=== PATIENT | male | born 1945 | race Caucasian/White ===

== ENCOUNTER → 2017-11-10 07:48 | Outpatient (CLI) | payer MEDICARE, MEDICAID, SELFPAY | PROVIDERS: PCP Family Medicine; Visit Provider Family Medicine | DX: E11.9 Type 2 diabetes mellitus without complications (principal); Z86.73 Personal history of transient ischemic attack (TIA), and cerebral infarction without residual deficits; R29.6 Repeated falls | CPT/HCPCS: 99304 ==

== ENCOUNTER 2017-12-27 14:23 | Outpatient (CLI) | payer MEDICARE, MEDICAID, SELFPAY ==
[2017-12-27 14:48] LABS: Abs Immature Grans 0.09 k/cumm (0.0-0.09); Absolute Basophil Count 0.05 k/cumm (0.0-0.2); Absolute Eosinophil Count 0.05 k/cumm (0.0-0.7); Absolute Lymphocyte Count 1.88 k/cumm (1.2-3.4); Absolute Monocyte Count 1.55 k/cumm (0.11-0.7); Absolute Neutrophil Count 5.48 k/cumm (1.2-6.7); Basophils % 0.5; Eosinophils % 0.5; HCT 39.2 % (40.0-50.0); HGB 12.9 g/dL (13.5-17.5); Lymphocytes % 20.7; Mean Corp. HGB Concentration 32.9 g/dL (32.0-36.0); Mean Corpuscular Hemoglobin 33.5 pg (27.0-33.0); Mean Corpuscular Volume 101.8 fL (80-95); Mean Platelet Volume 12.2 fL (8.0-11.0); Neutrophils % 60.3; Platelet Count 121 x1000/uL (130-400); RBC 3.85 m/cumm (4.50-6.00); RBC Distribution Width 13.7 % (11.8-14.1)
[2017-12-27 15:04] LABS: Polychromasia Present
[2017-12-27 15:36] LABS: ALT 36 U/L (12-78); AST 25 U/L (15-37); Albumin 3.7 g/dL (3.4-5.0); Alkaline Phosphatase 57 U/L (46-116); Anion Gap 12.7 mmol/L (3-11); BUN 35 mg/dL (7-18); Bilirubin, Total 0.2 mg/dL (0.2-1.0); CO2 24.3 mmol/L (21.0-32.0); CREATININE 2.04 mg/dL (0.70-1.30); Chloride 105 mmol/L (98-107); Estimated GFR 32.08 (mL/min/1.73m2); Glucose 93 mg/dL (70-100); Sodium 142 mmol/L (136-145); Total Protein 7.2 g/dL (6.4-8.2)
[2017-12-27 16:22] LABS: Hemoglobin A1C 7.2 % (4.5-6.2)
[2017-12-28 11:35] LABS: CEA <0.5 ng/ml
== END 2017-12-27 14:43 ==
PROVIDERS: PCP Family Medicine; Visit Provider Nurse Practitioner Adult Health
DX: E11.40 Type 2 diabetes mellitus with diabetic neuropathy, unspecified (principal); C18.2 Malignant neoplasm of ascending colon
CPT/HCPCS: 36415; 80053; 82378; 83036; 85025

== ENCOUNTER 2017-12-30 00:17 | Outpatient (CLI) | payer MEDICARE, MEDICAID, SELFPAY ==
[2017-12-30] MEDS: Breeza Beverage 473 ML BTL PO ×2 (09:14)
[2017-12-30] MEDS: Omnipaque 350 MG/ML 50 ML BTL IJ (09:15)
--- NOTE | 2017-12-30 10:52 | DI.CT_ITS ---
SYMPTOM/DIAGNOSIS: ASCENDING COLON NEOPLASM C18.2, RESTAGING CT CHEST, ABDOMEN AND PELVIS: Noncontrast examination was performed. Comparison is 11/04/16. CT ABDOMEN AND PELVIS: The lack of IV contrast does limit evaluation of the abdominal organs. There is diffuse hepatic steatosis. The gallbladder is negative. No biliary ductal dilatation is seen. The pancreas, spleen and adrenal glands are unremarkable. The kidneys show bilateral renal cysts. There is a large nonobstructing stone in the left renal pelvis now measuring 1.4 cm in length. The urinary bladder is intact. The prostate gland is enlarged and unchanged. There is atherosclerosis of the abdominal aorta but no aneurysmal dilatation is present. No significant abdominal or pelvic adenopathy, ascites or pneumoperitoneum is present. There is diverticulosis of the sigmoid colon but no evidence of acute diverticulitis. The patient is status post right colectomy. The bowel shows no evidence of obstruction, inflammation or infection. No lytic or sclerotic lesions are seen in the bones. IMPRESSION: No evidence of abdominal or pelvic metastatic disease. CT CHEST: There is atherosclerosis of the thoracic aorta but no aneurysmal dilatation. Heart size is within normal limits. No significant pericardial effusion seen. Coronary artery calcifications are present. No significant thoracic adenopathy is identified. No pleural effusion or pneumothorax is identified. Mild dependent atelectatic changes are seen in the lungs. There has been no change in size of the 0.5 cm noncalcified pulmonary nodule in the right lower lobe. No new nodules are seen. The tracheobronchial tree is unremarkable. Degenerative changes are seen in the spine. No suspicious lytic or sclerotic lesions are identified. IMPRESSION: No evidence of thoracic metastatic disease.
== END 2017-12-30 00:37 ==
PROVIDERS: PCP Family Medicine; Visit Provider Nurse Practitioner Adult Health
DX: C18.2 Malignant neoplasm of ascending colon (principal)
CPT/HCPCS: 71250; 74176; Q9967

== ENCOUNTER 2018-01-23 01:41 | Emergency (ER) | payer MEDICARE, MEDICAID, SELFPAY ==
[2018-01-23] VITALS (34 sets, daily range): BP systolic 104–158; BP diastolic 46–82; PULSE 66–82; RESP 12–22; TEMP 36.9; O2SAT 81–94
--- NOTE | 2018-01-23 01:49 | DI.CT_ITS ---
SYMPTOM/DIAGNOSIS: RT SIDED WEAKNESS NONCONTRAST HEAD CT: Comparison is made with 05/28/17. There is no change in an old large right MCA territory infarct. No acute infarct, hemorrhage or mass is seen. There is mild atrophy and white matter changes of small vessel disease. There is incidently noted to be prominent falcine calcification. The ventricles are unchanged. The sinuses and mastoid air cells appear clear. IMPRESSION: Old right MCA infarct. No acute abnormality.
--- NOTE | 2018-01-23 01:52 | DI.CT_ITS ---
SYMPTOM/DIAGNOSIS: RT SIDED WEAKNESS BRAIN AND NECK CTA: BRAIN: CT angiography was performed with multi slice acquisition and multi planar and 3D reconstruction. There is no evidence of occlusion or significant stenosis. No aneurysm is visible. No abnormal enhancing lesions are identified. IMPRESSION: No evidence of a significant stenosis or aneurysm. NECK: There is narrowing by atherosclerotic plaque of the proximal right internal carotid artery with approximately 50% stenosis bilaterally. The common and external carotid arteries as well as vertebral arteries show no significant stenosis. No lytic or blastic lesions are identified. IMPRESSION: Moderate degree of stenosis of the proximal internal carotid arteries bilaterally. No evidence of dissection.
--- NOTE | 2018-01-23 01:58 | W.ED.GENAD ---
Discharge Plan Disposition Condition: Fair Discharge Details Chief Complaint: CVA/TIA Primary Care Provider: Hever Presley ED Provider: Jamal Coello Home Meds and New Rx's Prescriptions: No Action C-Pap RF: 0 lancets [OneTouch Delica Lancets] 1 EACH misc 1 ea Miscellaneous QID Qty: 200 RF: 4 MARC GONZALEZ cream 1 gm Topical Q 6 PRN RF: 0 incontinence pad, liner, disp [Prevail Pant Liner] 1 EACH pad 1 box Miscellaneous TID Qty: 3 RF: 5 simvastatin 40 MG tablet 40 mg PO QPM Qty: 90 RF: 4 pen needle, diabetic [BD Ultra-Fine Ana Pen Needle] 1 EACH needle 1 ea Miscellaneous 8 time a day Qty: 240 RF: 11 montelukast 10 MG tablet 10 mg PO DAILY Qty: 90 RF: 4 insulin syringe-needle U-100 [Insulin Syringe MicroFine] 1 EACH syringe 1 ea Miscellaneous QID Qty: 200 RF: 4 blood sugar diagnostic [OneTouch Ultra Test] 1 EACH strip 1 ea Miscellaneous TID Qty: 200 RF: 4 ergocalciferol (vitamin D2) [Vitamin D2] 50,000 UNIT capsule 1 tab-cap PO monthly Qty: 3 RF: 4 Lactobacillus acidophilus 1 EACH capsule 1 cap PO DAILY Qty: 90 RF: 4 tamsulosin 0.4 MG capsule 2 cap PO DAILY Qty: 180 RF: 4 insulin aspart U-100 [Novolog Flexpen U-100 Insulin] 300 UNITS/3 ML insulin pen 60 units Sub-Q AC Qty: 45 RF: 4 diclofenac sodium 100 GM gel Topical BID Qty: 100 RF: 0 meprobamate 400 MG tablet 2 tab PO HS PRNQty: 180 RF: 3 diphenoxylate-atropine 1 EACH tablet 1 - 2 tab PO TID PRNQty: 90 RF: 4 olanzapine 5 MG tablet 5 mg PO DAILY Qty: 90 RF: 4 clopidogrel [Plavix] 75 MG tablet 75 mg PO HS Qty: 90 RF: 4 pantoprazole 40 MG tablet,delayed release (DR/EC) 40 mg PO HS Qty: 90 RF: 4 losartan 25 MG tablet 25 mg PO DAILY Qty: 30 RF: 0 mirabegron [Myrbetriq] 50 MG tablet extended release 24 hr 50 mg PO DAILY Qty: 90 RF: 4 acetaminophen 500 MG tablet 1,000 mg PO Q4H PRN RF: 0 guaifenesin [Tussin Expectorant] 100 MG/5 ML liquid 200 mg PO Q4H PRN RF: 0 U-500 syringe 1 ea Sub-Q TID Qty: 90 RF: 11 diltiazem HCl [Cardizem CD] 120 MG capsule,extended release 24hr 120 mg PO DAILY Qty: 90 RF: 4 duloxetine 60 MG capsule,delayed release(DR/EC) 60 mg PO HS Qty: 90 RF: 4 insulin regular hum U-500 conc [Humulin R U-500 (Conc) Insulin] 500 unit/mL solution See Label Instructions Sub-Q TID Qty: 3 RF: 5 ipratropium-albuterol 0.5 mg-3 mg(2.5 mg base)/3 mL solution for nebulization 3 ml IH QID PRN (Reason: wheezing) Qty: 90 RF: 3 nebulizers [Compact Compressor Nebulizer] misc .ROUTE .MEDSUPPLY Qty: 1 RF: 0 oxybutynin chloride 5 mg tablet extended release 24hr 5 mg PO DAILY Qty: 90 RF: 4 ascorbic acid (vitamin C) [Vitamin C] 500 MG tablet 500 mg PO DAILY RF: 0 multivitamin 1 EACH capsule 1 cap PO DAILY RF: 0 aspirin 81 MG tablet,delayed release (DR/EC) 81 mg PO DAILY Qty: 30 RF: 0 ferrous sulfate 325 MG tablet 1 tab PO BID RF: 0 gabapentin 100 MG capsule 100 mg PO TID RF: 0 Medical Decision Making 72 yo male with hx of multiple recurrent right hemispheric strokes (2000, 2001, 2002, 2005, 2013, and 2 in 2016), htn, hld, t2dm, kaycee, who comes in with right arm weakness. He has chronic left arm and leg weakness from prior strokes and decreased sensation in this limbs which is not new but does have right arm weakness on the right as well as drift in the right leg that is new and is also having difficulties with fine motor in the right hand which is new. He staes he went to bed around 530pm and woke up around 115am and felt off. He got up to get something to eat as he thought maybe his sugar was low. 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 He is likely having a cva, less likely tia given still has deficits. He is outside window for tpa at this time, will image to eval for possible interventional lesion and eval for electrolyte abnormaliteis and monitor. NIH 7 (1-left arm drift, 1-right arm drift, 1-left leg drift, 1-right leg drift, 2-ataxia in right arm and right leg, 1-sensation). He did report left shoulder pain to ems but has absolutely no pain on my exam even with rom and palpation so doubt fx at this time Differential Diagnosis cva, tia, electrolyte abnormality HPI General Mode of arrival: EMS. Date/Time Provider Initiated Documentation: 01/23/18 01:47. Limitations to Documentation: no limitations. Information obtained by: patient. History of Present Illness 72 year old M presents to the emergency department with the chief complaint of right sided weakness, described as moderate, and is localized to the right and upper extremity. Patient reports no radiation. No relieving factors improve symptom(s), No exacerbating factors reported . Patient notes no other symptoms.. Patient did receive the following treatments prior to arrival, none Related Data Home Medications Medication Instructions Recorded Confirmed ascorbic acid (vitamin C) [Vitamin 500 mg PO DAILY 04/16/13 12/27/17 C] multivitamin 1 cap PO DAILY 04/16/13 12/27/17 lancets [OneTouch Delica Lancets] #200 ea 09/26/15 12/27/17 aspirin 81 mg PO DAILY #30 tabec 01/21/16 12/27/17 ferrous sulfate 1 tab PO BID 03/18/16 12/27/17 Marc Gonzalez 1 gm TOPICAL Q 6 PRN 03/23/16 12/27/17 incontinence pad, liner, disp #3 07/29/16 12/27/17 [Prevail Pant Liner] simvastatin 40 mg PO QPM #90 tab 08/09/16 12/27/17 pen needle, diabetic [BD #240 ea 08/19/16 12/27/17 Ultra-Fine Ana Pen Needle] montelukast 10 mg PO DAILY #90 mg 11/04/16 12/27/17 insulin syringe-needle U-100 #200 ea 11/09/16 12/27/17 [Insulin Syringe MicroFine] blood sugar diagnostic [OneTouch #200 strip 01/06/17 12/27/17 Ultra Test] ergocalciferol (vitamin D2) 1 tab-cap PO monthly #3 tab-cap 01/06/17 12/27/17 [Vitamin D2] Lactobacillus acidophilus 1 cap PO DAILY #90 cap 02/01/17 12/27/17 tamsulosin 2 cap PO DAILY #180 cap 02/07/17 12/27/17 insulin aspart U-100 [Novolog 60 units SUB-Q AC #45 pen 03/17/17 12/27/17 Flexpen] diclofenac sodium 0 TOPICAL BID #100 gm 03/18/17 12/27/17 meprobamate 2 tab PO HS PRN #180 tab 07/11/17 12/27/17 gabapentin 100 mg PO TID 08/08/17 12/27/17 diphenoxylate-atropine 1 - 2 tab PO TID PRN #90 tab-cap 09/05/17 clopidogrel [Plavix] 75 mg PO HS #90 tab 10/14/17 12/27/17 losartan 25 mg PO DAILY #30 tab 10/14/17 12/27/17 mirabegron [Myrbetriq] 50 mg PO DAILY #90 tab-cap 10/14/17 12/27/17 olanzapine 5 mg PO DAILY #90 tab-cap 10/14/17 12/27/17 pantoprazole 40 mg PO HS #90 tab 10/14/17 12/27/17 acetaminophen 1,000 mg PO Q4H PRN tab-cap 11/08/17 12/27/17 guaifenesin [Tussin] 200 mg PO Q4H PRN ml 11/08/17 12/27/17 diltiazem HCl [Cardizem Cd] 120 mg PO DAILY #90 cap.er.24h 11/29/17 duloxetine 60 mg PO HS #90 cap 11/29/17 12/27/17 insulin regular human See Label Instructions SUB-Q TID 01/12/18 U-500concentrate 500 unit/mL #3 vial subcutaneous soln ipratropium-albuterol 0.5 mg-3 3 ml IH QID PRN #90 ml 01/13/18 mg(2.5 mg base)/3 mL nebulization soln nebulizers #1 each 01/13/18 oxybutynin chloride ER 5 mg 5 mg PO DAILY #90 tab-cap 01/16/18 tablet,extended release 24 hr Previous Rx's Medication Instructions Recorded aspirin 81 mg PO DAILY #30 tabec 01/21/16 blood sugar diagnostic [OneTouch #200 strip 01/06/17 Ultra Test] ergocalciferol (vitamin D2) 1 tab-cap PO monthly #3 tab-cap 01/06/17 [Vitamin D2] Lactobacillus acidophilus 1 cap PO DAILY #90 cap 02/01/17 tamsulosin 2 cap PO DAILY #180 cap 02/07/17 insulin aspart U-100 [Novolog 60 units SUB-Q AC #45 pen 03/17/17 Flexpen] clopidogrel [Plavix] 75 mg PO HS #90 tab 10/14/17 losartan 25 mg PO DAILY #30 tab 10/14/17 mirabegron [Myrbetriq] 50 mg PO DAILY #90 tab-cap 10/14/17 olanzapine 5 mg PO DAILY #90 tab-cap 10/14/17 pantoprazole 40 mg PO HS #90 tab 10/14/17 diltiazem HCl [Cardizem Cd] 120 mg PO DAILY #90 cap.er.24h 11/29/17 duloxetine 60 mg PO HS #90 cap 11/29/17 insulin regular human See Label Instructions SUB-Q TID 01/12/18 U-500concentrate 500 unit/mL #3 vial subcutaneous soln ipratropium-albuterol 0.5 mg-3 3 ml IH QID PRN #90 ml 01/13/18 mg(2.5 mg base)/3 mL nebulization soln nebulizers #1 each 01/13/18 oxybutynin chloride ER 5 mg 5 mg PO DAILY #90 tab-cap 01/16/18 tablet,extended release 24 hr Allergies Allergy/AdvReac Type Severity Reaction Status Date / Time tetracycline Allergy Unknown Unverified 12/27/17 13:15 propofol AdvReac Severe drops BP Unverified 12/27/17 13:[address] oxycodone AdvReac Intermediate Agitation Unverified 12/27/17 13:15 tetrex Allergy Unknown Uncoded 12/27/17 13:15 General Stated Complaint: CVA/TIA PETER: 2 Review of Systems Review of Systems All systems reviewed & are unremarkable except as noted in HPI and below Constitutional Denies chills and Denies fever(s) Eyes Denies loss of vision ENT Denies change in voice Cardiovascular Denies chest pain and Denies dyspnea Respiratory Denies dyspnea Gastrointestinal Denies abdominal pain, Denies nausea and Denies vomiting Genitourinary Denies dysuria Musculoskeletal Denies joint swelling Integumentary/Breasts Denies rash Neurologic Denies loss of vision Psychiatric Denies depression PFSH Family History Mother Essential hypertension Heart disease Father No problems noted. Sister Essential hypertension Brother Essential hypertension Grandfather Heart disease Grandfather Heart disease Grandmother Heart disease Grandmother No problems noted. Social History current occupational status: disabled Smoking/Tobacco Use Status: Former Tobacco Use alcohol intake: never Surgical History Appendectomy Arthroplasty of knee HERNIA REPAIR LOW BACK SURGERY PROPOFOL SEDATION Tonsillectomy UPPP (Uvulopalatopharyngoplasty) Exam Const General: no acute distress Orientation: alert [facility] Head: normal to inspection Ears: external ears normal General nose exam: external nose normal Mouth: moist mucous membranes Eyes General: appearance normal, both eyes and all related structures Neck Neck: normal visual inspection Resp Effort & Inspection: normal respiratory effort and able to speak in complete sentences Cardio Rate: regular rate Skin General skin exam: no rashes or lesions noted Neuro General: alert, oriented x3 and other Cranial Nerves: CN's II-XI intact bilaterally Cognition: normal cognition Speech: speech normal Motor: other (bulk and tone intact, decreased fine motor movements on the left with left pronator drift which is chronic for him. Strength is 4/5 on the right which is new for him. 4/ 5 in the left upper extremity, chronic. 4/5 strength proximally in the left leg, chronic ) Sensory Exam: other (decreased sensation to light touch to left lower extremity that is chronic, has decreased light touch on the right arm which he states is new) Other: hyporeflexic throughout with right toe downgoing and left toe neutral Extrem General: normal to inspection Psych Mental Status: mental status grossly normal Course Vital Signs Temperature 36.9 C 01/23/18 01:48 Pulse 69 01/23/18 01:48 Respiratory Rate 22 01/23/18 01:48 Blood Pressure 126/64 01/23/18 01:48 Pulse Oximetry 91 L 01/23/18 01:48 Temperature 36.9 C 01/23/18 01:48 Temperature Source Temporal Artery Scan 01/23/18 01:48 Pulse 69 01/23/18 01:48 Respiratory Rate 20 01/23/18 01:54 Respiratory Effort 01/23/18 01:54 Respiratory Depth Normal 01/23/18 01:54 Blood Pressure 126/64 01/23/18 01:48 Pulse Oximetry 91 L 01/23/18 01:48 Oxygen Delivery Method Room Air 01/23/18 01:48 Oxygen Flow Rate 0 01/23/18 01:48 Pain Level 0 01/23/18 01:48
[2018-01-23 02:10] LABS: Abs Immature Grans 0.13 k/cumm (0.0-0.09); HCT 41.7 % (40.0-50.0); HGB 13.5 g/dL (13.5-17.5); Mean Corp. HGB Concentration 32.4 g/dL (32.0-36.0); Mean Corpuscular Hemoglobin 33.3 pg (27.0-33.0); Mean Platelet Volume 11.9 fL (8.0-11.0); Platelet Count 137 x1000/uL (130-400); RBC 4.05 m/cumm (4.50-6.00); RBC Distribution Width 13.8 % (11.8-14.1); White Blood Cell Count 11.18 k/cumm (4.4-10.8)
[2018-01-23 02:25] LABS: ALT 37 U/L (12-78); AST 31 U/L (15-37); Albumin 3.6 g/dL (3.4-5.0); Alkaline Phosphatase 66 U/L (46-116); Anion Gap 11.8 mmol/L (3-11); BUN 28 mg/dL (7-18); Bilirubin, Total 0.3 mg/dL (0.2-1.0); CO2 27.2 mmol/L (21.0-32.0); CREATININE 2.15 mg/dL (0.70-1.30); Calcium 9.1 mg/dL (8.5-10.1); Chloride 103 mmol/L (98-107); Glucose 155 mg/dL (70-100); Magnesium 1.6 mg/dL (1.8-2.4); Potassium 3.9 mmol/L (3.5-5.1); Sodium 142 mmol/L (136-145); Total Protein 7.7 g/dL (6.4-8.2)
[2018-01-23 02:26] LABS: Troponin I < 0.02 ng/mL (0.00-0.06)
[2018-01-23 02:36] LABS: Absolute Neutrophil Count 8.72 k/cumm (1.2-6.7)
[2018-01-23 02:37] LABS: Absolute Eosinophil Count 0.11 k/cumm (0.0-0.7); Absolute Lymphocyte Count 1.23 k/cumm (1.2-3.4); Absolute Monocyte Count 1.12 k/cumm (0.11-0.7); Atypical Lymphocytes % 2; Diff Comment Manual Differential; Prothrombin Time 10.1 sec (9.3-10.8); RBC Morphology Normal
[2018-01-23 02:51] LABS: ALT 40 U/L (12-78); AST 30 U/L (15-37); Albumin 3.7 g/dL (3.4-5.0); Alkaline Phosphatase 69 U/L (46-116); Bilirubin, Direct 0.09 mg/dL (0.00-0.20); Bilirubin, Total 0.3 mg/dL (0.2-1.0); Total Protein 7.5 g/dL (6.4-8.2)
--- NOTE | 2018-01-23 03:01 | DI.VRAD_ITS ---
EXAM: CT Head Without Intravenous Contrast EXAM DATE/TIME: 01/23/2018 1:50 AM CLINICAL HISTORY: 72 years old, male; Signs and symptoms; Other: Fall, HX strokes TECHNIQUE: Axial computed tomography images of the head/brain without intravenous contrast. All CT scans at this facility use at least one of these dose optimization techniques: automated exposure control; mA and/or kV adjustment per patient size (includes targeted exams where dose is matched to clinical indication); or iterative reconstruction. Coronal and sagittal reformatted images were created and reviewed. COMPARISON: CT HEAD WITHOUT CONTRAST 05/28/2017 2:12 PM FINDINGS: Brain: Chronic right MCA territory infarct. Age-related involutional changes and chronic microvascular ischemic disease. No evidence for acute transcortical infarct. No mass effect or midline shift. No extra-axial collection. No acute intracranial hemorrhage. Basal cisterns are patent. Ventricles: Ex vacuo dilatation of the right lateral ventricle. Bones/joints: Normal. No acute fracture. Sinuses: Normal as visualized. No acute sinusitis. Mastoid air cells: Tympanomastoid cavities are clear. Orbits: Bilateral cataract surgery. Soft tissues: Normal. IMPRESSION: No evidence for acute transcortical infarct, acute intracranial hemorrhage, or mass effect. [place] Stroke Program Early CT Score (ASPECTS) = 10 Dictated and Authenticated by: Aric Dias MD. Ordering:MATT GONCALVES MD
[2018-01-23] MEDS: Omnipaque 350 MG/ML 100 ML BTL IJ (03:02)
--- NOTE | 2018-01-23 03:25 | DI.VRAD_ITS ---
EXAM: CT Angiography Head With Intravenous Contrast EXAM DATE/TIME: 01/23/2018 2:34 AM CLINICAL HISTORY: 72 years old, male; Signs and symptoms; Other: Fall, HX strokes TECHNIQUE: Axial computed tomographic angiography images of the head with intravenous contrast using CT angiography protocol. All CT scans at this facility use at least one of these dose optimization techniques: automated exposure control; mA and/or kV adjustment per patient size (includes targeted exams where dose is matched to clinical indication); or iterative reconstruction. Coronal and sagittal reformatted images were created and reviewed. MIP reconstructed images were created and reviewed. COMPARISON: CT brain neck CTA 01/23/2018 1:57 AM FINDINGS: Right internal carotid artery: Intracranial segment is patent with no significant stenosis. No aneurysm. Right anterior cerebral artery: No occlusion or significant stenosis. No aneurysm. Right middle cerebral artery: No occlusion or significant stenosis. No aneurysm. Right posterior cerebral artery: No occlusion or significant stenosis. No aneurysm. Right vertebral artery: No occlusion or significant stenosis. No aneurysm. Left internal carotid artery: Intracranial segment is patent with no significant stenosis. No aneurysm. Left anterior cerebral artery: No occlusion or significant stenosis. No aneurysm. Left middle cerebral artery: No occlusion or significant stenosis. No aneurysm. Left posterior cerebral artery: No occlusion or significant stenosis. No aneurysm. Left vertebral artery: No occlusion or significant stenosis. No aneurysm. Basilar artery: No occlusion or significant stenosis. No aneurysm. IMPRESSION: No significant stenosis or aneurysm. EXAM: CT Angiography Neck With Intravenous Contrast EXAM DATE/TIME: 01/23/2018 2:34 AM CLINICAL HISTORY: 72 years old, male; Signs and symptoms; Other: Fall, HX strokes TECHNIQUE: Axial computed tomographic angiography images of the neck with intravenous contrast using CT angiography protocol. All CT scans at this facility use at least one of these dose optimization techniques: automated exposure control; mA and/or kV adjustment per patient size (includes targeted exams where dose is matched to clinical indication); or iterative reconstruction. Coronal and sagittal reformatted images were created and reviewed. The MIP reconstructed images were created and reviewed. COMPARISON: CT brain neck CTA 01/23/2018 1:57 AM FINDINGS: VASCULATURE: Right common carotid artery: No significant stenosis. No dissection or occlusion. Right internal carotid artery: Atherosclerotic disease involving the origin of the right internal carotid artery resulting in approximately 50-60% stenosis. Right external carotid artery: No occlusion or significant stenosis. Right vertebral artery: No significant stenosis. No dissection or occlusion. Left common carotid artery: No significant stenosis. No dissection or occlusion. Left internal carotid artery: Atherosclerotic disease involving the origin of the left internal carotid artery resulting in approximately 50-60% stenosis. Left external carotid artery: No occlusion or significant stenosis. Left vertebral artery: No significant stenosis. No dissection or occlusion. NECK: Bones/joints: No acute fracture. IMPRESSION: Atherosclerotic disease involving the origins of the internal carotid arteries resulting in moderate stenosis bilaterally. COMMENT: Degree of carotid stenosis was determined using NASCET or SRU criteria. Mild: <50% stenosis. Moderate: 50-69% stenosis. Severe: 70-94% stenosis. Near occlusion: 95-99% stenosis. Occluded: 100% stenosis. Dictated and Authenticated by: Aric Dias MD. Ordering:MATT GONCALVES MD
--- NOTE | 2018-01-23 08:00 | PDOC.ERCMPRO ---
Care Management Progress Note 01/23-Dr. Coello requested assistance with a Palliative Care referral. Patient has had multiple strokes and multiple falls. Referral faxed to Palliative Care today.
== END 2018-01-23 06:36 | disposition home or self-care (01) ==
PROVIDERS: Emergency Provider Emergency Medicine; PCP Family Medicine
DX: R53.1 Weakness (principal); I69.854 Hemiplegia and hemiparesis following other cerebrovascular disease affecting left non-dominant side; I10 Essential (primary) hypertension
CPT/HCPCS: 36415; 70496; 70498; 80053; 80076; 93005; 99285; 70450; 83735; 84484; 85025; 85610; 93010; 99284; J3490

== ENCOUNTER 2018-02-03 15:31 | Inpatient (IN) | payer MEDICARE, MEDICAID, SELFPAY ==
--- NOTE | 2018-02-03 15:52 | W.ED.GENAD ---
Discharge Plan Disposition Condition: Improving Discharge Details Chief Complaint: GenMedical Reason For Visit: HYPOXIA Admit Date/Time: 02/05/18 16:30 Admit Provider: Brett Daily Attending Provider: Brett Daily Primary Care Provider: Hever Presley ED Provider: Hank Bautista Discharge Instructions Activity:: Activity as Tolerated Equipment/Supplies:: 2 liters with cpap while sleeping Diet:: As Tolerated Discharge Orders Discharge Orders: Discharge Order (Routine); Ordered 02/06/18 Ordered By: Edna Calix Discharge Data Discharge Date/Time-TO BE ENTERED AT DEPARTURE: 02/03/18 20:50 Medical Decision Making 15:50 --72-year-old male with multiple medical problems including history of CVA with residual left-sided weakness, cognitive deficit and vascular dementia, hypertension, diabetes, colon cancer status post resection, sent from primary care office for somnolence and hypoxia. Patient saturations improved on oxygen here. Unclear etiology for hypoxia. Consider pulmonary embolism. Patient appears pale consider GI bleed. Hemoccult positive. ECG reviewed and interpreted by me: Sinus rhythm 84 bpm, normal axis, no STEMI, nondiagnostic. 18:50 -- Patient reassessed and remains hypoxic low 90s upper 80s when supplemental oxygen off. CT of the chest interpreted by radiology: There are coronary artery calcifications, otherwise the heart and pericardium are within normal limits. There are arterial sclerotic changes of the aorta. No evidence of pulmonary embolism. Study is limited due to motion. Labs reviewed and nondiagnostic. Troponin and BNP normal. Mild anemia noted. Given Hemoccult positive stool, pale appearance and mild anemia, I am going to admit for observation, serial hemoglobins. -- I spoke with hospitalist who will admit. Care transferred to hospitalist. HPI General Date/Time Provider Initiated Documentation: 02/03/18 15:31. HPI Narrative: 72-year-old male with multiple medical problems including history of CVA with residual left-sided weakness, cognitive deficit and vascular dementia, hypertension, diabetes, colon cancer status post resection, sent from primary care office for somnolence and hypoxia. Patient saturating in the 70s at PCP office. Patient notes that he does have shortness of breath but this is chronic. Patient denies pain. No bleeding or black stool. Patient seems to be a poor historian limiting both history and review of systems. Related Data Home Medications Medication Instructions Recorded Confirmed ascorbic acid (vitamin C) [Vitamin 500 mg PO DAILY 04/16/13 02/13/18 C] multivitamin 1 cap PO DAILY 04/16/13 02/13/18 lancets [OneTouch Delica Lancets] #200 ea 09/26/15 02/09/18 aspirin 81 mg PO DAILY #30 tabec 01/21/16 02/09/18 ferrous sulfate 1 tab PO BID 03/18/16 02/13/18 Ron Eubanks 1 gm TOPICAL Q 6 PRN 03/23/16 02/09/18 incontinence pad, liner, disp #3 07/29/16 02/09/18 [Prevail Pant Liner] pen needle, diabetic [BD #240 ea 08/19/16 02/09/18 Ultra-Fine Ana Pen Needle] montelukast 10 mg PO DAILY #90 mg 11/04/16 02/13/18 insulin syringe-needle U-100 #200 ea 11/09/16 02/09/18 [Insulin Syringe MicroFine] blood sugar diagnostic [OneTouch #200 strip 01/06/17 02/09/18 Ultra Test] ergocalciferol (vitamin D2) 1 tab-cap PO monthly #3 tab-cap 01/06/17 02/13/18 [Vitamin D2] Lactobacillus acidophilus 1 cap PO DAILY #90 cap 02/01/17 02/13/18 tamsulosin 2 cap PO DAILY #180 cap 02/07/17 02/13/18 insulin aspart U-100 [Novolog 60 units SUB-Q AC #45 pen 03/17/17 02/13/18 Flexpen U-100 Insulin] diclofenac sodium 1 appful TOPICAL BID #100 gm 03/18/17 02/13/18 gabapentin 100 mg PO TID 08/08/17 02/13/18 diphenoxylate-atropine 1 - 2 tab PO TID PRN #90 tab-cap 09/05/17 02/13/18 clopidogrel [Plavix] 75 mg PO HS #90 tab 10/14/17 02/13/18 losartan 25 mg PO DAILY #30 tab 10/14/17 02/13/18 mirabegron [Myrbetriq] 50 mg PO DAILY #90 tab-cap 10/14/17 02/13/18 olanzapine 5 mg PO DAILY #90 tab-cap 10/14/17 02/13/18 pantoprazole 40 mg PO HS #90 tab 10/14/17 02/13/18 acetaminophen 1,000 mg PO Q4H PRN tab-cap 11/08/17 02/13/18 guaifenesin [Tussin Expectorant] 200 mg PO Q4H PRN ml 11/08/17 02/13/18 diltiazem HCl [Cardizem CD] 120 mg PO DAILY #90 cap.er.24h 11/29/17 02/13/18 duloxetine 60 mg PO HS #90 cap 11/29/17 02/13/18 insulin regular human See Label Instructions SUB-Q TID 01/12/18 02/13/18 U-500concentrate 500 unit/mL #3 vial subcutaneous soln ipratropium-albuterol 0.5 mg-3 3 ml IH QID PRN #90 ml 01/13/18 02/13/18 mg(2.5 mg base)/3 mL nebulization soln nebulizers #1 each 01/13/18 02/09/18 oxybutynin chloride ER 5 mg 5 mg PO DAILY #90 tab-cap 01/16/18 02/13/18 tablet,extended release 24 hr simvastatin 40 mg tablet 40 mg PO QPM #90 tab 01/30/18 02/13/18 magnesium 400 mg (as magnesium 400 mg PO DAILY #90 tab 02/09/18 02/13/18 oxide) tablet meprobamate 400 mg tablet 800 mg PO HS PRN #180 tab 02/09/18 02/13/18 Previous Rx's Medication Instructions Recorded aspirin 81 mg PO DAILY #30 tabec 01/21/16 blood sugar diagnostic [OneTouch #200 strip 01/06/17 Ultra Test] ergocalciferol (vitamin D2) 1 tab-cap PO monthly #3 tab-cap 01/06/17 [Vitamin D2] Lactobacillus acidophilus 1 cap PO DAILY #90 cap 02/01/17 tamsulosin 2 cap PO DAILY #180 cap 02/07/17 insulin aspart U-100 [Novolog 60 units SUB-Q AC #45 pen 03/17/17 Flexpen U-100 Insulin] clopidogrel [Plavix] 75 mg PO HS #90 tab 10/14/17 losartan 25 mg PO DAILY #30 tab 10/14/17 mirabegron [Myrbetriq] 50 mg PO DAILY #90 tab-cap 10/14/17 olanzapine 5 mg PO DAILY #90 tab-cap 10/14/17 pantoprazole 40 mg PO HS #90 tab 10/14/17 diltiazem HCl [Cardizem CD] 120 mg PO DAILY #90 cap.er.24h 11/29/17 duloxetine 60 mg PO HS #90 cap 11/29/17 insulin regular human See Label Instructions SUB-Q TID 01/12/18 U-500concentrate 500 unit/mL #3 vial subcutaneous soln ipratropium-albuterol 0.5 mg-3 3 ml IH QID PRN #90 ml 01/13/18 mg(2.5 mg base)/3 mL nebulization soln nebulizers #1 each 01/13/18 oxybutynin chloride ER 5 mg 5 mg PO DAILY #90 tab-cap 01/16/18 tablet,extended release 24 hr simvastatin 40 mg tablet 40 mg PO QPM #90 tab 01/30/18 magnesium 400 mg (as magnesium 400 mg PO DAILY #90 tab 02/09/18 oxide) tablet meprobamate 400 mg tablet 800 mg PO HS PRN #180 tab 02/09/18 Allergies Allergy/AdvReac Type Severity Reaction Status Date / Time tetracycline Allergy Unknown Unverified 02/13/18 13:17 propofol AdvReac Severe drops BP Unverified 02/13/18 13:17 way down oxycodone AdvReac Intermediate Agitation Unverified 02/13/18 13:17 tetrex Allergy Unknown Uncoded 02/13/18 13:17 General PETER: 2 Review of Systems Review of Systems All systems reviewed & are unremarkable except as noted in HPI and below Constitutional Reports fatigue and Reports weakness Gastrointestinal Denies abdominal pain and Denies melena Neurologic Reports weakness Endocrine Reports fatigue PFSH Family History Mother Essential hypertension Heart disease Father Cancer Sister Essential hypertension Brother Essential hypertension Grandfather Heart disease Grandfather Heart disease Grandmother Heart disease Medical History Vascular dementia with behavior disturbance (Chronic 03/23/16) Malignant neoplasm of sigmoid colon (Chronic 02/21/15) Late, effect, 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) Diabetes mellitus (Chronic 05/04/11) Depressive disorder (Chronic 05/04/11) 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 (Chronic 03/09/07) Cerebrovascular accident (CVA) (Chronic 05/04/11) Social History caregiver/support person: Yes household members: spouse housing: house marital status: lives independently: No number of children: 1 senior care: No current occupational status: disabled pets and animals: Yes Hx Recent Travel: No well-balanced diet: rarely or never high-fat food intake: 3 or more times/day daily servings fruits/ve-1 eating out: rarely or never reads food labels: seldom or never Smoking/Tobacco Use Status: Former Tobacco Use alcohol intake: never Surgical History Appendectomy Arthroplasty of knee HERNIA REPAIR LOW BACK SURGERY PROPOFOL SEDATION Tonsillectomy UPPP (Uvulopalatopharyngoplasty) Exam Const General: cooperative and no acute distress HENMT Head: normocephalic and atraumatic Mouth: moist mucous membranes Eyes Conjunctivae: normal conjunctivae Sclera: normal sclerae Neck Neck: trachea midline and supple Resp Auscultation: clear to auscultation bilaterally, no rales, no rhonchi and no wheezes Cardio Jugular venous pressure: no JVD Rate: regular rate and not tachycardic Rhythm: regular rhythm GI Palpation: soft, not firm, no guarding, no masses, not rigid and nontender Skin General skin exam: no rashes or lesions noted Neuro General: alert, awake, tone normal and other (right sided weakness) Extrem General: no edema Psych Appearance: grossly normal
[2018-02-03 16:03] VITALS: BP 144/67; PULSE 80; RESP 21; TEMP 26.7; O2SAT 97
--- NOTE | 2018-02-03 16:31 | DI.CT_ITS ---
SYMPTOM/DIAGNOSIS: SOB, HYPOXIA PE CHEST CT: CT angiography was performed with multi slice acquisition and multi planar and 3D reconstruction. CT scan of the chest was performed according to the pulmonary embolus protocol. The examination is limited somewhat by patient motion artifact. Findings: There is no evidence of a pulmonary embolus. The thoracic aorta is normal caliber. There is mild atherosclerosis present. No aneurysmal dilatation is seen. Heart size is within normal limits. No significant pericardial effusion is present. No findings to suggest right ventricular dysfunction are seen. Coronary artery calcifications are present. No significant mediastinal, hilar or axillary adenopathy is present. No pleural effusion or pneumothorax is identified. Dependent atelectatic changes are seen in the lungs. No focal consolidating infiltrates or pneumothoraces are identified. The tracheobronchial tree is unremarkable. Upper abdominal images show bilateral renal cysts, the largest is seen in the upper pole of the left kidney and measures 6.8 cm. Age appropriate degenerative changes are seen in the spine. IMPRESSION: No evidence of a pulmonary embolus or thoracic aortic aneurysm.
[2018-02-03 16:54] LABS: Abs Immature Grans 0.08 k/cumm (0.0-0.09); HCT 39.3 % (40.0-50.0); HGB 12.8 g/dL (13.5-17.5); Mean Corp. HGB Concentration 32.6 g/dL (32.0-36.0); Mean Corpuscular Hemoglobin 33.5 pg (27.0-33.0); Mean Corpuscular Volume 102.9 fL (80-95); Mean Platelet Volume 12.3 fL (8.0-11.0); Platelet Count 114 x1000/uL (130-400); RBC 3.82 m/cumm (4.50-6.00); RBC Distribution Width 13.8 % (11.8-14.1); White Blood Cell Count 7.97 k/cumm (4.4-10.8)
[2018-02-03 17:04] LABS: Prothrombin Time 9.9 sec (9.3-10.8)
[2018-02-03 17:12] LABS: ALT 38 U/L (12-78); AST 27 U/L (15-37); Absolute Eosinophil Count 0.16 k/cumm (0.0-0.7); Absolute Lymphocyte Count 2.07 k/cumm (1.2-3.4); Absolute Monocyte Count 1.35 k/cumm (0.11-0.7); Absolute Neutrophil Count 4.22 k/cumm (1.2-6.7); Albumin 3.3 g/dL (3.4-5.0); Alkaline Phosphatase 61 U/L (46-116); Anion Gap 10.2 mmol/L (3-11); Atypical Lymphocytes % 0; BUN 26 mg/dL (7-18); Bilirubin, Total 0.2 mg/dL (0.2-1.0); CO2 28.8 mmol/L (21.0-32.0); CREATININE 1.75 mg/dL (0.70-1.30); Calcium 8.5 mg/dL (8.5-10.1); Chloride 104 mmol/L (98-107); Diff Comment Manual Differential; Estimated GFR 38.29 (mL/min/1.73m2); Glucose 264 mg/dL (70-100); Magnesium 1.8 mg/dL (1.8-2.4); NT-proBNP 48 pg/mL; Potassium 4.3 mmol/L (3.5-5.1); Sodium 143 mmol/L (136-145); Total Protein 7.2 g/dL (6.4-8.2)
[2018-02-03 17:13] LABS: Anisocytosis 1+; Poikilocytes 1+; Troponin I < 0.02 ng/mL (0.00-0.06)
[2018-02-03] MEDS: Omnipaque 350 MG/ML 100 ML BTL IJ (18:01)
--- NOTE | 2018-02-03 18:37 | DI.VRAD_ITS ---
EXAM: CT Angiography Chest With Intravenous Contrast EXAM DATE/TIME: 02/03/2018 4:33 PM CLINICAL HISTORY: 72 years old, male; Signs and symptoms; Shortness of breath TECHNIQUE: Axial computed tomographic angiography images of the chest with intravenous contrast using CT angiography protocol. Coronal and sagittal reformatted images were created and reviewed. MIP reconstructed images were created and reviewed. COMPARISON: CT chest/abd/pel wo 12/30/2017 10:02 AM FINDINGS: Pulmonary arteries: There is no evidence of a pulmonary embolus. Aorta: There are arteriosclerotic changes of the aorta. Lungs: There are dependent atelectatic changes at the lung bases. The tracheobronchial tree is patent bilaterally. Pleural space: Normal. No pneumothorax. No pleural effusion. Heart: There are coronary artery calcifications. Otherwise the heart and pericardium are within normal limits. Thyroid: The visualized portions of the thyroid gland appear within normal limits. Bones/joints: There are slight degenerative changes of the thoracic spine. Soft tissues: Unremarkable. Lymph nodes: No enlarged lymph nodes. Gallbladder and bile ducts: The gallbladder is collapsed. Kidneys and ureters: There are bilateral renal cysts. The largest visualized left renal cyst measuring up to 6.7 cm. The largest visualized right renal cyst measured up to 3.9 cm. Other findings: The study is limited due to motion. IMPRESSION: No evidence of a pulmonary embolus. Study limited as above. Arteriosclerotic changes of the aorta. Bilateral renal cysts as above. Dictated and Authenticated by: Ganesh Franco MD. Ordering:CHRIS TINSLEY MD
--- NOTE | 2018-02-03 20:10 | HPE_ITS ---
Date of service: 02/03/18 Time of Service: 19:40 Assessment and Plan (1) Hypoxia: Current visit: Yes Status: Acute Hypoxia. I suspect whenever somnolence was observed in the office was secondary to this though he have not had any somnolence here in the emergency room at any rate the first step is to further characterize the issue with formal ABG. At this point I am thinking that either hypoventilation syndrome or COPD the most likely issues. Will update this report when ABG results are available. History of Present Illness Chief Complaint: Hypoxia and somnolence Narrative: Patient is a 72-year-old male with multiple medical problems including sleep apnea and a former smoker. He was in the office today and was noted to somnolent with O2 saturations in the 80s and was sent to the emergency room for evaluation. In the emergency room O2 saturations on supplemental oxygen were in the 90s. CT angiogram was negative for pulmonary embolism. He was admitted for further evaluation and management. Past medical history: Dementia DJD, depression, colon cancer status post partial colectomy, stroke, hyperlipidemia, BPH, GERD, hypertension,, diabetes. Allergies: Tetracycline, propofol, oxycodone. Medications: Tylenol vitamin C, aspirin, Plavix 75 at bedtime, topical diclofenac, Cardizem CD 120 daily Lomotil as needed, some duloxetine 60 at bedtime, vitamin D, iron, Neurontin 100 3 times daily, guaifenesin as needed, insulin unspecified dose as needed albuterol losartan 25 daily meprobamate 2 mg at bedtime Myrbetriq 50 daily Singulair 10 daily olanzapine 5 daily Ditropan ER 5 daily Protonix 40 at bedtime simvastatin 40 at bedtime Hytrin 2 mg daily. Physical exam: Blood pressure 144/67 pulse 80 respirations 21 O2 sat 97% on 4 L ; I remove the O2 and the sats are labile but mostly in the high 80s. HEENT is unremarkable. Neck is supple lungs are diminished but no wheezing is noted. Heart is distant but regular rate and rhythm. Abdomen is soft nontender. and rectal exams deferred extremities 1+ pedal edema. Neurological patient is oriented x3 there is a 4/5 left hemiparesis. Labs: White count 7.9 hematocrit 39 platelet 114 sodium 143 potassium 4.3 chloride 104 bicarb 20 BUN 26 creatinine 1.7 glucose 264 calcium 8.5 magnesium 1.8 total bili 0.2 AST 27 ALT 30 troponin negative BNP 48. CT angios negative for PE. ABG is pending. Review of Systems Review of Systems All systems reviewed & are unremarkable except as noted in HPI and below PFSH Family History Mother Essential hypertension Heart disease Father Cancer Sister Essential hypertension Brother Essential hypertension Grandfather Heart disease Grandfather Heart disease Grandmother Heart disease Medical History Vascular dementia with behavior disturbance (Chronic 03/23/16) Malignant neoplasm of sigmoid colon (Chronic 02/21/15) Late, effect, cerebrovascular disease (Chronic 03/09/07) Frontal lobe and executive function deficit following cerebral infarction ( Chronic 03/23/16) Diabetes mellitus (Chronic 05/04/11) Depressive disorder (Chronic 05/04/11) 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 (Chronic 03/09/07) Cerebrovascular accident (CVA) (Chronic 05/04/11) Social History caregiver/support person: Yes household members: spouse housing: house marital status: lives independently: No number of children: 1 retirement: No current occupational status: disabled pets and animals: Yes Hx Recent Travel: No well-balanced diet: rarely or never high-fat food intake: 3 or more times/day daily servings fruits/ve-1 eating out: rarely or never reads food labels: seldom or never Smoking/Tobacco Use Status: Former Tobacco Use alcohol intake: never Surgical History Appendectomy Arthroplasty of knee HERNIA REPAIR LOW BACK SURGERY PROPOFOL SEDATION Tonsillectomy UPPP (Uvulopalatopharyngoplasty) Meds Home Medications Medication Instructions Recorded Confirmed Type ascorbic acid (vitamin C) [Vitamin 500 mg PO DAILY 04/16/13 02/03/18 History C] multivitamin 1 cap PO DAILY 04/16/13 02/03/18 History C-Pap 09/25/13 02/03/18 Clinic lancets [OneTouch Delica Lancets] #200 ea 09/26/15 02/03/18 History aspirin 81 mg PO DAILY #30 tabec 01/21/16 02/03/18 Rx ferrous sulfate 1 tab PO BID 03/18/16 02/03/18 History Ron Eubanks 1 gm TOPICAL Q 6 PRN 03/23/16 02/03/18 History incontinence pad, liner, disp #3 07/29/16 02/03/18 History [Prevail Pant Liner] pen needle, diabetic [BD #240 ea 08/19/16 02/03/18 History Ultra-Fine Ana Pen Needle] montelukast 10 mg PO DAILY #90 mg 11/04/16 02/03/18 History insulin syringe-needle U-100 #200 ea 11/09/16 02/03/18 History [Insulin Syringe MicroFine] blood sugar diagnostic [OneTouch #200 strip 01/06/17 02/03/18 Rx Ultra Test] ergocalciferol (vitamin D2) 1 tab-cap PO monthly #3 tab-cap 01/06/17 02/03/18 Rx [Vitamin D2] Lactobacillus acidophilus 1 cap PO DAILY #90 cap 02/01/17 02/03/18 Rx tamsulosin 2 cap PO DAILY #180 cap 02/07/17 02/03/18 Rx insulin aspart U-100 [Novolog 60 units SUB-Q AC #45 pen 03/17/17 02/03/18 Rx Flexpen U-100 Insulin] diclofenac sodium 1 appful TOPICAL BID #100 gm 03/18/17 02/03/18 History meprobamate 2 tab PO HS PRN #180 tab 07/11/17 02/03/18 History gabapentin 100 mg PO TID 08/08/17 02/03/18 History diphenoxylate-atropine 1 - 2 tab PO TID PRN #90 tab-cap 09/05/17 02/03/18 History clopidogrel [Plavix] 75 mg PO HS #90 tab 10/14/17 02/03/18 Rx losartan 25 mg PO DAILY #30 tab 10/14/17 02/03/18 Rx mirabegron [Myrbetriq] 50 mg PO DAILY #90 tab-cap 10/14/17 02/03/18 Rx olanzapine 5 mg PO DAILY #90 tab-cap 10/14/17 02/03/18 Rx pantoprazole 40 mg PO HS #90 tab 10/14/17 02/03/18 Rx acetaminophen 1,000 mg PO Q4H PRN tab-cap 11/08/17 02/03/18 History guaifenesin [Tussin Expectorant] 200 mg PO Q4H PRN ml 11/08/17 02/03/18 History U-500 Syringe 1 ea SUB-Q TID #90 ea 11/11/17 02/03/18 Clinic diltiazem HCl [Cardizem CD] 120 mg PO DAILY #90 cap.er.24h 11/29/17 02/03/18 Rx duloxetine 60 mg PO HS #90 cap 11/29/17 02/03/18 Rx insulin regular human See Label Instructions SUB-Q TID 01/12/18 02/03/18 Rx U-500concentrate 500 unit/mL #3 vial subcutaneous soln ipratropium-albuterol 0.5 mg-3 3 ml IH QID PRN #90 ml 01/13/18 02/03/18 Rx mg(2.5 mg base)/3 mL nebulization soln nebulizers #1 each 01/13/18 02/03/18 Rx oxybutynin chloride ER 5 mg 5 mg PO DAILY #90 tab-cap 01/16/18 02/03/18 Rx tablet,extended release 24 hr simvastatin 40 mg tablet 40 mg PO QPM #90 tab 01/30/18 02/03/18 Rx Allergies Allergy/AdvReac Type Severity Reaction Status Date / Time tetracycline Allergy Unknown Unverified 02/03/18 17:00 propofol AdvReac Severe drops BP Unverified 02/03/18 17:00 way down oxycodone AdvReac Intermediate Agitation Unverified 02/03/18 17:00 tetrex Allergy Unknown Uncoded 02/03/18 17:00 Exam Narrative Exam Narrative: per HPI Results Labs : 02/03/18 16:20 02/03/18 16:20 Laboratory Results - last 24 hr 02/03/18 02/03/18 02/03/18 16:20 16:20 16:20 WBC 7.97 RBC 3.82 L Hgb 12.8 L Hct 39.3 L MCV 102.9 H MCH 33.5 H MCHC 32.6 RDW 13.8 Plt Count 114 L MPV 12.3 H Immature Gran % 0.0 Neutrophils % 51.0 Lymphocytes % 26.0 Monocytes % 17.0 Eosinophils % 2.0 Basophils % 0.0 Absolute Neutrophils 4.22 Band Neutrophils 2.0 Absolute Lymphocytes 2.07 Absolute Monocytes 1.35 H Absolute Eosinophils 0.16 Absolute Basophils 0.00 Metamyelocytes 2.0 Differential Comment Manual differential Atypical Lymphocytes 0 RBC Morphology See below Poikilocytosis 1+ Anisocytosis 1+ PT 9.9 INR 1.0 Sodium 143 Potassium 4.3 Chloride 104 Carbon Dioxide 28.8 Anion Gap 10.2 BUN 26 H Creatinine 1.75 H Estimated GFR/1.73 m2 38.29 Glucose 264 H Calcium 8.5 Magnesium 1.8 Total Bilirubin 0.2 AST 27 ALT 38 Alkaline Phosphatase 61 Troponin I < 0.02 NT-Pro-B Natriuret Pep 48 Total Protein 7.2 Albumin 3.3 L Patient ABO/Rh Antibody Screen 02/03/18 16:20 WBC RBC Hgb Hct MCV MCH MCHC RDW Plt Count MPV Immature Gran % Neutrophils % Lymphocytes % Monocytes % Eosinophils % Basophils % Absolute Neutrophils Band Neutrophils Absolute Lymphocytes Absolute Monocytes Absolute Eosinophils Absolute Basophils Metamyelocytes Differential Comment Atypical Lymphocytes RBC Morphology Poikilocytosis Anisocytosis PT INR Sodium Potassium Chloride Carbon Dioxide Anion Gap BUN Creatinine Estimated GFR/1.73 m2 Glucose Calcium Magnesium Total Bilirubin AST ALT Alkaline Phosphatase Troponin I NT-Pro-B Natriuret Pep Total Protein Albumin Patient ABO/Rh A Negative Antibody Screen Negative Last Vital Signs Temp 26.7 C L 02/03/18 16:03 Pulse 80 02/03/18 16:03 Resp 21 02/03/18 16:03 BP 144/67 H 02/03/18 16:03 Pulse Ox 97 02/03/18 16:03
[2018-02-03 20:17] LABS: BE 2.6 mmol/L (-3-3); HCO3 28 mmol/L (22-28); pCO2 45 mmHg (34-47); pO2 60 mmHg (83-108); sO2 89 % (94-98); tCO2 25 mmol/L (22-29)
[2018-02-03 20:19] VITALS: RESP 16
[2018-02-03 20:19] LABS: FIO2 Room Air %; FIO2L 0 L; Site Left Radial
--- NOTE | 2018-02-03 21:09 | SAO2N_ITS ---
SAO2 with Exercise Patient:RILEY WELCH Date/Time: 02/06/18 0706 [id number] Tech: KL
[2018-02-03] MEDS: Clopidogrel 75 MG TAB PO (21:58)
[2018-02-03] MEDS: DULoxetine 30 MG CAP 60 MG PO (21:58)
[2018-02-03] MEDS: Pantoprazole 40 MG TABCR PO (21:58)
[2018-02-03] MEDS: Normal Saline Flush 10 ML SYR (22:05)
[2018-02-03 22:44] VITALS: BP 148/77; PULSE 83; RESP 18; TEMP 36.9; O2SAT 93
[2018-02-04 03:45] VITALS: BP 174/95; PULSE 77; RESP 18; TEMP 36; O2SAT 92
--- NOTE | 2018-02-04 07:34 | PDOC.CMIN ---
- If Service Date Differs Date of service: 02/04/18 Time of Service: 07:34 Care Management Initial Assess REASON FOR HOSPITALIZATION:: Hypoxia. 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 Surgical hx: appendectomy, arthroplasty of right knee, hernia repair (x3), lower back surgery, tonsillectomy, UPPP. PREVIOUS FUNCTIONAL STATUS/SOCIAL/FAMILY SUPPORTS:: Juan resides in [place] with his , Gia. 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 Juan has one adult child who does not reside locally. He requires assistance with his ADLs and is transported via private vehicle with his , Gia, or via [facility]. CURRENT FUNCTIONAL STATUS:: Juan is lying in bed when CM visits this morning. He is engaged in conversation and talkative. Juan reports that he is feeling ok this morning and has no complaints or concerns. He is receiving supplemental O2 via [facility] and there is discussion of him returning home with an order for O2. Faizan from [facility] is working with on orders if deemed necessary. MD has ordered an ambulating pulse oximetry on Juan and his labs from this morning are pending. Per request from pharmacy and nursing, CM phoned Gia to request she bring Juan's U500 insulin in from home. Pharmacy has enough to cover him today, but should he not discharge home this afternoon he will be needing his home med. ADVANCE DIRECTIVES:: On file at [facility]. Has patient been provided with information about the portal?: Yes Did the patient sign up for the portal?: No CODE STATUS:: DNR/DNI INSURANCE COVERAGE / FINANCIAL ISSUES:: Medicaid, Medicare. CURRENT HOME/COMMUNITY SERVICES/EQUIPMENT:: Juan is a bit 'wifty' about his community/home services. He reports that he has daily caregivers through [employer] (6 hours/day) and a hospice case manager? Giulia, who comes to his home once every six months. Juan utilizes an electric w/c and walker for ambulation. PRIMARY CARE PHYSICIAN:: Hever Presley MD. POTENTIAL DISCHARGE NEEDS:: Follow up appointment with PCP. Home O2 (?). PATIENT/FAMILY EDUCATION NEEDS:: Discharge education, any limitiations, and follow up plan of care. Ask Me Three discussion. ANTICIPATED BARRIERS TO DISCHARGE:: No anticipated barriers to discharge. TRANSPORTATION:: Juan will transport via private vehicle with his , Gia. PLAN:: Juan will discharge when medically ready per MD. Anticipate patient will discharge with no services and follow up with PCP. CM will continue to offer support to patient and care team regarding discharge planning and disposition.
--- NOTE | 2018-02-04 07:38 | INITIAL_ITS ---
- If Service Date Differs Date of service: 02/04/18 Time of Service: 07:34 Care Management Initial Assess REASON FOR HOSPITALIZATION:: Hypoxia. 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 Surgical hx: appendectomy, arthroplasty of right knee, hernia repair ( x3), lower back surgery, tonsillectomy, UPPP. PREVIOUS FUNCTIONAL STATUS/SOCIAL/FAMILY SUPPORTS:: Juan resides in [place] with his , Gia. 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 Juan has one adult child who does not reside locally. He requires assistance with his ADLs and is transported via private vehicle with his , Gia, or via [facility]. CURRENT FUNCTIONAL STATUS:: Juan is lying in bed when CM visits this morning. He is engaged in conversation and talkative. Juan reports that he is feeling ok this morning and has no complaints or concerns. He is receiving supplemental O2 via [facility] and there is discussion of him returning home with an order for O2. Faizan from [facility] is working with on orders if deemed necessary. MD has ordered an ambulating pulse oximetry on Juan and his labs from this morning are pending. Per request from pharmacy and nursing, CM phoned Gia to request she bring Juan's U500 insulin in from home. Pharmacy has enough to cover him today , but should he not discharge home this afternoon he will be needing his home med. ADVANCE DIRECTIVES:: On file at [facility]. Has patient been provided with information about the portal?: Yes Did the patient sign up for the portal?: No CODE STATUS:: DNR/DNI INSURANCE COVERAGE / FINANCIAL ISSUES:: Medicaid, Medicare. CURRENT HOME/COMMUNITY SERVICES/EQUIPMENT:: Juan is a bit 'wifty' about his community/home services. He reports that he has daily caregivers through [employer] ( 6 hours/day) and a correctional case records supervisor? Giulia, who comes to his home once every six months. Juan utilizes an electric w/c and walker for ambulation. PRIMARY CARE PHYSICIAN:: Hever Presley MD. POTENTIAL DISCHARGE NEEDS:: Follow up appointment with PCP. Home O2 (?). PATIENT/FAMILY EDUCATION NEEDS:: Discharge education, any limitiations, and follow up plan of care. Ask Me Three discussion. ANTICIPATED BARRIERS TO DISCHARGE:: No anticipated barriers to discharge. TRANSPORTATION:: Juan will transport via private vehicle with his , Gia. PLAN:: Juan will discharge when medically ready per MD. Anticipate patient will discharge with no services and follow up with PCP. CM will continue to offer support to patient and care team regarding discharge planning and disposition.
[2018-02-04 07:48] VITALS: BP 111/63; PULSE 92; RESP 20; TEMP 37.6; O2SAT 95
[2018-02-04] MEDS: Insulin Aspart 300 UNITS/3 ML PEN SC ×2 (08:30→12:20)
[2018-02-04] MEDS: Losartan 25 MG TAB PO (09:37)
[2018-02-04] MEDS: Ferrous Sulfate 325 MG TAB PO ×2 (09:37→19:29)
[2018-02-04] MEDS: Tamsulosin 0.4 MG CAPCR 0.8 MG PO (09:37)
[2018-02-04] MEDS: Mirabegron 50 MG TABCR PO (09:37)
[2018-02-04] MEDS: Montelukast 10 MG TAB PO (09:37)
[2018-02-04] MEDS: OLANZapine 5 MG TAB PO (09:37)
[2018-02-04] MEDS: Aspirin E.C. 81 MG TABEC PO (09:38)
[2018-02-04] MEDS: Oxybutynin-CR 5 MG TABCR PO (09:38)
[2018-02-04] MEDS: Gabapentin 100 MG CAP PO ×3 (09:38→19:29)
[2018-02-04] MEDS: Insulin REGULAR-Human 100 UNITS/ML UNIT SC ×2 (09:40→12:17)
[2018-02-04 11:24] LABS: Abs Immature Grans 0.05 k/cumm (0.0-0.09); Absolute Basophil Count 0.04 k/cumm (0.0-0.2); Absolute Eosinophil Count 0.08 k/cumm (0.0-0.7); Absolute Lymphocyte Count 1.64 k/cumm (1.2-3.4); Absolute Monocyte Count 1.28 k/cumm (0.11-0.7); Absolute Neutrophil Count 5.43 k/cumm (1.2-6.7); Basophils % 0.5; Eosinophils % 0.9; HCT 39.2 % (40.0-50.0); HGB 12.7 g/dL (13.5-17.5); Immature Grans % 0.6; Lymphocytes % 19.2; Mean Corp. HGB Concentration 32.4 g/dL (32.0-36.0); Mean Corpuscular Hemoglobin 33.2 pg (27.0-33.0); Mean Corpuscular Volume 102.6 fL (80-95); Mean Platelet Volume 12.2 fL (8.0-11.0); Neutrophils % 63.8; Platelet Count 115 x1000/uL (130-400); RBC 3.82 m/cumm (4.50-6.00); RBC Distribution Width 13.9 % (11.8-14.1); White Blood Cell Count 8.52 k/cumm (4.4-10.8)
[2018-02-04 11:26] LABS: Anion Gap 10.6 mmol/L (3-11); BUN 24 mg/dL (7-18); CO2 26.4 mmol/L (21.0-32.0); CREATININE 1.63 mg/dL (0.70-1.30); Calcium 8.8 mg/dL (8.5-10.1); Chloride 103 mmol/L (98-107); Estimated GFR 41.56 (mL/min/1.73m2); Glucose 218 mg/dL (70-100); Magnesium 1.8 mg/dL (1.8-2.4); Potassium 4.4 mmol/L (3.5-5.1); Sodium 140 mmol/L (136-145)
[2018-02-04 11:28] VITALS: O2SAT 93
[2018-02-04 11:53] VITALS: O2SAT 93
[2018-02-04] MEDS: Normal Saline Flush 10 ML SYR IJ ×2 (12:20→17:26)
[2018-02-04 15:30] VITALS: PULSE 107; PULSE 108; PULSE 78; O2SAT 90; O2SAT 93
[2018-02-04 15:51] VITALS: BP 129/67; PULSE 87; RESP 21; TEMP 37.3; O2SAT 93
[2018-02-04] MEDS: Furosemide 40 MG/4 ML VIAL IVP (17:25)
[2018-02-04] MEDS: Insulin REGULAR-Human 100 UNITS/ML UNIT 80 UNITS SC (17:25)
--- NOTE | 2018-02-04 18:43 | PGE_ITS ---
Date of Service Date of service: 02/04/18 Time of Service: 15:30 Assessment and Plan (1) Volume overload: Current visit: Yes Status: Suspected Mild - ? R-sided CHF. Would benefit from an echocardiogram (could be as outpatient). Diuresing gently. (2) Hypoxia: Current visit: Yes Status: Acute Not observed in this patient while awake/with exercising - but I also suspect that he might have underlying HOANG - will need a formal sleep study. (3) Essential hypertension: Current visit: No Status: Chronic BP's controlled. No change in tx. (4) Frontal lobe and executive function deficit following cerebral infarction: Current visit: No Status: Chronic Monitor behaviors. (5) Diabetes mellitus: Current visit: No Status: Chronic Continue SSI - decrease Scheduled prandial insulin due to a hypoglycemic episode. (6) Discharge planning issues: Current visit: Yes Status: Acute Will discuss in am meeting - definitely needs home health services if they are not already in place (7) DVT prophylaxis: Current visit: Yes Status: Acute lovenox Subjective Interval history since last seen: The patient states he would like to go home. He does state he feels short of breath, but almost back to normal. He did no require oxygen on ambulatory pulse ox with O2 sats in the 90's, but he was visibly short of breath. He agrees to stay for diuresis. He denies any dizziness , chest pain, nausea, vomiting. Exam Narrative Exam Narrative: General: Obese elderly male, somewhat slow to respond to my questions, visibly tachypneic just after turning in bed Neurological: A&Ox3, appears distracted Psychiatric: distracted, but appropriate affect/speech content Skin: no obvious bruises/rashes HEENT: EOMI, MMM Cardiovascular: RRR, no m/r/g Lungs: Diminished breath sounds B; wheezing audibly at rest Gastrointestinal: abdomen soft, nontender, nondistended Extremities: 1+ BLE edema, no cyanosis, + mild clubbing Objective Objective Clinical Data: Abnormal lab results 02/03/18 02/04/18 02/04/18 Range/Units 20:15 11:10 11:10 RBC 3.82 L (4.50-6.00) m/cumm Hgb 12.7 L (13.5-17.5) g/dL Hct 39.2 L (40.0-50.0) % MCV 102.6 H (80-95) fL MCH 33.2 H (27.0-33.0) pg Plt Count 115 L (130-400) x1000/uL MPV 12.2 H (8.0-11.0) fL Absolute Monocytes 1.28 H (0.11-0.7) k/cumm pO2 60 L (83-108) mmHg O2 Saturation 89 L (94-98) % BUN 24 H (7-18) mg/dL Creatinine 1.63 H (0.70-1.30) mg/dL Glucose 218 H (70-100) mg/dL Vital Signs Temperature 37.3 C 02/04/18 15:51 Temperature Source Tympanic 02/04/18 15:51 Pulse 87 02/04/18 15:51 Pulse Rhythm Regular 02/04/18 15:43 Respiratory Rate 21 02/04/18 15:51 Respiratory Effort 02/04/18 15:43 Respiratory Depth Shallow 02/04/18 15:43 Respiratory Pattern Normal 02/04/18 15:43 Blood Pressure 129/67 02/04/18 15:51 Blood Pressure Position Sitting 02/03/18 16:03 Pulse Oximetry 93 L 02/04/18 15:51 Oxygen Delivery Method Room Air 02/04/18 15:51 Oxygen Flow Rate 0 02/04/18 15:51 Pain Level 0 02/03/18 22:44 Comment 02/04/18 07:48 Intake & Output 02/03/18 02/04/18 02/04/18 23:59 11:59 23:59 Intake Total 240 / 240 240 / 240 240 / 240 Output Total 1275 / 1275 Balance 240 / 240 -1035 / -1035 240 / 240 Weight 117.934 kg Intake: Oral 240 / 240 240 / 240 240 / 240 Output: Urine 1275 / 1275 Other: Urine Color Yellow Yellow Urine Appearance Clear Clear Urine Odor Normal Normal Stool Size Moderate Stool Characteristics Formed Brown Voiding Methods Urinal Bedside Commode Diaper Incontinent Laboratory Results WBC 8.52 k/cumm (4.4-10.8) 02/04/18 11:10 RBC 3.82 m/cumm (4.50-6.00) L 02/04/18 11:10 Hgb 12.7 g/dL (13.5-17.5) L 02/04/18 11:10 Hct 39.2 % (40.0-50.0) L 02/04/18 11:10 MCV 102.6 fL (80-95) H 02/04/18 11:10 MCH 33.2 pg (27.0-33.0) H 02/04/18 11:10 MCHC 32.4 g/dL (32.0-36.0) 02/04/18 11:10 RDW 13.9 % (11.8-14.1) 02/04/18 11:10 Plt Count 115 x1000/uL (130-400) L 02/04/18 11:10 MPV 12.2 fL (8.0-11.0) H 02/04/18 11:10 Immature Gran % 0.6 02/04/18 11:10 Neutrophils % 63.8 02/04/18 11:10 Lymphocytes % 19.2 02/04/18 11:10 Monocytes % 15.0 02/04/18 11:10 Eosinophils % 0.9 02/04/18 11:10 Basophils % 0.5 02/04/18 11:10 Absolute Neutrophils 5.43 k/cumm (1.2-6.7) 02/04/18 11:10 Band Neutrophils 2.0 % 02/03/18 16:20 Absolute Lymphocytes 1.64 k/cumm (1.2-3.4) 02/04/18 11:10 Absolute Monocytes 1.28 k/cumm (0.11-0.7) H 02/04/18 11:10 Absolute Eosinophils 0.08 k/cumm (0.0-0.7) 02/04/18 11:10 Absolute Basophils 0.04 k/cumm (0.0-0.2) 02/04/18 11:10 Metamyelocytes 2.0 % 02/03/18 16:20 Differential Comment Manual differential 02/03/18 16:20 Atypical Lymphocytes 0 02/03/18 16:20 RBC Morphology See below 02/03/18 16:20 Poikilocytosis 1+ 02/03/18 16:20 Anisocytosis 1+ 02/03/18 16:20 PT 9.9 sec (9.3-10.8) 02/03/18 16:20 INR 1.0 (1.0-3.5) 02/03/18 16:20 Sample Site Left radial 02/03/18 20:15 pCO2 45 mmHg (34-47) 02/03/18 20:15 pO2 60 mmHg (83-108) L 02/03/18 20:15 O2 Saturation 89 % (94-98) L 02/03/18 20:15 ABG pH 7.40 (7.35-7.45) 02/03/18 20:15 ABG HCO3 28 mmol/L (22-28) 02/03/18 20:15 ABG Total CO2 25 mmol/L (22-29) 02/03/18 20:15 ABG Base Excess 2.6 mmol/L (-3-3) 02/03/18 20:15 Oxygen Liter Flow 0 L 02/03/18 20:15 FiO2 Room air % 02/03/18 20:15 Sodium 140 mmol/L (136-145) 02/04/18 11:10 Potassium 4.4 mmol/L (3.5-5.1) 02/04/18 11:10 Chloride 103 mmol/L (98-107) 02/04/18 11:10 Carbon Dioxide 26.4 mmol/L (21.0-32.0) 02/04/18 11:10 Anion Gap 10.6 mmol/L (3-11) 02/04/18 11:10 BUN 24 mg/dL (7-18) H 02/04/18 11:10 Creatinine 1.63 mg/dL (0.70-1.30) H 02/04/18 11:10 Estimated GFR/1.73 m2 41.56 (mL/min/1.73m2) 02/04/18 11:10 Glucose 218 mg/dL (70-100) H 02/04/18 11:10 Calcium 8.8 mg/dL (8.5-10.1) 02/04/18 11:10 Magnesium 1.8 mg/dL (1.8-2.4) 02/04/18 11:10 Total Bilirubin 0.2 mg/dL (0.2-1.0) 02/03/18 16:20 AST 27 U/L (15-37) 02/03/18 16:20 ALT 38 U/L (12-78) 02/03/18 16:20 Alkaline Phosphatase 61 U/L (46-116) 02/03/18 16:20 Troponin I < 0.02 ng/mL (0.00-0.06) 02/03/18 16:20 NT-Pro-B Natriuret Pep 48 pg/mL (-299) 02/03/18 16:20 Total Protein 7.2 g/dL (6.4-8.2) 02/03/18 16:20 Albumin 3.3 g/dL (3.4-5.0) L 02/03/18 16:20 Patient ABO/Rh A Negative 02/03/18 16:20 Antibody Screen Negative 02/03/18 16:20
[2018-02-04] MEDS: Simvastatin 40 MG TAB PO (19:29)
[2018-02-04] MEDS: Clopidogrel 75 MG TAB PO (22:32)
[2018-02-04] MEDS: DULoxetine 30 MG CAP 60 MG PO (22:33)
[2018-02-04] MEDS: Pantoprazole 40 MG TABCR PO (22:33)
[2018-02-05] VITALS (12 sets, daily range): BP systolic 106–159; BP diastolic 46–80; PULSE 45–82; RESP 18–20; TEMP 36.5–37.3; O2SAT 85–94
[2018-02-05 07:48] LABS: Abs Immature Grans 0.07 k/cumm (0.0-0.09); Absolute Basophil Count 0.07 k/cumm (0.0-0.2); Absolute Eosinophil Count 0.13 k/cumm (0.0-0.7); Absolute Monocyte Count 1.39 k/cumm (0.11-0.7); Absolute Neutrophil Count 5.72 k/cumm (1.2-6.7); Basophils % 0.8; Eosinophils % 1.4; HCT 38.7 % (40.0-50.0); HGB 12.6 g/dL (13.5-17.5); Immature Grans % 0.8; Lymphocytes % 18.7; Mean Corp. HGB Concentration 32.6 g/dL (32.0-36.0); Mean Corpuscular Hemoglobin 33.3 pg (27.0-33.0); Mean Corpuscular Volume 102.4 fL (80-95); Mean Platelet Volume 12.4 fL (8.0-11.0); Monocytes % 15.3; Platelet Count 113 x1000/uL (130-400); RBC 3.78 m/cumm (4.50-6.00); RBC Distribution Width 13.7 % (11.8-14.1); White Blood Cell Count 9.08 k/cumm (4.4-10.8)
[2018-02-05 08:03] LABS: Anion Gap 11.5 mmol/L (3-11); BUN 29 mg/dL (7-18); CO2 25.5 mmol/L (21.0-32.0); CREATININE 1.74 mg/dL (0.70-1.30); Chloride 101 mmol/L (98-107); Estimated GFR 38.55 (mL/min/1.73m2); Glucose 274 mg/dL (70-100); Magnesium 1.7 mg/dL (1.8-2.4); Potassium 4.5 mmol/L (3.5-5.1); Sodium 138 mmol/L (136-145)
[2018-02-05] MEDS: Losartan 25 MG TAB PO (08:35)
[2018-02-05] MEDS: Oxybutynin-CR 5 MG TABCR PO (08:35)
[2018-02-05] MEDS: OLANZapine 5 MG TAB PO (08:35)
[2018-02-05] MEDS: Mirabegron 50 MG TABCR PO (08:35)
[2018-02-05] MEDS: Aspirin E.C. 81 MG TABEC PO (08:35)
[2018-02-05] MEDS: Tamsulosin 0.4 MG CAPCR 0.8 MG PO (08:35)
[2018-02-05] MEDS: Gabapentin 100 MG CAP PO ×3 (08:35→21:15)
[2018-02-05] MEDS: Ferrous Sulfate 325 MG TAB PO ×2 (08:35→21:15)
[2018-02-05] MEDS: Montelukast 10 MG TAB PO (08:35)
[2018-02-05] MEDS: Normal Saline Flush 10 ML SYR IJ ×2 (08:36→16:23)
[2018-02-05] MEDS: Insulin Aspart 300 UNITS/3 ML PEN SC ×2 (08:36→12:11)
[2018-02-05] MEDS: Enoxaparin 40 MG/0.4 ML SYR SC (08:36)
[2018-02-05] MEDS: Furosemide 40 MG/4 ML VIAL IVP ×2 (08:37→16:21)
[2018-02-05] MEDS: Insulin REGULAR-Human 100 UNITS/ML UNIT 80 UNITS SC ×3 (09:30→17:36)
[2018-02-05] MEDS: Magnesium Chloride 64 MG TABCR PO ×2 (09:53→21:10)
--- NOTE | 2018-02-05 14:20 | PDOC.CMPRO ---
Care Management Progress Note S/O: Juan was reviewed during interdisciplinary rounds; per MD there is some question regarding compliance with his CPAP. Per RN and [facility] staff; reports are Juan is compliant and comfortable with his CPAP machine. Primary discharge concerns central to HOANG; Faizan of [facility] reports he has not had a sleep study for more than five years. Per ; for safe discharge concerns; Juan will remain at [facility] overnight for further study of his oxygen levels when sleeping. CM will continue to follow. CM requested MD to transition Juan to inpatient level of care. A:72 year old male admitted to [facility] 02/03/18 for Hypoxia P: Juan will discharge home when ready per MD; no additional services anticipated at this time. Per MD, Juan will have a continuous nocturnal pulse ox to inform discharge planning needs and he will follow up with outpatient providers. CM will continue to offer support to patient and care team regarding discharge planning and disposition.
--- NOTE | 2018-02-05 14:26 | CMPROGNOTE_ITS ---
Care Management Progress Note S/O: Juan was reviewed during interdisciplinary rounds; per MD there is some question regarding compliance with his CPAP. Per RN and [facility] staff; reports are Juan is compliant and comfortable with his CPAP machine. Primary discharge concerns central to HOANG; Faizan of [facility] reports he has not had a sleep study for more than five years. Per ; for safe discharge concerns; Juan will remain at [facility] overnight for further study of his oxygen levels when sleeping. CM will continue to follow. CM requested MD to transition Juan to inpatient level of care. A:72 year old male admitted to [facility] 02/03/18 for Hypoxia P: Juan will discharge home when ready per MD; no additional services anticipated at this time. Per MD, Juan will have a continuous nocturnal pulse ox to inform discharge planning needs and he will follow up with outpatient providers. CM will continue to offer support to patient and care team regarding discharge planning and disposition.
[2018-02-05] MEDS: Acetaminophen 500 MG TAB 1000 MG PO (16:22)
--- NOTE | 2018-02-05 18:03 | PGE_ITS ---
Date of Service Date of service: 02/05/18 Time of Service: 11:30 Assessment and Plan (1) Volume overload: Current visit: Yes Status: Suspected Mild - improved. Continue gentle diuresis. Echo in 05/2017 shows EF of 55% , possible pulmonary hypertension. ?Is edema due to worsening pulmonary hypertension due to untreated nocturnal hypoxia. (2) Hypoxia: Current visit: Yes Status: Acute Suspected to be a nocturnal finding - will do overnight oxymetry on his home CPAP to ensure that the patient does not need O2 with the CPAP at night. (3) Essential hypertension: Current visit: No Status: Chronic BP's controlled. No change in tx. (4) Frontal lobe and executive function deficit following cerebral infarction: Current visit: No Status: Chronic Monitor behaviors. (5) Diabetes mellitus: Current visit: No Status: Chronic Continue SSI/scheduled prandial insulin. (6) Discharge planning issues: Current visit: Yes Status: Acute Home health recommended on discharge. May need new O2 rx on discharge pending results of overnight oxymetry. (7) DVT prophylaxis: Current visit: Yes Status: Acute lovenox Subjective Interval history since last seen: The patient denies feeling shortness of breath , having any dizziness, chest pain, nausea, vomiting. He did require 3 L to be placed on him overnight for hypoxia (O2 sat in the 80's ). Exam Narrative Exam Narrative: General: Obese elderly male, comfortably in bed Neurological: A&Ox3, no obvious focal deficits, more focused today Psychiatric: appropriate speech pattern/content Skin: no obvious bruises/rashes HEENT: EOMI, MMM Cardiovascular: RRR, no m/r/g Lungs: Diminished breath sounds B; no wheezing today Gastrointestinal: abdomen soft, nontender, nondistended Extremities: trace BLE edema, no cyanosis, + mild clubbing Objective Objective Clinical Data: Abnormal lab results 02/05/18 02/05/18 Range/Units 07:10 07:10 RBC 3.78 L (4.50-6.00) m/cumm Hgb 12.6 L (13.5-17.5) g/dL Hct 38.7 L (40.0-50.0) % MCV 102.4 H (80-95) fL MCH 33.3 H (27.0-33.0) pg Plt Count 113 L (130-400) x1000/uL MPV 12.4 H (8.0-11.0) fL Absolute Monocytes 1.39 H (0.11-0.7) k/cumm Anion Gap 11.5 H (3-11) mmol/L BUN 29 H (7-18) mg/dL Creatinine 1.74 H (0.70-1.30) mg/dL Glucose 274 H (70-100) mg/dL Magnesium 1.7 L (1.8-2.4) mg/dL Vital Signs Temperature 37.3 C 02/05/18 16:10 Temperature Source Tympanic 02/05/18 16:10 Pulse 82 02/05/18 16:10 Pulse Rhythm Regular 02/05/18 07:45 Respiratory Rate 20 02/05/18 16:10 Respiratory Effort Incrsd Work of Breathing 02/05/18 16:45 Respiratory Depth Shallow 02/05/18 16:45 Respiratory Pattern Normal 02/05/18 16:45 Blood Pressure 117/63 02/05/18 16:10 Blood Pressure Position Sitting 02/03/18 16:03 Pulse Oximetry 94 L 02/05/18 16:10 Oxygen Delivery Method Room Air 02/05/18 16:10 Oxygen Flow Rate 0 02/05/18 16:10 Pain Level 0 02/03/18 22:44 Comment 02/05/18 07:55 Intake & Output 02/05/18 02/05/18 02/05/18 00:59 11:59 23:59 Intake Total 590 / 590 Output Total Balance 590 / 590 Intake: Oral 590 / 590 Output: Urine Other: Urine Color Yellow Urine Appearance Clear Urine Odor Normal Comment incontinent copious amount of urine Stool Size Stool Characteristics Voiding Methods Diaper Incontinent Laboratory Results WBC 9.08 k/cumm (4.4-10.8) 02/05/18 07:10 RBC 3.78 m/cumm (4.50-6.00) L 02/05/18 07:10 Hgb 12.6 g/dL (13.5-17.5) L 02/05/18 07:10 Hct 38.7 % (40.0-50.0) L 02/05/18 07:10 MCV 102.4 fL (80-95) H 02/05/18 07:10 MCH 33.3 pg (27.0-33.0) H 02/05/18 07:10 MCHC 32.6 g/dL (32.0-36.0) 02/05/18 07:10 RDW 13.7 % (11.8-14.1) 02/05/18 07:10 Plt Count 113 x1000/uL (130-400) L 02/05/18 07:10 MPV 12.4 fL (8.0-11.0) H 02/05/18 07:10 Immature Gran % 0.8 02/05/18 07:10 Neutrophils % 63.0 02/05/18 07:10 Lymphocytes % 18.7 02/05/18 07:10 Monocytes % 15.3 02/05/18 07:10 Eosinophils % 1.4 02/05/18 07:10 Basophils % 0.8 02/05/18 07:10 Absolute Neutrophils 5.72 k/cumm (1.2-6.7) 02/05/18 07:10 Band Neutrophils 2.0 % 02/03/18 16:20 Absolute Lymphocytes 1.70 k/cumm (1.2-3.4) 02/05/18 07:10 Absolute Monocytes 1.39 k/cumm (0.11-0.7) H 02/05/18 07:10 Absolute Eosinophils 0.13 k/cumm (0.0-0.7) 02/05/18 07:10 Absolute Basophils 0.07 k/cumm (0.0-0.2) 02/05/18 07:10 Metamyelocytes 2.0 % 02/03/18 16:20 Differential Comment Manual differential 02/03/18 16:20 Atypical Lymphocytes 0 02/03/18 16:20 RBC Morphology See below 02/03/18 16:20 Poikilocytosis 1+ 02/03/18 16:20 Anisocytosis 1+ 02/03/18 16:20 PT 9.9 sec (9.3-10.8) 02/03/18 16:20 INR 1.0 (1.0-3.5) 02/03/18 16:20 Sample Site Left radial 02/03/18 20:15 pCO2 45 mmHg (34-47) 02/03/18 20:15 pO2 60 mmHg (83-108) L 02/03/18 20:15 O2 Saturation 89 % (94-98) L 02/03/18 20:15 ABG pH 7.40 (7.35-7.45) 02/03/18 20:15 ABG HCO3 28 mmol/L (22-28) 02/03/18 20:15 ABG Total CO2 25 mmol/L (22-29) 02/03/18 20:15 ABG Base Excess 2.6 mmol/L (-3-3) 02/03/18 20:15 Oxygen Liter Flow 0 L 02/03/18 20:15 FiO2 Room air % 02/03/18 20:15 Sodium 138 mmol/L (136-145) 02/05/18 07:10 Potassium 4.5 mmol/L (3.5-5.1) 02/05/18 07:10 Chloride 101 mmol/L (98-107) 02/05/18 07:10 Carbon Dioxide 25.5 mmol/L (21.0-32.0) 02/05/18 07:10 Anion Gap 11.5 mmol/L (3-11) H 02/05/18 07:10 BUN 29 mg/dL (7-18) H 02/05/18 07:10 Creatinine 1.74 mg/dL (0.70-1.30) H 02/05/18 07:10 Estimated GFR/1.73 m2 38.55 (mL/min/1.73m2) 02/05/18 07:10 Glucose 274 mg/dL (70-100) H 02/05/18 07:10 Calcium 9.0 mg/dL (8.5-10.1) 02/05/18 07:10 Magnesium 1.7 mg/dL (1.8-2.4) L 02/05/18 07:10 Total Bilirubin 0.2 mg/dL (0.2-1.0) 02/03/18 16:20 AST 27 U/L (15-37) 02/03/18 16:20 ALT 38 U/L (12-78) 02/03/18 16:20 Alkaline Phosphatase 61 U/L (46-116) 02/03/18 16:20 Troponin I < 0.02 ng/mL (0.00-0.06) 02/03/18 16:20 NT-Pro-B Natriuret Pep 48 pg/mL (-299) 02/03/18 16:20 Total Protein 7.2 g/dL (6.4-8.2) 02/03/18 16:20 Albumin 3.3 g/dL (3.4-5.0) L 02/03/18 16:20 Patient ABO/Rh A Negative 02/03/18 16:20 Antibody Screen Negative 02/03/18 16:20
[2018-02-05] MEDS: Pantoprazole 40 MG TABCR PO (21:10)
[2018-02-05] MEDS: DULoxetine 30 MG CAP 60 MG PO (21:10)
[2018-02-05] MEDS: Clopidogrel 75 MG TAB PO (21:11)
[2018-02-05] MEDS: Simvastatin 40 MG TAB PO (21:15)
[2018-02-06] VITALS (7 sets, daily range): BP systolic 93–144; BP diastolic 66–78; PULSE 73–92; RESP 19–20; TEMP 36.1–36.6; O2SAT 80–92
[2018-02-06 07:16] LABS: Anion Gap 11.7 mmol/L (3-11); BUN 37 mg/dL (7-18); CO2 26.3 mmol/L (21.0-32.0); CREATININE 1.79 mg/dL (0.70-1.30); Calcium 8.9 mg/dL (8.5-10.1); Chloride 100 mmol/L (98-107); Estimated GFR 37.31 (mL/min/1.73m2); Glucose 239 mg/dL (70-100); Magnesium 1.7 mg/dL (1.8-2.4); Potassium 4.5 mmol/L (3.5-5.1); Sodium 138 mmol/L (136-145)
[2018-02-06] MEDS: Oxybutynin-CR 5 MG TABCR PO (08:26)
[2018-02-06] MEDS: Mirabegron 50 MG TABCR PO (08:26)
[2018-02-06] MEDS: Losartan 25 MG TAB PO (08:27)
[2018-02-06] MEDS: Montelukast 10 MG TAB PO (08:27)
[2018-02-06] MEDS: Ferrous Sulfate 325 MG TAB PO (08:27)
[2018-02-06] MEDS: Tamsulosin 0.4 MG CAPCR 0.8 MG PO (08:27)
[2018-02-06] MEDS: Gabapentin 100 MG CAP PO ×2 (08:27→13:00)
[2018-02-06] MEDS: OLANZapine 5 MG TAB PO (08:27)
[2018-02-06] MEDS: Normal Saline Flush 10 ML SYR IJ (08:28)
[2018-02-06] MEDS: Aspirin E.C. 81 MG TABEC PO (08:28)
[2018-02-06] MEDS: Insulin REGULAR-Human 100 UNITS/ML UNIT 80 UNITS SC ×2 (08:30→12:40)
[2018-02-06] MEDS: Furosemide 40 MG/4 ML VIAL IVP (08:33)
[2018-02-06] MEDS: Insulin Aspart 300 UNITS/3 ML PEN SC ×2 (08:33→12:40)
[2018-02-06] MEDS: Magnesium Chloride 64 MG TABCR PO (09:05)
[2018-02-06] MEDS: Enoxaparin 40 MG/0.4 ML SYR SC (09:08)
--- NOTE | 2018-02-06 15:09 | DSE_ITS ---
Date of service: 02/06/18 Time of Service: 15:00 DS: Diagnosis Discharge Diagnosis (1) Volume overload: Status: Suspected (2) Hypoxia: Status: Acute (3) Essential hypertension: Status: Chronic (4) Frontal lobe and executive function deficit following cerebral infarction: Status: Chronic (5) Diabetes mellitus: Status: Chronic (6) Discharge planning issues: Status: Acute (7) DVT prophylaxis: Status: Acute Discharge Plan Disposition Patient Disposition: HOME Condition: Improving Discharge Details Reason For Visit: HYPOXIA Admit Date/Time: 02/05/18 16:30 Admit Provider: Brett Daily Attending Provider: Brett Daily Primary Care Provider: Hever Presley [facility] Course Hospital Course: Patient is a 72-year-old male with multiple medical problems including sleep apnea and a former smoker. He was seen in primary care provider office as outpatient and was noted to somnolent with O2 saturations in the 80s and was sent to the emergency room for evaluation. In the emergency room O2 saturations on supplemental oxygen were in the 90s. CT angiogram was negative for pulmonary embolism. He was admitted for further evaluation and management. While hospitalized he was weaned off oxygen during the day but nocturnal oximetry showed desaturation into the 80-84 % range even on cpap. hemodynamically he remained stable, with no fevers. He was eating and drinking and bowels and bladder functioning well. Respiratory therapy has been in contact with his oxygen supplier to obtain home oxygen to use with cpap while sleeping. It was communicated that the study performed inpatient would not qualify patient for oxygen and that a study performed outpatient through their service would be required. An order will be place for outpatient nocturnal oximetry accordingly. Home Meds and New Rx's Prescriptions: Continue C-Pap RF: 0 MARC GONZALEZ cream 1 gm Topical Q 6 PRN RF: 0 ergocalciferol (vitamin D2) [Vitamin D2] 50,000 UNIT capsule 1 tab-cap PO monthly Qty: 3 RF: 4 diclofenac sodium 100 GM gel 1 appful Topical BID Qty: 100 RF: 0 ascorbic acid (vitamin C) [Vitamin C] 500 MG tablet 500 mg PO DAILY RF: 0 No Action lancets [OneTouch Delica Lancets] 1 EACH misc 1 ea Miscellaneous QID Qty: 200 RF: 4 incontinence pad, liner, disp [Prevail Pant Liner] 1 EACH pad 1 box Miscellaneous TID Qty: 3 RF: 5 pen needle, diabetic [BD Ultra-Fine Ana Pen Needle] 1 EACH needle 1 ea Miscellaneous 8 time a day Qty: 240 RF: 11 montelukast 10 MG tablet 10 mg PO DAILY Qty: 90 RF: 4 insulin syringe-needle U-100 [Insulin Syringe MicroFine] 1 EACH syringe 1 ea Miscellaneous QID Qty: 200 RF: 4 blood sugar diagnostic [GID GroupTouch Ultra Test] 1 EACH strip 1 ea Miscellaneous TID Qty: 200 RF: 4 Lactobacillus acidophilus 1 EACH capsule 1 cap PO DAILY Qty: 90 RF: 4 tamsulosin 0.4 MG capsule 2 cap PO DAILY Qty: 180 RF: 4 insulin aspart U-100 [Novolog Flexpen U-100 Insulin] 300 UNITS/3 ML insulin pen 60 units Sub-Q AC Qty: 45 RF: 4 meprobamate 400 MG tablet 2 tab PO HS PRNQty: 180 RF: 3 diphenoxylate-atropine 1 EACH tablet 1 - 2 tab PO TID PRNQty: 90 RF: 4 olanzapine 5 MG tablet 5 mg PO DAILY Qty: 90 RF: 4 clopidogrel [Plavix] 75 MG tablet 75 mg PO HS Qty: 90 RF: 4 pantoprazole 40 MG tablet,delayed release (DR/EC) 40 mg PO HS Qty: 90 RF: 4 losartan 25 MG tablet 25 mg PO DAILY Qty: 30 RF: 0 mirabegron [Myrbetriq] 50 MG tablet extended release 24 hr 50 mg PO DAILY Qty: 90 RF: 4 acetaminophen 500 MG tablet 1,000 mg PO Q4H PRN RF: 0 guaifenesin [Tussin Expectorant] 100 MG/5 ML liquid 200 mg PO Q4H PRN RF: 0 U-500 syringe 1 ea Sub-Q TID Qty: 90 RF: 11 diltiazem HCl [Cardizem CD] 120 MG capsule,extended release 24hr 120 mg PO DAILY Qty: 90 RF: 4 duloxetine 60 MG capsule,delayed release(DR/EC) 60 mg PO HS Qty: 90 RF: 4 insulin regular hum U-500 conc [Humulin R U-500 (Conc) Insulin] 500 unit/mL solution See Label Instructions Sub-Q TID Qty: 3 RF: 5 ipratropium-albuterol 0.5 mg-3 mg(2.5 mg base)/3 mL solution for nebulization 3 ml IH QID PRN (Reason: wheezing) Qty: 90 RF: 3 nebulizers [Compact Compressor Nebulizer] misc .ROUTE .MEDSUPPLY Qty: 1 RF: 0 oxybutynin chloride 5 mg tablet extended release 24hr 5 mg PO DAILY Qty: 90 RF: 4 simvastatin 40 mg tablet 40 mg PO QPM Qty: 90 RF: 4 multivitamin 1 EACH capsule 1 cap PO DAILY RF: 0 aspirin 81 MG tablet,delayed release (DR/EC) 81 mg PO DAILY Qty: 30 RF: 0 ferrous sulfate 325 MG tablet 1 tab PO BID RF: 0 gabapentin 100 MG capsule 100 mg PO TID RF: 0 Discharge Instructions Instructions: Hypoxia (GEN) Stand Alone Forms: Nursing Discharge Form Referrals: Hever Presley MD [Primary Care Provider] - 02/09/18 4:20 pm Activity:: Activity as Tolerated Equipment/Supplies:: 2 liters with cpap while sleeping Diet:: As Tolerated Discharge Orders Discharge Orders: Discharge Order (Routine); Ordered 02/06/18 Ordered By: Edna Calix Other Ambulatory Orders: SaO2 Overnight Study (Outpt) (ONCE) (1) Location: Determined by Patient Ordered By: Edna Calix Exam Const General: cooperative, no acute distress and disheveled Nutritional Appearance: obese Orientation: alert and oriented x3 Resp Effort & Inspection: normal respiratory effort and able to speak in complete sentences Auscultation: diminished lung sounds bilaterally and no wheezes Cardio Rate: regular rate Rhythm: regular rhythm GI Inspection: normal to inspection and obesity Palpation: soft Auscultation: normal bowel sounds Skin General skin exam: no rashes or lesions noted Neuro General: alert and oriented x3 Extrem General: pedal edema bilaterally (trace) DS: Data Vitals/I&O Vitals and I&O: Vital Signs Temperature 36.6 C 02/06/18 07:35 Temperature Source Tympanic 02/06/18 07:35 Pulse 78 02/06/18 07:35 Pulse Rhythm Regular 02/06/18 07:50 Respiratory Rate 19 02/06/18 07:35 Respiratory Effort 02/06/18 07:50 Respiratory Depth Normal 02/06/18 07:50 Respiratory Pattern Normal 02/06/18 07:50 Blood Pressure 144/78 H 02/06/18 07:35 Blood Pressure Position Sitting 02/03/18 16:03 Pulse Oximetry 90 L 02/06/18 07:35 Oxygen Delivery Method Room Air 02/06/18 07:35 Oxygen Flow Rate 0 02/06/18 07:35 Pain Level 0 02/06/18 07:35 Comment 02/06/18 03:01 Intake & Output 02/05/18 02/06/18 02/06/18 23:59 11:59 23:59 Intake Total 590 / 590 540 / 540 240 / 240 Output Total 400 / 400 Balance 590 / 590 140 / 140 240 / 240 Intake: Oral 590 / 590 540 / 540 240 / 240 Output: Urine 400 / 400 Other: Urine Color Yellow Yellow [place] Urine Appearance Clear Clear Urine Odor Normal Normal Comment incontinent copious amount of urine Voiding Methods Bedside Commode Bedside Commode Labs on day of discharge: Labs from last 24 hours 02/06/18 06:26 Sodium 138 Potassium 4.5 Chloride 100 Carbon Dioxide 26.3 Anion Gap 11.7 H BUN 37 H Creatinine 1.79 H Estimated GFR/1.73 m2 37.31 Glucose 239 H Calcium 8.9 Magnesium 1.7 L
--- NOTE | 2018-02-06 16:57 | PDOC.CMDIS ---
- If Service Date Differs Date of service: 02/06/18 Time of Service: 16:58 LACE Index Scoring Tool - Questions: Length of Stay (in days): 3 Acuity (Admit via E.D.?): Yes Comorbidities: Diabetes w/o Complication, Dementia E.D. Visits: 4 - Answers: Total Score: 15 Risk of Readmission: High Risk Care Management Discharge Reason for Hospitalization: Hypoxia. Discharge Plan: Juan will return home today wt continued caregiver services through [facility]. [facility] called and state that they will not deliver oxygen as they have to do a home overnight oximetry study, which they will perform once Juan is home. Juan does have CPAP which he can utilize at night until his home oxygen is arranged. Juan's electric w/c is at [facility], and Giulia Dietz [facility], will assist with arranging for this to be returned to [facility]. Toni Gia to transport. Patient/Family Education Needs: Review DC instructions, any limitations, and discuss ask Me Three
--- NOTE | 2018-02-06 17:01 | CMDISCH_ITS ---
- If Service Date Differs Date of service: 02/06/18 Time of Service: 16:58 LACE Index Scoring Tool - Questions: Length of Stay (in days): 3 Acuity (Admit via E.D.?): Yes Comorbidities: Diabetes w/o Complication, Dementia E.D. Visits: 4 - Answers: Total Score: 15 Risk of Readmission: High Risk Care Management Discharge Reason for Hospitalization: Hypoxia. Discharge Plan: Juan will return home today wt continued caregiver services through [facility]. [facility] called and state that they will not deliver oxygen as they have to do a home overnight oximetry study, which they will perform once Juan is home. Juan does have CPAP which he can utilize at night until his home oxygen is arranged. Juan's electric w/c is at [facility], and Giulia Dietz [facility], will assist with arranging for this to be returned to [facility]. Toni Gia to transport. Patient/Family Education Needs: Review DC instructions, any limitations, and discuss ask Me Three
== END 2018-02-06 16:40 | disposition home or self-care (01) | DRG 206 ==
LOC: ER 20:39 → MS 21:20
PROVIDERS: Admitting Provider General Practice; Emergency Provider Student in an Organized Health Care Education/Training Program; PCP Family Medicine; Visit Provider Internal Medicine
DX: R09.02 Hypoxemia (principal); E87.70 Fluid overload, unspecified; G47.34 Idiopathic sleep related nonobstructive alveolar hypoventilation; E11.649 Type 2 diabetes mellitus with hypoglycemia without coma; I10 Essential (primary) hypertension; I69.314 Frontal lobe and executive function deficit following cerebral infarction; Z79.4 Long term (current) use of insulin; Z87.891 Personal history of nicotine dependence; K21.9 Gastro-esophageal reflux disease without esophagitis; N40.0 Benign prostatic hyperplasia without lower urinary tract symptoms; E11.42 Type 2 diabetes mellitus with diabetic polyneuropathy
CPT/HCPCS: 36415; 71275; 80048; 80053; 82805; 86850; 86900; 86901; 93005; 94618; 99222; 99232; 99239; 99285; J1650; 83735; 83880; 84484; 85025; 85610; 93010; 94660; 94762; 99218; G0378; J1940; J3490

== ENCOUNTER 2018-02-13 12:59 | Emergency (ER) | payer MEDICARE, MEDICAID, SELFPAY ==
[2018-02-13 13:14] VITALS: BP 132/70; PULSE 70; RESP 18; TEMP 36.1; O2SAT 91
--- NOTE | 2018-02-13 14:46 | DI.RAD_ITS ---
SYMPTOM/DIAGNOSIS: TRAUMA, LEFT SHOULDER PAIN LEFT SHOULDER: Four views. No acute fracture or dislocation is seen. Mild degenerative changes are seen at the acromioclavicular joint and glenohumeral joint. The soft tissues are unremarkable. IMPRESSION: No acute fracture or dislocation
--- NOTE | 2018-02-13 14:46 | DI.RAD_ITS ---
SYMPTOM/DIAGNOSIS: TRAUMA, RIGHT SHOULDER PJAIN RIGHT SHOULDER: Four views. No acute fracture or dislocation is seen. Mild degenerative changes are seen in the right shoulder. There are calcifications adjacent to the humeral head likely reflecting calcific tendinitis. The soft tissues are otherwise unremarkable. IMPRESSION: No acute fracture or dislocation.
--- NOTE | 2018-02-13 14:46 | DI.CT_ITS ---
SYMPTOM/DIAGNOSIS: TRAUMA, NECK PAIN CT CERVICAL SPINE: Multiple contiguous axial images of the cervical spine were obtained. Sagittal and coronal reformatted images were evaluated on the [employer]'s workstation. There is mild straightening of the normal cervical lordosis. This may be due to patient positioning or muscle spasm. No acute fractures or subluxations are seen. The odontoid is intact. The lateral masses are well aligned. There are moderate degenerative changes in the cervical spine, most marked at C4 -5 and C5-6. There is no prevertebral soft tissue swelling. The lung apices are clear. IMPRESSION: No acute fracture or subluxation in the cervical spine. The findings were discussed with the Emergency Department on the date of the examination.
[2018-02-13 16:24] VITALS: BP 132/70; PULSE 70; RESP 18; TEMP 36.1; O2SAT 93
--- NOTE | 2018-02-18 20:45 | ED.GENADUL_ITS ---
Discharge Plan Disposition Patient Disposition: HOME Condition: Stable Discharge Details Chief Complaint: Trauma Clinical Impression: Bilateral shoulder pain Reason For Visit: JOSE Primary Care Provider: Hever Presley ED Provider: Janeen Bautista Home Meds and New Rx's Prescriptions: Continue meprobamate 400 mg tablet 800 mg PO HS PRN (Reason: anxiety) Qty: 180 RF: 0 magnesium oxide 400 mg magnesium tablet 400 mg PO DAILY Qty: 90 RF: 4 C-Pap RF: 0 lancets [OneTouch Delica Lancets] 1 EACH misc 1 ea Miscellaneous QID Qty: 200 RF: 4 MARC GONZALEZ cream 1 gm Topical Q 6 PRN RF: 0 incontinence pad, liner, disp [Prevail Pant Liner] 1 EACH pad 1 box Miscellaneous TID Qty: 3 RF: 5 pen needle, diabetic [BD Ultra-Fine Ana Pen Needle] 1 EACH needle 1 ea Miscellaneous 8 time a day Qty: 240 RF: 11 montelukast 10 MG tablet 10 mg PO DAILY Qty: 90 RF: 4 insulin syringe-needle U-100 [Insulin Syringe MicroFine] 1 EACH syringe 1 ea Miscellaneous QID Qty: 200 RF: 4 blood sugar diagnostic [OneTouch Ultra Test] 1 EACH strip 1 ea Miscellaneous TID Qty: 200 RF: 4 ergocalciferol (vitamin D2) [Vitamin D2] 50,000 UNIT capsule 1 tab-cap PO monthly Qty: 3 RF: 4 Lactobacillus acidophilus 1 EACH capsule 1 cap PO DAILY Qty: 90 RF: 4 tamsulosin 0.4 MG capsule 2 cap PO DAILY Qty: 180 RF: 4 insulin aspart U-100 [Novolog Flexpen U-100 Insulin] 300 UNITS/3 ML insulin pen 60 units Sub-Q AC Qty: 45 RF: 4 diclofenac sodium 100 GM gel 1 appful Topical BID Qty: 100 RF: 0 diphenoxylate-atropine 1 EACH tablet 1 - 2 tab PO TID PRNQty: 90 RF: 4 olanzapine 5 MG tablet 5 mg PO DAILY Qty: 90 RF: 4 clopidogrel [Plavix] 75 MG tablet 75 mg PO HS Qty: 90 RF: 4 pantoprazole 40 MG tablet,delayed release (DR/EC) 40 mg PO HS Qty: 90 RF: 4 losartan 25 MG tablet 25 mg PO DAILY Qty: 30 RF: 0 mirabegron [Myrbetriq] 50 MG tablet extended release 24 hr 50 mg PO DAILY Qty: 90 RF: 4 acetaminophen 500 MG tablet 1,000 mg PO Q4H PRN RF: 0 guaifenesin [Tussin Expectorant] 100 MG/5 ML liquid 200 mg PO Q4H PRN RF: 0 U-500 syringe 1 ea Sub-Q TID Qty: 90 RF: 11 diltiazem HCl [Cardizem CD] 120 MG capsule,extended release 24hr 120 mg PO DAILY Qty: 90 RF: 4 duloxetine 60 MG capsule,delayed release(DR/EC) 60 mg PO HS Qty: 90 RF: 4 insulin regular hum U-500 conc [Humulin R U-500 (Conc) Insulin] 500 unit/mL solution See Label Instructions Sub-Q TID Qty: 3 RF: 5 ipratropium-albuterol 0.5 mg-3 mg(2.5 mg base)/3 mL solution for nebulization 3 ml IH QID PRN (Reason: wheezing) Qty: 90 RF: 3 nebulizers [Compact Compressor Nebulizer] misc .ROUTE .MEDSUPPLY Qty: 1 RF: 0 oxybutynin chloride 5 mg tablet extended release 24hr 5 mg PO DAILY Qty: 90 RF: 4 simvastatin 40 mg tablet 40 mg PO QPM Qty: 90 RF: 4 ascorbic acid (vitamin C) [Vitamin C] 500 MG tablet 500 mg PO DAILY RF: 0 multivitamin 1 EACH capsule 1 cap PO DAILY RF: 0 aspirin 81 MG tablet,delayed release (DR/EC) 81 mg PO DAILY Qty: 30 RF: 0 ferrous sulfate 325 MG tablet 1 tab PO BID RF: 0 gabapentin 100 MG capsule 100 mg PO TID RF: 0 Discharge Instructions Instructions: Shoulder Pain (ED) Additional Instructions: Please return immediately to the emergency department if you develop any new or worsening symptoms or if you become otherwise concerned. It is extremely important that you make an appointment to be seen by your primary care doctor within the next 1-2 weeks in follow-up for this visit Referrals: Hever Presley MD [Primary Care Provider] - Discharge Data Discharge Date/Time-TO BE ENTERED AT DEPARTURE: 02/13/18 16:20 Medical Decision Making Juan Valente is a 72 y/o man with h/o multiple medical problems presenting to the emergency department with b/l shoulder pain and neck pain after mechanical fall. On exam Pt with b/l shoulders NTTP but pain with ranging shoulders. Midline diffuse c/s TTP. No neuro deficit. Low suspicion for c/s injury, but will r/o with CT. Plan for b/l shoulder films. Exam/hx not c/w central cord syndrome, acute CVA, ACS, syncope or other non-mechanical fall, infection. Shoulder xrays, c/s CT okay. Pt ambulated in ED with walker without issue. Lengthy discussion with Pt re: RTED precautions and importance of outpt f/u with PCP. Pt is amenable to the plan. Medical Records Medical records reviewed: Yes I reviewed the patient's medical records. Imaging Data Radiologic Study: Attestation: I personally reviewed and interpreted this imaging study as follows: Radiologist's impression: CT CERVICAL SPINE: Multiple contiguous axial images of the cervical spine were obtained. Sagittal and coronal reformatted images were evaluated on the [employer]s workstation. There is mild straightening of the normal cervical lordosis. This may be due to patient positioning or muscle spasm. No acute fractures or subluxations are seen. The odontoid is intact. The lateral masses are well aligned. There are moderate degenerative changes in the cervical spine, most marked at C4 -5 and C5-6. There is no prevertebral soft tissue swelling. The lung apices are clear. IMPRESSION: No acute fracture or subluxation in the cervical spine. RIGHT SHOULDER: Four views. No acute fracture or dislocation is seen. Mild degenerative changes are seen in the right shoulder. There are calcifications adjacent to the humeral head likely reflecting calcific tendinitis. The soft tissues are otherwise unremarkable. IMPRESSION: No acute fracture or dislocation. LEFT SHOULDER: Four views. No acute fracture or dislocation is seen. Mild degenerative changes are seen at the acromioclavicular joint and glenohumeral joint. The soft tissues are unremarkable. IMPRESSION: No acute fracture or dislocation HPI General Mode of arrival: EMS . Date/Time Provider Initiated Documentation: 02/13/18 13:51 . Limitations to Documentation: no limitations . Information obtained by: patient, RN notes reviewed and old records reviewed . HPI Narrative: Juan Valente is a 72 y/o man with h/o dementia, CVAs, HLD, HTN , DM presenting to the emergency department with b/l shoulder pain. Pt reports that he was at home when he bent forward to pick something up. He reports that he fell forward with both arms outstretched, and caught himself. He did not hit his head, had no LOC, remembers event in entirety. Occurred JPTA. Pt reports that he has been having b/l shoulder pain and mild neck pain since the fall. States that it seems hard to move his shoulders 2/2 pain. No other pain or injury. Denies weakness, n/t, SOB, cough, palpitations, n/v/d. Reports that he was previously in his usual state of health. No preceding symptoms, Pt reports frequent falls from multiple strokes in the past, and that he simply lost his balance. Walks with a walker. Related Data Home Medications Medication Instructions Recorded Confirmed ascorbic acid (vitamin C) [Vitamin 500 mg PO DAILY 04/16/13 02/13/18 C] multivitamin 1 cap PO DAILY 04/16/13 02/13/18 lancets [[facility]] #200 ea 09/26/15 02/09/18 aspirin 81 mg PO DAILY #30 tabec 01/21/16 02/09/18 ferrous sulfate 1 tab PO BID 03/18/16 02/13/18 Marc Gonzalez 1 gm TOPICAL Q 6 PRN 03/23/16 02/09/18 incontinence pad, liner, disp #3 07/29/16 02/09/18 [Prevail Pant Liner] pen needle, diabetic [BD #240 ea 08/19/16 02/09/18 Ultra-Fine Ana Pen Needle] montelukast 10 mg PO DAILY #90 mg 11/04/16 02/13/18 insulin syringe-needle U-100 #200 ea 11/09/16 02/09/18 [Insulin Syringe MicroFine] blood sugar diagnostic [OneTouch #200 strip 01/06/17 02/09/18 Ultra Test] ergocalciferol (vitamin D2) 1 tab-cap PO monthly #3 tab-cap 01/06/17 02/13/18 [Vitamin D2] Lactobacillus acidophilus 1 cap PO DAILY #90 cap 02/01/17 02/13/18 tamsulosin 2 cap PO DAILY #180 cap 02/07/17 02/13/18 insulin aspart U-100 [Novolog 60 units SUB-Q AC #45 pen 03/17/17 02/13/18 Flexpen U-100 Insulin] diclofenac sodium 1 appful TOPICAL BID #100 gm 03/18/17 02/13/18 gabapentin 100 mg PO TID 08/08/17 02/13/18 diphenoxylate-atropine 1 - 2 tab PO TID PRN #90 tab-cap 09/05/17 02/13/18 clopidogrel [Plavix] 75 mg PO HS #90 tab 10/14/17 02/13/18 losartan 25 mg PO DAILY #30 tab 10/14/17 02/13/18 mirabegron [Myrbetriq] 50 mg PO DAILY #90 tab-cap 10/14/17 02/13/18 olanzapine 5 mg PO DAILY #90 tab-cap 10/14/17 02/13/18 pantoprazole 40 mg PO HS #90 tab 10/14/17 02/13/18 acetaminophen 1,000 mg PO Q4H PRN tab-cap 11/08/17 02/13/18 guaifenesin [Tussin Expectorant] 200 mg PO Q4H PRN ml 11/08/17 02/13/18 diltiazem HCl [Cardizem CD] 120 mg PO DAILY #90 cap.er.24h 11/29/17 02/13/18 duloxetine 60 mg PO HS #90 cap 11/29/17 02/13/18 insulin regular human See Label Instructions SUB-Q TID 01/12/18 02/13/18 U-500concentrate 500 unit/mL #3 vial subcutaneous soln ipratropium-albuterol 0.5 mg-3 3 ml IH QID PRN #90 ml 01/13/18 02/13/18 mg(2.5 mg base)/3 mL nebulization soln nebulizers #1 each 01/13/18 02/09/18 oxybutynin chloride ER 5 mg 5 mg PO DAILY #90 tab-cap 01/16/18 02/13/18 tablet,extended release 24 hr simvastatin 40 mg tablet 40 mg PO QPM #90 tab 01/30/18 02/13/18 magnesium 400 mg (as magnesium 400 mg PO DAILY #90 tab 02/09/18 02/13/18 oxide) tablet meprobamate 400 mg tablet 800 mg PO HS PRN #180 tab 02/09/18 02/13/18 Previous Rx's Medication Instructions Recorded aspirin 81 mg PO DAILY #30 tabec 01/21/16 blood sugar diagnostic [OneTouch #200 strip 01/06/17 Ultra Test] ergocalciferol (vitamin D2) 1 tab-cap PO monthly #3 tab-cap 01/06/17 [Vitamin D2] Lactobacillus acidophilus 1 cap PO DAILY #90 cap 02/01/17 tamsulosin 2 cap PO DAILY #180 cap 02/07/17 insulin aspart U-100 [Novolog 60 units SUB-Q AC #45 pen 03/17/17 Flexpen U-100 Insulin] clopidogrel [Plavix] 75 mg PO HS #90 tab 10/14/17 losartan 25 mg PO DAILY #30 tab 10/14/17 mirabegron [Myrbetriq] 50 mg PO DAILY #90 tab-cap 10/14/17 olanzapine 5 mg PO DAILY #90 tab-cap 10/14/17 pantoprazole 40 mg PO HS #90 tab 10/14/17 diltiazem HCl [Cardizem CD] 120 mg PO DAILY #90 cap.er.24h 11/29/17 duloxetine 60 mg PO HS #90 cap 11/29/17 insulin regular human See Label Instructions SUB-Q TID 01/12/18 U-500concentrate 500 unit/mL #3 vial subcutaneous soln ipratropium-albuterol 0.5 mg-3 3 ml IH QID PRN #90 ml 01/13/18 mg(2.5 mg base)/3 mL nebulization soln nebulizers #1 each 01/13/18 oxybutynin chloride ER 5 mg 5 mg PO DAILY #90 tab-cap 01/16/18 tablet,extended release 24 hr simvastatin 40 mg tablet 40 mg PO QPM #90 tab 01/30/18 magnesium 400 mg (as magnesium 400 mg PO DAILY #90 tab 02/09/18 oxide) tablet meprobamate 400 mg tablet 800 mg PO HS PRN #180 tab 02/09/18 Allergies Allergy/AdvReac Type Severity Reaction Status Date / Time tetracycline Allergy Unknown Unverified 02/13/18 13:17 propofol AdvReac Severe drops BP Unverified 02/13/18 13:[address] oxycodone AdvReac Intermediate Agitation Unverified 02/13/18 13:17 tetrex Allergy Unknown Uncoded 02/13/18 13:17 General Stated Complaint: Trauma PETER: 3 Review of Systems Review of Systems Constitutional: denies fevers Eyes: denies eye pain ENT: denies facial pain, dental pain, sore throat Cardiovascular: denies chest pain, edema Respiratory: denies SOB, cough GI: denies abdominal pain, vomiting, diarrhea : denies flank pain MSK: denies back pain, myalgias, reports neck pain, b/l shoulder pain Skin: denies rash Neuro: denies headaches, lightheadedness, weakness, n/t Exam Narrative Exam Narrative: Constitutional: well and [id number], pleasant, conversing normally HENT: head atraumatic, normocephalic normal inspection, mucous membranes moist Eyes: conjunctiva normal, sclera normal, pupils 3mm b/l Neck: no stridor, normal ROM, trachea midline, mild diffuse midline c/s TTP Chest: normal inspection Resp: normal work of breathing, LCTAB Cardio: normal rate, normal rhythm, no murmur appreciated, radial pulses intact b/l GI: abdomen soft, non-tender, non-distended Back: normal inspection, no rash Skin: warm, dry, normal color, no rash Neuro: alert, not altered, grossly non-focal, normal tone, motor 5/5 b/l UEs Ext: no edema, b/l shoulder NTTP, able to range fully but reports pain with ranging b/l shoulders Psych: normal mood, normal affect Course Vital Signs Temperature 36.1 C L 02/13/18 13:14 Pulse 70 02/13/18 13:14 Respiratory Rate 02/13/18 13:14 Blood Pressure 132/70 02/13/18 13:14 Pulse Oximetry 91 L 02/13/18 13:14 Temperature 36.1 C L 02/13/18 13:14 Temperature Source Temporal Artery Scan 02/13/18 13:14 Pulse 70 02/13/18 13:14 Respiratory Rate 18 02/13/18 13:14 Respiratory Effort 02/13/18 13:35 Respiratory Depth Normal 02/13/18 13:35 Blood Pressure 132/70 02/13/18 13:14 Blood Pressure Position Supine 02/13/18 13:14 Pulse Oximetry 91 L 02/13/18 13:14 Oxygen Delivery Method Room Air 02/13/18 13:14 Oxygen Flow Rate 0 02/13/18 13:14 Pain Level 10 02/13/18 13:14
== END 2018-02-13 16:20 | disposition home or self-care (01) ==
LOC: ER 16:21
PROVIDERS: Emergency Provider Student in an Organized Health Care Education/Training Program; PCP Family Medicine
DX: M25.511 Pain in right shoulder (principal); M25.512 Pain in left shoulder; M54.2 Cervicalgia; W18.30XA Fall on same level, unspecified, initial encounter; E11.9 Type 2 diabetes mellitus without complications; Z79.4 Long term (current) use of insulin; I10 Essential (primary) hypertension
CPT/HCPCS: 36415; 82962; 99284; 72125; 73030

== ENCOUNTER 2018-03-08 02:23 | Outpatient (CLI) | payer MEDICARE, MEDICAID, SELFPAY ==
[2018-03-08 13:35] LABS: Hemoglobin A1C 6.8 % (4.5-6.2)
== END 2018-03-08 02:43 ==
LOC: LOS 02:24 → LBO 07:57
PROVIDERS: PCP Family Medicine; Visit Provider Family Medicine
DX: E11.9 Type 2 diabetes mellitus without complications (principal)
CPT/HCPCS: 36415; 83036

== ENCOUNTER 2018-04-01 21:42 | Emergency (ER) | payer MEDICARE, MEDICAID, SELFPAY ==
[2018-04-01 21:47] VITALS: BP 111/52; PULSE 69; RESP 18; TEMP 36.6; O2SAT 91
--- NOTE | 2018-04-01 22:16 | DI.RAD_ITS ---
SYMPTOMS/DIAGNOSIS: PAIN S/P FALL RIGHT SHOULDER: Comparison is made with March,. No acute fracture or dislocation is seen. Degenerative changes are noted at the glenohumeral joint. IMPRESSION: Degenerative changes. No acute abnormality. PELVIS AND RIGHT HIP: No fracture or dislocation is seen. There is no widening of the SI joints or pubic symphysis. IMPRESSION: Negative pelvis and right hip.
--- NOTE | 2018-04-01 22:17 | DI.CT_ITS ---
SYMPTOMS/DIAGNOSIS: PAIN, S/P FALL NONCONTRAST HEAD CT: Comparison is made with [id number]. There is a large old right sided infarct. No acute infarct, hemorrhage or mass is seen. There is no change in ventricular size. No skull fracture is identified. IMPRESSION: Old right infarct. No acute abnormality. CT OF THE CERVICAL SPINE: The exam is somewhat limited by patient motion. No fracture or subluxation is seen. Degenerative changes are noted. IMPRESSION: No acute abnormality.
--- NOTE | 2018-04-01 22:21 | ED.GENADUL_ITS ---
Discharge Plan Disposition Patient Disposition: HOME Condition: Stable Discharge Details Chief Complaint: Orthopedic Clinical Impression: Blunt head trauma, Contusion of right shoulder, Contusion of right hip, Cervical strain Primary Care Provider: Hever Presley ED Provider: Jamal Coello Home Meds and New Rx's Prescriptions: Continued furosemide 20 mg tablet 20 mg PO DAILY Qty: 30 RF: 4 meprobamate 400 mg tablet 800 mg PO HS PRN (Reason: anxiety) Qty: 180 RF: 0 magnesium oxide 400 mg magnesium tablet 400 mg PO DAILY Qty: 90 RF: 4 lancets [OneTouch Delica Lancets] 1 EACH misc 1 ea Miscellaneous QID Qty: 200 RF: 4 MARC GONZALEZ cream 1 gm Topical Q 6 PRN RF: 0 Prevail Pant Liner 1 EACH pad 1 box Miscellaneous TID Qty: 3 RF: 5 pen needle, diabetic [BD Ultra-Fine Ana Pen Needle] 1 EACH needle 1 ea Miscellaneous 8 time a day Qty: 240 RF: 11 montelukast 10 MG tablet 10 mg PO DAILY Qty: 90 RF: 4 Insulin Syringe MicroFine 1 EACH syringe 1 ea Miscellaneous QID Qty: 200 RF: 4 OneTouch Ultra Test 1 EACH strip 1 ea Miscellaneous TID Qty: 200 RF: 4 Lactobacillus acidophilus 1 EACH capsule 1 cap PO DAILY Qty: 90 RF: 4 tamsulosin 0.4 MG capsule 2 cap PO DAILY Qty: 180 RF: 4 Novolog Flexpen U-100 Insulin 300 UNITS/3 ML insulin pen 60 units Sub-Q AC Qty: 45 RF: 4 diclofenac sodium 100 GM gel 1 appful Topical BID Qty: 100 RF: 0 diphenoxylate-atropine 1 EACH tablet 1 - 2 tab PO TID PRNQty: 90 RF: 4 olanzapine 5 MG tablet 5 mg PO DAILY Qty: 90 RF: 4 clopidogrel [Plavix] 75 MG tablet 75 mg PO HS Qty: 90 RF: 4 pantoprazole 40 MG tablet,delayed release (DR/EC) 40 mg PO HS Qty: 90 RF: 4 losartan 25 MG tablet 25 mg PO DAILY Qty: 30 RF: 0 Myrbetriq 50 MG tablet extended release 24 hr 50 mg PO DAILY Qty: 90 RF: 4 acetaminophen 500 MG tablet 1,000 mg PO Q4H PRN RF: 0 guaifenesin [Tussin Expectorant] 100 MG/5 ML liquid 200 mg PO Q4H PRN RF: 0 U-500 syringe 1 ea Sub-Q TID Qty: 90 RF: 11 diltiazem HCl [Cardizem CD] 120 MG capsule,extended release 24hr 120 mg PO DAILY Qty: 90 RF: 4 duloxetine 60 MG capsule,delayed release(DR/EC) 60 mg PO HS Qty: 90 RF: 4 Humulin R U-500 (Conc) Insulin 500 unit/mL solution See Rx Instructions Sub-Q TID Qty: 3 RF: 5 ipratropium-albuterol 0.5 mg-3 mg(2.5 mg base)/3 mL solution for nebulization 3 ml IH QID PRN (Reason: wheezing) Qty: 90 RF: 3 Compact Compressor Nebulizer misc .ROUTE .MEDSUPPLY Qty: 1 RF: 0 oxybutynin chloride 5 mg tablet extended release 24hr 5 mg PO DAILY Qty: 90 RF: 4 simvastatin 40 mg tablet 40 mg PO QPM Qty: 90 RF: 4 ergocalciferol (vitamin D2) [Vitamin D2] 50,000 unit capsule 50,000 unit PO monthly Qty: 3 RF: 4 ascorbic acid (vitamin C) [Vitamin C] 500 MG tablet 500 mg PO DAILY RF: 0 multivitamin 1 EACH capsule 1 cap PO DAILY RF: 0 ferrous sulfate 325 MG tablet 1 tab PO BID RF: 0 gabapentin 100 MG capsule 100 mg PO TID RF: 0 No Action C-Pap RF: 0 aspirin 81 MG tablet,delayed release (DR/EC) 81 mg PO DAILY Qty: 30 RF: 0 Discharge Instructions Instructions: Contusion in Adults (ED) Additional Instructions: follow up with your primary care provider within a week or two if you have new symptoms such as severe chest pain, difficulty breathing or abdominal pain Medical Decision Making 72 yo male comes in after a fall. He is supposed to use a walker and got up from bed to go to the bathroom and didn't use his walker and fell forward. Denies any symptoms prior to the fall such as chest pain, dyspnea, abd pain, headache. He d enies loc. HAs right sided neck pain, headache, right shoulder pain and right hip pain without obvious deformities but will image to eval for traumatic findings. HAs intact distal sensation and pulses so doubt neurovascular injury. He has no chest tenderness or pain and no abd pain so doubt injuries to these locations. Pt states this was purely mechanical so do not feel syncope/presyncope indicated imaging negative, he is able to stand with assistance but does require assistance getting up out of bed. And given his contusion unable to tolerate sitting position for transport so will go by ambulance. HE has no new pain now, no abdominal tenderness. He feels comfortable with d/c and is requesting to go home, advised f/u with pcp and return precautions given Differential Diagnosis contusion, sprain strain Imaging Data Radiologic Study: Attestation: I personally reviewed and interpreted this imaging study as follows: Imaging: X-Ray Radiologist's impression: EXAM: XR Right Hip with Pelvis when Performed, 2 or 3 Views EXAM DATE/TIME: 04/01/2018 10:18 PM CLINICAL HISTORY: 72 years old, male; Pain; Other: Pain S/P fall TECHNIQUE: XR Right hip with pelvis when performed, 2 or 3 views COMPARISON: CR PELVIS AP 03/20/2015 10:42 AM FINDINGS: Bones/joints: Typical for age. No evidence of acute fracture. Soft tissues: Unremarkable. IMPRESSION: No acute findings. Radiologic Study #2: Attestation: I personally reviewed and interpreted this imaging study as follows: Imaging: X-Ray Radiologist's impression: EXAM: XR Right Shoulder Complete, 2 or More Views EXAM DATE/TIME: 04/01/2018 10:18 PM CLINICAL HISTORY: 72 years old, male; Pain; Shoulder; Right; Patient HX: Pain S/P fall TECHNIQUE: XR Right shoulder complete 2 or more views. COMPARISON: CR XR shoulder RT complete 2+V 02/13/2018 3:45 PM FINDINGS: Bones/joints: Irregularity to the inferior aspect of the glenoid bone similar to the prior study. This may be an old fracture deformity. No significant degenerative change for age. No evidence of acute fracture or malalingment. Soft tissues: Unremarkable. IMPRESSION: No acute findings. Radiologic Study #3: Attestation: I personally reviewed and interpreted this imaging study as follows: Imaging: CT Scan Radiologist's impression: EXAM: CT Head Without Contrast EXAM DATE/TIME: 04/01/2018 10:18 PM CLINICAL HISTORY: 72 years old, male; Pain; Other: Pain S/P fall TECHNIQUE: Axial computed tomography images of the head/brain without contrast. Coronal and sagittal reformatted images were created and reviewed. COMPARISON: CT cervical spine wo 02/13/2018 3:22 PM FINDINGS: Brain: No evidence of intracranial hemorrhage. There is some tissue loss in the frontal parietal and occipital locations on the right side. Ventricles: No ventriculomegaly. Bones/joints: Unremarkable. Sinuses: No sinus fluid. Mastoid air cells: Unremarkable. Soft tissues: IMPRESSION: No acute findings. EXAM: CT Cervical Spine Without Contrast EXAM DATE/TIME: 04/01/2018 10:18 PM CLINICAL HISTORY: 72 years old, male; Pain; Other: Pain S/P fall TECHNIQUE: Axial computed tomography images of the cervical spine without intravenous contrast. Coronal and sagittal reformatted images were created and reviewed. COMPARISON: CT cervical spine wo 02/13/2018 3:22 PM FINDINGS: Vertebrae: No acute fracture. Normal alignment. Vertebral body heights preserved. Discs/Spinal canal/Neural foramina: Mild to moderate degenerative change. Typical for age. Soft tissues: Unremarkable. Lungs: Lung apices are unremarkable as visualized. IMPRESSION: No acute findings. HPI General Mode of arrival: EMS . Date/Time Provider Initiated Documentation: 04/01/18 22:12 . Limitations to Documentation: no limitations . Information obtained by: patient . History of Present Illness 72 year old M presents to the emergency department with the chief complaint of right shoulder pain, described as moderate, with intensity rated at 8. Quality is described as aching, Patient started experiencing this hour(s) (1) and it has been constant. Rest improves symptom(s), Movement worsens symptoms . Patient did receive the following treatments prior to arrival, none Related Data Home Medications Medication Instructions Recorded Confirmed ascorbic acid (vitamin C) [Vitamin 500 mg PO DAILY 04/16/13 03/10/18 C] multivitamin 1 cap PO DAILY 04/16/13 03/10/18 lancets [OneTouch Delica Lancets] #200 ea 09/26/15 03/10/18 aspirin 81 mg PO DAILY #30 tabec 01/21/16 03/10/18 ferrous sulfate 1 tab PO BID 03/18/16 03/10/18 Marc Gonzalez 1 gm TOPICAL Q 6 PRN 03/23/16 03/10/18 Prevail Pant Liner #3 07/29/16 03/10/18 pen needle, diabetic [BD #240 ea 08/19/16 03/10/18 Ultra-Fine Ana Pen Needle] montelukast 10 mg PO DAILY #90 mg 11/04/16 03/10/18 Insulin Syringe MicroFine #200 ea 11/09/16 03/10/18 OneTouch Ultra Test #200 strip 01/06/17 03/10/18 Lactobacillus acidophilus 1 cap PO DAILY #90 cap 02/01/17 03/10/18 tamsulosin 2 cap PO DAILY #180 cap 02/07/17 03/10/18 Novolog Flexpen U-100 Insulin 60 units SUB-Q AC #45 pen 03/17/17 03/10/18 diclofenac sodium 1 appful TOPICAL BID #100 gm 03/18/17 03/10/18 gabapentin 100 mg PO TID 08/08/17 03/10/18 diphenoxylate-atropine 1 - 2 tab PO TID PRN #90 tab-cap 09/05/17 03/10/18 Myrbetriq 50 mg PO DAILY #90 tab-cap 10/14/17 03/10/18 clopidogrel [Plavix] 75 mg PO HS #90 tab 10/14/17 03/10/18 losartan 25 mg PO DAILY #30 tab 10/14/17 03/10/18 olanzapine 5 mg PO DAILY #90 tab-cap 10/14/17 03/10/18 pantoprazole 40 mg PO HS #90 tab 10/14/17 03/10/18 acetaminophen 1,000 mg PO Q4H PRN tab-cap 11/08/17 03/10/18 guaifenesin [Tussin Expectorant] 200 mg PO Q4H PRN ml 11/08/17 03/10/18 diltiazem HCl [Cardizem CD] 120 mg PO DAILY #90 cap.er.24h 11/29/17 03/10/18 duloxetine 60 mg PO HS #90 cap 11/29/17 03/10/18 insulin regular human U- See Rx Instructions SUB-Q TID #3 01/12/18 03/10/18 500concentrate 500 unit/mL vial subcutaneous soln ipratropium-albuterol 0.5 mg-3 3 ml IH QID PRN #90 ml 01/13/18 03/10/18 mg(2.5 mg base)/3 mL nebulization soln nebulizers #1 each 01/13/18 03/10/18 oxybutynin chloride ER 5 mg 5 mg PO DAILY #90 tab-cap 01/16/18 03/10/18 tablet,extended release 24 hr simvastatin 40 mg tablet 40 mg PO QPM #90 tab 01/30/18 03/10/18 magnesium 400 mg (as magnesium 400 mg PO DAILY #90 tab 02/09/18 03/10/18 oxide) tablet meprobamate 400 mg tablet 800 mg PO HS PRN #180 tab 02/09/18 03/10/18 ergocalciferol (vitamin D2) 50,000 50,000 unit PO monthly #3 tab-cap 03/06/18 03/10/18 unit capsule furosemide 20 mg tablet 20 mg PO DAILY #30 tab 03/10/18 03/10/18 Previous Rx's Medication Instructions Recorded aspirin 81 mg PO DAILY #30 tabec 01/21/16 GoGoVan Ultra Test #200 strip 01/06/17 Lactobacillus acidophilus 1 cap PO DAILY #90 cap 02/01/17 tamsulosin 2 cap PO DAILY #180 cap 02/07/17 Novolog Flexpen U-100 Insulin 60 units SUB-Q AC #45 pen 03/17/17 Myrbetriq 50 mg PO DAILY #90 tab-cap 10/14/17 clopidogrel [Plavix] 75 mg PO HS #90 tab 10/14/17 losartan 25 mg PO DAILY #30 tab 10/14/17 olanzapine 5 mg PO DAILY #90 tab-cap 10/14/17 pantoprazole 40 mg PO HS #90 tab 10/14/17 diltiazem HCl [Cardizem CD] 120 mg PO DAILY #90 cap.er.24h 11/29/17 duloxetine 60 mg PO HS #90 cap 11/29/17 insulin regular human U- See Rx Instructions SUB-Q TID #3 01/12/18 500concentrate 500 unit/mL vial subcutaneous soln ipratropium-albuterol 0.5 mg-3 3 ml IH QID PRN #90 ml 01/13/18 mg(2.5 mg base)/3 mL nebulization soln nebulizers #1 each 01/13/18 oxybutynin chloride ER 5 mg 5 mg PO DAILY #90 tab-cap 01/16/18 tablet,extended release 24 hr simvastatin 40 mg tablet 40 mg PO QPM #90 tab 01/30/18 magnesium 400 mg (as magnesium 400 mg PO DAILY #90 tab 02/09/18 oxide) tablet meprobamate 400 mg tablet 800 mg PO HS PRN #180 tab 02/09/18 ergocalciferol (vitamin D2) 50,000 50,000 unit PO monthly #3 tab-cap 03/06/18 unit capsule furosemide 20 mg tablet 20 mg PO DAILY #30 tab 03/10/18 Allergies Allergy/AdvReac Type Severity Reaction Status Date / Time tetracycline Allergy Unknown Unverified 04/01/18 21:54 propofol AdvReac Severe drops BP Unverified 04/01/18 21:54 way down oxycodone AdvReac Intermediate Agitation Unverified 04/01/18 21:54 tetrex Allergy Unknown Uncoded 04/01/18 21:54 General Stated Complaint: Orthopedic PETER: 3 Review of Systems Review of Systems All systems reviewed & are unremarkable except as noted in HPI and below Constitutional Denies chills, Denies fever(s) and Denies weakness Eyes Denies loss of vision ENT Denies change in voice Cardiovascular Denies chest pain and Denies dyspnea Respiratory Denies dyspnea Gastrointestinal Denies abdominal pain, Denies nausea and Denies vomiting Genitourinary Denies dysuria Integumentary/Breasts Denies rash Neurologic Denies loss of vision and Denies weakness Psychiatric Denies depression Endocrine Denies cold intolerance and Denies heat intolerance [facility] Medical History Vascular dementia with behavior disturbance (Chronic 03/23/16) Malignant neoplasm of sigmoid colon (Chronic 02/21/15) Late, effect, 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) Diabetes mellitus (Chronic 05/04/11) Depressive disorder (Chronic 05/04/11) 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 (Chronic 03/09/07) Cerebrovascular accident (CVA) (Chronic 05/04/11) Surgical History Appendectomy Arthroplasty of knee HERNIA REPAIR LOW BACK SURGERY PROPOFOL SEDATION Tonsillectomy UPPP (Uvulopalatopharyngoplasty) Family History Mother Essential hypertension Heart disease Father Cancer Sister Essential hypertension Brother Essential hypertension Grandfather Heart disease Grandfather Heart disease Grandmother Heart disease Social History caregiver/support person: Yes household members: spouse housing: house lives independently: No number of children: 1 senior care: No current occupational status: disabled pets and animals: Yes Hx Recent Travel: No well-balanced diet: rarely or never high-fat food intake: 3 or more times/day daily servings fruits/ve-1 eating out: rarely or never reads food labels: seldom or never Smoking/Tobacco Use Status: Former Tobacco Use alcohol intake: never Exam Const General: no acute distress Orientation: alert HENMT Head: normal to inspection Ears: external ears normal General nose exam: external nose normal Mouth: moist mucous membranes Eyes General: appearance normal, both eyes and all related structures Neck Neck: normal visual inspection Resp Effort & Inspection: normal respiratory effort and able to speak in complete sentences Cardio Rate: regular rate Skin General skin exam: no rashes or lesions noted Neuro General: alert and oriented x3 Extrem General: normal capillary refill Psych Mental Status: mental status grossly normal Course Vital Signs Temperature 36.6 C 04/01/18 21:47 Pulse 69 04/01/18 21:47 Respiratory Rate 18 04/01/18 21:47 Blood Pressure 111/52 L 04/01/18 21:47 Pulse Oximetry 91 L 04/01/18 21:47 Temperature 36.6 C 04/01/18 21:47 Temperature Source Temporal Artery Scan 04/01/18 21:47 Pulse 69 04/01/18 21:47 Respiratory Rate 18 04/01/18 21:47 Respiratory Effort 04/01/18 21:47 Blood Pressure 111/52 L 04/01/18 21:47 Pulse Oximetry 91 L 04/01/18 21:47 Oxygen Delivery Method Room Air 04/01/18 21:47 Oxygen Flow Rate 0 04/01/18 21:47 Pain Level 10 04/01/18 21:52
--- NOTE | 2018-04-01 23:34 | DI.VRAD_ITS ---
EXAM: CT Head Without Contrast EXAM DATE/TIME: 04/01/2018 10:18 PM CLINICAL HISTORY: 72 years old, male; Pain; Other: Pain S/P fall TECHNIQUE: Axial computed tomography images of the head/brain without contrast. Coronal and sagittal reformatted images were created and reviewed. COMPARISON: CT cervical spine wo 02/13/2018 3:22 PM FINDINGS: Brain: No evidence of intracranial hemorrhage. There is some tissue loss in the frontal parietal and occipital locations on the right side. Ventricles: No ventriculomegaly. Bones/joints: Unremarkable. Sinuses: No sinus fluid. Mastoid air cells: Unremarkable. Soft tissues: IMPRESSION: No acute findings. EXAM: CT Cervical Spine Without Contrast EXAM DATE/TIME: 04/01/2018 10:18 PM CLINICAL HISTORY: 72 years old, male; Pain; Other: Pain S/P fall TECHNIQUE: Axial computed tomography images of the cervical spine without intravenous contrast. Coronal and sagittal reformatted images were created and reviewed. COMPARISON: CT cervical spine wo 02/13/2018 3:22 PM FINDINGS: Vertebrae: No acute fracture. Normal alignment. Vertebral body heights preserved. Discs/Spinal canal/Neural foramina: Mild to moderate degenerative change. Typical for age. Soft tissues: Unremarkable. Lungs: Lung apices are unremarkable as visualized. IMPRESSION: No acute findings. Dictated and Authenticated by: Harrison Apodaca MD. Ordering:MATT Berry MD
--- NOTE | 2018-04-01 23:35 | DI.VRAD_ITS ---
EXAM: XR Right Hip with Pelvis when Performed, 2 or 3 Views EXAM DATE/TIME: 04/01/2018 10:18 PM CLINICAL HISTORY: 72 years old, male; Pain; Other: Pain S/P fall TECHNIQUE: XR Right hip with pelvis when performed, 2 or 3 views COMPARISON: CR PELVIS AP 03/20/2015 10:42 AM FINDINGS: Bones/joints: Typical for age. No evidence of acute fracture. Soft tissues: Unremarkable. IMPRESSION: No acute findings. Dictated and Authenticated by: Harrison Apodaca MD. Ordering:MATT Berry MD
--- NOTE | 2018-04-01 23:37 | DI.VRAD_ITS ---
EXAM: XR Right Shoulder Complete, 2 or More Views EXAM DATE/TIME: 04/01/2018 10:18 PM CLINICAL HISTORY: 72 years old, male; Pain; Shoulder; Right; Patient HX: Pain S/P fall TECHNIQUE: XR Right shoulder complete 2 or more views. COMPARISON: CR XR shoulder RT complete 2+V 02/13/2018 3:45 PM FINDINGS: Bones/joints: Irregularity to the inferior aspect of the glenoid bone similar to the prior study. This may be an old fracture deformity. No significant degenerative change for age. No evidence of acute fracture or malalingment. Soft tissues: Unremarkable. IMPRESSION: No acute findings. Dictated and Authenticated by: Harrison Apodaca MD. Ordering:MATT Berry MD
[2018-04-01] MEDS: Acetaminophen 500 MG TAB 1000 MG PO (23:52)
== END 2018-04-02 01:04 | disposition home or self-care (01) ==
PROVIDERS: Emergency Provider Emergency Medicine; PCP Family Medicine
DX: S09.90XA Unspecified injury of head, initial encounter (principal); S40.011A Contusion of right shoulder, initial encounter; S70.01XA Contusion of right hip, initial encounter; S16.1XXA Strain of muscle, fascia and tendon at neck level, initial encounter; W01.10XA Fall on same level from slipping, tripping and stumbling with subsequent striking against unspecified object, initial encounter; F03.90 Unspecified dementia, unspecified severity, without behavioral disturbance, psychotic disturbance, mood disturbance, and anxiety; E11.9 Type 2 diabetes mellitus without complications
CPT/HCPCS: 99284; 70450; 72125; 73030; 73502

== ENCOUNTER 2018-04-06 13:50 | Emergency (ER) | payer MEDICARE, MEDICAID, SELFPAY ==
[2018-04-06] VITALS (20 sets, daily range): BP systolic 105–189; BP diastolic 56–115; PULSE 46–96; RESP 12–24; TEMP 36.6; O2SAT 88–95
--- NOTE | 2018-04-06 14:04 | ED.GENADUL_ITS ---
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, Physical deconditioning Reason For Visit: [facility] Primary Care Provider: Hever Presley ED Provider: Tian Salcido Home Meds and New Rx's Prescriptions: Continued furosemide 20 mg tablet 20 mg PO DAILY Qty: 30 RF: 4 meprobamate 400 mg tablet 800 mg PO HS PRN (Reason: anxiety) Qty: 180 RF: 0 magnesium oxide 400 mg magnesium tablet 400 mg PO DAILY Qty: 90 RF: 4 C-Pap RF: 0 lancets [OneTouch Delica Lancets] 1 EACH misc 1 ea Miscellaneous QID Qty: 200 RF: 4 MARC GONZALEZ cream 1 gm Topical Q 6 PRN RF: 0 Prevail Pant Liner 1 EACH pad 1 box Miscellaneous TID Qty: 3 RF: 5 pen needle, diabetic [BD Ultra-Fine Ana Pen Needle] 1 EACH needle 1 ea Miscellaneous 8 time a day Qty: 240 RF: 11 montelukast 10 MG tablet 10 mg PO DAILY Qty: 90 RF: 4 Insulin Syringe MicroFine 1 EACH syringe 1 ea Miscellaneous QID Qty: 200 RF: 4 OneTouch Ultra Test 1 EACH strip 1 ea Miscellaneous TID Qty: 200 RF: 4 Lactobacillus acidophilus 1 EACH capsule 1 cap PO DAILY Qty: 90 RF: 4 tamsulosin 0.4 MG capsule 2 cap PO DAILY Qty: 180 RF: 4 Novolog Flexpen U-100 Insulin 300 UNITS/3 ML insulin pen 60 units Sub-Q AC Qty: 45 RF: 4 diclofenac sodium 100 GM gel 1 appful Topical BID Qty: 100 RF: 0 diphenoxylate-atropine 1 EACH tablet 1 - 2 tab PO TID PRNQty: 90 RF: 4 olanzapine 5 MG tablet 5 mg PO DAILY Qty: 90 RF: 4 clopidogrel [Plavix] 75 MG tablet 75 mg PO HS Qty: 90 RF: 4 pantoprazole 40 MG tablet,delayed release (DR/EC) 40 mg PO HS Qty: 90 RF: 4 losartan 25 MG tablet 25 mg PO DAILY Qty: 30 RF: 0 Myrbetriq 50 MG tablet extended release 24 hr 50 mg PO DAILY Qty: 90 RF: 4 acetaminophen 500 MG tablet 1,000 mg PO Q4H PRN RF: 0 guaifenesin [Tussin Expectorant] 100 MG/5 ML liquid 200 mg PO Q4H PRN RF: 0 U-500 syringe 1 ea Sub-Q TID Qty: 90 RF: 11 diltiazem HCl [Cardizem CD] 120 MG capsule,extended release 24hr 120 mg PO DAILY Qty: 90 RF: 4 duloxetine 60 MG capsule,delayed release(DR/EC) 60 mg PO HS Qty: 90 RF: 4 Humulin R U-500 (Conc) Insulin 500 unit/mL solution See Rx Instructions Sub-Q TID Qty: 3 RF: 5 ipratropium-albuterol 0.5 mg-3 mg(2.5 mg base)/3 mL solution for nebulization 3 ml IH QID PRN (Reason: wheezing) Qty: 90 RF: 3 Compact Compressor Nebulizer misc .ROUTE .MEDSUPPLY Qty: 1 RF: 0 oxybutynin chloride 5 mg tablet extended release 24hr 5 mg PO DAILY Qty: 90 RF: 4 simvastatin 40 mg tablet 40 mg PO QPM Qty: 90 RF: 4 ergocalciferol (vitamin D2) [Vitamin D2] 50,000 unit capsule 50,000 unit PO monthly Qty: 3 RF: 4 ascorbic acid (vitamin C) [Vitamin C] 500 MG tablet 500 mg PO DAILY RF: 0 multivitamin 1 EACH capsule 1 cap PO DAILY RF: 0 aspirin 81 MG tablet,delayed release (DR/EC) 81 mg PO DAILY Qty: 30 RF: 0 ferrous sulfate 325 MG tablet 1 tab PO BID RF: 0 gabapentin 100 MG capsule 100 mg PO TID RF: 0 Medical Decision Making 72-year-old male who rolled out of bed at home and struck his head and chest with question of loss of consciousness. He presents complaining of left headache and left chest discomfort. He has noted increasing weakness over days time and he and his spoke about patient returning to local rehabilitation facility where he has spent time in the past. His vital signs are normal. His exam is reassuring. Referred for noncontrast CT scan of the head, chest x-ray given his left chest discomfort from falling, as well as screening laboratories. Diagnostic studies: CT head without acute intracranial findings, chest x-ray without evidence of pneumothorax, rib fracture, or infiltrate. Lab essentially reassuring with evidence of chronic renal insufficiency. Patient stable without evidence of significant, acute event. Our care management team discussed the case with [facility] and the patient was accepted in transfer back of there for rehab Lab Data Lab results reviewed: Yes I reviewed the patient's lab results. Laboratory Results - last 24 hr 04/06/18 04/06/18 14:39 14:39 WBC 7.41 RBC 3.86 L Hgb 12.8 L Hct 39.8 L MCV 103.1 H MCH 33.2 H MCHC 32.2 RDW 14.0 Plt Count 122 L MPV 12.2 H Immature Gran % 0.7 Neutrophils % 56.7 Lymphocytes % 22.0 Monocytes % 19.0 Eosinophils % 1.1 Basophils % 0.5 Absolute Neutrophils 4.20 Absolute Lymphocytes 1.63 Absolute Monocytes 1.41 H Absolute Eosinophils 0.08 Absolute Basophils 0.04 Sodium 143 Potassium 3.9 Chloride 105 Carbon Dioxide 30.4 Anion Gap 7.6 BUN 28 H Creatinine 2.03 H Estimated GFR/1.73 m2 32.26 Glucose 133 H Calcium 8.8 Magnesium 2.0 Total Bilirubin 0.2 AST 20 ALT 32 Alkaline Phosphatase 63 Troponin I 0.02 Total Protein 7.2 Albumin 3.3 L HPI General Mode of arrival: ambulatory . Date/Time Provider Initiated Documentation: 04/06/18 14:13 . Limitations to Documentation: no limitations . Information obtained by: patient . History of Present Illness 72 year old M presents to the emergency department with the chief complaint of Headache after fall, described as moderate, Quality is described as aching, and is localized to the head, face and left. Patient reports no radiation. Patient started experiencing this minute(s) and it has been constant. No relieving factors improve symptom(s), No exacerbating factors reported . Patient notes other (Left chest wall discomfort). Patient did receive the following treatments prior to arrival, none HPI Narrative: Patient is 72, has in-home caregivers, will try to get out of bed to have lunch she slid to the floor and struck his head and chest on the way. He states he is unsure if he had a loss of consciousness. He now has dull, aching, nonradiating left frontal headache. Minimal left-sided chest discomfort. Denies recent illness Related Data Home Medications Medication Instructions Recorded Confirmed ascorbic acid (vitamin C) [Vitamin 500 mg PO DAILY 04/16/13 04/06/18 C] multivitamin 1 cap PO DAILY 04/16/13 04/06/18 lancets [OneTouch Delica Lancets] #200 ea 09/26/15 04/06/18 aspirin 81 mg PO DAILY #30 tabec 01/21/16 04/06/18 ferrous sulfate 1 tab PO BID 03/18/16 04/06/18 Marc Gonzalez 1 gm TOPICAL Q 6 PRN 03/23/16 03/10/18 Prevail Pant Liner #3 07/29/16 04/06/18 pen needle, diabetic [BD #240 ea 08/19/16 04/06/18 Ultra-Fine Ana Pen Needle] montelukast 10 mg PO DAILY #90 mg 11/04/16 04/06/18 Insulin Syringe MicroFine #200 ea 11/09/16 04/06/18 OneTouch Ultra Test #200 strip 01/06/17 04/06/18 Lactobacillus acidophilus 1 cap PO DAILY #90 cap 02/01/17 04/06/18 tamsulosin 2 cap PO DAILY #180 cap 02/07/17 04/06/18 Novolog Flexpen U-100 Insulin 60 units SUB-Q AC #45 pen 03/17/17 04/06/18 diclofenac sodium 1 appful TOPICAL BID #100 gm 03/18/17 04/06/18 gabapentin 100 mg PO TID 08/08/17 04/06/18 diphenoxylate-atropine 1 - 2 tab PO TID PRN #90 tab-cap 09/05/17 04/06/18 Myrbetriq 50 mg PO DAILY #90 tab-cap 10/14/17 04/06/18 clopidogrel [Plavix] 75 mg PO HS #90 tab 10/14/17 04/06/18 losartan 25 mg PO DAILY #30 tab 10/14/17 04/06/18 olanzapine 5 mg PO DAILY #90 tab-cap 10/14/17 04/06/18 pantoprazole 40 mg PO HS #90 tab 10/14/17 04/06/18 acetaminophen 1,000 mg PO Q4H PRN tab-cap 11/08/17 04/06/18 guaifenesin [Tussin Expectorant] 200 mg PO Q4H PRN ml 11/08/17 04/06/18 diltiazem HCl [Cardizem CD] 120 mg PO DAILY #90 cap.er.24h 11/29/17 04/06/18 duloxetine 60 mg PO HS #90 cap 11/29/17 04/06/18 insulin regular human U- See Rx Instructions SUB-Q TID #3 01/12/18 04/06/18 500concentrate 500 unit/mL vial subcutaneous soln ipratropium-albuterol 0.5 mg-3 3 ml IH QID PRN #90 ml 01/13/18 04/06/18 mg(2.5 mg base)/3 mL nebulization soln nebulizers #1 each 01/13/18 04/06/18 oxybutynin chloride ER 5 mg 5 mg PO DAILY #90 tab-cap 01/16/18 04/06/18 tablet,extended release 24 hr simvastatin 40 mg tablet 40 mg PO QPM #90 tab 01/30/18 04/06/18 magnesium 400 mg (as magnesium 400 mg PO DAILY #90 tab 02/09/18 04/06/18 oxide) tablet meprobamate 400 mg tablet 800 mg PO HS PRN #180 tab 02/09/18 04/06/18 ergocalciferol (vitamin D2) 50,000 50,000 unit PO monthly #3 tab-cap 03/06/18 04/06/18 unit capsule furosemide 20 mg tablet 20 mg PO DAILY #30 tab 03/10/18 04/06/18 Previous Rx's Medication Instructions Recorded aspirin 81 mg PO DAILY #30 tabec 01/21/16 OneTouch Ultra Test #200 strip 01/06/17 Lactobacillus acidophilus 1 cap PO DAILY #90 cap 02/01/17 tamsulosin 2 cap PO DAILY #180 cap 02/07/17 Novolog Flexpen U-100 Insulin 60 units SUB-Q AC #45 pen 03/17/17 Myrbetriq 50 mg PO DAILY #90 tab-cap 10/14/17 clopidogrel [Plavix] 75 mg PO HS #90 tab 10/14/17 losartan 25 mg PO DAILY #30 tab 10/14/17 olanzapine 5 mg PO DAILY #90 tab-cap 10/14/17 pantoprazole 40 mg PO HS #90 tab 10/14/17 diltiazem HCl [Cardizem CD] 120 mg PO DAILY #90 cap.er.24h 11/29/17 duloxetine 60 mg PO HS #90 cap 11/29/17 insulin regular human U- See Rx Instructions SUB-Q TID #3 01/12/18 500concentrate 500 unit/mL vial subcutaneous soln ipratropium-albuterol 0.5 mg-3 3 ml IH QID PRN #90 ml 01/13/18 mg(2.5 mg base)/3 mL nebulization soln nebulizers #1 each 01/13/18 oxybutynin chloride ER 5 mg 5 mg PO DAILY #90 tab-cap 01/16/18 tablet,extended release 24 hr simvastatin 40 mg tablet 40 mg PO QPM #90 tab 01/30/18 magnesium 400 mg (as magnesium 400 mg PO DAILY #90 tab 02/09/18 oxide) tablet meprobamate 400 mg tablet 800 mg PO HS PRN #180 tab 02/09/18 ergocalciferol (vitamin D2) 50,000 50,000 unit PO monthly #3 tab-cap 03/06/18 unit capsule furosemide 20 mg tablet 20 mg PO DAILY #30 tab 03/10/18 Allergies Allergy/AdvReac Type Severity Reaction Status Date / Time tetracycline Allergy Unknown Unverified 04/01/18 21:54 propofol AdvReac Severe drops BP Unverified 04/01/18 21:54 way down oxycodone AdvReac Intermediate Agitation Unverified 04/01/18 21:54 tetrex Allergy Unknown Uncoded 04/01/18 21:54 General PETER: 3 Review of Systems Review of Systems 6 systems reviewed and otherwise negative [facility] Medical History Vascular dementia with behavior disturbance (Chronic 03/23/16) Malignant neoplasm of sigmoid colon (Chronic 02/21/15) Late, effect, 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) Diabetes mellitus (Chronic 05/04/11) Depressive disorder (Chronic 05/04/11) 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 (Chronic 03/09/07) Cerebrovascular accident (CVA) (Chronic 05/04/11) Surgical History Appendectomy Arthroplasty of knee HERNIA REPAIR LOW BACK SURGERY PROPOFOL SEDATION Tonsillectomy UPPP (Uvulopalatopharyngoplasty) Family History Mother Essential hypertension Heart disease Father Cancer Sister Essential hypertension Brother Essential hypertension Grandfather Heart disease Grandfather Heart disease Grandmother Heart disease Social History caregiver/support person: Yes household members: spouse housing: house lives independently: No number of children: 1 long-term: No current occupational status: disabled pets and animals: Yes Hx Recent Travel: No well-balanced diet: rarely or never high-fat food intake: 3 or more times/day daily servings fruits/ve-1 eating out: rarely or never reads food labels: seldom or never Smoking/Tobacco Use Status: Former Tobacco Use alcohol intake: never Exam Narrative Exam Narrative: GEN: awake, alert, oriented 3. Pleasant, well groomed, interactive. HEAD: Normocephalic, atraumatic ENT: Mucous membranes moist, oropharynx unremarkable, External ear exam unremarkable EYES: PERRL, EOMI NECK: Full ROM, no PAMELA, no menigismus CHEST/RESP: Nontender, clear to auscultation bilateral, no wheeze/rhonchi/rales CARDIOVASCULAR: Distant, RRR, no murmur, rub tomas. 2+ Rad pulse bilateral ABDOMEN: Soft, nontender, no mass. +Bowel sounds EXT: Able to move both legs against gravity, no edema, no rash. L knee with anterior abrasion Neuro: Grossly normal neurologic exam, conversant, interactive. Psych: Speech fluent, thoughts congruent, affect normal
--- NOTE | 2018-04-06 14:04 | DI.RAD_ITS ---
SYMPTOMS/DIAGNOSIS: LEFT ANTERIOR CHEST PAIN S/P FALL, HEADACHE, ON PLAVIX CHEST X-RAY, AP AND LATERAL: Comparison is 05/28/17. The heart size is within normal limits. No focal consolidating infiltrates are present. No effusions or pneumothoraces are identified. The bones appear intact. IMPRESSION: No definite acute pulmonary process.
--- NOTE | 2018-04-06 14:05 | DI.CT_ITS ---
SYMPTOMS/DIAGNOSIS: LEFT ANTERIOR CHEST PAIN S/P FALL, HITTING FRONTAL/LATERAL ASPECT OF HEAD, ? LOSS OF CONSCIOUSNESS CT BRAIN, NONCONTRAST EXAMINATION: Comparison is 04/01/18. There is cerebral atrophy consistent with the patient's age. Areas of decreased attenuation are seen in the white matter consistent with small vessel ischemic disease. There is again seen a large old infarct involving the right cerebral hemisphere, which is unchanged. No evidence of an acute infarct, hemorrhage, midline shift or mass effect is identified. The ventricles are intact. The basilar cisterns are patent. There are small mucus retention cysts or polyps in the maxillary sinuses. No fluid levels are seen in the visualized paranasal sinuses. The mastoid air cells are well pneumatized. The calvarium is intact. IMPRESSION: No acute intracranial process. The findings were discussed with the Emergency Department on the date of the examination.
[2018-04-06 14:59] LABS: Abs Immature Grans 0.05 k/cumm (0.0-0.09); Absolute Basophil Count 0.04 k/cumm (0.0-0.2); Absolute Eosinophil Count 0.08 k/cumm (0.0-0.7); Absolute Lymphocyte Count 1.63 k/cumm (1.2-3.4); Absolute Monocyte Count 1.41 k/cumm (0.11-0.7); Basophils % 0.5; Eosinophils % 1.1; HCT 39.8 % (40.0-50.0); HGB 12.8 g/dL (13.5-17.5); Immature Grans % 0.7; Mean Corp. HGB Concentration 32.2 g/dL (32.0-36.0); Mean Corpuscular Hemoglobin 33.2 pg (27.0-33.0); Mean Corpuscular Volume 103.1 fL (80-95); Mean Platelet Volume 12.2 fL (8.0-11.0); Neutrophils % 56.7; Platelet Count 122 x1000/uL (130-400); RBC 3.86 m/cumm (4.50-6.00); White Blood Cell Count 7.41 k/cumm (4.4-10.8)
[2018-04-06 15:06] LABS: ALT 32 U/L (12-78); AST 20 U/L (15-37); Albumin 3.3 g/dL (3.4-5.0); Alkaline Phosphatase 63 U/L (46-116); Anion Gap 7.6 mmol/L (3-11); BUN 28 mg/dL (7-18); Bilirubin, Total 0.2 mg/dL (0.2-1.0); CO2 30.4 mmol/L (21.0-32.0); CREATININE 2.03 mg/dL (0.70-1.30); Calcium 8.8 mg/dL (8.5-10.1); Chloride 105 mmol/L (98-107); Estimated GFR 32.26 (mL/min/1.73m2); Glucose 133 mg/dL (70-100); Potassium 3.9 mmol/L (3.5-5.1); Sodium 143 mmol/L (136-145); Total Protein 7.2 g/dL (6.4-8.2); Troponin I 0.02 ng/mL (0.00-0.06)
--- NOTE | 2018-04-06 15:07 | PDOC.ERCMPRO ---
Care Management Progress Note /-Juan presented to the ED with frequent falls at home. Head CT negative per Dr. Salcido. Discussion with Juan if everything was negative did he want to go to [facility]? Juan lives with his Gia in [facility] and he has home caregivers. Juan stated that his Gia and him were talking last evening that it is probably time to go back to rehab and that it might be a permanent stay this time. Called Gia at work and she was in agreement with plan and stated that Juan has been steadily declining at home with multiple falls. Gia stated that this could be a permanent placement for Juan this time as she can not pick him up at home. Called [facility] at [facility] and they have a bed and will accept him today if ready. Discussed all the above with Dr. Salcido. SNF paperwork completed in chart and packet started for rehab. Maddison, Concession Supervisor will print the CT report, labs, EKG, and nursing summary and add to packet. Dr. Salcido states patient will go to [facility] via ambulance. Dr. Salcido has ambulance paperwork to complete. Madd[facility] once the patient is ready. Kaylin, inpatient School Age Program Associate, notified of the above.
--- NOTE | 2018-04-06 15:14 | CMPROGNOTE_ITS ---
Care Management Progress Note /-Juan presented to the ED with frequent falls at home. Head CT negative per Dr. Salcido. Discussion with Juan if everything was negative did he want to go to [facility]? Juan lives with his Gia in [facility] and he has home caregivers. Juan stated that his Gia and him were talking last evening that it is probably time to go back to rehab and that it might be a permanent stay this time. Called Gia at work and she was in agreement with plan and stated that Juan has been steadily declining at home with multiple falls. Gia stated that this could be a permanent placement for Juan this time as she can not pick him up at home. Called [facility] at [facility] and they have a bed and will accept him today if ready. Discussed all the above with Dr. Salcido. SNF paperwork completed in chart and packet started for rehab. Maddison, Heel Gouger will print the CT report, labs, EKG, and nursing summary and add to packet. Dr. Salcido states patient will go to [facility] via ambulance. Dr. Salcido has ambulance paperwork to complete. [facility] is [facility]. Kaylin, inpatient Process Tech, notified of the above.
--- NOTE | 2018-06-09 15:46 | PT.INIE ---
Time of Service: 10:14 PT Notes Date: 06/04/2018 Referring Doctor:Minerva Zaragoza MD PT Orders: PT CONSULT: Evaluate/treat Precautions: Falls Patient Profile/Admitting Diagnosis: 72-year-old male who currently is a resident at [facility] and rehab recently admitted to [facility] for URI. PMHX: History of multiple CVAs, DM, dementia, hypertension, hyperlipidemia, GERD's Social History/Home Situation: Was living at home up until 2 months ago and has been a resident of [facility] since. Current Functional Limitations: Requires assistance with bed mobility activities and ambulation. Equipment Owned/DME: equipment needs are met at [facility]. Subjective: Mildly lethargic, with complaints of general fatigue and weakness. Objective: [] General Observation: Lying comfortably in bed and cooperative Mental Status: Oriented x3 and answering questions appropriately Pain: No complaints of pain offered Vital Signs: His resting pulse is 84 bpm and O2 sats are 90% and following ambulation his O2 sat was 89% and pulse 112 bpm ROM: Right Upper Extremity: Full functional range of motion Left Upper Extremity: Full functional range of motion other than hypomobile mobility of the left ankle, subtalar joint Right Lower Extremity: Full functional range of motion Left Lower Extremity: Full functional range of motion Strength: Right Upper Extremity: Has full motor control and strength generally rated 5/5 Left Upper Extremity: Has full motor control and strength generally rated 4/5 with some mild rigidity Right Lower Extremity: 5/5 Left Lower Extremity: 3/5 with mild rigidity Sensation: Lacking proprioception of the left great toe, diminished sensation light touch throughout the entire left side compared to the right Bed Mobility/Transfers: Requires moderate assistance with his lower extremities when assuming the supine sitting position and vice versa and minimal assist with assuming the sitting to standing positions Gait: Ambulate approximately 15 feet with a wheeled walker requiring contact guarding. He had a shuffling gait Balance: [] Static Sitting: Good Dynamic Sitting: Requires contact guarding Static Standing: Record contact guarding and next field required contact guarding Dynamic Standing: Requires contact guarding Special Tests: Mobility Limitations Standardized Measure [facility] AM-PAC 6 clicks Basic Mobility Inpatient Short Form: Raw Score: 11 standardized Score: 33.86 CMS Score: 72.57 CMS Modifier: CL Informed Consent/Education: Patient instructed in purpose of PT consult and plan of care. Assessment: Patient is a 72 year old male referred to physical therapy services with the diagnosis of upper respiratory infection. Patient presents with clinical signs and symptoms consistent with this diagnosis, as demonstrated by the following impairment level findings: Impaired bed mobility, generalized weakness and gait instability.. Impairments are contributing to the following functional limitations: AMPAC score. 72.57% Patient is assessed as a Moderate 75836 complexity based on the following: History: See the above Examination: See the above Presentation: Moderate Decision Making: Moderate based on his impact score of 72.5% Goals: Goals X1 week 1. Supine-Sit standby assist 2. Sit-Supine standby assist 3. Sit-Stand minimal contact guarding 4. Stand-Sit minimal contact guarding 5. Bed-Chair minimal contact guarding 6. Chair-Bed minimal contact guarding 7. Gait ambulating greater than 50 feet with a wheeled walker and contact guard Plan of Care/Treatment Plan: 1-2x/day, 7 days/week x 1 week. Plan of care has been reviewed with the [employer] providing the service under Physical Therapy direction. Initiate Physical Therapy intervention for strengthening, bed mobility, transfers, gait, stairs, balance training, use of assistive device. DISCHARGE RECOMMENDATIONS: Back to [facility] and rehab TREATMENT CODE/TIME: moderate complexity, initial evaluation 9716 2 x 1, 45 minutes, 12:15 pm. Disclaimer: This note was created using [employer] voice recognition software. It was reviewed for major content. However, there may be multiple small discrepancies and errors due to the voice recognition aspects of the software. Inpatient Physical Therapy Discharge Summary Dates: 06/09/2018 Dates of Service: 06/04/2018?06/09 SUBJECTIVE: Patient significantly more awake today and was agreeable to a PT discharge assessment. 06/04/1955 OBJECTIVE: Pain: 0/10 ROM: WFL L UE: WFL R UE: WFL L LE: Patient able to bring left knee up above 90 degrees from a seated position about 20 degrees from horizontal. Patient was also able to raise her leg up straight with full terminal knee extension. Dorsiflexion about 10 degrees. R LE: WFL STRENGTH: L UE: Shoulder flexors 4-/5. Elbow flexors 4-/5. Loom Repairer weak but functional. R UE: Shoulder flexors 4/5. Elbow flexors 4+/5. Loom Repairer strong and functional. L LE: Hip flexors 4-/5. Knee extensors 4/5. Knee flexors 4+/5. Dorsiflexors/plantarflexors 4/5. R LE: Hip flexors 4+/5. Knee extensors 4+/5. Knee flexors 4+/5. Dorsiflexors/plantar flexors 4+/5. BED MOBILITY/TRANSFERS: Supine-sit Min A, minimal cueing needed for B UE placement. Sit-supine Min A, minimal cueing needed for B UE placement. Sit-stand Min A, minimal cueing needed for BUE placement, walker management, shifting of COG for facilitated ascent. Stand-sit Min A, minimal cueing needed for BUE placement, walker management, shifting of COG for facilitated descent. Bed-Chair Min A, moderate cueing needed for backing up onto transfer surface and for a more controlled descent. Chair-bed Min A, moderate cueing needed for backing up onto transfer surface and for a more controlled descent. GAIT: Patient tolerated 5 feet of level surface ambulation inside room x2 using FWW. Maureen slow. Step height and length continue to be reduced. BALANCE: Static sitting good Dynamic sitting good Static standing fair Dynamic standing fair SPECIAL TESTS: [ Mobility Limitations Standardized Measure [facility] AM-PAC 6 clicks Basic Mobility Inpatient Short Form: Raw Score: 16 CMS Score: 54.16% deficit ASSESSMENT: Goals X1 week 1. Supine-Sit standby assist. NOT MET 2. Sit-Supine standby assist. NOT MET 3. Sit-Stand minimal contact guarding. MET with patient now at minimal assist. 4. Stand-Sit minimal contact guarding. MET with patient now at minimal assist. 5. Bed-Chair minimal contact guarding. MET with patient now at minimal assist. 6. Chair-Bed minimal contact guarding, MET with patient now at minimal assist. 7. Gait ambulating greater than 50 feet with a wheeled walker and contact guard. NOT MET. DISCHARGE PLAN/RECOMMENDATIONS: Patient to transition to [facility] facility placement with recommended continuation of skilled physical therapy services to address remianing impairments and functional deficits as documented above. Thank you for this referrAL. Yazmin Gallego, PT, DPT, CLT [facility]
--- NOTE | 2018-06-09 15:50 | IN_ITS ---
Time of Service: 10:14 PT Notes Date: 06/04/2018 Referring Doctor:Minerva Zaragoza MD PT Orders: PT CONSULT: Evaluate/treat Precautions: Falls Patient Profile/Admitting Diagnosis: 72-year-old male who currently is a resident at [facility] and rehab recently admitted to [facility] for URI. PMHX: History of multiple CVAs, DM, dementia, hypertension, hyperlipidemia, GERD's Social History/Home Situation: Was living at home up until 2 months ago and has been a resident of [facility] since. Current Functional Limitations: Requires assistance with bed mobility activities and ambulation. Equipment Owned/DME: equipment needs are met at [facility]. Subjective: Mildly lethargic, with complaints of general fatigue and weakness. Objective: [] General Observation: Lying comfortably in bed and cooperative Mental Status: Oriented x3 and answering questions appropriately Pain: No complaints of pain offered Vital Signs: His resting pulse is 84 bpm and O2 sats are 90% and following ambulation his O2 sat was 89% and pulse 112 bpm ROM: Right Upper Extremity: Full functional range of motion Left Upper Extremity: Full functional range of motion other than hypomobile mobility of the left ankle, subtalar joint Right Lower Extremity: Full functional range of motion Left Lower Extremity: Full functional range of motion Strength: Right Upper Extremity: Has full motor control and strength generally rated 5/5 Left Upper Extremity: Has full motor control and strength generally rated 4/5 wi th some mild rigidity Right Lower Extremity: 5/5 Left Lower Extremity: 3/5 with mild rigidity Sensation: Lacking proprioception of the left great toe, diminished sensation light touch throughout the entire left side compared to the right Bed Mobility/Transfers: Requires moderate assistance with his lower extremities when assuming the supine sitting position and vice versa and minimal assist with assuming the sitting to standing positions Gait: Ambulate approximately 15 feet with a wheeled walker requiring contact guarding. He had a shuffling gait Balance: [] Static Sitting: Good Dynamic Sitting: Requires contact guarding Static Standing: Record contact guarding and next field required contact guarding Dynamic Standing: Requires contact guarding Special Tests: Mobility Limitations Standardized Measure [facility] AM-PAC 6 clicks Basic Mobility Inpatient Short Form: Raw Score: 11 standardized Score: 33.86 CMS Score: 72.57 CMS Modifier: CL Informed Consent/Education: Patient instructed in purpose of PT consult and plan of care. Assessment: Patient is a 72 year old male referred to physical therapy services with the diagnosis of upper respiratory infection. Patient presents with clinical signs and symptoms consistent with this diagnosis, as demonstrated by the following impairment level findings: Impaired bed mobility, generalized weakness and gait instability.. Impairments are contributing to the following functional limitations: AMPAC score. 72.57% Patient is assessed as a Moderate 55705 complexity based on the following: History: See the above Examination: See the above Presentation: Moderate Decision Making: Moderate based on his impact score of 72.5% Goals: Goals X1 week 1. Supine-Sit standby assist 2. Sit-Supine standby assist 3. Sit-Stand minimal contact guarding 4. Stand-Sit minimal contact guarding 5. Bed-Chair minimal contact guarding 6. Chair-Bed minimal contact guarding 7. Gait ambulating greater than 50 feet with a wheeled walker and contact guard Plan of Care/Treatment Plan: 1-2x/day, 7 days/week x 1 week. Plan of care has been reviewed with the PERSONAL [employer] INSURANCE AGENT providing the service under Physical Therapy direction. Initiate Physical Therapy intervention for strengthening, bed mobility, transfers, gait, stairs, balance training, use of assistive device. DISCHARGE RECOMMENDATIONS: Back to [facility] and rehab TREATMENT CODE/TIME: moderate complexity, initial evaluation 9716 2 x 1, 45 minutes, 12:15 pm. Disclaimer: This note was created using [employer] voice recognition software. It was reviewed for major content. However, there may be multiple small discrepancies and errors due to the voice recognition aspects of the software. Inpatient Physical Therapy Discharge Summary Dates: 06/09/2018 Dates of Service: 06/04/2018?06/09 SUBJECTIVE: Patient significantly more awake today and was agreeable to a PT discharge assessment. 06/04/1955 OBJECTIVE: Pain: 0/10 ROM: WFL L UE: WFL R UE: WFL L LE: Patient able to bring left knee up above 90 degrees from a seated position about 20 degrees from horizontal. Patient was also able to raise her leg up straight with full terminal knee extension. Dorsiflexion about 10 degrees. R LE: WFL STRENGTH: L UE: Shoulder flexors 4-/5. Elbow flexors 4-/5. Molded Candles Wicker weak but functional. R UE: Shoulder flexors 4/5. Elbow flexors 4+/5. Molded Candles Wicker strong and functional. L LE: Hip flexors 4-/5. Knee extensors 4/5. Knee flexors 4+/5. Dorsiflexors/plantarflexors 4/5. R LE: Hip flexors 4+/5. Knee extensors 4+/5. Knee flexors 4+/5. Do rsiflexors/plantar flexors 4+/5. BED MOBILITY/TRANSFERS: Supine-sit Min A, minimal cueing needed for B UE placement. Sit-supine Min A, minimal cueing needed for B UE placement. Sit-stand Min A, minimal cueing needed for BUE placement, walker management, shifting of COG for facilitated ascent. Stand-sit Min A, minimal cueing needed for BUE placement, walker management, shifting of COG for facilitated descent. Bed-Chair Min A, moderate cueing needed for backing up onto transfer surface and for a more controlled descent. Chair-bed Min A, moderate cueing needed for backing up onto transfer surface and for a more controlled descent. GAIT: Patient tolerated 5 feet of level surface ambulation inside room x2 using FWW. Maureen slow. Step height and length continue to be reduced. BALANCE: Static sitting good Dynamic sitting good Static standing fair Dynamic standing fair SPECIAL TESTS: [ Mobility Limitations Standardized Measure [facility] AM-PAC 6 clicks Basic Mobility Inpatient Short Form: Raw Score: 16 CMS Score: 54.16% deficit ASSESSMENT: Goals X1 week 1. Supine-Sit standby assist. NOT MET 2. Sit-Supine standby assist. NOT MET 3. Sit-Stand minimal contact guarding. MET with patient now at minimal assist. 4. Stand-Sit minimal contact guarding. MET with patient now at minimal assist. 5. Bed-Chair minimal contact guarding. MET with patient now at minimal assist. 6. Chair-Bed minimal contact guarding, MET with patient now at minimal assist. 7. Gait ambulating greater than 50 feet with a wheeled walker and contact guard. NOT MET. DISCHARGE PLAN/RECOMMENDATIONS: Patient to transition to half-way facility placement with recommended continuation of skilled physical therapy services to address remianing impairments and functional deficits as documented above. Thank you for this referrAL. Yazmin Gallego, PT, DPT, CLT [facility]
== END 2018-04-06 15:54 | disposition intermediate care facility (04) ==
PROVIDERS: Emergency Provider Emergency Medicine; PCP Family Medicine
DX: R51 Headache (principal); R07.89 Other chest pain; W06.XXXA Fall from bed, initial encounter; I69.118 Other symptoms and signs involving cognitive functions following nontraumatic intracerebral hemorrhage
CPT/HCPCS: 36415; 80053; 93005; 99285; 70450; 71046; 83735; 84484; 85025; 93010

== ENCOUNTER 2018-05-30 10:49 | Outpatient (CLI) | payer MEDICARE, MEDICAID, SELFPAY ==
--- NOTE | 2018-05-30 10:43 | DI.RAD_ITS ---
SYMPTOMS/DIAGNOSIS: COUGH, FEVER CHEST: Two views. Comparison 02/21/17. The heart size and pulmonary vasculature are stable and within normal limits. There is poor inspiration. There are increased lung markings in the left base. This may represent atelectasis or scarring. No focal consolidating infiltrates or effusions are seen. The bones appear intact. IMPRESSION: No definite acute pulmonary process.
== END 2018-05-30 11:09 ==
PROVIDERS: PCP Family Medicine; Visit Provider Family Medicine
DX: R05 Cough (principal); R50.9 Fever, unspecified
CPT/HCPCS: 71046

== ENCOUNTER 2018-05-31 20:39 | Inpatient (IN) | payer MEDICARE, MEDICAID, SELFPAY ==
[2018-05-31] VITALS (45 sets, daily range): BP systolic 122–180; BP diastolic 49–101; PULSE 70–141; RESP 10–35; TEMP 36.5–38; O2SAT 86–98
--- NOTE | 2018-05-31 20:25 | ED.GENADUL_ITS ---
Discharge Plan Disposition Patient Disposition: [facility] INPATIENT Condition: Serious Discharge Details Chief Complaint: SOB Clinical Impression: HCAP (healthcare-associated pneumonia), Sepsis, COPD (chronic obstructive pulmonary disease) Reason For Visit: shon Primary Care Provider: Hever Presley ED Provider: Juan Arana Encinal Meds and New Rx's Prescriptions: No Action furosemide 20 mg tablet 20 mg PO DAILY Qty: 30 RF: 4 meprobamate 400 mg tablet 800 mg PO HS PRN (Reason: anxiety) Qty: 180 RF: 0 magnesium oxide 400 mg magnesium tablet 400 mg PO DAILY Qty: 90 RF: 4 C-Pap RF: 0 lancets [OneTouch Delica Lancets] 1 EACH misc 1 ea Miscellaneous QID Qty: 200 RF: 4 MARC GONZALEZ cream 1 gm Topical Q 6 PRN RF: 0 Prevail Pant Liner 1 EACH pad 1 box Miscellaneous TID Qty: 3 RF: 5 pen needle, diabetic [BD Ultra-Fine Ana Pen Needle] 1 EACH needle 1 ea Miscellaneous 8 time a day Qty: 240 RF: 11 montelukast 10 MG tablet 10 mg PO DAILY Qty: 90 RF: 4 Insulin Syringe MicroFine 1 EACH syringe 1 ea Miscellaneous QID Qty: 200 RF: 4 OneTouch Ultra Test 1 EACH strip 1 ea Miscellaneous TID Qty: 200 RF: 4 Lactobacillus acidophilus 1 EACH capsule 1 cap PO DAILY Qty: 90 RF: 4 tamsulosin 0.4 MG capsule 2 cap PO DAILY Qty: 180 RF: 4 Novolog Flexpen U-100 Insulin 300 UNITS/3 ML insulin pen 60 units Sub-Q AC Qty: 45 RF: 4 diclofenac sodium 100 GM gel 1 appful Topical BID Qty: 100 RF: 0 diphenoxylate-atropine 1 EACH tablet 1 - 2 tab PO TID PRNQty: 90 RF: 4 olanzapine 5 MG tablet 5 mg PO DAILY Qty: 90 RF: 4 clopidogrel [Plavix] 75 MG tablet 75 mg PO HS Qty: 90 RF: 4 pantoprazole 40 MG tablet,delayed release (DR/EC) 40 mg PO HS Qty: 90 RF: 4 losartan 25 MG tablet 25 mg PO DAILY Qty: 30 RF: 0 Myrbetriq 50 MG tablet extended release 24 hr 50 mg PO DAILY Qty: 90 RF: 4 acetaminophen 500 MG tablet 1,000 mg PO Q4H PRN RF: 0 guaifenesin [Tussin Expectorant] 100 MG/5 ML liquid 200 mg PO Q4H PRN RF: 0 U-500 syringe 1 ea Sub-Q TID Qty: 90 RF: 11 diltiazem HCl [Cardizem CD] 120 MG capsule,extended release 24hr 120 mg PO DAILY Qty: 90 RF: 4 duloxetine 60 MG capsule,delayed release(DR/EC) 60 mg PO HS Qty: 90 RF: 4 Humulin R U-500 (Conc) Insulin 500 unit/mL solution See Rx Instructions Sub-Q TID Qty: 3 RF: 5 ipratropium-albuterol 0.5 mg-3 mg(2.5 mg base)/3 mL solution for nebulization 3 ml IH QID PRN (Reason: wheezing) Qty: 90 RF: 3 Compact Compressor Nebulizer misc .ROUTE .MEDSUPPLY Qty: 1 RF: 0 oxybutynin chloride 5 mg tablet extended release 24hr 5 mg PO DAILY Qty: 90 RF: 4 simvastatin 40 mg tablet 40 mg PO QPM Qty: 90 RF: 4 ergocalciferol (vitamin D2) [Vitamin D2] 50,000 unit capsule 50,000 unit PO monthly Qty: 3 RF: 4 ascorbic acid (vitamin C) [Vitamin C] 500 MG tablet 500 mg PO DAILY RF: 0 multivitamin 1 EACH capsule 1 cap PO DAILY RF: 0 aspirin 81 MG tablet,delayed release (DR/EC) 81 mg PO DAILY Qty: 30 RF: 0 ferrous sulfate 325 MG tablet 1 tab PO BID RF: 0 gabapentin 100 MG capsule 100 mg PO TID RF: 0 Medical Decision Making Patient arrives in mild to moderate respiratory distress, tachycardic but awake and alert. He had a negative chest x-ray today but I detect markedly diminished breath sounds in the left base with rhonchi and wheezing elsewhere. Suspect pneumonia despite negative chest x-ray. He was reportedly flu negative. He does have a history of COPD. He has DNR/DNI orders. We will place him on BiPAP, start IV fluid resuscitation, treat for COPD, HCAP, influenza. Will send PCR for flu. Will try to obtain sputum culture. Will Place Art for urine output and will repeat labs. We will plan on admitting. Patient's white count is still elevated 20.8. Chemistries unremarkable other than BUN and creatinine being elevated but on the upper end of his baseline. Troponin is negative. Lactic acid is 5.7. He is still getting his fluid bolus. Initial Art drained bloody urine which is starting to clear. Urinalysis is pending. He seems to be tolerating the BiPAP fairly well. Heart rate still remains elevated but we will see what he does with the fluid bolus before continuing more fluids. Antibiotics are all running. Will discuss with hospitalist for admission. Lab Data Lab results reviewed: Yes I reviewed the patient's lab results. ECG Data Interpretation: Sinus tachycardia with frequent PACs at a rate of about 130. Normal axis intervals. Nonspecific rate related ST changes. No acute elevation. HPI General Mode of arrival: EMS . Date/Time Provider Initiated Documentation: 05/31/18 21:48 . Information obtained by: RN/MD and EMS . HPI Narrative: Patient is transferred to us from rehab with fever, tachycardia, tachypnea. I spoke to the physician taking care of him there. He has had URI symptoms for about a week. He's had increasing cough with productive sputum over the last 2 days. Today he got acutely worse with fever, tachypnea, tachycardia. Reportedly had a chest x-ray which was read as negative. Had a white count elevated greater than 20,000. He did receive albuterol over there. He is not responding and they are sending him here for further management. He is DNR/DNI. He arrives here in mild to moderate respiratory distress. Related Data Home Medications Medication Instructions Recorded Confirmed ascorbic acid (vitamin C) [Vitamin 500 mg PO DAILY 04/16/13 04/06/18 C] multivitamin 1 cap PO DAILY 04/16/13 04/06/18 lancets [OneTouch Delica Lancets] #200 ea 09/26/15 04/06/18 aspirin 81 mg PO DAILY #30 tabec 01/21/16 04/06/18 ferrous sulfate 1 tab PO BID 03/18/16 04/06/18 Marc Gonzalez 1 gm TOPICAL Q 6 PRN 03/23/16 03/10/18 Prevail Pant Liner #3 07/29/16 04/06/18 pen needle, diabetic [BD #240 ea 08/19/16 04/06/18 Ultra-Fine Ana Pen Needle] montelukast 10 mg PO DAILY #90 mg 11/04/16 04/06/18 Insulin Syringe MicroFine #200 ea 11/09/16 04/06/18 OneTouch Ultra Test #200 strip 01/06/17 04/06/18 Lactobacillus acidophilus 1 cap PO DAILY #90 cap 02/01/17 04/06/18 tamsulosin 2 cap PO DAILY #180 cap 02/07/17 04/06/18 Novolog Flexpen U-100 Insulin 60 units SUB-Q AC #45 pen 03/17/17 04/06/18 diclofenac sodium 1 appful TOPICAL BID #100 gm 03/18/17 04/06/18 gabapentin 100 mg PO TID 08/08/17 04/06/18 diphenoxylate-atropine 1 - 2 tab PO TID PRN #90 tab-cap 09/05/17 04/06/18 Myrbetriq 50 mg PO DAILY #90 tab-cap 10/14/17 04/06/18 clopidogrel [Plavix] 75 mg PO HS #90 tab 10/14/17 04/06/18 losartan 25 mg PO DAILY #30 tab 10/14/17 04/06/18 olanzapine 5 mg PO DAILY #90 tab-cap 10/14/17 04/06/18 pantoprazole 40 mg PO HS #90 tab 10/14/17 04/06/18 acetaminophen 1,000 mg PO Q4H PRN tab-cap 11/08/17 04/06/18 guaifenesin [Tussin Expectorant] 200 mg PO Q4H PRN ml 11/08/17 04/06/18 diltiazem HCl [Cardizem CD] 120 mg PO DAILY #90 cap.er.24h 11/29/17 04/06/18 duloxetine 60 mg PO HS #90 cap 11/29/17 04/06/18 insulin regular human U- See Rx Instructions SUB-Q TID #3 01/12/18 04/06/18 500concentrate 500 unit/mL vial subcutaneous soln ipratropium-albuterol 0.5 mg-3 3 ml IH QID PRN #90 ml 01/13/18 04/06/18 mg(2.5 mg base)/3 mL nebulization soln nebulizers #1 each 01/13/18 04/06/18 oxybutynin chloride ER 5 mg 5 mg PO DAILY #90 tab-cap 01/16/18 04/06/18 tablet,extended release 24 hr simvastatin 40 mg tablet 40 mg PO QPM #90 tab 01/30/18 04/06/18 magnesium 400 mg (as magnesium 400 mg PO DAILY #90 tab 02/09/18 04/06/18 oxide) tablet meprobamate 400 mg tablet 800 mg PO HS PRN #180 tab 02/09/18 04/06/18 ergocalciferol (vitamin D2) 50,000 50,000 unit PO monthly #3 tab-cap 03/06/18 04/06/18 unit capsule furosemide 20 mg tablet 20 mg PO DAILY #30 tab 03/10/18 04/06/18 Previous Rx's Medication Instructions Recorded aspirin 81 mg PO DAILY #30 tabec 01/21/16 OneTouch Ultra Test #200 strip 01/06/17 Lactobacillus acidophilus 1 cap PO DAILY #90 cap 02/01/17 tamsulosin 2 cap PO DAILY #180 cap 02/07/17 Novolog Flexpen U-100 Insulin 60 units SUB-Q AC #45 pen 03/17/17 Myrbetriq 50 mg PO DAILY #90 tab-cap 10/14/17 clopidogrel [Plavix] 75 mg PO HS #90 tab 10/14/17 losartan 25 mg PO DAILY #30 tab 10/14/17 olanzapine 5 mg PO DAILY #90 tab-cap 10/14/17 pantoprazole 40 mg PO HS #90 tab 10/14/17 diltiazem HCl [Cardizem CD] 120 mg PO DAILY #90 cap.er.24h 11/29/17 duloxetine 60 mg PO HS #90 cap 11/29/17 insulin regular human U- See Rx Instructions SUB-Q TID #3 01/12/18 500concentrate 500 unit/mL vial subcutaneous soln ipratropium-albuterol 0.5 mg-3 3 ml IH QID PRN #90 ml 01/13/18 mg(2.5 mg base)/3 mL nebulization soln nebulizers #1 each 01/13/18 oxybutynin chloride ER 5 mg 5 mg PO DAILY #90 tab-cap 01/16/18 tablet,extended release 24 hr simvastatin 40 mg tablet 40 mg PO QPM #90 tab 10/29/18 magnesium 400 mg (as magnesium 400 mg PO DAILY #90 tab 02/09/18 oxide) tablet meprobamate 400 mg tablet 800 mg PO HS PRN #180 tab 02/09/18 ergocalciferol (vitamin D2) 50,000 50,000 unit PO monthly #3 tab-cap 03/06/18 unit capsule furosemide 20 mg tablet 20 mg PO DAILY #30 tab 03/10/18 Allergies Allergy/AdvReac Type Severity Reaction Status Date / Time tetracycline Allergy Unknown Unverified 05/31/18 21:58 propofol AdvReac Severe drops BP Unverified 05/31/18 21:[address] way [address] oxycodone AdvReac Intermediate Agitation Unverified 05/31/18 21:58 tetrex Allergy Unknown Uncoded 05/31/18 21:58 General PETER: 3 Review of Systems Review of Systems Unobtainable due to (respiratory distress) FORMERLY [facility], [facility]–1983 Medical History Frequent falls (Chronic) Vascular dementia (Chronic) alf resident (Chronic) Palliative care patient (Chronic) Vascular dementia with behavior disturbance (Chronic 03/23/16) Malignant neoplasm of sigmoid colon (Chronic 02/21/15) Late, effect, 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) Diabetes mellitus (Chronic 05/04/11) Depressive disorder (Chronic 05/04/11) 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 (Chronic 03/09/07) Cerebrovascular accident (CVA) (Chronic 05/04/11) Surgical History Appendectomy Arthroplasty of knee HERNIA REPAIR LOW BACK SURGERY PROPOFOL SEDATION Tonsillectomy UPPP (Uvulopalatopharyngoplasty) Social History caregiver/support person: Yes household members: other housing: intermediate marital status details: to 4th x > 30 years lives independently: No number of children: 1 highest education level completed: high school graduate service: No intermediate: Yes current occupational status: disabled pets and animals: Yes Hx Recent Travel: No well-balanced diet: rarely or never high-fat food intake: 3 or more times/day daily servings fruits/ve-1 daily servings of milk/calcium: 0-1 eating out: rarely or never reads food labels: seldom or never what type of physical activity do you participate in: none Smoking and Tabacco status: Former Tobacco Use alcohol intake: never What is your relationship status?: How often do you talk on the phone with friends or family?: three or more times per week How often do you get together with friends or relatives?: three or more times per week Panel score (0-1 are the most socially isolated patients): 2 Exam Const General: in distress and ill appearing Nutritional Appearance: obese [facility] Head: normocephalic and atraumatic Mouth: mucous membranes dry Neck Neck: normal visual inspection, trachea midline and no JVD Resp Effort & Inspection: tachypneic Auscultation: diminished lung sounds on the left in the lower lung toussaint, rhonchi and wheezes Cardio Rate: tachycardic Rhythm: regular rhythm Heart Sounds: S1 normal and S2 normal Pulses: radial pulses present GI Inspection: non-distended Palpation: soft and nontender Male General Exam: Yes normal external exam Skin Rashes: no rashes Neuro General: alert, awake and no focal motor deficits Extrem General: no cyanosis and edema (2+) Laterality: bilateral Critical Care Time Critical Care Time: Yes Total Critical Care Time: 60 Attestation: respiratory distress/sepsis
[2018-05-31] MEDS: Ondansetron 4 MG/2 ML VIAL IVP (20:40)
[2018-05-31 20:58] LABS: Lactate-non-spesis 5.7 mmol/l (0.6-1.4)
[2018-05-31 21:00] LABS: Abs Immature Grans 0.16 k/cumm (0.0-0.09); Absolute Basophil Count 0.02 k/cumm (0.0-0.2); Basophils % 0.1; HCT 37.5 % (40.0-50.0); HGB 12.2 g/dL (13.5-17.5); Immature Grans % 0.8; Lymphocytes % 4.3; Mean Corp. HGB Concentration 32.5 g/dL (32.0-36.0); Mean Corpuscular Hemoglobin 32.4 pg (27.0-33.0); Mean Corpuscular Volume 99.7 fL (80-95); Mean Platelet Volume 12.1 fL (8.0-11.0); Monocytes % 16.3; Neutrophils % 78.5; Platelet Count 104 x1000/uL (130-400); RBC 3.76 m/cumm (4.50-6.00); RBC Distribution Width 13.9 % (11.8-14.1)
[2018-05-31] MEDS: Lidocaine 2% Jelly 6 ML SYR (21:05)
[2018-05-31 21:13] LABS: Absolute Lymphocyte Count 0.89 k/cumm (1.2-3.4); Absolute Monocyte Count 3.39 k/cumm (0.11-0.7); Absolute Neutrophil Count 16.33 k/cumm (1.2-6.7); Diff Comment Diff Reviewed; RBC Morphology Normal
[2018-05-31] MEDS: Ibuprofen 400 MG TAB PO (21:18)
[2018-05-31] MEDS: Oseltamivir 75 MG CAP PO (21:20)
[2018-05-31] MEDS: Lactated Ringers 1,000 ML 1000 ML IV (21:24)
[2018-05-31] MEDS: methylPREDNISolone SUCC 125 MG VIAL IVP (21:25)
[2018-05-31 21:32] LABS: ALT 30 U/L (12-78); AST 38 U/L (15-37); Alkaline Phosphatase 77 U/L (46-116); Anion Gap 11.5 mmol/L (3-11); BUN 27 mg/dL (7-18); Bilirubin, Total 0.5 mg/dL (0.2-1.0); CO2 23.5 mmol/L (21.0-32.0); CREATININE 2.05 mg/dL (0.70-1.30); Calcium 8.9 mg/dL (8.5-10.1); Chloride 97 mmol/L (98-107); Glucose 204 mg/dL (70-100); Magnesium 1.7 mg/dL (1.8-2.4); Potassium 4.4 mmol/L (3.5-5.1); Sodium 132 mmol/L (136-145); Total Protein 8.3 g/dL (6.4-8.2); Troponin I 0.04 ng/mL (0.00-0.06)
[2018-05-31] MEDS: CEFEPIME 2 GM in Normal Saline 100 ML IVPB (21:32)
[2018-05-31] MEDS: LEVOFLOXACIN 750 MG/150 ML BAG 100 MG IVPB (21:36)
[2018-05-31 22:06] LABS: Bilirubin Negative (Negative); Blood Large (Negative); Clarity Cloudy; Glucose Negative (Negative); Ketones Negative (Negative); Leukocyte Esterase Negative (Negative); Nitrite Negative (Negative); Specific Gravity 1.025 (1.005-1.025); Urobilinogen 0.2 EU/dL (Up TO 0.2); pH 5.5 (5-8)
[2018-05-31 22:07] LABS: RBC >50 (0-2)
[2018-05-31 22:08] LABS: C & S Indicated? Yes
[2018-05-31 22:39] LABS: NT-proBNP 1487 pg/mL
[2018-05-31] MEDS: Metoprolol 5 MG/5 ML VIAL 2.5 MG IVP (22:52)
[2018-05-31] MEDS: VANCOMYCIN 2,000 MG in Normal Saline 500 ML 250 MG IVPB (22:53)
--- NOTE | 2018-05-31 22:53 | HPE_ITS ---
Date of service: 05/31/18 Time of Service: 22:51 Assessment and Plan (1) Sepsis: Current visit: Yes Status: Acute check blood and sputum cultures; continue broad spectrum antibiotics for HCPA (Levaquin, Cefepime and Vancomycin) w/ adjustment for JUAN ANTONIO/CKD; continue iv fluids for now however will need to watch for fluid overload given his elevated BNP (possibly d/t COPD/pulm Htn), continue stress dose corticosteroids (will give hydrocortisone 50 mg IVPB q6hr x 5 days). monitor BP and HR; at present no need for vasopressors. There was some question of whether or not he had afib in the ER. He appears to be sinus tachycardia now; will monitor renal function, CBC and serial lactate levels. Qualifiers: Sepsis type: sepsis due to unspecified organism Qualified Code(s): A41.9 - Sepsis, unspecified organism (2) HCAP (healthcare-associated pneumonia): Current visit: Yes Status: Acute broad spectrum antibiotics as outlined above until we get blood and sputum cultures back at which time we can de-escalate his regimen. continue stress dose corticosteroids and nebulizer treatments as well as NIPPV. No intubation or resuscitation in the event of CP arrest. Although his influenza screen was negative an influenza PCR was sent out and he received a dose of Tamiflu in the ER. Tamiflu will be continued at renal adjusted levels pending his confirmation test. (3) Acute respiratory failure with hypoxemia: Current visit: Yes Status: Acute NIPPV support and broad spectrum coverage for HCAP as noted above along w/ stress dose hydrocortisone (4) Gross hematuria: Current visit: Yes Status: Acute unclear as to whether or not this is de la vega trauma. Per the nurse who put his de la vega in the ER she indicated that de la vega went in easily. He has known BPH and this may have contributed to his post catheter placement hematuria. If this does not clear up overnight then we will consult urology in the a.m. (5) Diabetes mellitus: Current visit: No Status: Chronic will place on high dose novolog corrective scale as well as meal time coverage. Qualifiers: Diabetes mellitus type: type 2 Diabetes mellitus chcf insulin use: with impress associate use Diabetes mellitus complication status: with kidney complications History of Present Illness Chief Complaint: dyspnea, hypoxia Narrative: 72 yr old male resident of [facility] w/ PMH of CVA w/ vascular dementia, HTN, HLD, BPH, GERD, DM type 2 who for past week has had URI symptoms of sneezing, cough, that has developed into lower respiratory symptoms of cough w/ purulent sputum, dyspnea, and chest congestion over past couple days and today has had tachypnea, tachycardia and hypoxia. He had workup earlier today by his rehabilitation physician including CXR that reportedly was negative for acute pulmonary findings and labs that demonstrated leukocytosis of over 20,000. He was treated w/ nebulizers but when his acute respiratory distress did not improve he was sent to the ER. In the ER he was found to be tachycardic in the 120's ST w/ questionable runs of afib, tachypneic in the mid 's. Workup included repeat labs including CBC, BMP, magnesium level, lactate, troponin, BNP and UA. De [place] Vega catheter was placed and returned bright red hematuria. CBC continues to show leukocytosis of 20,000 and mild anemia of 12.2 gm, and BMP demonstrates azotemia of BUN 27 and creatinine of 2.0 which is slightly over his baseline of 1.8 to 1.9. His lactate is high at 5.7. HIs troponin is normal but his BNP is elevated at 1400. His CXR was not repeated. He was treated in the ER w/ obtaining set of blood cultures and initiation of antibiotics for HCAP including Levaquin 750 mg IVPB, cefepime 2 gm IVPB and vancomycin 2 gm IVPB as well as solumedrol 125 mg ivp. The patient was also given DuoNeb treatments and placed on BIPAP mask. He is now hemodynamically stable and oxygenating w/ O2 saturation of 98% and not in acute respiratory distress now. The patient will be admitted to ICU for a ggressive respiratory toiletry w/ frequent aerosol treatments, close monitoring, iv corticosteroids and parenteral antibiotics for HCAP. He has a DNR/DNI order. 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) Diabetes mellitus (Chronic 05/04/11) Depressive disorder (Chronic 05/04/11) 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 (Chronic 03/09/07) Cerebrovascular accident (CVA) (Chronic 05/04/11) Surgical History Appendectomy Arthroplasty of knee HERNIA REPAIR LOW BACK SURGERY PROPOFOL SEDATION Tonsillectomy UPPP (Uvulopalatopharyngoplasty) Family History Mother Essential hypertension Heart disease Father Cancer Sister Essential hypertension Brother Essential hypertension Grandfather Heart disease Grandfather Heart disease Grandmother Heart disease Social History caregiver/support person: Yes household members: other housing: intermediate marital status details: to 4th x > 30 years lives independently: No number of children: 1 highest education level completed: high school graduate service: No intermediate: Yes current occupational status: disabled pets and animals: Yes Hx Recent Travel: No well-balanced diet: rarely or never high-fat food intake: 3 or more times/day daily servings fruits/ve-1 daily servings of milk/calcium: 0-1 eating out: rarely or never reads food labels: seldom or never what type of physical activity do you participate in: none Smoking and Tabacco status: Former Tobacco Use alcohol intake: never What is your relationship status?: How often do you talk on the phone with friends or family?: three or more times per week How often do you get together with friends or relatives?: three or more times per week Panel score (0-1 are the most socially isolated patients): 2 Meds Home Medications Medication Instructions Recorded Confirmed Type ascorbic acid (vitamin C) [Vitamin 500 mg PO DAILY 04/16/13 05/31/18 History C] multivitamin 1 cap PO DAILY 04/16/13 05/31/18 History C-Pap 09/25/13 03/10/18 Clinic lancets [OneTouch Delica Lancets] #200 ea 09/26/15 04/06/18 History aspirin 81 mg PO DAILY #30 tabec 01/21/16 05/31/18 Rx ferrous sulfate 1 tab PO BID 03/18/16 05/31/18 History Ron Eubanks 1 gm TOPICAL Q 6 PRN 03/23/16 05/31/18 History Prevail Pant Liner #3 07/29/16 04/06/18 History pen needle, diabetic [BD #240 ea 08/19/16 04/06/18 History Ultra-Fine Ana Pen Needle] montelukast 10 mg PO DAILY #90 mg 11/04/16 05/31/18 History Insulin Syringe MicroFine #200 ea 11/09/16 04/06/18 History OneTouch Ultra Test #200 strip 01/06/17 04/06/18 Rx Lactobacillus acidophilus 1 cap PO DAILY #90 cap 02/01/17 05/31/18 Rx tamsulosin 2 cap PO DAILY #180 cap 02/07/17 05/31/18 Rx diclofenac sodium 1 appful TOPICAL BID #100 gm 03/18/17 05/31/18 History gabapentin 100 mg PO TID 08/08/17 05/31/18 History diphenoxylate-atropine 1 tab PO TID PRN #90 tab-cap 09/05/17 06/01/18 History Myrbetriq 50 mg PO DAILY #90 tab-cap 10/14/17 05/31/18 Rx clopidogrel [Plavix] 75 mg PO HS #90 tab 10/14/17 05/31/18 Rx losartan 25 mg PO DAILY #30 tab 10/14/17 05/31/18 Rx olanzapine 5 mg PO DAILY #90 tab-cap 10/14/17 05/31/18 Rx pantoprazole 40 mg PO HS #90 tab 10/14/17 05/31/18 Rx acetaminophen 1,000 mg PO Q4H PRN tab-cap 11/08/17 05/31/18 History guaifenesin [Tussin Expectorant] 200 mg PO Q4H PRN ml 11/08/17 05/31/18 History U-500 Syringe 1 ea SUB-Q TID #90 ea 11/11/17 04/06/18 Clinic diltiazem HCl [Cardizem CD] 120 mg PO DAILY #90 cap.er.24h 11/29/17 05/31/18 Rx duloxetine 60 mg PO HS #90 cap 11/29/17 05/31/18 Rx insulin regular human U- See Rx Instructions SUB-Q TID #3 01/12/18 05/31/18 Rx 500concentrate 500 unit/mL vial subcutaneous soln nebulizers #1 each 01/13/18 04/06/18 Rx oxybutynin chloride ER 5 mg 5 mg PO DAILY #90 tab-cap 01/16/18 05/31/18 Rx tablet,extended release 24 hr simvastatin 40 mg tablet 40 mg PO QPM #90 tab 01/30/18 05/31/18 Rx magnesium 400 mg (as magnesium 400 mg PO DAILY #90 tab 02/09/18 05/31/18 Rx oxide) tablet meprobamate 400 mg tablet 800 mg PO HS PRN #180 tab 02/09/18 05/31/18 Rx ergocalciferol (vitamin D2) 50,000 50,000 unit PO monthly #3 tab-cap 03/06/18 05/31/18 Rx unit capsule furosemide 20 mg tablet 20 mg PO DAILY #30 tab 03/10/18 05/31/18 Rx Novolog Flexpen U-100 Insulin 4 units SUB-Q AC 05/31/18 05/31/18 History ipratropium-albuterol 3 ml IH QID 05/31/18 05/31/18 History Allergies Allergy/AdvReac Type Severity Reaction Status Date / Time tetracycline Allergy Unknown Unverified 05/31/18 21:58 propofol AdvReac Severe drops BP Unverified 05/31/18 21:58 way down oxycodone AdvReac Intermediate Agitation Unverified 05/31/18 21:58 tetrex Allergy Unknown Uncoded 05/31/18 21:58 Exam Const General: ill appearing acutely Nutritional Appearance: obese morbidly obese Orientation: alert, awake, oriented to person and confused Limitations: altered mental status [facility] Head: normal to inspection, no palpable skull fracture, normocephalic, atraumatic and no acral cyanosis Ears: external ears normal, EAC abnormal excessive cerumen and unable to visualize TM bilaterally General nose exam: external nose normal, nares normal and nasal mucous membranes and turbinates normal Mouth: oral mucosae normal Teeth and gingiva: dentures (uppers only) Throat: posterior oropharynx normal Eyes General: appearance normal, both eyes and all related structures Alignment and Position: alignment normal Periorbital: periorbital findings normal Eyelids: eyelids normal Conjunctivae: conjunctivae normal Sclera: sclerae normal Cornea: corneas normal Pupils: PERRL EOM: EOM intact bilaterally Neck Neck: full ROM, no lymphadenopathy, no meningeal signs, trachea midline, supple and no JVD (difficult to ascertain d/t very large neck/obesity) Carotids: normal carotid upstroke Chest Chest: normal inspection of the chest and normal palpation of entire chest wall Resp Effort & Inspection: tachypneic and uses accessory muscles Auscultation: diminished lung sounds bilaterally in the lower lung toussaint, rhonchi upper bilaterally and wheezes scattered wheezes Cardio Jugular venous pressure: no JVD Palpation: normal PMI Rate: tachycardic Rhythm: regular rhythm Bruits: no abdominal aortic bruits and no carotid bruits Pulses: posterior tibial pulses present bilaterally 1+ and diminished GI Inspection: distended and obesity Palpation: firm, no guarding and nontender Percussion: normal to percussion Auscultation: normal bowel sounds Male General Exam: Yes other (de la vega present and draining light bloody urine) Skin General skin exam: no rashes or lesions noted Neuro General: alert, awake, oriented Patient Orientation: Person, tone normal and moves all extremities Cranial Nerves: PERRL, EOM intact bilaterally, no nystagmus, facial strength normal, able to rotate head bilaterally, able to elevate shoulders bilaterally and Symmetric palate elevation Cognition: abnormal cognition Speech: speech normal Motor: muscle tone normal throughout, no movement abnormalities noted and no fasciculations Sensory Exam: no sensory deficits noted Extrem Right lower extremity: edema Details: 1+ and foot Details: other (cool to the touch); no cyanosis Left lower extremity: edema Details: 1+ and foot Details: other (cool to the touch); no cyanosis Psych Appearance: disheveled Mental Status: other (confused) Speech and Movement: speech and movement normal Mood: other (confused) Affect: indifferent Attitude: cooperative Thought Process: impoverished Thought Content: ideas of reference Insight: poor Judgment: poor Results Labs : 06/01/18 04:17 06/01/18 04:17 Laboratory Results - last 24 hr 05/31/18 05/31/18 05/31/18 20:50 20:50 20:50 WBC 20.80 H RBC 3.76 L Hgb 12.2 L Hct 37.5 L MCV 99.7 H MCH 32.4 MCHC 32.5 RDW 13.9 Plt Count 104 L MPV 12.1 H Immature Gran % 0.8 Neutrophils % 78.5 Lymphocytes % 4.3 Monocytes % 16.3 Eosinophils % 0.0 Basophils % 0.1 Absolute Neutrophils 16.33 H Absolute Lymphocytes 0.89 L Absolute Monocytes 3.39 H Absolute Eosinophils 0.00 Absolute Basophils 0.02 Differential Comment Diff reviewed RBC Morphology Normal Sodium 132 L Potassium 4.4 Chloride 97 L Carbon Dioxide 23.5 Anion Gap 11.5 H BUN 27 H Creatinine 2.05 H Estimated GFR/1.73 m2 31.90 Glucose 204 H Lactate 5.7 H Calcium 8.9 Magnesium 1.7 L Total Bilirubin 0.5 AST 38 H ALT 30 Alkaline Phosphatase 77 Troponin I 0.04 NT-Pro-B Natriuret Pep Total Protein 8.3 H Albumin 3.0 L Urine Color Urine Clarity Urine pH Ur Specific Smithers Urine Protein Urine Ketones Urine Blood Urine Nitrite Urine Bilirubin Urine Urobilinogen Ur Leukocyte Esterase Urine RBC Urine WBC Ur Epithelial Cells Urine Crystals Urine Bacteria Urine Mucus Ur Culture Indicated? Urine Glucose 05/31/18 05/31/18 20:50 21:40 WBC RBC Hgb Hct MCV MCH MCHC RDW Plt Count MPV Immature Gran % Neutrophils % Lymphocytes % Monocytes % Eosinophils % Basophils % Absolute Neutrophils Absolute Lymphocytes Absolute Monocytes Absolute Eosinophils Absolute Basophils Differential Comment RBC Morphology Sodium Potassium Chloride Carbon Dioxide Anion Gap BUN Creatinine Estimated GFR/1.73 m2 Glucose Lactate Calcium Magnesium Total Bilirubin AST ALT Alkaline Phosphatase Troponin I NT-Pro-B Natriuret Pep 1487 H Total Protein Albumin Urine Color Red Urine Clarity Cloudy Urine pH 5.5 Ur Specific Smithers 1.025 Urine Protein >=300 H Urine Ketones Negative Urine Blood Large H Urine Nitrite Negative Urine Bilirubin Negative Urine Urobilinogen 0.2 Ur Leukocyte Esterase Negative Urine RBC >50 H Urine WBC Not Applicable Ur Epithelial Cells Not Applicable Urine Crystals Not Applicable Urine Bacteria Not Applicable Urine Mucus Not Applicable Ur Culture Indicated? Yes Urine Glucose Negative Last Vital Signs Temp 37.4 C 05/31/18 22:18 Pulse 126 H 05/31/18 22:25 Resp 24 05/31/18 22:25 BP 134/57 L 05/31/18 22:07 Pulse Ox 96 05/31/18 22:25
[2018-05-31] MEDS: MAGNESIUM SULFATE 2 GM/50 ML BAG IVPB (23:45)
[2018-05-31] MEDS: Normal Saline Flush 10 ML SYR IVP (23:45)
[2018-06-01] VITALS (59 sets, daily range): BP systolic 111–159; BP diastolic 53–119; PULSE 70–121; RESP 1–26; TEMP 35.7–36.8; O2SAT 89–99
[2018-06-01] MEDS: Albuterol/Ipratropium 3 ML UPD VIAL UPD ×5 (00:20→23:47)
[2018-06-01 01:06] LABS: Lactate 1.3 mmol/L (0.6-1.4)
[2018-06-01 01:21] LABS: Troponin I 0.06 ng/mL (0.00-0.06)
[2018-06-01] MEDS: Normal Saline Flush 10 ML SYR IVP ×2 (04:10→20:00)
[2018-06-01] MEDS: Lactated Ringers 1,000 ML 150 ML IV (04:10)
[2018-06-01 04:23] LABS: Lactate 1.5 mmol/L (0.6-1.4)
[2018-06-01 04:27] LABS: Absolute Basophil Count 0.02 k/cumm (0.0-0.2); Absolute Lymphocyte Count 0.77 k/cumm (1.2-3.4); Absolute Neutrophil Count 20.44 k/cumm (1.2-6.7); Basophils % 0.1; HCT 36.5 % (40.0-50.0); Immature Grans % 1.3; Lymphocytes % 3.3; Mean Corp. HGB Concentration 32.9 g/dL (32.0-36.0); Mean Corpuscular Hemoglobin 32.8 pg (27.0-33.0); Mean Corpuscular Volume 99.7 fL (80-95); Mean Platelet Volume 12.2 fL (8.0-11.0); Monocytes % 7.6; Neutrophils % 87.7; Platelet Count 100 x1000/uL (130-400); RBC 3.66 m/cumm (4.50-6.00); RBC Distribution Width 13.8 % (11.8-14.1); White Blood Cell Count 23.31 k/cumm (4.4-10.8)
[2018-06-01 04:28] LABS: Absolute Monocyte Count 1.77 k/cumm (0.11-0.7)
[2018-06-01 04:43] LABS: Prothrombin Time 10.2 sec (9.3-11.0)
[2018-06-01 04:48] LABS: Anisocytosis 1+; Magnesium 2.3 mg/dL (1.8-2.4); Polychromasia Present
[2018-06-01 04:54] LABS: Troponin I 0.04 ng/mL (0.00-0.06)
[2018-06-01 04:59] LABS: ALT 32 U/L (12-78); AST 45 U/L (15-37); Albumin 2.8 g/dL (3.4-5.0); Alkaline Phosphatase 76 U/L (46-116); Anion Gap 9.5 mmol/L (3-11); BUN 31 mg/dL (7-18); Bilirubin, Total 0.5 mg/dL (0.2-1.0); CO2 24.5 mmol/L (21.0-32.0); CREATININE 1.96 mg/dL (0.70-1.30); Calcium 8.7 mg/dL (8.5-10.1); Chloride 98 mmol/L (98-107); Glucose 375 mg/dL (70-100); Hemoglobin A1C 7.5 % (4.5-6.2); Potassium 5.5 mmol/L (3.5-5.1); Sodium 132 mmol/L (136-145); TSH 0.46 uIU/mL (0.358-3.74)
[2018-06-01] MEDS: Hydrocortisone SOD SUC. 100 MG VIAL 50 MG IVP ×4 (05:51→23:46)
--- NOTE | 2018-06-01 07:36 | PGE_ITS ---
Date of Service Date of service: 06/01/18 Time of Service: 14:00 Assessment and Plan (1) Sepsis: Current visit: Yes Status: Acute With likely pulmonary source clinically despite negative CXR. Blood Culture currently with growth of GNR. Continue broad spectrum coverage for now with combination Vancomycin, Cefepime, and Levaquin Day #1, and await finalization of culture results. Currently on stress dose steroids as well. Continue nebs and NIPPV with BiPAP as needed. Monitor labs, HR and Blood Pressure carefully. Influenza reportedly negative by rapid check at [facility], with PCR sent and pending - continue empiric therapy with renally dosed Oseltamivir. Qualifiers: Sepsis type: sepsis due to unspecified organism Qualified Code(s): A41.9 - Sepsis, unspecified organism (2) HCAP (healthcare-associated pneumonia): Current visit: Yes Status: Acute Treatment as above. (3) Gross hematuria: Current visit: Yes Status: Acute Potentially in setting of injury to the prostate during catheterization. Continue CBI until urine is transparent, per urology. Also with recommendations for leaving catheter in place for 1 week in case there was catheter related trauma, and recommendations for initiation of Finasteride. (4) Acute respiratory failure with hypoxemia: Current visit: Yes Status: Acute Improving. (5) Diabetes mellitus: Current visit: No Status: Chronic Continue basal insulin, ISS, and ADA diet. Qualifiers: Diabetes mellitus type: type 2 Diabetes mellitus prison insulin use: with extermination inspector use Diabetes mellitus complication status: with kidney complications Diabetes mellitus complication detail: Diabetic retinopathy severity: Proliferative retinopathy type: Diabetes mellitus macular edema: Laterality: Chronic kidney disease stage: (6) Vascular dementia: Current visit: No Status: Chronic Noted. (7) DVT prophylaxis: Current visit: No Status: Acute SCDs. No chemical prophylaxis secondary to current hematuria. Also on PPI for GI Prophylaxis. Subjective Interval history since last seen: 72 year old male resident of [facility] with a prior history of Vascular Dementia and DM, admitted from [facility] Emergency Department on 05/31 with a diagnosis of Sepsis and HCAP. Mr. Valente has a prior history of CVA, Vascular Dementia, HTN, Dyslipidemia, CKD, DM, GERD, and BPH. The patient had developed URI type symptoms while at [facility], along with a cough productive of purulent sputum. He had also developed concurrent Tachypnea, Tachycardia, and eventual Hypoxia. Initial CXR was interpreted as negative, but with blood work showing significant leukocytosis and an elevation in lactate. As he did not improve with Nebs the patient was sent to the ED for further evaluation. The patient's imaging was not repeated in the ED, but clinically diagnosed with pneumonia and referred for admission. There was also concern regarding development of Afib in the ED, confirmed by review of early telemetry strips, but he has remained in sinus rhythm with frequent PACs while on monitor in the ICU. He was noted to have Gross Hematuria following Art Placement. Mr. Valente appears improved, with downtrending lactate but continued significant Leukocytosis. Blood Cultures appear positive, not yet speciated. He is now on a CBI, with continued but improving hematuria. No other events re ported overnight. Patient's last fever was at 9 pm on 05/31. Exam Narrative Exam Narrative: General: Patient appears ill but not toxic, asleep but arousable Neck: Supple CV: Irregular, tachycardic. Pulmonary: Bibasilar crackles and rhonchi, mild diffuse wheezing on very limited anterior and lateral exam Abdomen: + Bowel Sounds, soft, nontender, nondistended Vascular: + b/l lower extremity edema Objective Objective Clinical Data: Abnormal lab results 05/31/18 05/31/18 05/31/18 Range/Units 20:50 20:50 20:50 WBC 20.80 H (4.4-10.8) k/cumm RBC 3.76 L (4.50-6.00) m/cumm Hgb 12.2 L (13.5-17.5) g/dL Hct 37.5 L (40.0-50.0) % MCV 99.7 H (80-95) fL Plt Count 104 L (130-400) x1000/uL MPV 12.1 H (8.0-11.0) fL Absolute Neutrophils 16.33 H (1.2-6.7) k/cumm Absolute Lymphocytes 0.89 L (1.2-3.4) k/cumm Absolute Monocytes 3.39 H (0.11-0.7) k/cumm Sodium 132 L (136-145) mmol/L Potassium (3.5-5.1) mmol/L Chloride 97 L (98-107) mmol/L Anion Gap 11.5 H (3-11) mmol/L BUN 27 H (7-18) mg/dL Creatinine 2.05 H (0.70-1.30) mg/dL Glucose 204 H (70-100) mg/dL Hemoglobin A1c (4.5-6.2) % Lactate 5.7 H (0.6-1.4) mmol/l Magnesium 1.7 L (1.8-2.4) mg/dL AST 38 H (15-37) U/L NT-Pro-B Natriuret Pep ( - 299) pg/mL Total Protein 8.3 H (6.4-8.2) g/dL Albumin 3.0 L (3.4-5.0) g/dL Urine Protein (Negative) mg/dL Urine Blood (Negative) Urine RBC (0-2) 05/31/18 05/31/18 06/01/18 Range/Units 20:50 21:40 04:17 WBC (4.4-10.8) k/cumm RBC (4.50-6.00) m/cumm Hgb (13.5-17.5) g/dL Hct (40.0-50.0) % MCV (80-95) fL Plt Count (130-400) x1000/uL MPV (8.0-11.0) fL Absolute Neutrophils (1.2-6.7) k/cumm Absolute Lymphocytes (1.2-3.4) k/cumm Absolute Monocytes (0.11-0.7) k/cumm Sodium (136-145) mmol/L Potassium (3.5-5.1) mmol/L Chloride (98-107) mmol/L Anion Gap (3-11) mmol/L BUN (7-18) mg/dL Creatinine (0.70-1.30) mg/dL Glucose (70-100) mg/dL Hemoglobin A1c (4.5-6.2) % Lactate 1.5 H (0.6-1.4) mmol/l Magnesium (1.8-2.4) mg/dL AST (15-37) U/L NT-Pro-B Natriuret Pep 1487 H ( - 299) pg/mL Total Protein (6.4-8.2) g/dL Albumin (3.4-5.0) g/dL Urine Protein >=300 H (Negative) mg/dL Urine Blood Large H (Negative) Urine RBC >50 H (0-2) 06/01/18 06/01/18 06/01/18 Range/Units 04:17 04:17 04:17 WBC 23.31 H (4.4-10.8) k/cumm RBC 3.66 L (4.50-6.00) m/cumm Hgb 12.0 L (13.5-17.5) g/dL Hct 36.5 L (40.0-50.0) % MCV 99.7 H (80-95) fL Plt Count 100 L (130-400) x1000/uL MPV 12.2 H (8.0-11.0) fL Absolute Neutrophils 20.44 H (1.2-6.7) k/cumm Absolute Lymphocytes 0.77 L (1.2-3.4) k/cumm Absolute Monocytes 1.77 H (0.11-0.7) k/cumm Sodium 132 L (136-145) mmol/L Potassium 5.5 H (3.5-5.1) mmol/L Chloride (98-107) mmol/L Anion Gap (3-11) mmol/L BUN 31 H (7-18) mg/dL Creatinine 1.96 H (0.70-1.30) mg/dL Glucose 375 H D (70-100) mg/dL Hemoglobin A1c 7.5 H (4.5-6.2) % Lactate (0.6-1.4) mmol/l Magnesium (1.8-2.4) mg/dL AST 45 H (15-37) U/L NT-Pro-B Natriuret Pep ( - 299) pg/mL Total Protein (6.4-8.2) g/dL Albumin 2.8 L (3.4-5.0) g/dL Urine Protein (Negative) mg/dL Urine Blood (Negative) Urine RBC (0-2) Vital Signs Temperature 36.2 C L 06/01/18 01:30 Temperature Source Tympanic 06/01/18 01:30 Pulse 81 06/01/18 06:31 Pulse 91 H 06/01/18 06:40 Respiratory Rate 19 06/01/18 06:40 Respiratory Effort Accessory Muscle Use 06/01/18 01:30 Respiratory Depth Deep 06/01/18 01:30 Respiratory Pattern Apnea 06/01/18 01:30 Blood Pressure 144/119 H 06/01/18 06:31 Blood Pressure Mean 122 06/01/18 06:31 Blood Pressure Position Sitting 05/31/18 20:33 Pulse Oximetry 93 L 06/01/18 06:40 Oxygen Delivery Method Cpap 06/01/18 01:30 Oxygen Flow Rate 6 05/31/18 20:33 Fraction of Inspired Oxygen (FIO2) 40 06/01/18 01:30 Pain Level 0 06/01/18 01:30 Comment 05/31/18 20:33 Intake & Output 05/31/18 05/31/18 06/01/18 11:59 23:59 11:59 Intake Total 1250 / 1250 550 / 550 Output Total 100 / 100 550 / 550 Balance 1150 / 1150 0 / 0 Weight 124.466 kg 124.466 kg Intake: IV 1250 / 1250 550 / 550 Output: Urine 100 / 100 550 / 550 Other: Urine Color [place] Bright Red Urine Appearance Hematuria Comment bloody urine noted on incontinent pad prior to insertion Renard blood oozing from the ureter Laboratory Results WBC 23.31 k/cumm (4.4-10.8) H 06/01/18 04:17 RBC 3.66 m/cumm (4.50-6.00) L 06/01/18 04:17 Hgb 12.0 g/dL (13.5-17.5) L 06/01/18 04:17 Hct 36.5 % (40.0-50.0) L 06/01/18 04:17 MCV 99.7 fL (80-95) H 06/01/18 04:17 MCH 32.8 pg (27.0-33.0) 06/01/18 04:17 MCHC 32.9 g/dL (32.0-36.0) 06/01/18 04:17 RDW 13.8 % (11.8-14.1) 06/01/18 04:17 Plt Count 100 x1000/uL (130-400) L 06/01/18 04:17 MPV 12.2 fL (8.0-11.0) H 06/01/18 04:17 Immature Gran % 1.3 06/01/18 04:17 Neutrophils % 87.7 06/01/18 04:17 Lymphocytes % 3.3 06/01/18 04:17 Monocytes % 7.6 06/01/18 04:17 Eosinophils % 0.0 06/01/18 04:17 Basophils % 0.1 06/01/18 04:17 Absolute Neutrophils 20.44 k/cumm (1.2-6.7) H 06/01/18 04:17 Absolute Lymphocytes 0.77 k/cumm (1.2-3.4) L 06/01/18 04:17 Absolute Monocytes 1.77 k/cumm (0.11-0.7) H 06/01/18 04:17 Absolute Eosinophils 0.00 k/cumm (0.0-0.7) 06/01/18 04:17 Absolute Basophils 0.02 k/cumm (0.0-0.2) 06/01/18 04:17 Differential Comment 06/01/18 04:17 RBC Morphology See below 06/01/18 04:17 Polychromasia Present 06/01/18 04:17 Anisocytosis 1+ 06/01/18 04:17 PT 10.2 sec (9.3-11.0) 06/01/18 04:17 INR 1.0 (0.9-1.1) 06/01/18 04:17 Sodium 132 mmol/L (136-145) L 06/01/18 04:17 Potassium 5.5 mmol/L (3.5-5.1) H 06/01/18 04:17 Chloride 98 mmol/L (98-107) 06/01/18 04:17 Carbon Dioxide 24.5 mmol/L (21.0-32.0) 06/01/18 04:17 Anion Gap 9.5 mmol/L (3-11) 06/01/18 04:17 BUN 31 mg/dL (7-18) H 06/01/18 04:17 Creatinine 1.96 mg/dL (0.70-1.30) H 06/01/18 04:17 Estimated GFR/1.73 m2 33.60 (mL/min/1.73m2) 06/01/18 04:17 Glucose 375 mg/dL (70-100) H D 06/01/18 04:17 Hemoglobin A1c 7.5 % (4.5-6.2) H 06/01/18 04:17 Lactate 1.5 mmol/L (0.6-1.4) H 06/01/18 04:17 Calcium 8.7 mg/dL (8.5-10.1) 06/01/18 04:17 Magnesium 2.3 mg/dL (1.8-2.4) 06/01/18 04:17 Total Bilirubin 0.5 mg/dL (0.2-1.0) 06/01/18 04:17 AST 45 U/L (15-37) H 06/01/18 04:17 ALT 32 U/L (12-78) 06/01/18 04:17 Alkaline Phosphatase 76 U/L (46-116) 06/01/18 04:17 Troponin I 0.04 ng/mL (0.00-0.06) 06/01/18 04:17 NT-Pro-B Natriuret Pep 1487 pg/mL (-299) H 05/31/18 20:50 Total Protein 8.0 g/dL (6.4-8.2) 06/01/18 04:17 Albumin 2.8 g/dL (3.4-5.0) L 06/01/18 04:17 TSH 0.46 uIU/mL (0.358-3.74) 06/01/18 04:17 Urine Color Red (Yellow) 05/31/18 21:40 Urine Clarity Cloudy 05/31/18 21:40 Urine pH 5.5 (5-8) 05/31/18 21:40 Ur Specific [place] 1.025 (1.005-1.025) 05/31/18 21:40 Urine Protein >=300 mg/dL (Negative) H 05/31/18 21:40 Urine Ketones Negative mg/dL (Negative) 05/31/18 21:40 Urine Blood Large (Negative) H 05/31/18 21:40 Urine Nitrite Negative (Negative) 05/31/18 21:40 Urine Bilirubin Negative (Negative) 05/31/18 21:40 Urine Urobilinogen 0.2 EU/dL (Up TO 0.2) 05/31/18 21:40 Ur Leukocyte Esterase Negative (Negative) 05/31/18 21:40 Urine RBC >50 (0-2) H 05/31/18 21:40 Urine WBC Not Applicable 05/31/18 21:40 Ur Epithelial Cells Not Applicable 05/31/18 21:40 Urine Crystals Not Applicable 05/31/18 21:40 Urine Bacteria Not Applicable 05/31/18 21:40 Urine Mucus Not Applicable 05/31/18 21:40 Ur Culture Indicated? Yes 05/31/18 21:40 Urine Glucose Negative mg/dL (Negative) 05/31/18 21:40
--- NOTE | 2018-06-01 07:45 | DI.RAD_ITS ---
SYMPTOM/DIAGNOSIS: F/U PNEUMONIA PORTABLE AP CHEST: Comparison is made with 04/06 and 05/30/18. The exam is limited by mild motion. Leads overlie the chest. The heart size is within normal limits for projection. The lungs appear clear. No infiltrate, effusion or pulmonary edema is visible. IMPRESSION: No acute abnormality.
[2018-06-01 07:57] LABS: PTT Activated 29.6 sec (21.0-31.4); Prothrombin Time 10.3 sec (9.3-11.0)
[2018-06-01 07:59] LABS: HGB 11.5 g/dL (13.5-17.5)
[2018-06-01 08:14] LABS: HCO3 22 mmol/L (22-28); pCO2 51 mmHg (34-47); pH 7.25 (7.35-7.45); pO2 72 mmHg (83-108); sO2 92 % (94-98); tCO2 21 mmol/L (22-29)
[2018-06-01 08:16] LABS: BE -4.9 mmol/L (-3-3); FIO2 50 %; FIO2L BiPAP L; Site Right Radial
[2018-06-01] MEDS: Oseltamivir 30 MG CAP PO ×2 (08:51→20:00)
[2018-06-01] MEDS: Normal Saline 1,000 ML 100 ML IV ×2 (08:52→20:17)
[2018-06-01] MEDS: Insulin Aspart 300 UNITS/3 ML PEN SC ×7 (09:44→22:02)
--- NOTE | 2018-06-01 09:50 | UCONE_ITS ---
Date of service: 06/01/18 Time of Service: 09:00 History of Present Illness Narrative: Chief complaint: Hematuria This is a 72-year-old gentleman who was previously seen in our office several years ago. At that time, his biggest issue was urgency and urgency incontinence. We treated him medically. He told me symptoms improved on their own, so his bladder relaxer medications were discontinued. He is currently hospitalized with signs and symptoms consistent with sepsis. When he presented to the emergency room, the staff noted evidence of blood on his protective pad. A Art catheter was placed in the emergency room and bloody urine was obtained. Overnight, he began having leakage of bloody urine around the urethra and around the catheter. The catheter was removed and attempts were made at passing an irrigating catheter. These attempts were not successful. I have been contacted to place an irrigating catheter in this gentleman. He has a history of colon cancer, so he has received multiple imaging studies that I can review. His most recent CT that included the abdomen and pelvis occurred from the fall 2017. On that study, his prostate appeared very large. The prostate was somewhat asymmetric with the left intravesical portion of the prostate being larger than the right. He has bilateral renal cysts. He also had a new finding of a 1.4 cm stone in the left kidney. His coagulation studies since admission are normal. 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) Diabetes mellitus (Chronic 05/04/11) Depressive disorder (Chronic 05/04/11) 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 (Chronic 03/09/07) Cerebrovascular accident (CVA) (Chronic 05/04/11) Surgical History Appendectomy Arthroplasty of knee HERNIA REPAIR LOW BACK SURGERY PROPOFOL SEDATION Tonsillectomy UPPP (Uvulopalatopharyngoplasty) Family History Mother Essential hypertension Heart disease Father Cancer Sister Essential hypertension Brother Essential hypertension Grandfather Heart disease Grandfather Heart disease Grandmother Heart disease Social History caregiver/support person: Yes household members: other housing: jail marital status details: to 4th x > 30 years lives independently: No number of children: 1 highest education level completed: high school graduate service: No jail: Yes current occupational status: disabled pets and animals: Yes Hx Recent Travel: No well-balanced diet: rarely or never high-fat food intake: 3 or more times/day daily servings fruits/ve-1 daily servings of milk/calcium: 0-1 eating out: rarely or never reads food labels: seldom or never what type of physical activity do you participate in: none Smoking and Tabacco status: Former Tobacco Use alcohol intake: never What is your relationship status?: How often do you talk on the phone with friends or family?: three or more times per week How often do you get together with friends or relatives?: three or more times per week Panel score (0-1 are the most socially isolated patients): 2 Exam Narrative Exam Narrative: He is not responsive at the time of my encounter with him. I do not see any active bleeding coming from his urethral meatus. His genitalia was prepped. 2% Xylocaine jelly was instilled into the urethra to act as a local anesthetic. I was then able to pass a 24 [place] hematuria catheter through the urethra into the bladder. Catheter balloon was inflated with 30 cc of sterile water. Initially, dark bloody urine was obtained. Approximately 5 or 600 cc was initially drained. I then hand irrigated the catheter multiple times and removed a few clots. With hand irrigation, the drainage became much more clear. Continuous bladder irrigation was then begun at a very slow rate. Results Last Vital Signs Temp 35.7 C L 06/01/18 07:45 Pulse 86 06/01/18 07:45 Resp 14 06/01/18 07:45 BP 142/66 H 06/01/18 07:45 Pulse Ox 94 L 06/01/18 07:45 Labs : 06/01/18 07:25 06/01/18 04:17 Laboratory Results - last 24 hr 05/31/18 05/31/18 05/31/18 20:50 20:50 20:50 WBC 20.80 H RBC 3.76 L Hgb 12.2 L Hct 37.5 L MCV 99.7 H MCH 32.4 MCHC 32.5 RDW 13.9 Plt Count 104 L MPV 12.1 H Immature Gran % 0.8 Neutrophils % 78.5 Lymphocytes % 4.3 Monocytes % 16.3 Eosinophils % 0.0 Basophils % 0.1 Absolute Neutrophils 16.33 H Absolute Lymphocytes 0.89 L Absolute Monocytes 3.39 H Absolute Eosinophils 0.00 Absolute Basophils 0.02 Differential Comment Diff reviewed RBC Morphology Normal Polychromasia Anisocytosis PT INR APTT Sample Site pCO2 pO2 O2 Saturation ABG pH ABG HCO3 ABG Total CO2 ABG Base Excess Oxygen Liter Flow FiO2 Sodium 132 L Potassium 4.4 Chloride 97 L Carbon Dioxide 23.5 Anion Gap 11.5 H BUN 27 H Creatinine 2.05 H Estimated GFR/1.73 m2 31.90 Glucose 204 H Hemoglobin A1c Lactate 5.7 H Calcium 8.9 Magnesium 1.7 L Total Bilirubin 0.5 AST 38 H ALT 30 Alkaline Phosphatase 77 Troponin I 0.04 NT-Pro-B Natriuret Pep Total Protein 8.3 H Albumin 3.0 L TSH Urine Color Urine Clarity Urine pH Ur Specific [place] Urine Protein Urine Ketones Urine Blood Urine Nitrite Urine Bilirubin Urine Urobilinogen Ur Leukocyte Esterase Urine RBC Urine WBC Ur Epithelial Cells Urine Crystals Urine Bacteria Urine Mucus Ur Culture Indicated? Urine Glucose Patient ABO/Rh Antibody Screen 05/31/18 05/31/18 06/01/18 20:50 21:40 01:00 WBC RBC Hgb Hct MCV MCH MCHC RDW Plt Count MPV Immature Gran % Neutrophils % Lymphocytes % Monocytes % Eosinophils % Basophils % Absolute Neutrophils Absolute Lymphocytes Absolute Monocytes Absolute Eosinophils Absolute Basophils Differential Comment RBC Morphology Polychromasia Anisocytosis PT INR APTT Sample Site pCO2 pO2 O2 Saturation ABG pH ABG HCO3 ABG Total CO2 ABG Base Excess Oxygen Liter Flow FiO2 Sodium Potassium Chloride Carbon Dioxide Anion Gap BUN Creatinine Estimated GFR/1.73 m2 Glucose Hemoglobin A1c Lactate Calcium Magnesium Total Bilirubin AST ALT Alkaline Phosphatase Troponin I 0.06 NT-Pro-B Natriuret Pep 1487 H Total Protein Albumin TSH Urine Color Red Urine Clarity Cloudy Urine pH 5.5 Ur Specific [place] 1.025 Urine Protein >=300 H Urine Ketones Negative Urine Blood Large H Urine Nitrite Negative Urine Bilirubin Negative Urine Urobilinogen 0.2 Ur Leukocyte Esterase Negative Urine RBC >50 H Urine WBC Not Applicable Ur Epithelial Cells Not Applicable Urine Crystals Not Applicable Urine Bacteria Not Applicable Urine Mucus Not Applicable Ur Culture Indicated? Yes Urine Glucose Negative Patient ABO/Rh Antibody Screen 06/01/18 06/01/18 06/01/18 01:00 04:17 04:17 WBC RBC Hgb Hct MCV MCH MCHC RDW Plt Count MPV Immature Gran % Neutrophils % Lymphocytes % Monocytes % Eosinophils % Basophils % Absolute Neutrophils Absolute Lymphocytes Absolute Monocytes Absolute Eosinophils Absolute Basophils Differential Comment RBC Morphology Polychromasia Anisocytosis PT INR APTT Sample Site pCO2 pO2 O2 Saturation ABG pH ABG HCO3 ABG Total CO2 ABG Base Excess Oxygen Liter Flow FiO2 Sodium Potassium Chloride Carbon Dioxide Anion Gap BUN Creatinine Estimated GFR/1.73 m2 Glucose Hemoglobin A1c Lactate 1.3 Calcium Magnesium 2.3 Total Bilirubin AST ALT Alkaline Phosphatase Troponin I 0.04 NT-Pro-B Natriuret Pep Total Protein Albumin TSH Urine Color Urine Clarity Urine pH Ur Specific [place] Urine Protein Urine Ketones Urine Blood Urine Nitrite Urine Bilirubin Urine Urobilinogen Ur Leukocyte Esterase Urine RBC Urine WBC Ur Epithelial Cells Urine Crystals Urine Bacteria Urine Mucus Ur Culture Indicated? Urine Glucose Patient ABO/Rh Antibody Screen 06/01/18 06/01/18 06/01/18 04:17 04:17 04:17 WBC RBC Hgb Hct MCV MCH MCHC RDW Plt Count MPV Immature Gran % Neutrophils % Lymphocytes % Monocytes % Eosinophils % Basophils % Absolute Neutrophils Absolute Lymphocytes Absolute Monocytes Absolute Eosinophils Absolute Basophils Differential Comment RBC Morphology Polychromasia Anisocytosis PT INR APTT Sample Site pCO2 pO2 O2 Saturation ABG pH ABG HCO3 ABG Total CO2 ABG Base Excess Oxygen Liter Flow FiO2 Sodium 132 L Potassium 5.5 H Chloride 98 Carbon Dioxide 24.5 Anion Gap 9.5 BUN 31 H Creatinine 1.96 H Estimated GFR/1.73 m2 33.60 Glucose 375 H D Hemoglobin A1c 7.5 H Lactate 1.5 H Calcium 8.7 Magnesium Total Bilirubin 0.5 AST 45 H ALT 32 Alkaline Phosphatase 76 Troponin I NT-Pro-B Natriuret Pep Total Protein 8.0 Albumin 2.8 L TSH 0.46 Urine Color Urine Clarity Urine pH Ur Specific [place] Urine Protein Urine Ketones Urine Blood Urine Nitrite Urine Bilirubin Urine Urobilinogen Ur Leukocyte Esterase Urine RBC Urine WBC Ur Epithelial Cells Urine Crystals Urine Bacteria Urine Mucus Ur Culture Indicated? Urine Glucose Patient ABO/Rh Antibody Screen 06/01/18 06/01/18 06/01/18 04:17 04:17 07:25 WBC 23.31 H RBC 3.66 L Hgb 12.0 L Hct 36.5 L MCV 99.7 H MCH 32.8 MCHC 32.9 RDW 13.8 Plt Count 100 L MPV 12.2 H Immature Gran % 1.3 Neutrophils % 87.7 Lymphocytes % 3.3 Monocytes % 7.6 Eosinophils % 0.0 Basophils % 0.1 Absolute Neutrophils 20.44 H Absolute Lymphocytes 0.77 L Absolute Monocytes 1.77 H Absolute Eosinophils 0.00 Absolute Basophils 0.02 Differential Comment RBC Morphology See below Polychromasia Present Anisocytosis 1+ PT 10.2 INR 1.0 APTT Sample Site pCO2 pO2 O2 Saturation ABG pH ABG HCO3 ABG Total CO2 ABG Base Excess Oxygen Liter Flow FiO2 Sodium Potassium Chloride Carbon Dioxide Anion Gap BUN Creatinine Estimated GFR/1.73 m2 Glucose Hemoglobin A1c Lactate Calcium Magnesium Total Bilirubin AST ALT Alkaline Phosphatase Troponin I NT-Pro-B Natriuret Pep Total Protein Albumin TSH Urine Color Urine Clarity Urine pH Ur Specific [place] Urine Protein Urine Ketones Urine Blood Urine Nitrite Urine Bilirubin Urine Urobilinogen Ur Leukocyte Esterase Urine RBC Urine WBC Ur Epithelial Cells Urine Crystals Urine Bacteria Urine Mucus Ur Culture Indicated? Urine Glucose Patient ABO/Rh A Negative Antibody Screen Negative 06/01/18 06/01/18 06/01/18 07:25 07:25 08:05 WBC RBC Hgb 11.5 L Hct 36.0 L MCV MCH MCHC RDW Plt Count MPV Immature Gran % Neutrophils % Lymphocytes % Monocytes % Eosinophils % Basophils % Absolute Neutrophils Absolute Lymphocytes Absolute Monocytes Absolute Eosinophils Absolute Basophils Differential Comment RBC Morphology Polychromasia Anisocytosis PT 10.3 INR 1.0 APTT 29.6 Sample Site Right radial pCO2 51 H pO2 72 L O2 Saturation 92 L ABG pH 7.25 L ABG HCO3 22 ABG Total CO2 21 L ABG Base Excess -4.9 L Oxygen Liter Flow Bipap FiO2 50 Sodium Potassium Chloride Carbon Dioxide Anion Gap BUN Creatinine Estimated GFR/1.73 m2 Glucose Hemoglobin A1c Lactate Calcium Magnesium Total Bilirubin AST ALT Alkaline Phosphatase Troponin I NT-Pro-B Natriuret Pep Total Protein Albumin TSH Urine Color Urine Clarity Urine pH Ur Specific [place] Urine Protein Urine Ketones Urine Blood Urine Nitrite Urine Bilirubin Urine Urobilinogen Ur Leukocyte Esterase Urine RBC Urine WBC Ur Epithelial Cells Urine Crystals Urine Bacteria Urine Mucus Ur Culture Indicated? Urine Glucose Patient ABO/Rh Antibody Screen Assessment and Plan (1) Gross hematuria: Current visit: Yes Status: Acute He has several possible etiologies for his bloody urine, but I believe the most likely is related to his very large, vascular prostate. The initial c atheter that was placed may have caused additional trauma to the prostate. He may have already had some blood clots in the bladder that could not be cleared through a smaller catheter. In any event, I would expect that we will not need to run continuous bladder irrigation for a very long time. Once the urine becomes transparent, the bladder irrigation can be discontinued. Just in case he has had catheter trauma, I would suggest leaving this catheter in place for a total of a week before it was removed. Once he is able to take oral medications, a dose of finasteride 5 mg daily may be helpful. This medicine helps decrease the size and vascularity of the prostate and can help decrease prostate bleeding.
--- NOTE | 2018-06-01 10:02 | PDOC.CMIN ---
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 Surgical hx: appendectomy, arthroplasty of right knee, hernia repair (x3), lower back surgery, tonsillectomy, UPPP. PREVIOUS FUNCTIONAL STATUS/SOCIAL/FAMILY SUPPORTS:: Juan resides at [facility] his spouse Gia works at the Rehab. 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 Juan has one adult child who does not reside locally. 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 CURRENT FUNCTIONAL STATUS:: Juan is on Bipap he is resting, family is not present at this time. ADVANCE DIRECTIVES:: On file at [facility] Has patient been provided with information about the portal?: Yes Did the patient sign up for the portal?: No CODE STATUS:: DNR/DNI INSURANCE COVERAGE / FINANCIAL ISSUES:: Medicaid and Medicare CURRENT HOME/COMMUNITY SERVICES/EQUIPMENT:: Resides at [facility] PRIMARY CARE PHYSICIAN:: POTENTIAL DISCHARGE NEEDS:: Return to [facility], follow up with Provider as directed. PATIENT/FAMILY EDUCATION NEEDS:: Discharge education, limitations and follow up plan of care. ANTICIPATED BARRIERS TO DISCHARGE:: Return to facility once medically ready. TRANSPORTATION:: [facility] PLAN:: Juan is being cared for in the ICU with cardiac monitoring. He is receivng IV antibiotics, steroids and tamiflu. Juan is on droplet and contact precautions. His BIPAP was brought over from [facility]. He now has a [address] [place] and urology consult. CM to continue to provide support to patient ongoing discharge planning and disposition.
--- NOTE | 2018-06-01 10:19 | INITIAL_ITS ---
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 Surgical hx: appendectomy, arthroplasty of right knee, hernia repair (x3), lower back surgery, tonsillectomy, UPPP. PREVIOUS FUNCTIONAL STATUS/SOCIAL/FAMILY SUPPORTS:: Juan resides at [facility] his spouse Gia works at the Rehab. 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 Juan has one adult child who does not reside locally. 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 CURRENT FUNCTIONAL STATUS:: Juan is on Bipap he is resting, family is not present at this time. ADVANCE DIRECTIVES:: On file at [facility] Has patient been provided with information about the portal?: Yes Did the patient sign up for the portal?: No CODE STATUS:: DNR/DNI INSURANCE COVERAGE / FINANCIAL ISSUES:: Medicaid and Medicare CURRENT HOME/COMMUNITY SERVICES/EQUIPMENT:: Resides at [facility] PRIMARY CARE PHYSICIAN:: POTENTIAL DISCHARGE NEEDS:: Return to [facility], follow up with Provider as directed. PATIENT/FAMILY EDUCATION NEEDS:: Discharge education, limitations and follow up plan of care. ANTICIPATED BARRIERS TO DISCHARGE:: Return to facility once medically ready. TRANSPORTATION:: [facility] PLAN:: Juan is being cared for in the ICU with cardiac monitoring. He is receivng IV antibiotics, steroids and tamiflu. Juan is on droplet and contact precautions. His BIPAP was brought over from [facility]. He now has a [address] [place] and urology consult. CM to continue to provide support to patient ongoing discharge planning and disposition.
[2018-06-01] MEDS: CEFEPIME 2 GM in Normal Saline 100 ML IVPB ×2 (10:54→21:56)
--- NOTE | 2018-06-01 11:48 | PHARADMIT ---
Addendum entered by Robert Romano III 06/07/18 17:33: Pharmacy Note Subjective Palliative consult today Objective VS-OK Lytes,-OK SCr-2.17 (up) WBC-21.1 FSBS-201 BG-96 Assessment Patient has run out of U-500 insulin, converted to Lantus 50 Units ac, & Aspart 50 units w/meals. Vancomycin re-started in conjunction with Levaquin. Lasix drip DC'd Plan To return to [facility] Original Note: Addendum entered by Robert Romano III 06/02/18 16:52: Pharmacy Note Subjective Urology consult for kidney stone & bladder clots, receives continuous irrigation. Flomax,Proscar & Oxybutinin, Mirabergron ordered. Objective VS-OK pain:01/11, Na-133 K+4.8 SCr-1.75 No BM yet Assessment on Cefepime & Levaquin, Tamiflu & stress dose steroids, Plan DrDixon looking for 24 hr clot free irrigation. Original Note: Admission Pharmacy Clinical Review HCAP, COPD EXACERBATION, R/O SEPSIS Code Status DNR/DNI Current Weight Wgt-124.5kg Renally Cleared and Narrow Therapeutic Index Meds CrCl~ 30 mL/min Meds-OK QTc Value / Action Taken QTc-4555 na BP Control, Fever BP- 142/66 Tmax- 37.4C Electrolytes reviewed Na- 132 K+55 Mag-2.3 DVT Prophylaxis TEDS, SCDs Opiate Usage / Scheduled Bowel Regimen Ordered Yes Yes Plt/SCr for Heparin / Enoxaparin Plts-100 SCr-1.96 INR for Warfarin inr-1.0 H/H stable, WBC/Bands H&H- 11.5/36.0 WBC- 23.31 Antibiotic appropriateness Cefepime, Vancomycin Levaquin, Tamiflu Cultures and Sensitivities MRSA, Urine, Blood-Pending Surgical ABX d/c within 24 hr NA DM control / Insulin Dosing BG- 375 QwP1v-6.5% Aspart Heart Failure (Check EF%) (ZAN's, B-Block, Diuretics) NONE IV to PO Switch No Home Meds Reviewed YES Home Meds Not Ordered Diltiazem, Duloxitine, Vit-C, ASA, BenGay, Plavix, Voltaren Gel, Lomotil, Vit-B12, Iron, Lasix, Gabapentin, Tussin Expect, Lactobacillus, Losartan, MagOX, Meprobamate, M-Vites, Singulair, Mirabegron, Olanzapine, Oxybutinin, Protonix, Zocor, Flomax Comments
--- NOTE | 2018-06-01 12:30 | MERGE_ITS ---
*[facility]* *[facility]* [address] [place] [address] Date of study: 06/01/2018 Transthoracic Echocardiography M-mode, complete 2D, complete spectral Doppler, and color Doppler *STUDY CONCLUSIONS* Summary: 1. Left ventricle: The cavity size was normal. Wall thickness was increased in a pattern of mild LVH. Systolic function was hyperdynamic. The estimated ejection fraction was 65-70%. Findings consistent with diastolic dysfunction. Doppler parameters are consistent with high ventricular filling pressure. 2. Ventricular septum: Thickness was severely increased. 3. Aortic valve: There was very mild stenosis. There was mild regurgitation. Peak velocity (S): 2.3m/sec. Mean gradient (S): 10.9mm Hg. VTI ratio of LVOT to aortic valve: 0.49. Valve area (VTI): 1.5cm^2. 4. Right ventricle: The cavity size was mildly dilated. Systolic function was normal. 5. Right atrium: The atrium was mildly dilated. 6. Pulmonary arteries: Pulmonary systolic pressure was >= 30mm Hg. 7. Inferior vena cava: Poorly visualized. *PATIENT PRESENTATION* Height: 170.2cm ((67in) ) S/D Pressure: 120 / 68 Weight: 124.3kg ((273.4lb) ) BSA: 2.49m^2 Test start time: 12:40 PM. Test stop time: 01:35 PM. PERFORMING Unknown CONSULTING Hever Presley [facility] ORDERING Kashmir Mcguire REFERRING Kashmir Mcguire HUMAN RELATIONS PROFESSOR RT Ady (R)(CT), [facility] *PROCEDURE DATA* Procedure information: The patient was identified by two identifiers. This study was interpreted by [facility]. Pertinent images and digital data are archived for permanent storage and are available for subsequent review. Comparison was made to the study of 05/30/2017. Study status: Routine. Transthoracic echocardiography. M-mode, complete 2D, complete spectral Doppler, and color Doppler. A Transthoracic Echocardiogram was performed. Scanning was performed from the parasternal, apical, subcostal, and suprasternal notch acoustic windows. Images were obtained using an [id number] cardiac ultrasound machine. Image quality was poor. Study completion: The patient tolerated the procedure well. History: PMH: Sepsis. Eval LV function. *CARDIAC ANATOMY* Left ventricle: The cavity size was normal. Wall thickness was increased in a pattern of mild LVH. Systolic function was hyperdynamic. The estimated ejection fraction was 65-70%. The tissue Doppler parameters were abnormal. Findings consistent with diastolic dysfunction. Doppler parameters are consistent with high ventricular filling pressure. Aortic valve: Moderately thickened, moderately calcified leaflets. Doppler: There was very mild stenosis. There was mild regurgitation. VTI ratio of LVOT to aortic valve: 0.49. Valve area (VTI): 1.5cm^2. Indexed valve area (VTI): 0.6cm^2/m^2. Peak velocity ratio of LVOT to aortic valve: 0.4. Valve area (Vmax): 1.3cm^2. Indexed valve area (Vmax): 0.5cm^2/m^2. Mean velocity ratio of LVOT to aortic valve: 0.44. Valve area (Vmean): 1.4cm^2. Indexed valve area (Vmean): 0.5cm^2/m^2. Mean gradient (S): 10.9mm Hg. Peak gradient (S): 20.4mm Hg. Aorta: Aortic root: The aortic root was normal in size. Ascending aorta: The ascending aorta was mildly dilated. Mitral valve: Doppler: There was no evidence for stenosis. There was no significant regurgitation. Valve area by pressure half-time: 4.7cm^2. Indexed valve area by pressure half-time: 1.9cm^2/m^2. Peak gradient (D): 2.8mm Hg. Left atrium: The atrium was normal in size. Atrial septum: Poorly visualized. Right ventricle: The cavity size was mildly dilated. Systolic function was normal. Ventricular septum: Thickness was severely increased. Pulmonic valve: Doppler: There was no evidence for stenosis. There was mild regurgitation. Peak gradient (S): 11.1mm Hg. Tricuspid valve: Doppler: There was mild regurgitation. Pulmonary artery: Poorly visualized. Pulmonary systolic pressure was >= 30mm Hg. Right atrium: The atrium was mildly dilated. Pericardium: There was no significant pericardial effusion. Systemic veins: Inferior vena cava: Poorly visualized. Baseline ECG: Atrial fibrillation. Measurements Left ventricle Value 05/30/2017 Reference LV ID, ED, PLAX 5.0 cm 4.7 3.5 - 6.0 LV ID, ES, PLAX 3.3 cm 3.0 2.1 - 4.0 LV PW thickness, ED, PLAX 1.2 cm 1.1 LV end-diastolic volume, 85 ml 110 1-p A2C LV ejection fraction, 1-p 61 % 48 A2C LV end-diastolic volume, 122 ml 131 1-p A4C LV ejection fraction, 1-p 57 % 60 A4C LV e', lateral 0.042 m/sec LV E/e', lateral 20 LV e', medial 0.051 m/sec LV E/e', medial 16 LV e', average 0.047 m/sec LV E/e', average 18 Ventricular septum Value 05/30/2017 Reference IVS thickness, ED, PLAX 1.5 cm 1.1 LVOT Value 05/30/2017 Reference LVOT ID, A-P 2.0 cm 1.9 LVOT area 3.1 cm^2 2.8 LVOT peak velocity, S 0.91 m/sec 1.05 LVOT mean velocity, S 0.68 m/sec LVOT VTI, S 19.7 cm 22.5 LVOT peak gradient, S 3.3 mm Hg LVOT mean gradient, S 2.1 mm Hg 2 Stroke volume (SV), LVOT 61 ml DP Stroke index (SV/bsa), 25 ml/m^2 LVOT DP Aortic valve Value 05/30/2017 Reference Aortic valve peak 2.3 m/sec 1.6 velocity, S Aortic valve mean 1.54 m/sec 0.01 velocity, S Aortic valve VTI, S 40.0 cm Aortic mean gradient, S 10.9 mm Hg 6.6 Aortic peak gradient, S 20.4 mm Hg 10.5 VTI ratio, LVOT/AV 0.49 Aortic valve area, VTI 1.5 cm^2 1.8 Velocity ratio, peak, 0.4 0.65 LVOT/AV Aortic valve area, peak 1.3 cm^2 1.8 velocity Velocity ratio, mean, 0.44 LVOT/AV Aortic valve area, mean 1.4 cm^2 velocity Aortic valve area/bsa, 0.5 cm^2/m^2 mean velocity Aorta Value 05/30/2017 Reference Aortic root ID, ED 3.8 cm 3.5 Ascending aorta ID, A-P, S 3.7 cm 3.6 Left atrium Value 05/30/2017 Reference LA ID, A-P, ES 3.7 cm LA ID/bsa, A-P 1.5 cm/m^2 <=2.2 LA area, ES, A4C (H) 25.9 cm^2 22 8.8 - 23.4 LA area, ES, A2C 19 cm^2 LA volume/bsa, ES, 1-p A4C 33 ml/m^2 LA volume, ES, 2-p 70 ml LA volume/bsa, ES, 2-p 28 ml/m^2 LA/aortic root ratio 0.97 1.21 Mitral valve Value 05/30/2017 Reference Mitral E-wave peak 0.83 m/sec 0.61 velocity Mitral A-wave peak 1.12 m/sec 0.83 velocity Mitral deceleration time 161 ms 243 150 - 230 Mitral pressure half-time 47 ms 71 Mitral peak gradient, D 2.8 mm Hg Mitral E/A ratio, peak 0.74 0.74 Mitral valve area, PHT, DP 4.7 cm^2 3.1 Tricuspid valve Value 05/30/2017 Reference Tricuspid regurg peak 2.7 m/sec 2.4 velocity Tricuspid peak RV-RA 28.1 mm Hg 22.1 gradient Right atrium Value 05/30/2017 Reference RA area, ES, A4C (H) 23 cm^2 17 8.3 - 19.5 Pulmonic valve Value 05/30/2017 Reference Pulmonic peak gradient, S 11.1 mm Hg 4 Legend: (L) and (H) danielle values outside specified reference range. I have personally reviewed the images and have reviewed and edited the reported findings. Electronically signed by Jamal Merrill MD 06/01/2018 18:23
[2018-06-01 16:14] LABS: HCO3 22 mmol/L (22-28); pCO2 40 mmHg (34-47); pH 7.35 (7.35-7.45); pO2 78 mmHg (83-108); sO2 95 % (94-98); tCO2 20 mmol/L (22-29)
[2018-06-01 16:16] LABS: FIO2L Nasal Cannula L; Site Right Radial
[2018-06-01 16:17] LABS: FIO2 44 %
[2018-06-01 16:34] LABS: HCT 32.4 % (40.0-50.0); HGB 10.8 g/dL (13.5-17.5)
[2018-06-01] MEDS: Acetaminophen 325 MG TAB PO (18:35)
[2018-06-01] MEDS: Gabapentin 100 MG CAP PO (20:00)
[2018-06-01] MEDS: Ferrous Sulfate 325 MG TAB PO (20:00)
[2018-06-01] MEDS: Simvastatin 40 MG TAB PO (20:00)
[2018-06-01] MEDS: guaiFENesin 200 MG/10 ML CUP PO (20:07)
[2018-06-01] MEDS: DULoxetine 30 MG CAP 60 MG PO (21:56)
[2018-06-01] MEDS: Pantoprazole 40 MG TABCR PO (22:03)
[2018-06-02] VITALS (29 sets, daily range): BP systolic 120–152; BP diastolic 55–74; PULSE 60–93; RESP 4–21; TEMP 36–36.8; O2SAT 87–98
[2018-06-02] MEDS: guaiFENesin 200 MG/10 ML CUP PO ×4 (00:41→15:19)
[2018-06-02] MEDS: Normal Saline 1,000 ML 100 ML IV (03:01)
[2018-06-02] MEDS: Albuterol/Ipratropium 3 ML UPD VIAL UPD ×3 (05:43→18:41)
[2018-06-02] MEDS: Hydrocortisone SOD SUC. 100 MG VIAL 50 MG IVP ×2 (05:43→18:27)
[2018-06-02 07:14] LABS: Abs Immature Grans 0.42 k/cumm (0.0-0.09); Absolute Basophil Count 0.02 k/cumm (0.0-0.2); Absolute Eosinophil Count 0.07 k/cumm (0.0-0.7); Basophils % 0.1; Eosinophils % 0.3; HGB 10.1 g/dL (13.5-17.5); Immature Grans % 1.9; Lymphocytes % 3.3; Mean Corp. HGB Concentration 32.6 g/dL (32.0-36.0); Mean Corpuscular Hemoglobin 32.6 pg (27.0-33.0); Mean Platelet Volume 12.6 fL (8.0-11.0); Neutrophils % 83.4; Platelet Count 104 x1000/uL (130-400); RBC Distribution Width 13.4 % (11.8-14.1); White Blood Cell Count 21.91 k/cumm (4.4-10.8)
[2018-06-02 07:31] LABS: Absolute Lymphocyte Count 0.72 k/cumm (1.2-3.4); Absolute Monocyte Count 2.41 k/cumm (0.11-0.7); Absolute Neutrophil Count 18.27 k/cumm (1.2-6.7)
[2018-06-02 07:35] LABS: Diff Comment Agrees w/ Instrument
[2018-06-02 07:54] LABS: Anion Gap 8.5 mmol/L (3-11); BUN 44 mg/dL (7-18); CO2 23.5 mmol/L (21.0-32.0); CREATININE 1.75 mg/dL (0.70-1.30); Calcium 8.3 mg/dL (8.5-10.1); Chloride 101 mmol/L (98-107); Estimated GFR 38.29 (mL/min/1.73m2); Glucose 376 mg/dL (70-100); Magnesium 2.1 mg/dL (1.8-2.4); Potassium 4.8 mmol/L (3.5-5.1); Sodium 133 mmol/L (136-145)
[2018-06-02] MEDS: Magnesium Oxide 400 MG TAB PO (08:48)
[2018-06-02] MEDS: Oseltamivir 30 MG CAP PO ×2 (08:48→20:43)
[2018-06-02] MEDS: Oxybutynin-CR 5 MG TABCR PO (08:48)
[2018-06-02] MEDS: Ferrous Sulfate 325 MG TAB PO ×2 (08:48→20:44)
[2018-06-02] MEDS: Finasteride 5 MG TAB PO (08:48)
[2018-06-02] MEDS: Gabapentin 100 MG CAP PO ×3 (08:48→20:42)
[2018-06-02] MEDS: Mirabegron 50 MG TABCR PO (08:48)
[2018-06-02] MEDS: OLANZapine 5 MG TAB PO (08:49)
[2018-06-02] MEDS: Tamsulosin 0.4 MG CAPCR 0.8 MG PO (08:49)
[2018-06-02] MEDS: Lactobacillus Acidophilus CAP 1 CAP PO (08:49)
[2018-06-02] MEDS: Losartan 25 MG TAB PO (08:49)
[2018-06-02] MEDS: Multivitamin TAB 1 TAB PO (08:49)
[2018-06-02] MEDS: Ascorbic Acid 500 MG TAB PO (08:49)
--- NOTE | 2018-06-02 09:17 | PGE_ITS ---
Date of Service Date of service: 06/02/18 Time of Service: 09:12 Assessment and Plan (1) Gross hematuria: Current visit: Yes Status: Acute I would suggest continuing the bladder irrigation until we go at least 24 hours without clots. The staff can certainly hand irrigate his catheter as needed With the Proteus in his blood, I wonder if the large stone in his left kidney could be a source of his infection. Typically, this type of stone would require a percutaneous nephrolithotomy. Given his code status and overall medical condition, I am not sure if this approach is even feasible ... just something to think about. Subjective Interval history since last seen: His bladder irrigation has been fairly clear, but he has had some episodes of spasms during which his irrigation stops. Exam Narrative Exam Narrative: I went ahead and hand irrigated his catheter for a number of old clots. No active bleeding was identified. His blood cultures so far have grown Proteus. Objective Objective Clinical Data: Abnormal lab results 06/01/18 06/01/18 06/02/18 Range/Units 16:05 16:15 06:28 WBC (4.4-10.8) k/cumm RBC (4.50-6.00) m/cumm Hgb 10.8 L (13.5-17.5) g/dL Hct 32.4 L (40.0-50.0) % MCV (80-95) fL Plt Count (130-400) x1000/uL MPV (8.0-11.0) fL Absolute Neutrophils (1.2-6.7) k/cumm Absolute Lymphocytes (1.2-3.4) k/cumm Absolute Monocytes (0.11-0.7) k/cumm pO2 78 L (83-108) mmHg ABG Total CO2 20 L (22-29) mmol/L ABG Base Excess -4.0 L (-3-3) mmol/L Sodium 133 L (136-145) mmol/L BUN 44 H D (7-18) mg/dL Creatinine 1.75 H (0.70-1.30) mg/dL Glucose 376 H (70-100) mg/dL Calcium 8.3 L (8.5-10.1) mg/dL 06/02/18 Range/Units 06:28 WBC 21.91 H (4.4-10.8) k/cumm RBC 3.10 L (4.50-6.00) m/cumm Hgb 10.1 L (13.5-17.5) g/dL Hct 31.0 L (40.0-50.0) % MCV 100.0 H (80-95) fL Plt Count 104 L (130-400) x1000/uL MPV 12.6 H (8.0-11.0) fL Absolute Neutrophils 18.27 H (1.2-6.7) k/cumm Absolute Lymphocytes 0.72 L (1.2-3.4) k/cumm Absolute Monocytes 2.41 H (0.11-0.7) k/cumm pO2 (83-108) mmHg ABG Total CO2 (22-29) mmol/L ABG Base Excess (-3-3) mmol/L Sodium (136-145) mmol/L BUN (7-18) mg/dL Creatinine (0.70-1.30) mg/dL Glucose (70-100) mg/dL Calcium (8.5-10.1) mg/dL Vital Signs Temperature 36.5 C 06/02/18 03:56 Temperature Source Temporal Artery Scan 06/02/18 00:50 Pulse 90 06/02/18 04:01 Pulse 92 H 06/02/18 04:01 Respiratory Rate 18 06/02/18 04:01 Respiratory Effort 06/02/18 04:00 Respiratory Depth Normal 06/02/18 04:00 Respiratory Pattern Normal 06/02/18 04:00 Blood Pressure 141/68 H 06/02/18 04:01 Blood Pressure Mean 84 06/02/18 04:01 Blood Pressure Position Supine 06/01/18 15:30 Pulse Oximetry 91 L 06/02/18 04:01 Oxygen Delivery Method Bi-pap 06/02/18 04:00 Oxygen Flow Rate 6 06/01/18 18:35 Fraction of Inspired Oxygen (FIO2) 50 06/01/18 09:30 Pain Level 0 06/02/18 04:00 Comment 05/31/18 20:33 Intake & Output 06/01/18 06/01/18 06/02/18 11:59 23:59 11:59 Intake Total 1655 / 4295 2640 / 4295 673.333 / 673.333 Output Total 4625 / 4625 2600 / 2600 Balance -2970 / -330 2640 / -330 -1926.667 / -1926.667 Weight 124.466 kg 126 kg Intake: IV 1355 / 2655 1300 / 2655 673.333 / 673.333 Oral 300 / 1640 1340 / 1640 Output: Urine 4625 / 4625 2600 / 2600 Other: Urine Color [place] Urine Appearance Hematuria Clear Comment Initial insertion yielded dark red blood; irrigated and clearing. [address] in [address] with irrigation continuous. Urine color currently clear with a pinkish tone, no clots noted at this time. Laboratory Results WBC 21.91 k/cumm (4.4-10.8) H 06/02/18 06:28 RBC 3.10 m/cumm (4.50-6.00) L 06/02/18 06:28 Hgb 10.1 g/dL (13.5-17.5) L 06/02/18 06:28 Hct 31.0 % (40.0-50.0) L 06/02/18 06:28 MCV 100.0 fL (80-95) H 06/02/18 06:28 MCH 32.6 pg (27.0-33.0) 06/02/18 06:28 MCHC 32.6 g/dL (32.0-36.0) 06/02/18 06:28 RDW 13.4 % (11.8-14.1) 06/02/18 06:28 Plt Count 104 x1000/uL (130-400) L 06/02/18 06:28 MPV 12.6 fL (8.0-11.0) H 06/02/18 06:28 Immature Gran % 1.9 06/02/18 06:28 Neutrophils % 83.4 06/02/18 06:28 Lymphocytes % 3.3 06/02/18 06:28 Monocytes % 11.0 06/02/18 06:28 Eosinophils % 0.3 06/02/18 06:28 Basophils % 0.1 06/02/18 06:28 Absolute Neutrophils 18.27 k/cumm (1.2-6.7) H 06/02/18 06:28 Absolute Lymphocytes 0.72 k/cumm (1.2-3.4) L 06/02/18 06:28 Absolute Monocytes 2.41 k/cumm (0.11-0.7) H 06/02/18 06:28 Absolute Eosinophils 0.07 k/cumm (0.0-0.7) 06/02/18 06:28 Absolute Basophils 0.02 k/cumm (0.0-0.2) 06/02/18 06:28 Differential Comment Agrees w/ instrument 06/02/18 06:28 RBC Morphology See below 06/01/18 04:17 Polychromasia Present 06/01/18 04:17 Anisocytosis 1+ 06/01/18 04:17 PT 10.3 sec (9.3-11.0) 06/01/18 07:25 INR 1.0 (0.9-1.1) 06/01/18 07:25 APTT 29.6 sec (21.0-31.4) 06/01/18 07:25 Sample Site Right radial 06/01/18 16:05 pCO2 40 mmHg (34-47) 06/01/18 16:05 pO2 78 mmHg (83-108) L 06/01/18 16:05 O2 Saturation 95 % (94-98) 06/01/18 16:05 ABG pH 7.35 (7.35-7.45) 06/01/18 16:05 ABG HCO3 22 mmol/L (22-28) 06/01/18 16:05 ABG Total CO2 20 mmol/L (22-29) L 06/01/18 16:05 ABG Base Excess -4.0 mmol/L (-3-3) L 06/01/18 16:05 Oxygen Liter Flow Nasal cannula L 06/01/18 16:05 FiO2 44 % 06/01/18 16:05 Sodium 133 mmol/L (136-145) L 06/02/18 06:28 Potassium 4.8 mmol/L (3.5-5.1) 06/02/18 06:28 Chloride 101 mmol/L (98-107) 06/02/18 06:28 Carbon Dioxide 23.5 mmol/L (21.0-32.0) 06/02/18 06:28 Anion Gap 8.5 mmol/L (3-11) 06/02/18 06:28 BUN 44 mg/dL (7-18) H D 06/02/18 06:28 Creatinine 1.75 mg/dL (0.70-1.30) H 06/02/18 06:28 Estimated GFR/1.73 m2 38.29 (mL/min/1.73m2) 06/02/18 06:28 Glucose 376 mg/dL (70-100) H 06/02/18 06:28 Hemoglobin A1c 7.5 % (4.5-6.2) H 06/01/18 04:17 Lactate 1.5 mmol/L (0.6-1.4) H 06/01/18 04:17 Calcium 8.3 mg/dL (8.5-10.1) L 06/02/18 06:28 Magnesium 2.1 mg/dL (1.8-2.4) 06/02/18 06:28 Total Bilirubin 0.5 mg/dL (0.2-1.0) 06/01/18 04:17 AST 45 U/L (15-37) H 06/01/18 04:17 ALT 32 U/L (12-78) 06/01/18 04:17 Alkaline Phosphatase 76 U/L (46-116) 06/01/18 04:17 Troponin I 0.04 ng/mL (0.00-0.06) 06/01/18 04:17 NT-Pro-B Natriuret Pep 1487 pg/mL (-299) H 05/31/18 20:50 Total Protein 8.0 g/dL (6.4-8.2) 06/01/18 04:17 Albumin 2.8 g/dL (3.4-5.0) L 06/01/18 04:17 TSH 0.46 uIU/mL (0.358-3.74) 06/01/18 04:17 Urine Color Red (Yellow) 05/31/18 21:40 Urine Clarity Cloudy 05/31/18 21:40 Urine pH 5.5 (5-8) 05/31/18 21:40 Ur Specific [place] 1.025 (1.005-1.025) 05/31/18 21:40 Urine Protein >=300 mg/dL (Negative) H 05/31/18 21:40 Urine Ketones Negative mg/dL (Negative) 05/31/18 21:40 Urine Blood Large (Negative) H 05/31/18 21:40 Urine Nitrite Negative (Negative) 05/31/18 21:40 Urine Bilirubin Negative (Negative) 05/31/18 21:40 Urine Urobilinogen 0.2 EU/dL (Up TO 0.2) 05/31/18 21:40 Ur Leukocyte Esterase Negative (Negative) 05/31/18 21:40 Urine RBC >50 (0-2) H 05/31/18 21:40 Urine WBC Not Applicable 05/31/18 21:40 Ur Epithelial Cells Not Applicable 05/31/18 21:40 Urine Crystals Not Applicable 05/31/18 21:40 Urine Bacteria Not Applicable 05/31/18 21:40 Urine Mucus Not Applicable 05/31/18 21:40 Ur Culture Indicated? Yes 05/31/18 21:40 Urine Glucose Negative mg/dL (Negative) 05/31/18 21:40 Patient ABO/Rh A Negative 06/01/18 07:25 Antibody Screen Negative 06/01/18 07:25
[2018-06-02] MEDS: Insulin Aspart 300 UNITS/3 ML PEN SC ×7 (09:30→20:53)
[2018-06-02] MEDS: CEFEPIME 2 GM in Normal Saline 100 ML IVPB ×2 (10:36→22:26)
[2018-06-02] MEDS: Acetaminophen 325 MG TAB PO (13:22)
--- NOTE | 2018-06-02 14:27 | PDOC.CMPRO ---
- If Service Date Differs Date of service: 06/02/18 Time of Service: 14:27 Care Management Progress Note S/O: Juan is lying in bed this morning. He continues to require ICU level of care. Juan continues to be on precautions for ? flu, and is receiving Tamiflu at this time. Juan also remains on IV antibiotics. No change in plan. A: 72 y/o male admitted 05/31/18 for HCAP, COPD exacerbation P: Juan will return to [facility] once medically cleared. He will transport via [facility] w/c van.
--- NOTE | 2018-06-02 16:22 | W.PM.PROGNOT ---
Date of Service Date of service: 06/02/18 Time of Service: 16:23 Assessment and Plan (1) Sepsis: Current visit: Yes Status: Acute With presumed bacteremia, currently growing Proteus Mirabilis in one set of blood cultures from 05/31. Initial presumed diagnosis was for HCAP given respiratory symptoms. Continue broad spectrum coverage for now with combination Vancomycin, Cefepime, and Levaquin Day #2, and await finalization of culture results. Currently on stress dose steroids as well, being weaned. Continue nebs and NIPPV with BiPAP as needed. Monitor labs, HR and Blood Pressure carefully. Influenza reportedly negative by rapid check at [facility], with PCR sent and pending - continue empiric therapy with renally dosed Oseltamivir. Of note, in conversation with Urology it appears that Mr. Valente has a kidney stone, confirmed by review of CT. Should also consider as potential infected source if patient does not clear bacteremia - however, current Urinalysis without evidence of infection. Will monitor. Qualifiers: Sepsis type: sepsis due to unspecified organism Qualified Code(s): A41.9 - Sepsis, unspecified organism (2) HCAP (healthcare-associated pneumonia): Current visit: Yes Status: Acute Treatment as above. (3) Gross hematuria: Current visit: Yes Status: Acute Potentially in setting of injury to the prostate during catheterization. Continue CBI until urine is transparent and 24 hours without blood clot, per urology. Also with recommendations for leaving catheter in place for 1 week in case there was catheter related trauma, and recommendations for initiation of Finasteride. (4) Acute respiratory failure with hypoxemia: Current visit: Yes Status: Acute Improving. (5) Diabetes mellitus: Current visit: No Status: Chronic Continue basal insulin, ISS, and ADA diet. Qualifiers: Diabetes mellitus type: type 2 Diabetes mellitus senior care insulin use: with buttermaker continuous churn use Diabetes mellitus complication status: with kidney complications Diabetes mellitus complication detail: Diabetic retinopathy severity: Proliferative retinopathy type: Diabetes mellitus macular edema: Laterality: Chronic kidney disease stage: (6) Vascular dementia: Current visit: No Status: Chronic Noted. (7) DVT prophylaxis: Current visit: No Status: Acute SCDs. No chemical prophylaxis secondary to current hematuria. Also on PPI for GI Prophylaxis. Subjective Interval history since last seen: 72 year old male resident of [facility] with a prior history of Vascular Dementia and DM, admitted from [facility] Emergency Department on 05/31 with a diagnosis of Sepsis and HCAP. Mr. Valente has a prior history of CVA, Vascular Dementia, HTN, Dyslipidemia, CKD, DM, GERD, prior Colon Ca, and BPH. A prior CT from 12/2017 showed evidence of a large nonobstructing stone in the left renal pelvis. The patient had developed URI type symptoms while at [facility], along with a cough productive of purulent sputum. He had also developed concurrent Tachypnea, Tachycardia, and eventual Hypoxia. Initial CXR was interpreted as negative, but with blood work showing significant leukocytosis and an elevation in lactate. As he did not improve with Nebs the patient was sent to the ED for further evaluation. The patient's imaging was not repeated in the ED, but clinically diagnosed with pneumonia and referred for admission. There was also concern regarding development of Afib in the ED, confirmed by review of early telemetry strips, but he has remained in sinus rhythm with frequent PACs while on monitor in the ICU. He was noted to have Gross Hematuria following [place] Placement. Mr. Valente appears improved, with downtrending lactate but continued significant Leukocytosis. Blood Cultures appear positive, speciated to Proteus Mirabilis with sensitivities not yet available. He is now on a CBI, with continued but improving hematuria and blood clots, also followed by urology. No other events reported overnight. Patient's last fever was at 9 pm on 05/31. Exam Narrative Exam Narrative: General: Patient appears improved and less ill appearing, not toxic, awake and alert Neck: Supple CV: Irregular, tachycardic. Pulmonary: Bibasilar crackles and rhonchi, mild diffuse wheezing that has improved on very limited anterior and lateral exam Abdomen: + Bowel Sounds, soft, nontender, nondistended Vascular: + b/l lower extremity edema Objective Objective Clinical Data: Abnormal lab results 06/01/18 06/02/18 06/02/18 Range/Units 16:15 06:28 06:28 WBC 21.91 H (4.4-10.8) k/cumm RBC 3.10 L (4.50-6.00) m/cumm Hgb 10.8 L 10.1 L (13.5-17.5) g/dL Hct 32.4 L 31.0 L (40.0-50.0) % MCV 100.0 H (80-95) fL Plt Count 104 L (130-400) x1000/uL MPV 12.6 H (8.0-11.0) fL Absolute Neutrophils 18.27 H (1.2-6.7) k/cumm Absolute Lymphocytes 0.72 L (1.2-3.4) k/cumm Absolute Monocytes 2.41 H (0.11-0.7) k/cumm Sodium 133 L (136-145) mmol/L BUN 44 H D (7-18) mg/dL Creatinine 1.75 H (0.70-1.30) mg/dL Glucose 376 H (70-100) mg/dL Calcium 8.3 L (8.5-10.1) mg/dL Vital Signs Temperature 36 C L 06/02/18 12:30 Temperature Source Temporal Artery Scan 06/02/18 12:30 Pulse 82 06/02/18 13:13 Pulse 88 06/02/18 10:01 Respiratory Rate 20 06/02/18 13:13 Respiratory Effort 06/02/18 12:30 Respiratory Depth Normal 06/02/18 12:30 Respiratory Pattern Normal 06/02/18 12:30 Blood Pressure 138/55 L 06/02/18 10:01 Blood Pressure Mean 71 06/02/18 10:01 Blood Pressure Position Supine 06/02/18 12:30 Pulse Oximetry 98 06/02/18 13:13 Oxygen Delivery Method Nasal Cannula 06/02/18 13:13 Oxygen Flow Rate 2 06/02/18 13:13 Fraction of Inspired Oxygen (FIO2) 50 06/01/18 09:30 Pain Level 10 06/02/18 15:49 Comment 05/31/18 20:33 Intake & Output 06/01/18 06/02/18 06/02/18 23:59 11:59 23:59 Intake Total 2640 / 4295 2596.666 / 2836.666 240 / 2836.666 Output Total 2600 / 5950 3350 / 5950 Balance 2640 / -330 -3.334 / -3113.334 -3110 / -3113.334 Weight 126 kg Intake: IV 1300 / 2655 1736.666 / 1736.666 Oral 1340 / 1640 860 / 1100 240 / 1100 Output: Urine 2600 / 5950 3350 / 5950 Other: Urine Color [place] Pale Urine Appearance Clear Clear Comment [address] in place with irrigation continuous. Urine color currently clear with a pinkish tone, no clots noted at this time. [address] in place with irrigation continuous; Dr Bell requested it run til tomorrow; urine clear, colorless. Laboratory Results WBC 21.91 k/cumm (4.4-10.8) H 06/02/18 06:28 RBC 3.10 m/cumm (4.50-6.00) L 06/02/18 06:28 Hgb 10.1 g/dL (13.5-17.5) L 06/02/18 06:28 Hct 31.0 % (40.0-50.0) L 06/02/18 06:28 MCV 100.0 fL (80-95) H 06/02/18 06:28 MCH 32.6 pg (27.0-33.0) 06/02/18 06:28 MCHC 32.6 g/dL (32.0-36.0) 06/02/18 06:28 RDW 13.4 % (11.8-14.1) 06/02/18 06:28 Plt Count 104 x1000/uL (130-400) L 06/02/18 06:28 MPV 12.6 fL (8.0-11.0) H 06/02/18 06:28 Immature Gran % 1.9 06/02/18 06:28 Neutrophils % 83.4 06/02/18 06:28 Lymphocytes % 3.3 06/02/18 06:28 Monocytes % 11.0 06/02/18 06:28 Eosinophils % 0.3 06/02/18 06:28 Basophils % 0.1 06/02/18 06:28 Absolute Neutrophils 18.27 k/cumm (1.2-6.7) H 06/02/18 06:28 Absolute Lymphocytes 0.72 k/cumm (1.2-3.4) L 06/02/18 06:28 Absolute Monocytes 2.41 k/cumm (0.11-0.7) H 06/02/18 06:28 Absolute Eosinophils 0.07 k/cumm (0.0-0.7) 06/02/18 06:28 Absolute Basophils 0.02 k/cumm (0.0-0.2) 06/02/18 06:28 Differential Comment Agrees w/ instrument 06/02/18 06:28 RBC Morphology See below 06/01/18 04:17 Polychromasia Present 06/01/18 04:17 Anisocytosis 1+ 06/01/18 04:17 PT 10.3 sec (9.3-11.0) 06/01/18 07:25 INR 1.0 (0.9-1.1) 06/01/18 07:25 APTT 29.6 sec (21.0-31.4) 06/01/18 07:25 Sample Site Right radial 06/01/18 16:05 pCO2 40 mmHg (34-47) 06/01/18 16:05 pO2 78 mmHg (83-108) L 06/01/18 16:05 O2 Saturation 95 % (94-98) 06/01/18 16:05 ABG pH 7.35 (7.35-7.45) 06/01/18 16:05 ABG HCO3 22 mmol/L (22-28) 06/01/18 16:05 ABG Total CO2 20 mmol/L (22-29) L 06/01/18 16:05 ABG Base Excess -4.0 mmol/L (-3-3) L 06/01/18 16:05 Oxygen Liter Flow Nasal cannula L 06/01/18 16:05 FiO2 44 % 06/01/18 16:05 Sodium 133 mmol/L (136-145) L 06/02/18 06:28 Potassium 4.8 mmol/L (3.5-5.1) 06/02/18 06:28 Chloride 101 mmol/L (98-107) 06/02/18 06:28 Carbon Dioxide 23.5 mmol/L (21.0-32.0) 06/02/18 06:28 Anion Gap 8.5 mmol/L (3-11) 06/02/18 06:28 BUN 44 mg/dL (7-18) H D 06/02/18 06:28 Creatinine 1.75 mg/dL (0.70-1.30) H 06/02/18 06:28 Estimated GFR/1.73 m2 38.29 (mL/min/1.73m2) 06/02/18 06:28 Glucose 376 mg/dL (70-100) H 06/02/18 06:28 Hemoglobin A1c 7.5 % (4.5-6.2) H 06/01/18 04:17 Lactate 1.5 mmol/L (0.6-1.4) H 06/01/18 04:17 Calcium 8.3 mg/dL (8.5-10.1) L 06/02/18 06:28 Magnesium 2.1 mg/dL (1.8-2.4) 06/02/18 06:28 Total Bilirubin 0.5 mg/dL (0.2-1.0) 06/01/18 04:17 AST 45 U/L (15-37) H 06/01/18 04:17 ALT 32 U/L (12-78) 06/01/18 04:17 Alkaline Phosphatase 76 U/L (46-116) 06/01/18 04:17 Troponin I 0.04 ng/mL (0.00-0.06) 06/01/18 04:17 NT-Pro-B Natriuret Pep 1487 pg/mL (-299) H 05/31/18 20:50 Total Protein 8.0 g/dL (6.4-8.2) 06/01/18 04:17 Albumin 2.8 g/dL (3.4-5.0) L 06/01/18 04:17 TSH 0.46 uIU/mL (0.358-3.74) 06/01/18 04:17 Urine Color Red (Yellow) 05/31/18 21:40 Urine Clarity Cloudy 05/31/18 21:40 Urine pH 5.5 (5-8) 05/31/18 21:40 Ur Specific [place] 1.025 (1.005-1.025) 05/31/18 21:40 Urine Protein >=300 mg/dL (Negative) H 05/31/18 21:40 Urine Ketones Negative mg/dL (Negative) 05/31/18 21:40 Urine Blood Large (Negative) H 05/31/18 21:40 Urine Nitrite Negative (Negative) 05/31/18 21:40 Urine Bilirubin Negative (Negative) 05/31/18 21:40 Urine Urobilinogen 0.2 EU/dL (Up TO 0.2) 05/31/18 21:40 Ur Leukocyte Esterase Negative (Negative) 05/31/18 21:40 Urine RBC >50 (0-2) H 05/31/18 21:40 Urine WBC Not Applicable 05/31/18 21:40 Ur Epithelial Cells Not Applicable 05/31/18 21:40 Urine Crystals Not Applicable 05/31/18 21:40 Urine Bacteria Not Applicable 05/31/18 21:40 Urine Mucus Not Applicable 05/31/18 21:40 Ur Culture Indicated? Yes 05/31/18 21:40 Urine Glucose Negative mg/dL (Negative) 05/31/18 21:40 Specimen Type Cancelled 05/31/18 21:44 Influenza Type A RNA Cancelled 05/31/18 21:44 Influenza Type B RNA Cancelled 05/31/18 21:44 RSV RNA Qual (PCR) Cancelled 05/31/18 21:44 Patient ABO/Rh A Negative 06/01/18 07:25 Antibody Screen Negative 06/01/18 07:25
[2018-06-02] MEDS: Normal Saline Flush 10 ML SYR IVP (20:42)
[2018-06-02] MEDS: LEVOFLOXACIN 750 MG/150 ML BAG 100 MG IVPB (20:42)
[2018-06-02] MEDS: Pantoprazole 40 MG TABCR PO (20:43)
[2018-06-02] MEDS: Simvastatin 40 MG TAB PO (20:43)
[2018-06-02] MEDS: DULoxetine 30 MG CAP 60 MG PO (20:43)
[2018-06-02] MEDS: Montelukast 10 MG TAB PO (21:02)
[2018-06-02] MEDS: Normal Saline 500 ML 30 ML IV (22:28)
[2018-06-03] VITALS (49 sets, daily range): BP systolic 101–143; BP diastolic 46–62; PULSE 61–93; RESP 1–22; TEMP 36–36.8; O2SAT 87–93
[2018-06-03] MEDS: Acetaminophen 325 MG TAB PO ×2 (05:26→13:34)
[2018-06-03] MEDS: Hydrocortisone SOD SUC. 100 MG VIAL 50 MG IVP (05:26)
[2018-06-03] MEDS: Normal Saline Flush 10 ML SYR IVP ×2 (05:26→11:37)
[2018-06-03] MEDS: Albuterol/Ipratropium 3 ML UPD VIAL UPD ×3 (05:27→18:44)
[2018-06-03 06:03] LABS: Abs Immature Grans 0.83 k/cumm (0.0-0.09); HCT 30.1 % (40.0-50.0); HGB 9.5 g/dL (13.5-17.5); Mean Corp. HGB Concentration 31.6 g/dL (32.0-36.0); Mean Corpuscular Hemoglobin 31.7 pg (27.0-33.0); Mean Corpuscular Volume 100.3 fL (80-95); Mean Platelet Volume 12.6 fL (8.0-11.0); Platelet Count 122 x1000/uL (130-400); RBC Distribution Width 13.4 % (11.8-14.1); White Blood Cell Count 16.53 k/cumm (4.4-10.8)
[2018-06-03 06:13] LABS: Anion Gap 6.3 mmol/L (3-11); BUN 44 mg/dL (7-18); CO2 27.7 mmol/L (21.0-32.0); CREATININE 1.68 mg/dL (0.70-1.30); Chloride 100 mmol/L (98-107); Estimated GFR 40.14 (mL/min/1.73m2); Glucose 373 mg/dL (70-100); Magnesium 2.1 mg/dL (1.8-2.4); Potassium 4.7 mmol/L (3.5-5.1); Sodium 134 mmol/L (136-145)
[2018-06-03 07:08] LABS: Absolute Lymphocyte Count 0.66 k/cumm (1.2-3.4); Absolute Monocyte Count 0.99 k/cumm (0.11-0.7); Absolute Neutrophil Count 13.55 k/cumm (1.2-6.7); Diff Comment Manual Differential
[2018-06-03 07:10] LABS: Hypochromasia 1+; Macrocytosis 1+
[2018-06-03] MEDS: Magnesium Oxide 400 MG TAB PO (09:14)
[2018-06-03] MEDS: Tamsulosin 0.4 MG CAPCR 0.8 MG PO (09:14)
[2018-06-03] MEDS: Oxybutynin-CR 5 MG TABCR PO (09:14)
[2018-06-03] MEDS: Lactobacillus Acidophilus CAP 1 CAP PO (09:15)
[2018-06-03] MEDS: OLANZapine 5 MG TAB PO (09:15)
[2018-06-03] MEDS: Losartan 25 MG TAB PO (09:15)
[2018-06-03] MEDS: Gabapentin 100 MG CAP PO ×3 (09:15→20:00)
[2018-06-03] MEDS: Oseltamivir 30 MG CAP PO ×2 (09:15→20:01)
[2018-06-03] MEDS: Mirabegron 50 MG TABCR PO (09:15)
[2018-06-03] MEDS: Finasteride 5 MG TAB PO (09:15)
[2018-06-03] MEDS: Ascorbic Acid 500 MG TAB PO (09:15)
[2018-06-03] MEDS: Ferrous Sulfate 325 MG TAB PO ×2 (09:15→20:01)
[2018-06-03] MEDS: Insulin Aspart 300 UNITS/3 ML PEN SC ×7 (09:19→20:02)
[2018-06-03] MEDS: CEFEPIME 2 GM in Normal Saline 100 ML IVPB ×2 (09:55→21:59)
[2018-06-03] MEDS: Insulin Glargine 300 UNITS/3 ML PEN 10 UNITS SC (11:35)
[2018-06-03] MEDS: Benzonatate 100 MG CAP PO ×2 (11:35→20:00)
[2018-06-03] MEDS: Furosemide 20 MG/2 ML VIAL IVP (11:35)
[2018-06-03] MEDS: Multivitamin TAB 1 TAB PO (12:45)
--- NOTE | 2018-06-03 13:06 | W.PM.PROGNOT ---
Date of Service Date of service: 06/03/18 Time of Service: 12:40 Assessment and Plan (1) Sepsis: Current visit: Yes Status: Acute Blood cx positive for Proteus Mirabilis in one set (05/31). Repeat blood cultures ordered today, pending. Source is likely HCAP, as UA is negative for a UTI, but does have known nephrolithiasis. Continue Vancomycin, Cefepime, and Levaquin Day #3. Continue to wean stress dose steroids. Await influenza PCR - continue empiric Oseltamivir. Ok to transfer out of ICU to [facility] with telemetry. Qualifiers: Sepsis type: sepsis due to unspecified organism Qualified Code(s): A41.9 - Sepsis, unspecified organism (2) HCAP (healthcare-associated pneumonia): Current visit: Yes Status: Acute Treatment as above. Wean O2 as tolerated (3) Gross hematuria: Current visit: Yes Status: Acute Likely due to traumatic catheterization. Improved significantly on CBI - continue until no clots x 24 hours. Continue finasteride. On discharge, would need a de [place] ve[place] catheter for at least 1 week and urology follow up. (4) Acute respiratory failure with hypoxemia: Current visit: Yes Status: Acute Improving. Continue treatment on pneumonia, diuresis, (5) Acute on chronic diastolic CHF (congestive heart failure): Current visit: Yes Status: Acute Continue diuresis, monitoring I/O's and daily weights. (6) Diabetes mellitus: Current visit: No Status: Chronic with steroid induced hyperglycemia. I added lantus this am. Continue SSI, and ADA diet. Qualifiers: Diabetes mellitus type: type 2 Diabetes mellitus terminal superintendent insulin use: with terminal superintendent use Diabetes mellitus complication status: with kidney complications Diabetes mellitus complication detail: Diabetic retinopathy severity: Proliferative retinopathy type: Diabetes mellitus macular edema: Laterality: Chronic kidney disease stage: (7) Pulmonary hypertension: Current visit: Yes Status: Acute Continue diuresis and wean O2 as tolerated. Continue CPAP at night. (8) A-fib: Current visit: Yes Status: Acute New diagnosis (unclear if this is truly new onset), paroxysmal, no recurrences in the last 24 hours. Would continue to monitor on tele. Anticoagulation is contraindicated. Continue diltiazem. (9) Vascular dementia: Current visit: No Status: Chronic Noted. Behaviors are stable. (10) DVT prophylaxis: Current visit: No Status: Acute SCDs. No chemical prophylaxis secondary to current hematuria. Also on PPI for GI Prophylaxis. (11) Discharge planning issues: Current visit: Yes Status: Acute DNR/DNI. Ok to transfer out of ICU to medical surgical floor with telemetry Subjective Interval history since last seen: Denies dizziness, chest pain, shortness of breath, nausea, vomiting. Complains of RUQ pain when he coughs. He is now on 2L of O2 by NC. He used CPAP at night. Nursing notes a frequent barking dry cough. Exam Narrative Exam Narrative: General: Middle-aged male, laying flat in bed, does not appear to be short of breath HEENT: EOMI, MMM Heart: RRR, no m/r/g Lungs: Coarse breath sounds B GI: abdomen is soft, nontender, nondistended Extremities: trace edema BLE's, no c/c; +2 pedal pulses B Objective Objective Clinical Data: Abnormal lab results 06/03/18 06/03/18 Range/Units 05:45 05:45 WBC 16.53 H (4.4-10.8) k/cumm RBC 3.00 L (4.50-6.00) m/cumm Hgb 9.5 L (13.5-17.5) g/dL Hct 30.1 L (40.0-50.0) % MCV 100.3 H (80-95) fL MCHC 31.6 L (32.0-36.0) g/dL Plt Count 122 L (130-400) x1000/uL MPV 12.6 H (8.0-11.0) fL Absolute Neutrophils 13.55 H (1.2-6.7) k/cumm Absolute Lymphocytes 0.66 L (1.2-3.4) k/cumm Absolute Monocytes 0.99 H (0.11-0.7) k/cumm Sodium 134 L (136-145) mmol/L BUN 44 H (7-18) mg/dL Creatinine 1.68 H (0.70-1.30) mg/dL Glucose 373 H (70-100) mg/dL Calcium 8.0 L (8.5-10.1) mg/dL Vital Signs Temperature 36.3 C L 06/03/18 03:00 Temperature Source Temporal Artery Scan 06/03/18 03:00 Pulse 72 06/03/18 05:27 Pulse 71 06/03/18 05:12 Respiratory Rate 16 06/03/18 05:27 Respiratory Effort Non-Labored 06/03/18 03:00 Respiratory Depth Normal 06/03/18 03:00 Respiratory Pattern Apnea 06/03/18 03:00 Blood Pressure 128/62 06/03/18 05:12 Blood Pressure Mean 74 06/03/18 05:12 Blood Pressure Position Supine 06/02/18 12:30 Pulse Oximetry 87 L 06/03/18 06:00 Oxygen Delivery Method Nasal Cannula 06/03/18 06:00 Oxygen Flow Rate 2 06/03/18 06:00 Fraction of Inspired Oxygen (FIO2) 50 06/01/18 09:30 Pain Level 10 06/03/18 05:26 Comment 05/31/18 20:33 Intake & Output 06/02/18 06/03/18 06/03/18 23:59 11:59 23:59 Intake Total 786 / 3382.666 660 / 660 Output Total 4450 / 7050 1400 / 1400 Balance -3664 / -3667.334 -740 / -740 Weight 125 kg Intake: IV 306 / 2042.666 160 / 160 Oral 480 / 1340 500 / 500 Output: Urine 4450 / 7050 1400 / 1400 Other: Urine Color Pale Pale Yellow Yellow Urine Appearance Clear Clear Comment CBI, Bag at 1700 and de [place] empty Laboratory Results WBC 16.53 k/cumm (4.4-10.8) H 06/03/18 05:45 RBC 3.00 m/cumm (4.50-6.00) L 06/03/18 05:45 Hgb 9.5 g/dL (13.5-17.5) L 06/03/18 05:45 Hct 30.1 % (40.0-50.0) L 06/03/18 05:45 MCV 100.3 fL (80-95) H 06/03/18 05:45 MCH 31.7 pg (27.0-33.0) 06/03/18 05:45 MCHC 31.6 g/dL (32.0-36.0) L 06/03/18 05:45 RDW 13.4 % (11.8-14.1) 06/03/18 05:45 Plt Count 122 x1000/uL (130-400) L 06/03/18 05:45 MPV 12.6 fL (8.0-11.0) H 06/03/18 05:45 Immature Gran % See Differential 06/03/18 05:45 Neutrophils % 82.0 06/03/18 05:45 Lymphocytes % 4.0 06/03/18 05:45 Monocytes % 6.0 06/03/18 05:45 Eosinophils % 0.0 06/03/18 05:45 Basophils % 0.0 06/03/18 05:45 Metamyelocytes % 7.0 % 06/03/18 05:45 Myelocytes % 1.0 % 06/03/18 05:45 Absolute Neutrophils 13.55 k/cumm (1.2-6.7) H 06/03/18 05:45 Absolute Lymphocytes 0.66 k/cumm (1.2-3.4) L 06/03/18 05:45 Absolute Monocytes 0.99 k/cumm (0.11-0.7) H 06/03/18 05:45 Absolute Eosinophils 0.00 k/cumm (0.0-0.7) 06/03/18 05:45 Absolute Basophils 0.00 k/cumm (0.0-0.2) 06/03/18 05:45 Differential Comment Manual differential 06/03/18 05:45 RBC Morphology See below 06/03/18 05:45 Polychromasia Present 06/01/18 04:17 Hypochromasia 1+ 06/03/18 05:45 Anisocytosis 1+ 06/01/18 04:17 Macrocytosis 1+ 06/03/18 05:45 PT 10.3 sec (9.3-11.0) 06/01/18 07:25 INR 1.0 (0.9-1.1) 06/01/18 07:25 APTT 29.6 sec (21.0-31.4) 06/01/18 07:25 Sample Site Right radial 06/01/18 16:05 pCO2 40 mmHg (34-47) 06/01/18 16:05 pO2 78 mmHg (83-108) L 06/01/18 16:05 O2 Saturation 95 % (94-98) 06/01/18 16:05 ABG pH 7.35 (7.35-7.45) 06/01/18 16:05 ABG HCO3 22 mmol/L (22-28) 06/01/18 16:05 ABG Total CO2 20 mmol/L (22-29) L 06/01/18 16:05 ABG Base Excess -4.0 mmol/L (-3-3) L 06/01/18 16:05 Oxygen Liter Flow Nasal cannula L 06/01/18 16:05 FiO2 44 % 06/01/18 16:05 Sodium 134 mmol/L (136-145) L 06/03/18 05:45 Potassium 4.7 mmol/L (3.5-5.1) 06/03/18 05:45 Chloride 100 mmol/L (98-107) 06/03/18 05:45 Carbon Dioxide 27.7 mmol/L (21.0-32.0) 06/03/18 05:45 Anion Gap 6.3 mmol/L (3-11) 06/03/18 05:45 BUN 44 mg/dL (7-18) H 06/03/18 05:45 Creatinine 1.68 mg/dL (0.70-1.30) H 06/03/18 05:45 Estimated GFR/1.73 m2 40.14 (mL/min/1.73m2) 06/03/18 05:45 Glucose 373 mg/dL (70-100) H 06/03/18 05:45 Hemoglobin A1c 7.5 % (4.5-6.2) H 06/01/18 04:17 Lactate 1.5 mmol/L (0.6-1.4) H 06/01/18 04:17 Calcium 8.0 mg/dL (8.5-10.1) L 06/03/18 05:45 Magnesium 2.1 mg/dL (1.8-2.4) 06/03/18 05:45 Total Bilirubin 0.5 mg/dL (0.2-1.0) 06/01/18 04:17 AST 45 U/L (15-37) H 06/01/18 04:17 ALT 32 U/L (12-78) 06/01/18 04:17 Alkaline Phosphatase 76 U/L (46-116) 06/01/18 04:17 Troponin I 0.04 ng/mL (0.00-0.06) 06/01/18 04:17 NT-Pro-B Natriuret Pep 1487 pg/mL (-299) H 05/31/18 20:50 Total Protein 8.0 g/dL (6.4-8.2) 06/01/18 04:17 Albumin 2.8 g/dL (3.4-5.0) L 06/01/18 04:17 TSH 0.46 uIU/mL (0.358-3.74) 06/01/18 04:17 Urine Color Red (Yellow) 05/31/18 21:40 Urine Clarity Cloudy 05/31/18 21:40 Urine pH 5.5 (5-8) 05/31/18 21:40 Ur Specific [place] 1.025 (1.005-1.025) 05/31/18 21:40 Urine Protein >=300 mg/dL (Negative) H 05/31/18 21:40 Urine Ketones Negative mg/dL (Negative) 05/31/18 21:40 Urine Blood Large (Negative) H 05/31/18 21:40 Urine Nitrite Negative (Negative) 05/31/18 21:40 Urine Bilirubin Negative (Negative) 05/31/18 21:40 Urine Urobilinogen 0.2 EU/dL (Up TO 0.2) 05/31/18 21:40 Ur Leukocyte Esterase Negative (Negative) 05/31/18 21:40 Urine RBC >50 (0-2) H 05/31/18 21:40 Urine WBC Not Applicable 05/31/18 21:40 Ur Epithelial Cells Not Applicable 05/31/18 21:40 Urine Crystals Not Applicable 05/31/18 21:40 Urine Bacteria Not Applicable 05/31/18 21:40 Urine Mucus Not Applicable 05/31/18 21:40 Ur Culture Indicated? Yes 05/31/18 21:40 Urine Glucose Negative mg/dL (Negative) 05/31/18 21:40 Specimen Type Cancelled 05/31/18 21:44 Influenza Type A RNA Cancelled 05/31/18 21:44 Influenza Type B RNA Cancelled 05/31/18 21:44 RSV RNA Qual (PCR) Cancelled 05/31/18 21:44 Patient ABO/Rh A Negative 06/01/18 07:25 Antibody Screen Negative 06/01/18 07:25
--- NOTE | 2018-06-03 13:51 | PDOC.CMPRO ---
- If Service Date Differs Date of service: 06/03/18 Time of Service: 13:51 Care Management Progress Note S/O:Juan continues to require an ICU level of care at this time. He was on CPAP overnight, and continues to receive IV antibiotics at this time. Juan will return to [facility] once medically cleared, via w/c van. A: 72 y/o male admitted 05/31/18 for HCAP, COPD exacerbation P: Juan will return to [facility] once medically cleared. He will transport via [facility] w/c van.
[2018-06-03] MEDS: Furosemide 20 MG TAB PO (16:17)
[2018-06-03] MEDS: Docusate Sodium 100 MG CAP PO (17:23)
[2018-06-03] MEDS: Hydrocortisone SOD SUC. 100 MG VIAL 25 MG IVP (18:14)
[2018-06-03] MEDS: Simvastatin 40 MG TAB PO (20:01)
[2018-06-03] MEDS: DULoxetine 30 MG CAP 60 MG PO (20:01)
[2018-06-03] MEDS: Pantoprazole 40 MG TABCR PO (20:02)
[2018-06-03] MEDS: Montelukast 10 MG TAB PO (20:02)
[2018-06-04] VITALS (27 sets, daily range): BP systolic 134–164; BP diastolic 61–79; PULSE 61–86; RESP 1–20; TEMP 35.8–37; O2SAT 2–98
[2018-06-04] MEDS: Hydrocortisone SOD SUC. 100 MG VIAL 25 MG IVP (05:44)
[2018-06-04] MEDS: Milk of Magnesia 30 ML CUP PO (05:45)
[2018-06-04] MEDS: Albuterol/Ipratropium 3 ML UPD VIAL UPD ×4 (05:45→23:17)
[2018-06-04] MEDS: Normal Saline Flush 10 ML SYR IVP ×3 (05:45→20:01)
[2018-06-04] MEDS: Docusate Sodium 100 MG CAP PO (05:48)
[2018-06-04 06:07] LABS: Abs Immature Grans 1.14 k/cumm (0.0-0.09); HGB 9.9 g/dL (13.5-17.5); Mean Corpuscular Hemoglobin 32.7 pg (27.0-33.0); Mean Platelet Volume 12.3 fL (8.0-11.0); Platelet Count 133 x1000/uL (130-400); RBC 3.03 m/cumm (4.50-6.00); RBC Distribution Width 13.3 % (11.8-14.1); White Blood Cell Count 14.15 k/cumm (4.4-10.8)
[2018-06-04 06:13] LABS: Anion Gap 7.7 mmol/L (3-11); BUN 40 mg/dL (7-18); CO2 27.3 mmol/L (21.0-32.0); CREATININE 1.63 mg/dL (0.70-1.30); Calcium 8.2 mg/dL (8.5-10.1); Chloride 100 mmol/L (98-107); Estimated GFR 41.56 (mL/min/1.73m2); Glucose 370 mg/dL (70-100); Potassium 4.4 mmol/L (3.5-5.1); Sodium 135 mmol/L (136-145)
[2018-06-04 06:15] LABS: Absolute Monocyte Count 1.42 k/cumm (0.11-0.7)
[2018-06-04 07:27] LABS: Absolute Neutrophil Count 10.75 k/cumm (1.2-6.7)
[2018-06-04 07:37] LABS: Absolute Lymphocyte Count 0.99 k/cumm (1.2-3.4); Diff Comment Manual Differential; RBC Morphology Normal
[2018-06-04] MEDS: Tamsulosin 0.4 MG CAPCR 0.8 MG PO (08:51)
[2018-06-04] MEDS: Mirabegron 50 MG TABCR PO (08:51)
[2018-06-04] MEDS: Gabapentin 100 MG CAP PO ×3 (08:52→20:04)
[2018-06-04] MEDS: Multivitamin TAB 1 TAB PO (08:52)
[2018-06-04] MEDS: Oxybutynin-CR 5 MG TABCR PO (08:52)
[2018-06-04] MEDS: Magnesium Oxide 400 MG TAB PO (08:52)
[2018-06-04] MEDS: OLANZapine 5 MG TAB PO (08:52)
[2018-06-04] MEDS: Lactobacillus Acidophilus CAP 1 CAP PO (08:52)
[2018-06-04] MEDS: Furosemide 20 MG TAB PO (08:52)
[2018-06-04] MEDS: Ascorbic Acid 500 MG TAB PO (08:52)
[2018-06-04] MEDS: Finasteride 5 MG TAB PO (08:52)
[2018-06-04] MEDS: Ferrous Sulfate 325 MG TAB PO ×2 (08:52→20:04)
[2018-06-04] MEDS: Losartan 25 MG TAB PO (08:53)
[2018-06-04] MEDS: Oseltamivir 30 MG CAP PO ×2 (08:53→20:04)
[2018-06-04] MEDS: Insulin Aspart 300 UNITS/3 ML PEN SC ×6 (08:57→21:38)
[2018-06-04] MEDS: CEFEPIME 2 GM in Normal Saline 100 ML IVPB ×2 (09:11→21:39)
[2018-06-04] MEDS: Insulin Glargine 300 UNITS/3 ML PEN 10 UNITS SC (12:26)
--- NOTE | 2018-06-04 13:49 | PGE_ITS ---
Date of Service Date of service: 06/04/18 Time of Service: 13:47 Assessment and Plan (1) Sepsis: Current visit: Yes Status: Acute Blood cx positive for Proteus Mirabilis in one set (05/31). Repeat blood cultures from 06/03/18 show no growth to date. Source is likely HCAP, as UA is negative for a UTI, but does have known nephrolithiasis. Continue Vancomycin, Cefepime, and Levaquin Day #4. No change in steroid dose today. Await influenza PCR - continue empiric Oseltamivir. Qualifiers: Sepsis type: sepsis due to unspecified organism Qualified Code(s): A41.9 - Sepsis, unspecified organism (2) HCAP (healthcare-associated pneumonia): Current visit: Yes Status: Acute Treatment as above. Wean O2 as tolerated. Repeat CXR today (3) Gross hematuria: Current visit: Yes Status: Acute Likely due to traumatic catheterization. Resolved on CBI - currently on hold. Monitor for bleeding. Continue finasteride. On discharge, would need a de la vega catheter for at least 1 week and urology follow up. (4) Acute respiratory failure with hypoxemia: Current visit: Yes Status: Acute Not requiring O2 at this time, but looks worse to me today. Continue treatment on pneumonia, increase diuresis, and repeat CXR today. (5) Acute on chronic diastolic CHF (congestive heart failure): Current visit: Yes Status: Acute Increase diuresis, monitoring I/O's and daily weights. (6) Diabetes mellitus: Current visit: No Status: Chronic with steroid induced hyperglycemia. The patient is on U500 at 110 units in am, then 95 units with lunch and dinner. We do not have U500. Nursing is double checking with the prison the doses of insulin - we would have to provide him with similar doses of regular insulin, at a minimum. Qualifiers: Diabetes mellitus type: type 2 Diabetes mellitus exterminator termite insulin use: with exterminator termite use Diabetes mellitus complication status: with kidney complications Diabetes mellitus complication detail: Diabetic retinopathy severity: Proliferative retinopathy type: Diabetes mellitus macular edema: Laterality: Chronic kidney disease stage: (7) Pulmonary hypertension: Current visit: Yes Status: Acute Continue diuresis and wean O2 as tolerated. Continue CPAP at night. (8) A-fib: Current visit: Yes Status: Acute New diagnosis (unclear if this is truly new onset), paroxysmal, no recurrences in the last 48 hours. Tele d/c'ed, but he should be discharged back to skilled nursing on a zio patch and with follow up with cardiology. Anticoagulation is contraindicated. Continue diltiazem. (9) Vascular dementia: Current visit: No Status: Chronic Noted. Behaviors are stable. (10) DVT prophylaxis: Current visit: No Status: Acute SCDs. No chemical prophylaxis secondary to current hematuria. Also on PPI for GI Prophylaxis. (11) Discharge planning issues: Current visit: Yes Status: Acute DNR/DNI. Tele d/c'ed. Subjective Interval history since last seen: Mr Valente complains of shortness of breath just on minimal exertion. He states that his cough is productive of yellow sputum. He denies dizziness, chest pain, shortness of breath at rest (he gets short of breath just with turning in the bed). Denies nausea. Complains of RUQ pain whenever he coughs. No evidence of arrhythmias on tele overnight, so it was discontinued. Exam Narrative Exam Narrative: General: Middle-aged male, laying flat in bed, short of breath after turning to the side HEENT: EOMI, MMM Heart: RRR, no m/r/g Lungs: Having more pronounced rhonchi and rales today GI: abdomen is soft, nontender, nondistended Extremities: +1 BLE's, worse today; no c/c; +2 pedal pulses B Objective Objective Clinical Data: Abnormal lab results 06/04/18 06/04/18 Range/Units 05:45 05:45 WBC 14.15 H (4.4-10.8) k/cumm RBC 3.03 L (4.50-6.00) m/cumm Hgb 9.9 L (13.5-17.5) g/dL Hct 30.0 L (40.0-50.0) % MCV 99.0 H (80-95) fL MPV 12.3 H (8.0-11.0) fL Absolute Neutrophils 10.75 H (1.2-6.7) k/cumm Absolute Lymphocytes 0.99 L (1.2-3.4) k/cumm Absolute Monocytes 1.42 H (0.11-0.7) k/cumm Sodium 135 L (136-145) mmol/L BUN 40 H (7-18) mg/dL Creatinine 1.63 H (0.70-1.30) mg/dL Glucose 370 H (70-100) mg/dL Calcium 8.2 L (8.5-10.1) mg/dL Vital Signs Temperature 36.3 C L 06/04/18 12:37 Temperature Source Tympanic 06/04/18 12:37 Pulse 78 06/04/18 12:37 Pulse Rhythm Regular 06/04/18 11:25 Pulse 86 06/04/18 11:00 Respiratory Rate 18 06/04/18 12:37 Respiratory Effort 06/04/18 11:25 Respiratory Depth Normal 06/04/18 11:25 Respiratory Pattern Apnea 06/04/18 00:01 Blood Pressure 134/79 06/04/18 12:37 Blood Pressure Mean 93 06/04/18 08:01 Blood Pressure Position Supine 06/03/18 09:20 Pulse Oximetry 93 L 06/04/18 13:24 Oxygen Delivery Method Room Air 06/04/18 13:24 Oxygen Flow Rate 0 06/04/18 13:24 Fraction of Inspired Oxygen (FIO2) 50 06/01/18 09:30 Pain Level 0 06/04/18 12:37 Comment 05/31/18 20:33 Intake & Output 06/03/18 06/04/18 06/04/18 23:59 11:59 23:59 Intake Total 1390 / 2400 1050 / 1050 Output Total 3200 / 4600 500 / 500 Balance -1810 / -2200 550 / 550 Weight 124.1 kg Intake: IV 110 / 380 110 / 110 Oral 1280 / 2020 940 / 940 Output: Urine 3200 / 4600 500 / 500 Other: Urine Color Pale Pale Yellow Yellow [address] Urine Appearance Clear Clear Comment No clots noted. Bag # 20 at 2100ml and empty catheter No clots noted. Bag # 20 at 1100 and empty catheter, very slightest tinge of faint pink with irrigation in syringe. Urine flowing in line after, pink not noted Laboratory Results WBC 14.15 k/cumm (4.4-10.8) H 06/04/18 05:45 RBC 3.03 m/cumm (4.50-6.00) L 06/04/18 05:45 Hgb 9.9 g/dL (13.5-17.5) L 06/04/18 05:45 Hct 30.0 % (40.0-50.0) L 06/04/18 05:45 MCV 99.0 fL (80-95) H 06/04/18 05:45 MCH 32.7 pg (27.0-33.0) 06/04/18 05:45 MCHC 33.0 g/dL (32.0-36.0) 06/04/18 05:45 RDW 13.3 % (11.8-14.1) 06/04/18 05:45 Plt Count 133 x1000/uL (130-400) 06/04/18 05:45 MPV 12.3 fL (8.0-11.0) H 06/04/18 05:45 Immature Gran % See Differential 06/04/18 05:45 Neutrophils % 75.0 06/04/18 05:45 Band Neutrophils % 1.0 % 06/04/18 05:45 Lymphocytes % 7.0 06/04/18 05:45 Monocytes % 10.0 06/04/18 05:45 Eosinophils % 0.0 06/04/18 05:45 Basophils % 0.0 06/04/18 05:45 Metamyelocytes % 6.0 % 06/04/18 05:45 Myelocytes % 1.0 % 06/04/18 05:45 Absolute Neutrophils 10.75 k/cumm (1.2-6.7) H 06/04/18 05:45 Absolute Lymphocytes 0.99 k/cumm (1.2-3.4) L 06/04/18 05:45 Absolute Monocytes 1.42 k/cumm (0.11-0.7) H 06/04/18 05:45 Absolute Eosinophils 0.00 k/cumm (0.0-0.7) 06/04/18 05:45 Absolute Basophils 0.00 k/cumm (0.0-0.2) 06/04/18 05:45 Differential Comment Manual differential 06/04/18 05:45 RBC Morphology Normal 06/04/18 05:45 Polychromasia Present 06/01/18 04:17 Hypochromasia 1+ 06/03/18 05:45 Anisocytosis 1+ 06/01/18 04:17 Macrocytosis 1+ 06/03/18 05:45 PT 10.3 sec (9.3-11.0) 06/01/18 07:25 INR 1.0 (0.9-1.1) 06/01/18 07:25 APTT 29.6 sec (21.0-31.4) 06/01/18 07:25 Sample Site Right radial 06/01/18 16:05 pCO2 40 mmHg (34-47) 06/01/18 16:05 pO2 78 mmHg (83-108) L 06/01/18 16:05 O2 Saturation 95 % (94-98) 06/01/18 16:05 ABG pH 7.35 (7.35-7.45) 06/01/18 16:05 ABG HCO3 22 mmol/L (22-28) 06/01/18 16:05 ABG Total CO2 20 mmol/L (22-29) L 06/01/18 16:05 ABG Base Excess -4.0 mmol/L (-3-3) L 06/01/18 16:05 Oxygen Liter Flow Nasal cannula L 06/01/18 16:05 FiO2 44 % 06/01/18 16:05 Sodium 135 mmol/L (136-145) L 06/04/18 05:45 Potassium 4.4 mmol/L (3.5-5.1) 06/04/18 05:45 Chloride 100 mmol/L (98-107) 06/04/18 05:45 Carbon Dioxide 27.3 mmol/L (21.0-32.0) 06/04/18 05:45 Anion Gap 7.7 mmol/L (3-11) 06/04/18 05:45 BUN 40 mg/dL (7-18) H 06/04/18 05:45 Creatinine 1.63 mg/dL (0.70-1.30) H 06/04/18 05:45 Estimated GFR/1.73 m2 41.56 (mL/min/1.73m2) 06/04/18 05:45 Glucose 370 mg/dL (70-100) H 06/04/18 05:45 Hemoglobin A1c 7.5 % (4.5-6.2) H 06/01/18 04:17 Lactate 1.5 mmol/L (0.6-1.4) H 06/01/18 04:17 Calcium 8.2 mg/dL (8.5-10.1) L 06/04/18 05:45 Magnesium 2.0 mg/dL (1.8-2.4) 06/04/18 05:45 Total Bilirubin 0.5 mg/dL (0.2-1.0) 06/01/18 04:17 AST 45 U/L (15-37) H 06/01/18 04:17 ALT 32 U/L (12-78) 06/01/18 04:17 Alkaline Phosphatase 76 U/L (46-116) 06/01/18 04:17 Troponin I 0.04 ng/mL (0.00-0.06) 06/01/18 04:17 NT-Pro-B Natriuret Pep 1487 pg/mL (-299) H 05/31/18 20:50 Total Protein 8.0 g/dL (6.4-8.2) 06/01/18 04:17 Albumin 2.8 g/dL (3.4-5.0) L 06/01/18 04:17 TSH 0.46 uIU/mL (0.358-3.74) 06/01/18 04:17 Urine Color Red (Yellow) 05/31/18 21:40 Urine Clarity Cloudy 05/31/18 21:40 Urine pH 5.5 (5-8) 05/31/18 21:40 Ur Specific [place] 1.025 (1.005-1.025) 05/31/18 21:40 Urine Protein >=300 mg/dL (Negative) H 05/31/18 21:40 Urine Ketones Negative mg/dL (Negative) 05/31/18 21:40 Urine Blood Large (Negative) H 05/31/18 21:40 Urine Nitrite Negative (Negative) 05/31/18 21:40 Urine Bilirubin Negative (Negative) 05/31/18 21:40 Urine Urobilinogen 0.2 EU/dL (Up TO 0.2) 05/31/18 21:40 Ur Leukocyte Esterase Negative (Negative) 05/31/18 21:40 Urine RBC >50 (0-2) H 05/31/18 21:40 Urine WBC Not Applicable 05/31/18 21:40 Ur Epithelial Cells Not Applicable 05/31/18 21:40 Urine Crystals Not Applicable 05/31/18 21:40 Urine Bacteria Not Applicable 05/31/18 21:40 Urine Mucus Not Applicable 05/31/18 21:40 Ur Culture Indicated? Yes 05/31/18 21:40 Urine Glucose Negative mg/dL (Negative) 05/31/18 21:40 Specimen Type Cancelled 05/31/18 21:44 Influenza Type A RNA Cancelled 05/31/18 21:44 Influenza Type B RNA Cancelled 05/31/18 21:44 RSV RNA Qual (PCR) Cancelled 05/31/18 21:44 Patient ABO/Rh A Negative 06/01/18 07:25 Antibody Screen Negative 06/01/18 07:25
--- NOTE | 2018-06-04 14:25 | DI.RAD_ITS ---
SYMPTOMS/DIAGNOSIS: F/U PNEUMONIA, COPD EXACERBATION PORTABLE AP CHEST: Comparison is made with May,. The exam is quite limited by respiratory motion, poor pulmonary inflation, as well as patient body habitus. The heart appears enlarged. Basilar densities are again noted, unchanged from the previous exam. No significant effusions are seen. IMPRESSION: Limited exam. Stable bibasilar densities.
--- NOTE | 2018-06-04 14:39 | CMPROGNOTE_ITS ---
- If Service Date Differs Date of service: 06/04/18 Time of Service: 14:38 Care Management Progress Note S/O: Juan transitioned to the Med/Surg floor this afternoon. He continues to have an oxygen requirement and 3-way de la vega in place, with a trial of the irrigation being off today. NO change in DC plan. A: 72 y/o male admitted 05/31/18 for HCAP, COPD exacerbation P: Juan will return to [facility] once medically cleared. He will transport via [facility] w/c van.
--- NOTE | 2018-06-04 14:39 | PT.INIE ---
Date of service: 06/04/18 Time of Service: 14:39 PT Notes Inpatient Physical Therapy Evaluation Date: 06/04/2018 Referring Doctor:Minerva Zaragoza MD PT Orders: PT CONSULT: Evaluate/treat Precautions: Falls Patient Profile/Admitting Diagnosis: 72-year-old male who currently is a resident at [facility] and rehab recently admitted to [facility] for URI. PMHX: History of multiple CVAs, DM, dementia, hypertension, hyperlipidemia, GERD's Social History/Home Situation: Was living at home up until 2 months ago and has been a resident of [facility]. Current Functional Limitations: Requires assistance with bed mobility activities and ambulation. Equipment Owned/DME: equipment needs are met at [facility]. Subjective: Mildly lethargic, with complaints of general fatigue and weakness. Objective: [] General Observation: Lying comfortably in bed and cooperative Mental Status: Oriented x3 and answering questions appropriately Pain: No complaints of pain offered Vital Signs: His resting pulse is 84 bpm and O2 sats are 90% and following ambulation his O2 sat was 89% and pulse 112 bpm ROM: Right Upper Extremity: Full functional range of motion Left Upper Extremity: Full functional range of motion other than hypomobile mobility of the left ankle, subtalar joint Right Lower Extremity: Full functional range of motion Left Lower Extremity: Full functional range of motion Strength: Right Upper Extremity: Has full motor control and strength generally rated 5/5 Left Upper Extremity: Has full motor control and strength generally rated 4/5 with some mild rigidity Right Lower Extremity: 5/5 Left Lower Extremity: 3/5 with mild rigidity Sensation: Lacking proprioception of the left great toe, diminished sensation light touch throughout the entire left side compared to the right Bed Mobility/Transfers: Requires moderate assistance with his lower extremities when assuming the supine sitting position and vice versa and minimal assist with assuming the sitting to standing positions Gait: Ambulate approximately 15 feet with a wheeled walker requiring contact guarding. He had a shuffling gait Balance: [] Static Sitting: Good Dynamic Sitting: Requires contact guarding Static Standing: Record contact guarding and next field required contact guarding Dynamic Standing: Requires contact guarding Special Tests: Mobility Limitations Standardized Measure [facility] AM-PAC 6 clicks Basic Mobility Inpatient Short Form: Raw Score: 11 standardized Score: 33.86 CMS Score: 72.57 CMS Modifier: CL Informed Consent/Education: Patient instructed in purpose of PT consult and plan of care. Assessment: Patient is a 72 year old male referred to physical therapy services with the diagnosis of upper respiratory infection. Patient presents with clinical signs and symptoms consistent with this diagnosis, as demonstrated by the following impairment level findings: Impaired bed mobility, generalized weakness and gait instability.. Impairments are contributing to the following functional limitations: AMPAC score. 72.57% Patient is assessed as a Moderate 18027 complexity based on the following: History: See the above Examination: See the above Presentation: Moderate Decision Making: Moderate based on his impact score of 72.5% Goals: Goals X1 week 1. Supine-Sit standby assist 2. Sit-Supine standby assist 3. Sit-Stand minimal contact guarding 4. Stand-Sit minimal contact guarding 5. Bed-Chair minimal contact guarding 6. Chair-Bed minimal contact guarding 7. Gait ambulating greater than 50 feet with a wheeled walker and contact guard Plan of Care/Treatment Plan: 1-2x/day, 7 days/week x 1 week. Plan of care has been reviewed with the BIOLOGICAL SCIENCE TECHNICIAN providing the service under Physical Therapy direction. Initiate Physical Therapy intervention for strengthening, bed mobility, transfers, gait, stairs, balance training, use of assistive device. DISCHARGE RECOMMENDATIONS: Back to [facility] and rehab TREATMENT CODE/TIME: moderate complexity, initial evaluation 9716 2 x 1, 45 minutes, 12:15 pm. Disclaimer: This note was created using [employer] voice recognition software. It was reviewed for major content. However, there may be multiple small discrepancies and errors due to the voice recognition aspects of the software.
--- NOTE | 2018-06-04 14:59 | IN_ITS ---
Date of service: 06/04/18 Time of Service: 14:39 PT Notes Inpatient Physical Therapy Evaluation Date: 06/04/2018 Referring Doctor:Minerva Zaragoza MD PT Orders: PT CONSULT: Evaluate/treat Precautions: Falls Patient Profile/Admitting Diagnosis: 72-year-old male who currently is a resident at [facility] and rehab recently admitted to [facility] for URI. PMHX: History of multiple CVAs, DM, dementia, hypertension, hyperlipidemia, GERD's Social History/Home Situation: Was living at home up until 2 months ago and has been a resident of [facility]. Current Functional Limitations: Requires assistance with bed mobility activities and ambulation. Equipment Owned/DME: equipment needs are met at [facility]. Subjective: Mildly lethargic, with complaints of general fatigue and weakness. Objective: [] General Observation: Lying comfortably in bed and cooperative Mental Status: Oriented x3 and answering questions appropriately Pain: No complaints of pain offered Vital Signs: His resting pulse is 84 bpm and O2 sats are 90% and following ambulation his O2 sat was 89% and pulse 112 bpm ROM: Right Upper Extremity: Full functional range of motion Left Upper Extremity: Full functional range of motion other than hypomobile mobility of the left ankle, subtalar joint Right Lower Extremity: Full functional range of motion Left Lower Extremity: Full functional range of motion Strength: Right Upper Extremity: Has full motor control and strength generally rated 5/5 Left Upper Extremity: Has full motor control and strength generally rated 4/5 with some mild rigidity Right Lower Extremity: 5/5 Left Lower Extremity: 3/5 with mild rigidity Sensation: Lacking proprioception of the left great toe, diminished sensation light touch throughout the entire left side compared to the right Bed Mobility/Transfers: Requires moderate assistance with his lower extremities when assuming the supine sitting position and vice versa and minimal assist with assuming the sitting to standing positions Gait: Ambulate approximately 15 feet with a wheeled walker requiring contact guarding. He had a shuffling gait Balance: [] Static Sitting: Good Dynamic Sitting: Requires contact guarding Static Standing: Record contact guarding and next field required contact guarding Dynamic Standing: Requires contact guarding Special Tests: Mobility Limitations Standardized Measure [facility] AM-PAC 6 clicks Basic Mobility Inpatient Short Form: Raw Score: 11 standardized Score: 33.86 CMS Score: 72.57 CMS Modifier: CL Informed Consent/Education: Patient instructed in purpose of PT consult and plan of care. Assessment: Patient is a 72 year old male referred to physical therapy services with the diagnosis of upper respiratory infection. Patient presents with clinical signs and symptoms consistent with this diagnosis, as demonstrated by the following impairment level findings: Impaired bed mobility, generalized weakness and gait instability.. Impairments are contributing to the following functional limitations: AMPAC score. 72.57% Patient is assessed as a Moderate 91262 complexity based on the following: History: See the above Examination: See the above Presentation: Moderate Decision Making: Moderate based on his impact score of 72.5% Goals: Goals X1 week 1. Supine-Sit standby assist 2. Sit-Supine standby assist 3. Sit-Stand minimal contact guarding 4. Stand-Sit minimal contact guarding 5. Bed-Chair minimal contact guarding 6. Chair-Bed minimal contact guarding 7. Gait ambulating greater than 50 feet with a wheeled walker and contact guard Plan of Care/Treatment Plan: 1-2x/day, 7 days/week x 1 week. Plan of care has been reviewed with the MACHINIST HELPER providing the service under Physical Therapy direction. Initiate Physical Therapy intervention for strengthening, bed mobility, transfers, gait, stairs, balance training, use of assistive device. DISCHARGE RECOMMENDATIONS: Back to [facility] and rehab TREATMENT CODE/TIME: moderate complexity, initial evaluation 9716 2 x 1, 45 minutes, 12:15 pm. Disclaimer: This note was created using [employer] voice recognition software. It was reviewed for major content. However, there may be multiple small discrepancies and errors due to the voice recognition aspects of the software.
--- NOTE | 2018-06-04 15:07 | DI.VRAD_ITS ---
EXAM: XR Chest, 1 View EXAM DATE/TIME: 06/04/2018 1:55 PM CLINICAL HISTORY: 72 years old, male; Condition or disease; Other: F/u pneumonia TECHNIQUE: XR of the chest, 1 view. COMPARISON: CR XR PORTABLE CHEST AP 06/01/2018 8:27 AM FINDINGS: Minimal interstitial lung scarring. No significant focal consolidation. Cardiac silhouette upper limits of normal but unchanged. No significant pleural effusion. IMPRESSION: No significant interval change from the prior examination. Dictated and Authenticated by: Christiano Nelson MD. Ordering:YAIR Palma MD
[2018-06-04] MEDS: Furosemide 20 MG/2 ML VIAL IVP (15:22)
[2018-06-04] MEDS: guaiFENesin 200 MG/10 ML CUP PO (15:34)
[2018-06-04] MEDS: Acetaminophen 325 MG TAB PO (15:35)
[2018-06-04] MEDS: Hydrocortisone SOD SUC. 100 MG VIAL 10 MG IVP (17:14)
[2018-06-04] MEDS: LEVOFLOXACIN 750 MG/150 ML BAG 100 MG IVPB (20:00)
[2018-06-04] MEDS: Simvastatin 40 MG TAB PO (20:04)
[2018-06-04] MEDS: Pantoprazole 40 MG TABCR PO (21:35)
[2018-06-04] MEDS: DULoxetine 30 MG CAP 60 MG PO (21:35)
[2018-06-04] MEDS: Montelukast 10 MG TAB PO (21:35)
[2018-06-05] VITALS (7 sets, daily range): BP systolic 104–150; BP diastolic 55–79; PULSE 70–85; RESP 1–20; TEMP 36.1–37.2; O2SAT 89–95
[2018-06-05] MEDS: Normal Saline Flush 10 ML SYR IVP ×5 (00:30→17:58)
[2018-06-05] MEDS: guaiFENesin 200 MG/10 ML CUP PO (01:30)
[2018-06-05] MEDS: Hydrocortisone SOD SUC. 100 MG VIAL 10 MG IVP ×2 (05:35→17:58)
[2018-06-05] MEDS: Albuterol/Ipratropium 3 ML UPD VIAL UPD ×2 (05:35→18:47)
[2018-06-05 08:26] LABS: Streptococcus Pneumoniae Ag, U Negative (Negative)
[2018-06-05] MEDS: Insulin Aspart 300 UNITS/3 ML PEN SC ×3 (08:29→17:04)
[2018-06-05] MEDS: Tamsulosin 0.4 MG CAPCR 0.8 MG PO (08:31)
[2018-06-05] MEDS: Furosemide 20 MG/2 ML VIAL IVP ×2 (08:31→16:03)
[2018-06-05] MEDS: Oxybutynin-CR 5 MG TABCR PO (08:31)
[2018-06-05] MEDS: Multivitamin TAB 1 TAB PO (08:31)
[2018-06-05] MEDS: OLANZapine 5 MG TAB PO (08:31)
[2018-06-05] MEDS: Gabapentin 100 MG CAP PO ×3 (08:32→20:14)
[2018-06-05] MEDS: Mirabegron 50 MG TABCR PO (08:32)
[2018-06-05] MEDS: Magnesium Oxide 400 MG TAB PO (08:32)
[2018-06-05] MEDS: Ascorbic Acid 500 MG TAB PO (08:32)
[2018-06-05] MEDS: Lactobacillus Acidophilus CAP 1 CAP PO (08:32)
[2018-06-05] MEDS: Oseltamivir 30 MG CAP PO ×2 (08:32→20:14)
[2018-06-05] MEDS: Finasteride 5 MG TAB PO (08:32)
[2018-06-05] MEDS: Losartan 25 MG TAB PO (08:32)
[2018-06-05] MEDS: Ferrous Sulfate 325 MG TAB PO ×2 (08:32→20:14)
[2018-06-05] MEDS: CEFEPIME 2 GM in Normal Saline 100 ML IVPB ×2 (09:40→22:01)
[2018-06-05 10:13] LABS: Abs Immature Grans 1.76 k/cumm (0.0-0.09); HCT 33.1 % (40.0-50.0); HGB 10.6 g/dL (13.5-17.5); Mean Platelet Volume 12.3 fL (8.0-11.0); Platelet Count 147 x1000/uL (130-400); RBC 3.31 m/cumm (4.50-6.00); RBC Distribution Width 13.4 % (11.8-14.1); White Blood Cell Count 18.77 k/cumm (4.4-10.8)
[2018-06-05 10:17] LABS: Anion Gap 8.7 mmol/L (3-11); BUN 36 mg/dL (7-18); CO2 27.3 mmol/L (21.0-32.0); CREATININE 1.66 mg/dL (0.70-1.30); Calcium 8.4 mg/dL (8.5-10.1); Chloride 98 mmol/L (98-107); Glucose 399 mg/dL (70-100); Magnesium 1.9 mg/dL (1.8-2.4); Potassium 4.6 mmol/L (3.5-5.1); Sodium 134 mmol/L (136-145)
[2018-06-05 10:58] LABS: Absolute Lymphocyte Count 1.13 k/cumm (1.2-3.4); Absolute Monocyte Count 2.44 k/cumm (0.11-0.7); Absolute Neutrophil Count 13.51 k/cumm (1.2-6.7)
[2018-06-05 11:00] LABS: Diff Comment Manual Differential; Macrocytosis 1+; Polychromasia Present
--- NOTE | 2018-06-05 12:24 | OT.INIE ---
Occupational Therapy Notes Inpatient Occupational Therapy Evaluation Date: 06/05/18 Referring Doctor:Minerva Zaragoza MD OT Orders: Eval and Treat Precautions: Standard PATIENT PROFILE/ADMITTING DIAGNOSIS: Pt is a 72 year old male who was referred from the [facility] for URI. Past Medical History: History of multiple CVAs, DM, dementia, hypertension, hyperlipidemia, GERD's Social History/Home Situation: Pt reports that he lives at the [facility] at this time. He reports that nursing help perform most of his ADLs. He states that he prefers nursing to do his ADLs for him. Equipment owned/DME: Lives at [facility] all DME needs are met. SUBJECTIVE: Pt was sitting in bed when OT arrived. He was agreeable to OT session when OT arrived. OBJECTIVE: General Observation: Lying in bed. Answers questions appropriately. Mental Status: A&Ox3 Pain: no c/o pain. ROM: RUE WNL AROM L UE WNL AROM STRENGTH: RUE 5/5 throughout LUE 4/5 throughout slight tone noted. BALANCE: Static sitting Normal Dynamic Sitting Normal SPECIAL TESTS: Daily Activity Limitations Standardized Measure [facility] AM -PAC ?6 clicks? Daily Activity Inpatient Short Form: Raw score:21 Standardized score: 44.27 CMS score: 32.79% INFORMED CONSENT/EDUCATION: Pt instructed in purpose of OT Consult and plan of care. ASSESSMENT: Patient is a 72-year-old male referred to occupational therapy services with diagnosis of upper respiratory infection from [facility]. Patient presents with clinical signs and symptoms consistent with dx, as demonstrated by the following impairment level findings: generalized weakness, decreased functional activity tolerance, inability to perform ADLs at baseline level of function. Impairments are contributing to the following functional limitations: Unable to perform ADLs at baseline, decreased functional activity tolerance. Pt denies the need for OT services reporting, They do OT at the rehab so I'm going to rest while here. Nursing can do my ADLs for me. Pt denies the need for OT so OT will discharge pt from skilled OT services at this time. AMPAC score 21, CMS score 32.79% Patient is assessed as a Moderate 94375 complexity based on the following: History: See Above Examination: See Above Presentation: Evolving Decision Making: AMPAC score 21, CMS score 32.79% GOALS N/A PLAN OF CARE/TREATMENT PLAN: Pt denied OT services, discharge pt from skilled OT services at this time. DISCHARGE RECOMMENDATIONS Return to [facility] and rehab when medically cleared per MD. TREATMENT TIME/MINUTES/CODES 22952, 20 minutes, (08:35) Xenia Gorman OTR/[facility]
--- NOTE | 2018-06-05 12:27 | OTIE_ITS ---
Occupational Therapy Notes Inpatient Occupational Therapy Evaluation Date: 06/05/18 Referring Doctor:Minerva Zaragoza MD OT Orders: Eval and Treat Precautions: Standard PATIENT PROFILE/ADMITTING DIAGNOSIS: Pt is a 72 year old male who was referred from the [facility] for URI. Past Medical History: History of multiple CVAs, DM, dementia, hypertension, hyperlipidemia, GERD's Social History/Home Situation: Pt reports that he lives at the [facility] at this time. He reports that nursing help perform most of his ADLs. He states that he prefers nursing to do his ADLs for him. Equipment owned/DME: Lives at [facility] all DME needs are met. SUBJECTIVE: Pt was sitting in bed when OT arrived. He was agreeable to OT session when OT arrived. OBJECTIVE: General Observation: Lying in bed. Answers questions appropriately. Mental Status: A&Ox3 Pain: no c/o pain. ROM: RUE WNL AROM L UE WNL AROM STRENGTH: RUE 5/5 throughout LUE 4/5 throughout slight tone noted. BALANCE: Static sitting Normal Dynamic Sitting Normal SPECIAL TESTS: Daily Activity Limitations Standardized Measure [facility] AM -PAC ?6 clicks? Daily Activity Inpatient Short Form: Raw score:21 Standardized score: 44.27 CMS score: 32.79% INFORMED CONSENT/EDUCATION: Pt instructed in purpose of OT Consult and plan of care. ASSESSMENT: Patient is a 72-year-old male referred to occupational therapy services with diagnosis of upper respiratory infection from [facility]. Patient presents with clinical signs and symptoms consistent with dx, as demonstrated by the following impairment level findings: generalized weakness, decreased functional activity tolerance, inability to perform ADLs at baseline level of function. Impairments are contributing to the following functional limitations: Unable to perform ADLs at baseline, decreased functional activity tolerance. Pt denies the need for OT services reporting, They do OT at the rehab so I'm going to rest while here. Nursing can do my ADLs for me. Pt denies the need for OT so OT will discharge pt from skilled OT services at this time. AMPAC score 21, CMS score 32.79% Patient is assessed as a Moderate 33282 complexity based on the following: History: See Above Examination: See Above Presentation: Evolving Decision Making: AMPAC score 21, CMS score 32.79% GOALS N/A PLAN OF CARE/TREATMENT PLAN: Pt denied OT services, discharge pt from skilled OT services at this time. DISCHARGE RECOMMENDATIONS Return to [facility] and rehab when medically cleared per MD. TREATMENT TIME/MINUTES/CODES 42402, 20 minutes, (08:35) Xenia Gorman OTR/[facility]
[2018-06-05] MEDS: Acetaminophen 325 MG TAB PO (13:13)
[2018-06-05 13:25] LABS: Misc Referral (MAYO) SEE COMMENTS
--- NOTE | 2018-06-05 14:50 | PDOC.CMPRO ---
- If Service Date Differs Date of service: 06/05/18 Time of Service: 14:50 Care Management Progress Note S/O: Juan is lying in bed this morning, he transitioned to the Med/Surg unit 06/04/18. Juan wore his Bipap overnight, he has a de la vega in place. Jamal, [facility], is aware of Juan not being ready for DC as of today. A: 72 y/o male admitted 05/31/18 for HCAP, COPD exacerbation P: Juan will return to [facility] once medically cleared. He will transport via [facility] w/c van.
--- NOTE | 2018-06-05 19:09 | PGE_ITS ---
Date of Service Date of service: 06/05/18 Time of Service: 16:45 Assessment and Plan (1) Sepsis: Current visit: Yes Status: Acute Blood cx positive for Proteus Mirabilis in one set (05/31). Repeat blood cultures from 06/03/18 show no growth to date. Source is likely HCAP, as UA is negative for a UTI, but does have known nephrolithiasis. Continue Vancomycin, Cefepime, and Levaquin Day #5. Decrease steroids. Flu PCR is cancelled. Continue tamiflu. Qualifiers: Sepsis type: sepsis due to unspecified organism Qualified Code(s): A41.9 - Sepsis, unspecified organism (2) HCAP (healthcare-associated pneumonia): Current visit: Yes Status: Acute Treatment as above. Wean O2 as tolerated. CXR without improvement (3) Gross hematuria: Current visit: Yes Status: Resolved Likely due to traumatic catheterization. Resolved on CBI - currently on hold. Monitor for bleeding. Continue finasteride. On discharge, would need a de la vega catheter for at least 1 week and urology follow up. (4) Acute respiratory failure with hypoxemia: Current visit: Yes Status: Acute Not requiring O2 at this time, but not improving. Change to lasix gtt. Continue treatment on pneumonia (5) Acute on chronic diastolic CHF (congestive heart failure): Current visit: Yes Status: Acute Increase diuresis (change to lasix gtt); monitoring I/O's and daily weights. (6) Diabetes mellitus: Current visit: No Status: Chronic with steroid induced hyperglycemia. The patient is on U500 at 110 units in am, then 95 units with lunch and dinner. U500 was brought from the nursing facility, and we are administering it here with a sliding scale. The patient's BG's are normally difficult to control. There is no evidence of DKA. Titrating steroids down as fast as possible. Qualifiers: Diabetes mellitus type: type 2 Diabetes mellitus cup setter lockstitch insulin use: with residential use Diabetes mellitus complication status: with kidney co mplications Diabetes mellitus complication detail: Diabetic retinopathy severity: Proliferative retinopathy type: Diabetes mellitus macular edema: Laterality: Chronic kidney disease stage: (7) Pulmonary hypertension: Current visit: Yes Status: Acute Continue diuresis and wean O2 as tolerated. Continue CPAP at night. (8) A-fib: Current visit: Yes Status: Acute New diagnosis (unclear if this is truly new onset), paroxysmal, no recurrences in the last 48 hours. Tele d/c'ed, but he should be discharged back to [facility] on a zio patch and with follow up with cardiology. Anticoagulation is contraindicated for now (hematuria on this admission). Continue diltiazem. (9) Vascular dementia: Current visit: No Status: Chronic Noted. Behaviors are stable. (10) DVT prophylaxis: Current visit: No Status: Acute SCDs. No chemical prophylaxis secondary to current hematuria. Also on PPI for GI Prophylaxis. (11) Discharge planning issues: Current visit: Yes Status: Acute DNR/DNI. Tele d/c'ed. Subjective Interval history since last seen: Mr Valente states he is not short of breath, but before he answers that he lays in bed for a while quite tachypneic. He denies dizziness, chest pain, nausea, vomiting. He continues to have a productive cough with whitish sputum Exam Narrative Exam Narrative: General: Middle-aged male, laying flat in bed, short of breath - maybe slightly better when sitting up at a 45 degree angle HEENT: EOMI, MMM Heart: RRR, no m/r/g Lungs: Having more pronounced rhonchi and rales today GI: abdomen is soft, nontender, nondistended Extremities: +1 BLE's, worse ; no c/c; +2 pedal pulses B Objective Objective Clinical Data: Abnormal lab results 06/05/18 06/05/18 Range/Units 09:20 09:20 WBC 18.77 H D (4.4-10.8) k/cumm RBC 3.31 L (4.50-6.00) m/cumm Hgb 10.6 L (13.5-17.5) g/dL Hct 33.1 L (40.0-50.0) % MCV 100.0 H (80-95) fL MPV 12.3 H (8.0-11.0) fL Absolute Neutrophils 13.51 H (1.2-6.7) k/cumm Absolute Lymphocytes 1.13 L (1.2-3.4) k/cumm Absolute Monocytes 2.44 H (0.11-0.7) k/cumm Sodium 134 L (136-145) mmol/L BUN 36 H (7-18) mg/dL Creatinine 1.66 H (0.70-1.30) mg/dL Glucose 399 H (70-100) mg/dL Calcium 8.4 L (8.5-10.1) mg/dL Vital Signs Temperature 36.8 C 06/05/18 15:55 Temperature Source Tympanic 06/05/18 15:55 Pulse 80 06/05/18 15:55 Pulse Rhythm Regular 06/05/18 08:48 Pulse 86 06/04/18 11:00 Respiratory Rate 20 06/05/18 15:55 Respiratory Effort 06/05/18 08:48 Respiratory Depth Normal 06/05/18 08:48 Respiratory Pattern Apnea 06/04/18 00:01 Blood Pressure 116/69 06/05/18 15:55 Blood Pressure Mean 93 06/04/18 08:01 Blood Pressure Position Supine 06/03/18 09:20 Pulse Oximetry 95 06/05/18 15:55 Oxygen Delivery Method Nasal Cannula 06/05/18 15:55 Oxygen Flow Rate 2 06/05/18 15:55 Fraction of Inspired Oxygen (FIO2) 50 06/01/18 09:30 Pain Level 4 06/05/18 13:13 Comment 06/05/18 03:20 Intake & Output 06/04/18 06/05/18 06/05/18 23:59 11:59 23:59 Intake Total 1554 / 2604 980 / 1590 610 / 1590 Output Total 2550 / 3050 2150 / 3550 1400 / 3550 Balance -996 / -446 -1170 / -1960 -790 / -1960 Weight 121.6 kg Intake: IV 834 / 944 120 / 120 Oral 720 / 1660 860 / 1470 610 / 1470 Output: Urine 2550 / 3050 2150 / 3550 1400 / 3550 Other: Urine Color Straw Yellow Yellow Urine Appearance Clear Clear Clear Comment catheter bag switched to drainage bag with urine meter when lasix drip started. Stool Size Large Large Stool Characteristics Brown Formed Brown Laboratory Results WBC 18.77 k/cumm (4.4-10.8) H D 06/05/18 09:20 RBC 3.31 m/cumm (4.50-6.00) L 06/05/18 09:20 Hgb 10.6 g/dL (13.5-17.5) L 06/05/18 09:20 Hct 33.1 % (40.0-50.0) L 06/05/18 09:20 MCV 100.0 fL (80-95) H 06/05/18 09:20 MCH 32.0 pg (27.0-33.0) 06/05/18 09:20 MCHC 32.0 g/dL (32.0-36.0) 06/05/18 09:20 RDW 13.4 % (11.8-14.1) 06/05/18 09:20 Plt Count 147 x1000/uL (130-400) 06/05/18 09:20 MPV 12.3 fL (8.0-11.0) H 06/05/18 09:20 Immature Gran % See Differential 06/05/18 09:20 Neutrophils % 72.0 06/05/18 09:20 Band Neutrophils % 1.0 % 06/04/18 05:45 Lymphocytes % 6.0 06/05/18 09:20 Monocytes % 13.0 06/05/18 09:20 Eosinophils % 0.0 06/05/18 09:20 Basophils % 0.0 06/05/18 09:20 Metamyelocytes % 3.0 % 06/05/18 09:20 Myelocytes % 6.0 % 06/05/18 09:20 Absolute Neutrophils 13.51 k/cumm (1.2-6.7) H 06/05/18 09:20 Absolute Lymphocytes 1.13 k/cumm (1.2-3.4) L 06/05/18 09:20 Absolute Monocytes 2.44 k/cumm (0.11-0.7) H 06/05/18 09:20 Absolute Eosinophils 0.00 k/cumm (0.0-0.7) 06/05/18 09:20 Absolute Basophils 0.00 k/cumm (0.0-0.2) 06/05/18 09:20 Differential Comment Manual differential 06/05/18 09:20 RBC Morphology See below 06/05/18 09:20 Polychromasia Present 06/05/18 09:20 Hypochromasia 1+ 06/03/18 05:45 Anisocytosis 1+ 06/01/18 04:17 Macrocytosis 1+ 06/05/18 09:20 PT 10.3 sec (9.3-11.0) 06/01/18 07:25 INR 1.0 (0.9-1.1) 06/01/18 07:25 APTT 29.6 sec (21.0-31.4) 06/01/18 07:25 Sample Site Right radial 06/01/18 16:05 pCO2 40 mmHg (34-47) 06/01/18 16:05 pO2 78 mmHg (83-108) L 06/01/18 16:05 O2 Saturation 95 % (94-98) 06/01/18 16:05 ABG pH 7.35 (7.35-7.45) 06/01/18 16:05 ABG HCO3 22 mmol/L (22-28) 06/01/18 16:05 ABG Total CO2 20 mmol/L (22-29) L 06/01/18 16:05 ABG Base Excess -4.0 mmol/L (-3-3) L 06/01/18 16:05 Oxygen Liter Flow Nasal cannula L 06/01/18 16:05 FiO2 44 % 06/01/18 16:05 Sodium 134 mmol/L (136-145) L 06/05/18 09:20 Potassium 4.6 mmol/L (3.5-5.1) 06/05/18 09:20 Chloride 98 mmol/L (98-107) 06/05/18 09:20 Carbon Dioxide 27.3 mmol/L (21.0-32.0) 06/05/18 09:20 Anion Gap 8.7 mmol/L (3-11) 06/05/18 09:20 BUN 36 mg/dL (7-18) H 06/05/18 09:20 Creatinine 1.66 mg/dL (0.70-1.30) H 06/05/18 09:20 Estimated GFR/1.73 m2 40.70 (mL/min/1.73m2) 06/05/18 09:20 Glucose 399 mg/dL (70-100) H 06/05/18 09:20 Hemoglobin A1c 7.5 % (4.5-6.2) H 06/01/18 04:17 Lactate 1.5 mmol/L (0.6-1.4) H 06/01/18 04:17 Calcium 8.4 mg/dL (8.5-10.1) L 06/05/18 09:20 Magnesium 1.9 mg/dL (1.8-2.4) 06/05/18 09:20 Total Bilirubin 0.5 mg/dL (0.2-1.0) 06/01/18 04:17 AST 45 U/L (15-37) H 06/01/18 04:17 ALT 32 U/L (12-78) 06/01/18 04:17 Alkaline Phosphatase 76 U/L (46-116) 06/01/18 04:17 Troponin I 0.04 ng/mL (0.00-0.06) 06/01/18 04:17 NT-Pro-B Natriuret Pep 1487 pg/mL (-299) H 05/31/18 20:50 Total Protein 8.0 g/dL (6.4-8.2) 06/01/18 04:17 Albumin 2.8 g/dL (3.4-5.0) L 06/01/18 04:17 TSH 0.46 uIU/mL (0.358-3.74) 06/01/18 04:17 Urine Color Red (Yellow) 05/31/18 21:40 Urine Clarity Cloudy 05/31/18 21:40 Urine pH 5.5 (5-8) 05/31/18 21:40 Ur Specific [place] 1.025 (1.005-1.025) 05/31/18 21:40 Urine Protein >=300 mg/dL (Negative) H 05/31/18 21:40 Urine Ketones Negative mg/dL (Negative) 05/31/18 21:40 Urine Blood Large (Negative) H 05/31/18 21:40 Urine Nitrite Negative (Negative) 05/31/18 21:40 Urine Bilirubin Negative (Negative) 05/31/18 21:40 Urine Urobilinogen 0.2 EU/dL (Up TO 0.2) 05/31/18 21:40 Ur Leukocyte Esterase Negative (Negative) 05/31/18 21:40 Urine RBC >50 (0-2) H 05/31/18 21:40 Urine WBC Not Applicable 05/31/18 21:40 Ur Epithelial Cells Not Applicable 05/31/18 21:40 Urine Crystals Not Applicable 05/31/18 21:40 Urine Bacteria Not Applicable 05/31/18 21:40 Urine Mucus Not Applicable 05/31/18 21:40 Ur Culture Indicated? Yes 05/31/18 21:40 Urine Glucose Negative mg/dL (Negative) 05/31/18 21:40 Specimen Type Cancelled 05/31/18 21:44 Influenza Type A RNA Cancelled 05/31/18 21:44 Influenza Type B RNA Cancelled 05/31/18 21:44 Legionella Source (see note) 06/02/18 06:24 Legionella Reprt Status (see note) 06/02/18 06:24 Legionella Final Result (see note) 06/02/18 06:24 RSV RNA Qual (PCR) Cancelled 05/31/18 21:44 Ur Strep pneumoniae Ag Negative (Negative) 06/02/18 06:24 Miscellaneous Test See comments 05/30/18 21:44 Patient ABO/Rh A Negative 06/01/18 07:25 Antibody Screen Negative 06/01/18 07:25
[2018-06-05] MEDS: Simvastatin 40 MG TAB PO (20:14)
[2018-06-05] MEDS: DULoxetine 30 MG CAP 60 MG PO (21:59)
[2018-06-05] MEDS: Normal Saline 500 ML 20 ML IV (22:00)
[2018-06-05] MEDS: Pantoprazole 40 MG TABCR PO (22:00)
[2018-06-05] MEDS: Montelukast 10 MG TAB PO (22:00)
[2018-06-06] VITALS (9 sets, daily range): BP systolic 94–161; BP diastolic 56–78; PULSE 63–82; RESP 2–22; TEMP 36.6–37.7; O2SAT 90–96
[2018-06-06] MEDS: Albuterol/Ipratropium 3 ML UPD VIAL UPD ×4 (00:07→17:58)
[2018-06-06] MEDS: Normal Saline Flush 10 ML SYR IVP ×3 (00:14→19:33)
[2018-06-06 07:23] LABS: Abs Immature Grans 2.32 k/cumm (0.0-0.09); HCT 33.9 % (40.0-50.0); Mean Corp. HGB Concentration 32.4 g/dL (32.0-36.0); Mean Corpuscular Hemoglobin 32.1 pg (27.0-33.0); Mean Corpuscular Volume 98.8 fL (80-95); Platelet Count 169 x1000/uL (130-400); RBC 3.43 m/cumm (4.50-6.00); RBC Distribution Width 13.5 % (11.8-14.1); White Blood Cell Count 24.53 k/cumm (4.4-10.8)
[2018-06-06 07:39] LABS: Anion Gap 9.4 mmol/L (3-11); BUN 42 mg/dL (7-18); CO2 29.6 mmol/L (21.0-32.0); CREATININE 1.67 mg/dL (0.70-1.30); Calcium 8.7 mg/dL (8.5-10.1); Chloride 98 mmol/L (98-107); Estimated GFR 40.42 (mL/min/1.73m2); Glucose 140 mg/dL (70-100); Magnesium 1.8 mg/dL (1.8-2.4); Potassium 3.5 mmol/L (3.5-5.1); Sodium 137 mmol/L (136-145)
[2018-06-06 08:05] LABS: Absolute Lymphocyte Count 1.96 k/cumm (1.2-3.4); Absolute Monocyte Count 2.94 k/cumm (0.11-0.7); Absolute Neutrophil Count 17.91 k/cumm (1.2-6.7); Atypical Lymphocytes % 1
[2018-06-06 08:06] LABS: Diff Comment Manual Differential
[2018-06-06 08:07] LABS: Polychromasia Present; Stomatocytes 2+
[2018-06-06] MEDS: Magnesium Oxide 400 MG TAB PO (09:05)
[2018-06-06] MEDS: Gabapentin 100 MG CAP PO ×3 (09:06→19:34)
[2018-06-06] MEDS: Hydrocortisone SOD SUC. 100 MG VIAL 10 MG IVP (09:06)
[2018-06-06] MEDS: Oseltamivir 30 MG CAP PO ×2 (09:06→19:34)
[2018-06-06] MEDS: Losartan 25 MG TAB PO (09:06)
[2018-06-06] MEDS: Tamsulosin 0.4 MG CAPCR 0.8 MG PO (09:06)
[2018-06-06] MEDS: Ascorbic Acid 500 MG TAB PO (09:06)
[2018-06-06] MEDS: Mirabegron 50 MG TABCR PO (09:06)
[2018-06-06] MEDS: Ferrous Sulfate 325 MG TAB PO ×2 (09:06→19:34)
[2018-06-06] MEDS: OLANZapine 5 MG TAB PO (09:06)
[2018-06-06] MEDS: Oxybutynin-CR 5 MG TABCR PO (09:06)
[2018-06-06] MEDS: Multivitamin TAB 1 TAB PO (09:06)
[2018-06-06] MEDS: Lactobacillus Acidophilus CAP 1 CAP PO (09:06)
[2018-06-06] MEDS: Finasteride 5 MG TAB PO (09:06)
[2018-06-06] MEDS: Insulin Aspart 300 UNITS/3 ML PEN SC ×4 (09:07→21:57)
--- NOTE | 2018-06-06 09:21 | PT.INTREAT ---
Date of service: 06/06/18 Time of Service: 10:50 PT Notes Inpatient Physical Therapy Treatment Note [facility] Date: 06/05/2018 PRECAUTIONS: Fall. Standard. SUBJECTIVE: [] OBJECTIVE: PAIN: 0/10 Patient denies pain. BED MOBILITY/TRANSFERS Rolling L/R: Moderate assist, patient requires use of upper extremities for support. Patient required moderate to due to lethargy. Supine-sit: Moderate assist, also requires use of upper extremities for support. Patient required moderate cueing to scoot forward in bed. Sit-supine: Moderate assist to both lower extremities by PT, also requires use of upper extremities for support. Patient required moderate cueing to scoot forward in bed. Sit-stand: Moderate assist with bed height approximately 22 inches from floor using front-wheeled walker. Stand-sit: Moderate assist also requires use of upper extremities for support. Patient required moderate cuing to facilitate trunk flexion prior to ascent. Bed-Chair: Moderate assist also requires use of upper extremities for support. Patient required moderate cueing to scoot forward in bed. Chair-bed: Moderate assist also requires use of upper extremities for support. Patient required moderate cueing to scoot forward in bed. GAIT: Not tested. Patient demonstrated increased lethargy this morning requiring moderate to maximal verbal cueing for bed level activity performance. THEREX: Patient was instructed and bed to level lower extremity exercises per flow sheet and was also retrained on performing chest expansion exercises coordinated with deep breathing activity. ASSESSMENT: Patient limited by noticeable lethargy this morning impacting ability to follow instructions and perform transfers safely. Oxygen saturations stayed between 90%-95% in room air throughout this session. Will follow up this afternoon to attempt more strengthening exercise. PLAN: Continue progressing gait and transfers ambulation per PT POC in order to achieve recently set goals and facilitate to SNF placement as previously. TREATMENT CODE/TIME: 21040 30 minutes patient seen at 1050.
--- NOTE | 2018-06-06 09:42 | PT.INTREAT ---
Date of service: 06/05/18 Time of Service: 14:55 PT Notes Inpatient Physical Therapy Treatment Note [facility] Date: 06/05/2018 PRECAUTIONS: Fall. Standard. SUBJECTIVE: Patient was seen for this second session lying in bed half awake but still greed to a second PT session. OBJECTIVE: PAIN: Denies pain. GAIT: Patient declined out of bed activities today due to report lethargy, I would rather rest for this afternoon THEREX: Patient completed minimally resisted hip and knee extension in supine without complaints of discomfort nor pain. Patient performed rest of exercises per flow sheet requiring intermittent rests and deep breathing exercises to minimize fatigue while maximizing exercise performance. ASSESSMENT: Patient will be closely monitored for increase in lethargy and any new complaints per protocol. Oxygen saturation stayed between 90 and 95% in room air. PLAN: Continue progressing skilled PT intervention per PT POC in anticipation of discharge to [facility] facility when able. TREATMENT CODE/TIME: 42630 HEENT minutes beginning at 1455.
--- NOTE | 2018-06-06 09:45 | PTTR_ITS ---
Date of service: 06/05/18 Time of Service: 14:55 PT Notes Inpatient Physical Therapy Treatment Note [facility] Date: 06/05/2018 PRECAUTIONS: Fall. Standard. SUBJECTIVE: Patient was seen for this second session lying in bed half awake but still greed to a second PT session. OBJECTIVE: PAIN: Denies pain. GAIT: Patient declined out of bed activities today due to report lethargy, I would rather rest for this afternoon THEREX: Patient completed minimally resisted hip and knee extension in supine without complaints of discomfort nor pain. Patient performed rest of exercises per flow sheet requiring intermittent rests and deep breathing exercises to minimize fatigue while maximizing exercise performance. ASSESSMENT: Patient will be closely monitored for increase in lethargy and any new complaints per protocol. Oxygen saturation stayed between 90 and 95% in room air. PLAN: Continue progressing skilled PT intervention per PT POC in anticipation of discharge to [facility] facility when able. TREATMENT CODE/TIME: 76632 HEENT minutes beginning at 1455.
--- NOTE | 2018-06-06 10:16 | PDOC.CMPRO ---
Care Management Progress Note S/O: Juan was sleeping in bed this morning, RN; Janeen in the room. No change to overall plan. A: 72 y/o male admitted 05/31/18 for HCAP, COPD exacerbation P: Juan will return to [facility] once medically cleared. He will transport via [facility] w/c van.
[2018-06-06] MEDS: CEFEPIME 2 GM in Normal Saline 100 ML IVPB ×2 (10:36→21:51)
--- NOTE | 2018-06-06 12:02 | PT.INTREAT ---
Date of service: 06/06/18 Time of Service: 12:03 PT Notes Inpatient Physical Therapy Treatment Note [facility] Date: 06/06/18 PRECAUTIONS: Fall SUBJECTIVE: Juan states that he is feeling OK today, and is agreeable to participate in PT. OBJECTIVE: PAIN: Patient c/o L leg pain with gait training BED MOBILITY/TRANSFERS Sit-supine: Min A with HOB flat Sit-stand: Mod A Stand-sit: Min A Bed-Chair: CGA Chair-bed: [facility] GAIT Assistive Device: FWW Weight bearing: Full Assist: CGA Distance: 5' + 5' x2 in a.m.; 5' in p.m. Deviation: Cueing FWW mechanics, SOB THEREX: Patient completed an UE and LE strengthening program in a supine position, as per flow sheet. TOILETING: Patient toileted with assist ASSESSMENT: Patient tolerated sessions with c/o increased fatigue. He was able to tolerate gait training with FWW support, requiring several rests and cueing for FWW mechanics. Patient would benefit from continued strengthening as well as transfer and gait training for improved mobility, and improved ability to perform daily functional tasks at a more independent level. PLAN: Continue with PTs POC TREATMENT CODE/TIME: Session 1: 25 minutes; 01295, 49989 Session 2: 20 minutes; 30507
--- NOTE | 2018-06-06 12:10 | DI.RAD_ITS ---
SYMPTOMS/DIAGNOSIS: LEUKOCYTOSIS, ? PNEUMONIA PORTABLE AP CHEST: Comparison is made with 01 June and June,. The exam is limited by the patient's body habitus and portable technique. The heart size is normal. The lungs are grossly clear. Previous exams questioned basilar densities. These are not apparent on the current exam. IMPRESSION: Limited exam. No infiltrates are visible.
[2018-06-06 12:51] LABS: Bilirubin Negative (Negative); Blood Large (Negative); Clarity Clear; Glucose 250 mg/dL (Negative); Ketones Negative (Negative); Leukocyte Esterase Trace (Negative); Nitrite Negative (Negative); Specific Gravity 1.015 (1.005-1.025); Urobilinogen 0.2 EU/dL (Up TO 0.2); pH 5.5 (5-8)
[2018-06-06 13:04] LABS: Bacteria Few HPF (Negative); Crystals Negative HPF (Negative); Epithelial Cells Few HPF (Negative); Mucus Moderate (Negative); RBC >50 (0-2)
[2018-06-06 13:05] LABS: C & S Indicated? Yes; Casts 5-10 Hyaline LPF (Negative)
--- NOTE | 2018-06-06 14:52 | CHAPLAIN ---
Juan was in bed when I visited. As I began an conversation, he asked me to get VINCE Denney to assist him to the bathroom. I pressed his call button and VINCE Mace, responded.
[2018-06-06] MEDS: LEVOFLOXACIN 750 MG/150 ML BAG 100 MG IVPB (19:34)
[2018-06-06] MEDS: Simvastatin 40 MG TAB PO (19:34)
--- NOTE | 2018-06-06 19:50 | PGE_ITS ---
Date of Service Date of service: 06/06/18 Time of Service: 15:45 Assessment and Plan (1) Sepsis: Current visit: Yes Status: Acute Blood cx positive for Proteus Mirabilis in one set (05/31). Repeat blood cultures from 06/03/18 show no growth to date. UA is negative for a UTI, but does have known nephrolithiasis. On Cefepime, and Levaquin Day #6. I am not sure why I can't see vancomycin in the orders, so I reordered it. Reobtaining sputum cx. Decrease steroids. Flu PCR is cancelled. Stop tamiflu Qualifiers: Sepsis type: sepsis due to unspecified organism Qualified Code(s): A41.9 - Sepsis, unspecified organism (2) HCAP (healthcare-associated pneumonia): Current visit: Yes Status: Acute Treatment as above. Wean O2 as tolerated. Reobtain sputum (3) Gross hematuria: Current visit: Yes Status: Resolved Likely due to traumatic catheterization. Resolved on CBI - currently on hold. Monitor for bleeding. Continue finasteride. On discharge, would need a de la vega catheter for at least 1 week and urology follow up. (4) Acute respiratory failure with hypoxemia: Current visit: Yes Status: Acute Slightly better Continue lasix gtt Continue treatment on pneumonia (5) Acute on chronic diastolic CHF (congestive heart failure): Current visit: Yes Status: Acute Continue lasix gtt; monitoring I/O's and daily weights. (6) Diabetes mellitus: Current visit: No Status: Chronic with steroid induced hyperglycemia. The patient is on U500 at 110 units in am, then 95 units with lunch and dinner. U500 was brought from the nursing facility, and we are administering it here with a sliding scale. The patient's BG's are normally difficult to control. There is no evidence of DKA. Titrating steroids down as fast as possible. 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 Continue CPAP at night. (8) A-fib: Current visit: Yes Status: Acute New diagnosis (unclear if this is truly new onset), paroxysmal, clinically he is back in it, but rate is controlled. Should be discharged back to long-term on a zio patch and with follow up with cardiology. Anticoagulation is contraindicated for now (hematuria on this admission). Continue diltiazem. (9) Vascular dementia: Current visit: No Status: Chronic Noted. Behaviors are stable. (10) DVT prophylaxis: Current visit: No Status: Acute SCDs. No chemical prophylaxis secondary to current hematuria. Also on PPI for GI Prophylaxis. (11) Discharge planning issues: Current visit: Yes Status: Acute DNR/DNI. Tele d/c'ed. Subjective Interval history since last seen: Complains of cough productive of yellow sputum - he has a sample for me to see. He thinks that maybe his breathing is better. He denies dizziness, chest pain, nausea, vomiting. Exam Narrative Exam Narrative: General: Middle-aged male, laying flat in bed, less visibly short of breath, but does not look well HEENT: EOMI, MMM Heart: irregularly irregular rhythm, not tachycardic, no m/r/g Lungs: +rhonchi and rales GI: abdomen is soft, nontender, nondistended Extremities: trace edema BLE's ; no c/c; +2 pedal pulses B Objective Objective Clinical Data: Abnormal lab results 06/06/18 06/06/18 06/06/18 Range/Units 06:50 06:50 12:35 WBC 24.53 H D (4.4-10.8) k/cumm RBC 3.43 L (4.50-6.00) m/cumm Hgb 11.0 L (13.5-17.5) g/dL Hct 33.9 L (40.0-50.0) % MCV 98.8 H (80-95) fL MPV 12.0 H (8.0-11.0) fL Absolute Neutrophils 17.91 H (1.2-6.7) k/cumm Absolute Monocytes 2.94 H (0.11-0.7) k/cumm BUN 42 H (7-18) mg/dL Creatinine 1.67 H (0.70-1.30) mg/dL Glucose 140 H D (70-100) mg/dL Urine Protein 100 H (Negative) mg/dL Urine Blood Large H (Negative) Ur Leukocyte Esterase Trace H (Negative) Urine RBC >50 H (0-2) Urine Glucose 250 H (Negative) mg/dL Vital Signs Temperature 36.7 C 06/06/18 16:58 Temperature Source Tympanic 06/06/18 16:58 Pulse 63 06/06/18 16:58 Pulse Rhythm Regular 06/06/18 15:30 Pulse 86 06/04/18 11:00 Respiratory Rate 20 06/06/18 16:58 Respiratory Effort Non-Labored 06/06/18 15:30 Respiratory Depth Normal 06/06/18 15:30 Respiratory Pattern Normal 06/06/18 15:30 Blood Pressure 94/60 L 06/06/18 16:58 Blood Pressure Mean 93 06/04/18 08:01 Blood Pressure Position Supine 06/03/18 09:20 Pulse Oximetry 96 06/06/18 16:58 Oxygen Delivery Method Nasal Cannula 06/06/18 16:58 Oxygen Flow Rate 2 06/06/18 16:58 Fraction of Inspired Oxygen (FIO2) 50 06/01/18 09:30 Pain Level 0 06/06/18 07:40 Comment 06/05/18 03:20 Intake & Output 06/05/18 06/06/18 06/06/18 23:59 11:59 23:59 Intake Total 710 / 1690 380 / 600 220 / 600 Output Total 2300 / 4450 2700 / 3400 700 / 3400 Balance -1590 / -2760 -2320 / -2800 -480 / -2800 Weight 121.2 kg Intake: IV 100 / 220 20 / 240 220 / 240 Oral 610 / 1470 360 / 360 Output: Urine 2300 / 4450 2700 / 3400 700 / 3400 Other: Urine Color Yellow Yellow Yellow Urine Appearance Clear Clear Clear Comment catheter bag switched to drainage bag with urine meter when lasix drip started. Stool Size Large Large Moderate Stool Characteristics Formed Formed Formed Brown Brown Hard Green Brown Green Laboratory Results WBC 24.53 k/cumm (4.4-10.8) H D 06/06/18 06:50 RBC 3.43 m/cumm (4.50-6.00) L 06/06/18 06:50 Hgb 11.0 g/dL (13.5-17.5) L 06/06/18 06:50 Hct 33.9 % (40.0-50.0) L 06/06/18 06:50 MCV 98.8 fL (80-95) H 06/06/18 06:50 MCH 32.1 pg (27.0-33.0) 06/06/18 06:50 MCHC 32.4 g/dL (32.0-36.0) 06/06/18 06:50 RDW 13.5 % (11.8-14.1) 06/06/18 06:50 Plt Count 169 x1000/uL (130-400) 06/06/18 06:50 MPV 12.0 fL (8.0-11.0) H 06/06/18 06:50 Immature Gran % See Differential 06/06/18 06:50 Neutrophils % 70.0 06/06/18 06:50 Band Neutrophils % 3.0 % 06/06/18 06:50 Lymphocytes % 7.0 06/06/18 06:50 Atypical Lymphs % 1 06/06/18 06:50 Monocytes % 12.0 06/06/18 06:50 Eosinophils % 0.0 06/06/18 06:50 Basophils % 0.0 06/06/18 06:50 Metamyelocytes % 1.0 % 06/06/18 06:50 Myelocytes % 6.0 % 06/06/18 06:50 Absolute Neutrophils 17.91 k/cumm (1.2-6.7) H 06/06/18 06:50 Absolute Lymphocytes 1.96 k/cumm (1.2-3.4) 06/06/18 06:50 Absolute Monocytes 2.94 k/cumm (0.11-0.7) H 06/06/18 06:50 Absolute Eosinophils 0.00 k/cumm (0.0-0.7) 06/06/18 06:50 Absolute Basophils 0.00 k/cumm (0.0-0.2) 06/06/18 06:50 Differential Comment Manual differential 06/06/18 06:50 RBC Morphology See below 06/06/18 06:50 Polychromasia Present 06/06/18 06:50 Hypochromasia 1+ 06/03/18 05:45 Anisocytosis 1+ 06/01/18 04:17 Macrocytosis 1+ 06/05/18 09:20 Stomatocytes 2+ 06/06/18 06:50 PT 10.3 sec (9.3-11.0) 06/01/18 07:25 INR 1.0 (0.9-1.1) 06/01/18 07:25 APTT 29.6 sec (21.0-31.4) 06/01/18 07:25 Sample Site Right radial 06/01/18 16:05 pCO2 40 mmHg (34-47) 06/01/18 16:05 pO2 78 mmHg (83-108) L 06/01/18 16:05 O2 Saturation 95 % (94-98) 06/01/18 16:05 ABG pH 7.35 (7.35-7.45) 06/01/18 16:05 ABG HCO3 22 mmol/L (22-28) 06/01/18 16:05 ABG Total CO2 20 mmol/L (22-29) L 06/01/18 16:05 ABG Base Excess -4.0 mmol/L (-3-3) L 06/01/18 16:05 Oxygen Liter Flow Nasal cannula L 06/01/18 16:05 FiO2 44 % 06/01/18 16:05 Sodium 137 mmol/L (136-145) 06/06/18 06:50 Potassium 3.5 mmol/L (3.5-5.1) D 06/06/18 06:50 Chloride 98 mmol/L (98-107) 06/06/18 06:50 Carbon Dioxide 29.6 mmol/L (21.0-32.0) 06/06/18 06:50 Anion Gap 9.4 mmol/L (3-11) 06/06/18 06:50 BUN 42 mg/dL (7-18) H 06/06/18 06:50 Creatinine 1.67 mg/dL (0.70-1.30) H 06/06/18 06:50 Estimated GFR/1.73 m2 40.42 (mL/min/1.73m2) 06/06/18 06:50 Glucose 140 mg/dL (70-100) H D 06/06/18 06:50 Hemoglobin A1c 7.5 % (4.5-6.2) H 06/01/18 04:17 Lactate 1.5 mmol/L (0.6-1.4) H 06/01/18 04:17 Calcium 8.7 mg/dL (8.5-10.1) 06/06/18 06:50 Magnesium 1.8 mg/dL (1.8-2.4) 06/06/18 06:50 Total Bilirubin 0.5 mg/dL (0.2-1.0) 06/01/18 04:17 AST 45 U/L (15-37) H 06/01/18 04:17 ALT 32 U/L (12-78) 06/01/18 04:17 Alkaline Phosphatase 76 U/L (46-116) 06/01/18 04:17 Troponin I 0.04 ng/mL (0.00-0.06) 06/01/18 04:17 NT-Pro-B Natriuret Pep 1487 pg/mL (-299) H 05/31/18 20:50 Total Protein 8.0 g/dL (6.4-8.2) 06/01/18 04:17 Albumin 2.8 g/dL (3.4-5.0) L 06/01/18 04:17 TSH 0.46 uIU/mL (0.358-3.74) 06/01/18 04:17 Urine Color Yellow (Yellow) 06/06/18 12:35 Urine Clarity Clear 06/06/18 12:35 Urine pH 5.5 (5-8) 06/06/18 12:35 Ur Specific [place] 1.015 (1.005-1.025) 06/06/18 12:35 Urine Protein 100 mg/dL (Negative) H 06/06/18 12:35 Urine Ketones Negative mg/dL (Negative) 06/06/18 12:35 Urine Blood Large (Negative) H 06/06/18 12:35 Urine Nitrite Negative (Negative) 06/06/18 12:35 Urine Bilirubin Negative (Negative) 06/06/18 12:35 Urine Urobilinogen 0.2 EU/dL (Up TO 0.2) 06/06/18 12:35 Ur Leukocyte Esterase Trace (Negative) H 06/06/18 12:35 Urine RBC >50 (0-2) H 06/06/18 12:35 Urine WBC 10-20 HPF (0-5) 06/06/18 12:35 Ur Epithelial Cells Few HPF (Negative) 06/06/18 12:35 Urine Crystals Negative HPF (Negative) 06/06/18 12:35 Urine Bacteria Few HPF (Negative) 06/06/18 12:35 Urine Casts 5-10 hyaline LPF (Negative) 06/06/18 12:35 Urine Mucus Moderate (Negative) 06/06/18 12:35 Ur Culture Indicated? Yes 06/06/18 12:35 Urine Glucose 250 mg/dL (Negative) H 06/06/18 12:35 Specimen Type Cancelled 05/31/18 21:44 Influenza Type A RNA Cancelled 05/31/18 21:44 Influenza Type B RNA Cancelled 05/31/18 21:44 Legionella Source (see note) 06/02/18 06:24 Legionella Reprt Status (see note) 06/02/18 06:24 Legionella Final Result (see note) 06/02/18 06:24 RSV RNA Qual (PCR) Cancelled 05/31/18 21:44 Ur Strep pneumoniae Ag Negative (Negative) 06/02/18 06:24 Miscellaneous Test See comments 05/30/18 21:44 Patient ABO/Rh A Negative 06/01/18 07:25 Antibody Screen Negative 06/01/18 07:25 CXR: Limited exam. No infiltrates are visible.
[2018-06-06] MEDS: DULoxetine 30 MG CAP 60 MG PO (21:57)
[2018-06-06] MEDS: Montelukast 10 MG TAB PO (21:57)
[2018-06-06] MEDS: Pantoprazole 40 MG TABCR PO (21:57)
[2018-06-07] VITALS (8 sets, daily range): BP systolic 125–168; BP diastolic 61–82; PULSE 69–82; RESP 8–20; TEMP 36.7–37.1; O2SAT 91–95
[2018-06-07] MEDS: Albuterol/Ipratropium 3 ML UPD VIAL UPD ×2 (06:23→12:59)
[2018-06-07 07:58] LABS: Abs Immature Grans 2.36 k/cumm (0.0-0.09); HCT 34.3 % (40.0-50.0); Mean Corp. HGB Concentration 32.1 g/dL (32.0-36.0); Mean Corpuscular Hemoglobin 32.1 pg (27.0-33.0); Mean Platelet Volume 11.6 fL (8.0-11.0); Platelet Count 168 x1000/uL (130-400); RBC 3.43 m/cumm (4.50-6.00); RBC Distribution Width 13.8 % (11.8-14.1); White Blood Cell Count 21.01 k/cumm (4.4-10.8)
[2018-06-07 08:20] LABS: Anion Gap 7.4 mmol/L (3-11); BUN 56 mg/dL (7-18); CO2 29.6 mmol/L (21.0-32.0); CREATININE 2.17 mg/dL (0.70-1.30); Calcium 9.1 mg/dL (8.5-10.1); Chloride 101 mmol/L (98-107); Estimated GFR 29.87 (mL/min/1.73m2); Glucose 96 mg/dL (70-100); Magnesium 1.9 mg/dL (1.8-2.4); Potassium 3.7 mmol/L (3.5-5.1); Sodium 138 mmol/L (136-145)
[2018-06-07 08:41] LABS: Absolute Eosinophil Count 0.42 k/cumm (0.0-0.7); Absolute Lymphocyte Count 1.68 k/cumm (1.2-3.4); Absolute Monocyte Count 2.31 k/cumm (0.11-0.7); Absolute Neutrophil Count 14.08 k/cumm (1.2-6.7); Diff Comment Manual Differential; Polychromasia Present
[2018-06-07] MEDS: Hydrocortisone SOD SUC. 100 MG VIAL 10 MG IVP (09:43)
[2018-06-07] MEDS: Lactobacillus Acidophilus CAP 1 CAP PO (09:44)
[2018-06-07] MEDS: Ferrous Sulfate 325 MG TAB PO ×2 (09:44→20:17)
[2018-06-07] MEDS: Mirabegron 50 MG TABCR PO (09:44)
[2018-06-07] MEDS: Losartan 25 MG TAB PO (09:44)
[2018-06-07] MEDS: Normal Saline Flush 10 ML SYR IVP ×2 (09:44→21:55)
[2018-06-07] MEDS: Ascorbic Acid 500 MG TAB PO (09:44)
[2018-06-07] MEDS: Tamsulosin 0.4 MG CAPCR 0.8 MG PO (09:44)
[2018-06-07] MEDS: Oxybutynin-CR 5 MG TABCR PO (09:44)
[2018-06-07] MEDS: Magnesium Oxide 400 MG TAB PO (09:44)
[2018-06-07] MEDS: Finasteride 5 MG TAB PO (09:44)
[2018-06-07] MEDS: Gabapentin 100 MG CAP PO ×3 (09:44→20:17)
[2018-06-07] MEDS: Multivitamin TAB 1 TAB PO (09:44)
[2018-06-07] MEDS: OLANZapine 5 MG TAB PO (09:44)
--- NOTE | 2018-06-07 10:10 | CMPROGNOTE_ITS ---
- If Service Date Differs Date of service: 06/07/18 Time of Service: 10:10 Care Management Progress Note S/O: Juan is sitting up in bed when this journalists and other writers visits this morning, he is pleasant throughout visit. Dr. Parra will meet with Juan today for Palliative, as she sees him at [facility] regularly. Juan continues to have a de la vega in place, and his Lasix drip was discontinued today. A: 72 y/o male admitted 05/31/18 for HCAP, COPD exacerbation P: Juan will return to [facility] once medically cleared. He will transport via [facility] w/c van.
[2018-06-07] MEDS: CEFEPIME 2 GM in Normal Saline 100 ML IVPB ×2 (10:58→21:52)
[2018-06-07] MEDS: Normal Saline 500 ML 30 ML IV (10:58)
[2018-06-07] MEDS: Insulin Aspart 300 UNITS/3 ML PEN SC ×3 (12:34→21:53)
--- NOTE | 2018-06-07 12:58 | W.INDIABCONS ---
Date of service: 06/07/18 Time of Service: 12:58 Diabetes Inpatient Consult DESCRIPTION/ASSESSMENT: Appreciate diabetes consult for Mr. Valente who is well know to diabetes as an outpatient. He is hospitalized with pneumonia. A1c 7.5 BMI 41 Mr. Valente resides [facility] and does little to manage his diabetes himself at this point. He takes 100u U500 at breakfast and lunch; 95u U500 for supper and he is receiving the same here in addition to resistant insulin correction. Blood sugars here improved to 125 this AM but by noon 270mg/dl with a range up to 465mg/dl. Total daily dose of insulin 295 units. RN informed me he will be out of U500 and they cannot provide it when his current pen is empty. Explained this to Mr. Valente and invited feedback regarding who he would suggest new dosing. He states he never understood insulin and has no idea what to suggest. He states he is eating well and attributes this to his improved fasting blood sugar. INTERVENTION: Discussed his insulin dosing with him and he supports any recommendation as he does not feel he can make informed decisions about this at this time. Given he takes 295units insulin in the form of Regular U500, suggest basal bolus dosing of Lantus at 1/2 his total daily dose. Suggest 75units Lantus twice daily. Mealtime insulin total of 150units per day divided by 3 doses is 50 units Novolog per meal. To be conservative, this could be reduced 10% to 45units Novolog for each meal in addition to his current insulin correction. PLAN: Suggest converting from U500 to basal/bolus insulin dosing at: 75units Lantus twice daily 45 units Novolog with each meal in addition to resistant insulin correction. Time Spent in Nutritional Counseling and Treatment: 15 minuts face to face inpatient
--- NOTE | 2018-06-07 14:09 | PT.INTREAT ---
Date of service: 06/07/18 Time of Service: 14:09 PT Notes Thank you Inpatient Physical Therapy Treatment Note [facility] Date: 06/07/18 PRECAUTIONS: Fall SUBJECTIVE: OBJECTIVE: PAIN: Complains of left leg pain with weight bearing BED MOBILITY/TRANSFERS Supine?sit: Mod A with HOB at 50 degrees Sit?supine: Min A with HOB flat Sit-stand: Min A x2 Stand-sit: Min A in a.m.; CGA in p.m. Bed?chair: [facility] Chair?bed: [facility] GAIT Assistive Device: FWW Weight bearing: Full Assist: CGA x2 Distance: 5' in a.m.; 3' + 6' in p.m. Deviation: Cueing for FWW mechanics THEREX: Patient completed and upper extremity and lower extremity strengthening program, in a seated position, as per flow sheet. TOILETING: Patient toileted with assist ASSESSMENT: Patient tolerated session with complaints of left leg pain with weight bearing and increased fatigue with activity. Patient would benefit from continued gait and transfer training as well as strengthening for improved mobility and activity tolerance, as well as improved ability to perform daily functional tasks at a more independent level. PLAN: Continue with PTs POC TREATMENT CODE/TIME: Session 1: 20 minutes; [id number] Session 2: 30 minutes; [id number], [id number]
--- NOTE | 2018-06-07 14:13 | PTTR_ITS ---
Date of service: 06/07/18 Time of Service: 14:09 PT Notes Thank you Inpatient Physical Therapy Treatment Note [facility] Date: 06/07/18 PRECAUTIONS: Fall SUBJECTIVE: OBJECTIVE: PAIN: Complains of left leg pain with weight bearing BED MOBILITY/TRANSFERS Supine?sit: Mod A with HOB at 50 degrees Sit?supine: Min A with HOB flat Sit-stand: Min A x2 Stand-sit: Min A in a.m.; CGA in p.m. Bed?chair: [facility] Chair?bed: [facility] GAIT Assistive Device: FWW Weight bearing: Full Assist: CGA x2 Distance: 5' in a.m.; 3' + 6' in p.m. Deviation: Cueing for FWW mechanics THEREX: Patient completed and upper extremity and lower extremity strengthening program, in a seated position, as per flow sheet. TOILETING: Patient toileted with assist ASSESSMENT: Patient tolerated session with complaints of left leg pain with weight bearing and increased fatigue with activity. Patient would benefit from continued gait and transfer training as well as strengthening for improved mobility and activity tolerance, as well as improved ability to perform daily functional tasks at a more independent level. PLAN: Continue with PTs POC TREATMENT CODE/TIME: Session 1: 20 minutes; [id number] Session 2: 30 minutes; [id number], [id number]
[2018-06-07] MEDS: Simvastatin 40 MG TAB PO (20:17)
--- NOTE | 2018-06-07 20:18 | W.PM.PROGNOT ---
Date of Service Date of service: 06/07/18 Time of Service: 16:50 Assessment and Plan (1) Sepsis: Current visit: Yes Status: Acute Blood cx positive for Proteus Mirabilis in one set (05/31). Repeat blood cultures from 06/03/18 show no growth to date. UA is negative for a UTI, but does have known nephrolithiasis. On Cefepime, and Levaquin Day #7. Vancomycin day 2 Decrease steroids. Flu PCR is cancelled. Tamiflu finished Qualifiers: Sepsis type: sepsis due to unspecified organism Qualified Code(s): A41.9 - Sepsis, unspecified organism (2) HCAP (healthcare-associated pneumonia): Current visit: Yes Status: Acute Treatment as above. Wean O2 as tolerated. Reobtain sputum (3) Gross hematuria: Current visit: Yes Status: Resolved Likely due to traumatic catheterization. Resolved on CBI - currently on hold. Monitor for bleeding. Continue finasteride. On discharge, would need a de la vega catheter for at least 1 week and urology follow up. (4) Acute respiratory failure with hypoxemia: Current visit: Yes Status: Acute Slightly better D/c lasix gtt - appears euvolemic. Continue treatment on pneumonia (5) Acute on chronic diastolic CHF (congestive heart failure): Current visit: Yes Status: Acute Clinically euvolemic today; lasix gtt d/c'ed. monitoring I/O's and daily weights. (6) Diabetes mellitus: Current visit: No Status: Chronic with steroid induced hyperglycemia. The patient is on U500 at 110 units in am, then 95 units with lunch and dinner. Converting insulin to lantus/aspart combo as we do not carry U500 and correction supply ran out. The patient's BG's are normally difficult to control. There is no evidence of DKA. Titrating steroids down as fast as possible. BG's are better Qualifiers: Diabetes mellitus type: type 2 Diabetes mellitus custodial insulin use: with extermination inspector use Diabetes mellitus complication status: with kidney complications Diabetes mellitus complication detail: Diabetic retinopathy severity: Proliferative retinopathy type: Diabetes mellitus macular edema: Laterality: Chronic kidney disease stage: (7) Pulmonary hypertension: Current visit: Yes Status: Acute Continue diuresis and wean O2 as tolerated. Continue CPAP at night. (8) A-fib: Current visit: Yes Status: Acute New diagnosis (unclear if this is truly new onset), paroxysmal, clinically he is back in it, but rate is controlled. Should be discharged back to long term on a zio patch and with follow up with cardiology. Anticoagulation is contraindicated for now (hematuria on this admission). Continue diltiazem. (9) Vascular dementia: Current visit: No Status: Chronic Noted. Behaviors are stable. (10) DVT prophylaxis: Current visit: No Status: Acute SCDs. No chemical prophylaxis secondary to current hematuria. Also on PPI for GI Prophylaxis. (11) Discharge planning issues: Current visit: Yes Status: Acute DNR/DNI. Tele d/c'ed. Subjective Interval history since last seen: States his breathing is surprisingly better. However, continues to cough up quite a bit of purulent yellowish thick sputum. Denies dizziness, chest pain, shortness of breath, nausea, vomiting. Met with palliative care today, where he expressed that he would like to be discharged from the hospital as soon as possible. Exam Narrative Exam Narrative: General: Middle-aged male, laying flat in bed, Looks much better, comfortably laying flat, no tachypnea observed. HEENT: EOMI, MMM Heart: irregularly irregular rhythm, not tachycardic, no m/r/g Lungs: Improved rhonchi bilaterally; rales are minimal. GI: abdomen is soft, nontender, nondistended Extremities: trace edema BLE's ; no c/c; +2 pedal pulses B Objective Objective Clinical Data: Abnormal lab results 06/07/18 06/07/18 Range/Units 07:00 07:00 WBC 21.01 H (4.4-10.8) k/cumm RBC 3.43 L (4.50-6.00) m/cumm Hgb 11.0 L (13.5-17.5) g/dL Hct 34.3 L (40.0-50.0) % MCV 100.0 H (80-95) fL MPV 11.6 H (8.0-11.0) fL Absolute Neutrophils 14.08 H (1.2-6.7) k/cumm Absolute Monocytes 2.31 H (0.11-0.7) k/cumm BUN 56 H D (7-18) mg/dL Creatinine 2.17 H (0.70-1.30) mg/dL Vital Signs Temperature 37.0 C 06/07/18 16:40 Temperature Source Tympanic 06/07/18 16:40 Pulse 82 06/07/18 16:40 Pulse Rhythm Regular 06/07/18 17:00 Pulse 86 06/04/18 11:00 Respiratory Rate 20 06/07/18 16:40 Respiratory Effort Non-Labored 06/07/18 17:00 Respiratory Depth Normal 06/07/18 17:00 Respiratory Pattern Normal 06/07/18 17:00 Blood Pressure 129/71 06/07/18 16:40 Blood Pressure Mean 93 06/04/18 08:01 Blood Pressure Position Supine 06/03/18 09:20 Pulse Oximetry 91 L 06/07/18 16:40 Oxygen Delivery Method Nasal Cannula 06/07/18 16:40 Oxygen Flow Rate 2 06/07/18 16:40 Fraction of Inspired Oxygen (FIO2) 50 06/01/18 09:30 Pain Level 0 06/07/18 16:40 Comment 06/07/18 07:30 Intake & Output 06/06/18 06/07/18 06/07/18 23:59 11:59 23:59 Intake Total 670 / 1050 1979.917 / 3127.917 1148.0 / 3127.917 Output Total 900 / 3600 2175 / 2600 425 / 2600 Balance -230 / -2550 -195.083 / 527.917 723.0 / 527.917 Weight 119.9 kg Intake: IV 470 / 490 1079.917 / 1367.917 288.0 / 1367.917 Oral 200 / 560 900 / 1760 860 / 1760 Output: Urine 900 / 3600 2175 / 2600 425 / 2600 Other: Urine Color Yellow Yellow Yellow Urine Appearance Clear Cloudy Clear Cloudy Mucous Threads Stool Size Moderate Stool Characteristics Formed Hard Brown Green Laboratory Results WBC 21.01 k/cumm (4.4-10.8) H 06/07/18 07:00 RBC 3.43 m/cumm (4.50-6.00) L 06/07/18 07:00 Hgb 11.0 g/dL (13.5-17.5) L 06/07/18 07:00 Hct 34.3 % (40.0-50.0) L 06/07/18 07:00 MCV 100.0 fL (80-95) H 06/07/18 07:00 MCH 32.1 pg (27.0-33.0) 06/07/18 07:00 MCHC 32.1 g/dL (32.0-36.0) 06/07/18 07:00 RDW 13.8 % (11.8-14.1) 06/07/18 07:00 Plt Count 168 x1000/uL (130-400) 06/07/18 07:00 MPV 11.6 fL (8.0-11.0) H 06/07/18 07:00 Immature Gran % See Differential 06/07/18 07:00 Neutrophils % 67.0 06/07/18 07:00 Band Neutrophils % 3.0 % 06/06/18 06:50 Lymphocytes % 8.0 06/07/18 07:00 Atypical Lymphs % 1 06/06/18 06:50 Monocytes % 11.0 06/07/18 07:00 Eosinophils % 2.0 06/07/18 07:00 Basophils % 0.0 06/07/18 07:00 Metamyelocytes % 5.0 % 06/07/18 07:00 Myelocytes % 6.0 % 06/07/18 07:00 Absolute Neutrophils 14.08 k/cumm (1.2-6.7) H 06/07/18 07:00 Absolute Lymphocytes 1.68 k/cumm (1.2-3.4) 06/07/18 07:00 Absolute Monocytes 2.31 k/cumm (0.11-0.7) H 06/07/18 07:00 Absolute Eosinophils 0.42 k/cumm (0.0-0.7) 06/07/18 07:00 Absolute Basophils 0.00 k/cumm (0.0-0.2) 06/07/18 07:00 Differential Comment Manual differential 06/07/18 07:00 RBC Morphology See below 06/07/18 07:00 Polychromasia Present 06/07/18 07:00 Hypochromasia 1+ 06/03/18 05:45 Anisocytosis 1+ 06/01/18 04:17 Macrocytosis 1+ 06/05/18 09:20 Stomatocytes 2+ 06/06/18 06:50 PT 10.3 sec (9.3-11.0) 06/01/18 07:25 INR 1.0 (0.9-1.1) 06/01/18 07:25 APTT 29.6 sec (21.0-31.4) 06/01/18 07:25 Sample Site Right radial 06/01/18 16:05 pCO2 40 mmHg (34-47) 06/01/18 16:05 pO2 78 mmHg (83-108) L 06/01/18 16:05 O2 Saturation 95 % (94-98) 06/01/18 16:05 ABG pH 7.35 (7.35-7.45) 06/01/18 16:05 ABG HCO3 22 mmol/L (22-28) 06/01/18 16:05 ABG Total CO2 20 mmol/L (22-29) L 06/01/18 16:05 ABG Base Excess -4.0 mmol/L (-3-3) L 06/01/18 16:05 Oxygen Liter Flow Nasal cannula L 06/01/18 16:05 FiO2 44 % 06/01/18 16:05 Sodium 138 mmol/L (136-145) 06/07/18 07:00 Potassium 3.7 mmol/L (3.5-5.1) 06/07/18 07:00 Chloride 101 mmol/L (98-107) 06/07/18 07:00 Carbon Dioxide 29.6 mmol/L (21.0-32.0) 06/07/18 07:00 Anion Gap 7.4 mmol/L (3-11) 06/07/18 07:00 BUN 56 mg/dL (7-18) H D 06/07/18 07:00 Creatinine 2.17 mg/dL (0.70-1.30) H 06/07/18 07:00 Estimated GFR/1.73 m2 29.87 (mL/min/1.73m2) 06/07/18 07:00 Glucose 96 mg/dL (70-100) 06/07/18 07:00 Hemoglobin A1c 7.5 % (4.5-6.2) H 06/01/18 04:17 Lactate 1.5 mmol/L (0.6-1.4) H 06/01/18 04:17 Calcium 9.1 mg/dL (8.5-10.1) 06/07/18 07:00 Magnesium 1.9 mg/dL (1.8-2.4) 06/07/18 07:00 Total Bilirubin 0.5 mg/dL (0.2-1.0) 06/01/18 04:17 AST 45 U/L (15-37) H 06/01/18 04:17 ALT 32 U/L (12-78) 06/01/18 04:17 Alkaline Phosphatase 76 U/L (46-116) 06/01/18 04:17 Troponin I 0.04 ng/mL (0.00-0.06) 06/01/18 04:17 NT-Pro-B Natriuret Pep 1487 pg/mL (-299) H 05/31/18 20:50 Total Protein 8.0 g/dL (6.4-8.2) 06/01/18 04:17 Albumin 2.8 g/dL (3.4-5.0) L 06/01/18 04:17 TSH 0.46 uIU/mL (0.358-3.74) 06/01/18 04:17 Urine Color Yellow (Yellow) 06/06/18 12:35 Urine Clarity Clear 06/06/18 12:35 Urine pH 5.5 (5-8) 06/06/18 12:35 Ur Specific [place] 1.015 (1.005-1.025) 06/06/18 12:35 Urine Protein 100 mg/dL (Negative) H 06/06/18 12:35 Urine Ketones Negative mg/dL (Negative) 06/06/18 12:35 Urine Blood Large (Negative) H 06/06/18 12:35 Urine Nitrite Negative (Negative) 06/06/18 12:35 Urine Bilirubin Negative (Negative) 06/06/18 12:35 Urine Urobilinogen 0.2 EU/dL (Up TO 0.2) 06/06/18 12:35 Ur Leukocyte Esterase Trace (Negative) H 06/06/18 12:35 Urine RBC >50 (0-2) H 06/06/18 12:35 Urine WBC 10-20 HPF (0-5) 06/06/18 12:35 Ur Epithelial Cells Few HPF (Negative) 06/06/18 12:35 Urine Crystals Negative HPF (Negative) 06/06/18 12:35 Urine Bacteria Few HPF (Negative) 06/06/18 12:35 Urine Casts 5-10 hyaline LPF (Negative) 06/06/18 12:35 Urine Mucus Moderate (Negative) 06/06/18 12:35 Ur Culture Indicated? Yes 06/06/18 12:35 Urine Glucose 250 mg/dL (Negative) H 06/06/18 12:35 Specimen Type Cancelled 05/31/18 21:44 Influenza Type A RNA Cancelled 05/31/18 21:44 Influenza Type B RNA Cancelled 05/31/18 21:44 Legionella Source (see note) 06/02/18 06:24 Legionella Reprt Status (see note) 06/02/18 06:24 Legionella Final Result (see note) 06/02/18 06:24 RSV RNA Qual (PCR) Cancelled 05/31/18 21:44 Ur Strep pneumoniae Ag Negative (Negative) 06/02/18 06:24 Miscellaneous Test See comments 05/30/18 21:44 Patient ABO/Rh A Negative 06/01/18 07:25 Antibody Screen Negative 06/01/18 07:25
[2018-06-07] MEDS: DULoxetine 30 MG CAP 60 MG PO (21:50)
[2018-06-07] MEDS: Pantoprazole 40 MG TABCR PO (21:51)
[2018-06-07] MEDS: Montelukast 10 MG TAB PO (21:51)
[2018-06-08] VITALS (9 sets, daily range): BP systolic 113–144; BP diastolic 52–76; PULSE 67–82; RESP 8–20; TEMP 36–36.8; O2SAT 90–96
--- NOTE | 2018-06-08 05:59 | NUR.NOTE ---
Nursing Note: Patient keeps refusing his scheduled updraft, he stated that is bothers his tummy, nauseous all the time. Lung sounds diminished throughout. Turned and repositioned. On and off from cpap as requested, Continue the O2 at 2l.NC. Latest O2 Level is 95%.
[2018-06-08 07:12] LABS: HCT 31.1 % (40.0-50.0); HGB 10.2 g/dL (13.5-17.5); Mean Corp. HGB Concentration 32.8 g/dL (32.0-36.0); Mean Corpuscular Volume 100.6 fL (80-95); Mean Platelet Volume 11.9 fL (8.0-11.0); Platelet Count 175 x1000/uL (130-400); RBC 3.09 m/cumm (4.50-6.00); RBC Distribution Width 13.7 % (11.8-14.1); White Blood Cell Count 16.97 k/cumm (4.4-10.8)
[2018-06-08 07:30] LABS: Anion Gap 9.9 mmol/L (3-11); BUN 52 mg/dL (7-18); CO2 28.1 mmol/L (21.0-32.0); CREATININE 1.97 mg/dL (0.70-1.30); Calcium 8.5 mg/dL (8.5-10.1); Chloride 101 mmol/L (98-107); Glucose 64 mg/dL (70-100); Potassium 3.5 mmol/L (3.5-5.1); Sodium 139 mmol/L (136-145)
[2018-06-08 08:21] LABS: Absolute Lymphocyte Count 1.87 k/cumm (1.2-3.4); Absolute Neutrophil Count 11.37 k/cumm (1.2-6.7)
[2018-06-08 08:22] LABS: Absolute Basophil Count 0.17 k/cumm (0.0-0.2); Absolute Eosinophil Count 0.17 k/cumm (0.0-0.7); Absolute Monocyte Count 1.36 k/cumm (0.11-0.7); Anisocytosis 1+; Diff Comment Manual Differential; Macrocytosis 1+; Polychromasia Present; Promyelocytes % 1 %
[2018-06-08] MEDS: OLANZapine 5 MG TAB PO (08:23)
[2018-06-08] MEDS: Magnesium Oxide 400 MG TAB PO (08:23)
[2018-06-08] MEDS: Oxybutynin-CR 5 MG TABCR PO (08:23)
[2018-06-08] MEDS: Finasteride 5 MG TAB PO (08:23)
[2018-06-08] MEDS: Tamsulosin 0.4 MG CAPCR 0.8 MG PO (08:23)
[2018-06-08] MEDS: Ferrous Sulfate 325 MG TAB PO ×2 (08:23→20:15)
[2018-06-08] MEDS: Multivitamin TAB 1 TAB PO (08:23)
[2018-06-08] MEDS: Lactobacillus Acidophilus CAP 1 CAP PO (08:23)
[2018-06-08] MEDS: Ascorbic Acid 500 MG TAB PO (08:23)
[2018-06-08] MEDS: Losartan 25 MG TAB PO (08:23)
[2018-06-08] MEDS: Mirabegron 50 MG TABCR PO (08:23)
[2018-06-08] MEDS: Gabapentin 100 MG CAP PO ×3 (08:24→20:15)
[2018-06-08] MEDS: Insulin Glargine 300 UNITS/3 ML PEN 50 UNITS SC (08:29)
--- NOTE | 2018-06-08 09:14 | PT.INTREAT ---
Date of service: 06/08/18 Time of Service: 09:14 PT Notes 06/08/18 SUBJECTIVE: Ken stating he feels better than yesterday and he seems to feel a little stronger with ambulation. OBJECTIVE: Seated on commode. Agreeable to PT treatment. TRANSFERS Sit to stand: Min A x 2 Stand to sit: Min A x 2 GAIT Device: FWW Assist: CGA x 2 Weight bearing: Full distance: 3'x2 Therex: Light UE/LE strengthening performed in chair with rest breaks between exercises due to SOB. ASSESSMENT: Tolerates transfer and gait well today although continues to only tolerate very short distances. He was able to stand for prolong period of time for cleaning and getting weight. PLAN: Continue current POC progressing toward's established PT goals. Direct time: 20 minutes [id number] Umm Miller, DIGITAL LEARNING PLATFORMS MANAGER
--- NOTE | 2018-06-08 09:17 | PTTR_ITS ---
Date of service: 06/08/18 Time of Service: 09:14 PT Notes 06/08/18 SUBJECTIVE: Ken stating he feels better than yesterday and he seems to feel a little stronger with ambulation. OBJECTIVE: Seated on commode. Agreeable to PT treatment. TRANSFERS Sit to stand: Min A x 2 Stand to sit: Min A x 2 GAIT Device: FWW Assist: CGA x 2 Weight bearing: Full distance: 3'x2 Therex: Light UE/LE strengthening performed in chair with rest breaks between exercises due to SOB. ASSESSMENT: Tolerates transfer and gait well today although continues to only tolerate very short distances. He was able to stand for prolong period of time for cleaning and getting weight. PLAN: Continue current POC progressing toward's established PT goals. Direct time: 20 minutes [id number] Umm Miller, ARTIFACTS CONSERVATOR
[2018-06-08] MEDS: CEFEPIME 2 GM in Normal Saline 100 ML IVPB ×2 (10:13→21:51)
[2018-06-08] MEDS: Normal Saline Flush 10 ML SYR IVP ×2 (10:13→20:15)
--- NOTE | 2018-06-08 10:41 | PDOC.CMPRO ---
- If Service Date Differs Date of service: 06/08/18 Time of Service: 10:41 Care Management Progress Note S/O: Juan is sitting up in his bed today, he easily engages in discussion. Juan met with Dr. Parra yesterday for Palliative whom he sees at [facility] regularly. SONJA spoke with Jamal, [facility], to alert that Juan may be ready for DC tomorrow 06/09/18, Jamal states that he will look into timing of w/c van availability. A: 72 y/o male admitted 05/31/18 for HCAP, COPD exacerbation P: Juan will return to [facility] once medically cleared. He will transport via [facility] w/c van.
[2018-06-08] MEDS: Insulin Glargine 300 UNITS/3 ML PEN 30 UNITS SC ×2 (12:27→17:23)
[2018-06-08] MEDS: Insulin Aspart 300 UNITS/3 ML PEN 30 UNITS SC ×2 (12:28→17:23)
[2018-06-08] MEDS: Insulin Aspart 300 UNITS/3 ML PEN SC ×3 (12:28→21:56)
--- NOTE | 2018-06-08 12:45 | PT.INTREAT ---
Date of service: 06/08/18 Time of Service: 12:45 PT Notes Inpatient Physical Therapy Treatment Note [facility] Date: 06/08/18 PRECAUTIONS: Fall SUBJECTIVE: Ken reports that he is feeling better today, although he is not motivated to participate in PT without some encouragement. OBJECTIVE: PAIN: Patient complained of left lower extremity pain, hurts, same as always. BED MOBILITY/TRANSFERS Sit?supine: Min A Sit-stand: Min A x2 Stand-sit: Min A x2 Chair-bed: CGA x2 GAIT Assistive Device: FWW Weight bearing: Full Assist: CGA x2 Distance: 3' x2 in a.m.; 5' in p.m. THEREX: Patient completed an upper extremity and lower extremity strengthening program, in a seated position, as per flow sheet. ASSESSMENT: Patient tolerated session with complaint of increased fatigue. Patient would benefit from continued gait and transfer training as well as strengthening for improved mobility and improved ability to perform daily functional tasks at a more independent level. PLAN: Continue with PTs POC TREATMENT CODE/TIME: Session 1: 20 minutes; [id number], [id number] Session 2: 20 minutes; [id number]
[2018-06-08] MEDS: Simvastatin 40 MG TAB PO (20:14)
[2018-06-08] MEDS: LEVOFLOXACIN 750 MG/150 ML BAG 100 MG IVPB (20:15)
--- NOTE | 2018-06-08 20:17 | W.PM.PROGNOT ---
Date of Service Date of service: 06/08/18 Time of Service: 15:45 Assessment and Plan (1) Sepsis: Current visit: Yes Status: Acute Blood cx positive for Proteus Mirabilis in one set (05/31). Repeat blood cultures from 06/03/18 show no growth to date. UA is negative for a UTI, but does have known nephrolithiasis. On Cefepime, and Levaquin Day #8. Vancomycin day 3 I would discharge the patient with 2 doses of vancomycin at SNF. We might have to discharge him with an IV access. He will have to complete a total of 14 days of levofloxacin (PO). Steroids d/c'ed Flu PCR is cancelled. Tamiflu finished Qualifiers: Sepsis type: sepsis due to unspecified organism Qualified Code(s): A41.9 - Sepsis, unspecified organism (2) HCAP (healthcare-associated pneumonia): Current visit: Yes Status: Acute Treatment as above. Wean O2 as tolerated. Clinically significantly improved in the last 24 hours. (3) Gross hematuria: Current visit: Yes Status: Resolved Likely due to traumatic catheterization. Resolved on CBI - currently on hold. Monitor for bleeding. Continue finasteride. On discharge, would need a de la vega catheter for at least 1 week and urology follow up. (4) Acute respiratory failure with hypoxemia: Current visit: Yes Status: Acute Doing well. Resume PO lasix tomorrow am. Continue treatment on pneumonia (5) Acute on chronic diastolic CHF (congestive heart failure): Current visit: Yes Status: Acute Clinically euvolemic today; resume PO lasix tomorrow. (6) Diabetes mellitus: Current visit: No Status: Chronic with steroid induced hyperglycemia. The patient is on U500 at 110 units in am, then 95 units with lunch and dinner. Continue basal bolus insulin. Hypoglycemia this am happened prior to lantus/novolog being initiated. Titrating insulins. Qualifiers: Diabetes mellitus type: type 2 Diabetes mellitus watcher automat long goods insulin use: with correction use Diabetes mellitus complication status: with kidney complications Diabetes mellitus complication detail: Diabetic retinopathy severity: Proliferative retinopathy type: Diabetes mellitus macular edema: Laterality: Chronic kidney disease stage: (7) Pulmonary hypertension: Current visit: Yes Status: Acute Continue diuresis and wean O2 as tolerated. Continue CPAP at night. (8) A-fib: Current visit: Yes Status: Acute New diagnosis (unclear if this is truly new onset), paroxysmal, clinically he is back in it, but rate is controlled. [facility] and with follow up with cardiology. Anticoagulation is contraindicated for now (hematuria on this admission). Continue diltiazem. (9) Vascular dementia: Current visit: No Status: Chronic Noted. Behaviors are stable. (10) DVT prophylaxis: Current visit: No Status: Acute SCDs. No chemical prophylaxis secondary to current hematuria. Also on PPI for GI Prophylaxis. (11) Discharge planning issues: Current visit: Yes Status: Acute DNR/DNI. Tele d/c'ed. will need a Zio patch on discharge. Will need vancomycin daily x 2 days on discharge - would discharge with an IV. Subjective Interval history since last seen: States he feels better. States he has barely had any cough today. Denies dizziness, chest pain, shortness of breath, nausea, vomiting. Exam Narrative Exam Narrative: General: Middle-aged male, laying flat in bed, Looks to be at his baseline, comfortably laying flat, no tachypnea observed. HEENT: EOMI, MMM Heart: irregularly irregular rhythm, not tachycardic, no m/r/g Lungs: CTAB GI: abdomen is soft, nontender, nondistended Extremities:No edema BLE's ; no c/c; +2 pedal pulses B Objective Objective Clinical Data: Abnormal lab results 06/08/18 06/08/18 Range/Units 06:23 06:23 WBC 16.97 H (4.4-10.8) k/cumm RBC 3.09 L (4.50-6.00) m/cumm Hgb 10.2 L (13.5-17.5) g/dL Hct 31.1 L (40.0-50.0) % MCV 100.6 H (80-95) fL MPV 11.9 H (8.0-11.0) fL Absolute Neutrophils 11.37 H (1.2-6.7) k/cumm Absolute Monocytes 1.36 H (0.11-0.7) k/cumm BUN 52 H (7-18) mg/dL Creatinine 1.97 H (0.70-1.30) mg/dL Glucose 64 L (70-100) mg/dL Vital Signs Temperature 36 C L 06/08/18 16:29 Temperature Source Tympanic 06/08/18 16:29 Pulse 67 06/08/18 16:29 Pulse Rhythm Regular 06/08/18 09:48 Pulse 86 06/04/18 11:00 Respiratory Rate 20 06/08/18 16:29 Respiratory Effort Non-Labored 06/08/18 09:48 Respiratory Depth Normal 06/08/18 09:48 Respiratory Pattern Normal 06/08/18 09:48 Blood Pressure 121/52 L 06/08/18 16:29 Blood Pressure Mean 93 06/04/18 08:01 Blood Pressure Position Supine 06/03/18 09:20 Pulse Oximetry 93 L 06/08/18 16:29 Oxygen Delivery Method Nasal Cannula 06/08/18 16:29 Oxygen Flow Rate 2 06/08/18 18:36 Fraction of Inspired Oxygen (FIO2) 50 06/01/18 09:30 Pain Level 0 06/08/18 16:29 Comment 06/08/18 03:20 Intake & Output 06/07/18 06/08/18 06/08/18 23:59 11:59 23:59 Intake Total 1498.0 / 3477.917 850 / 1460 610 / 1460 Output Total 875 / 3050 1300 / 2150 850 / 2150 Balance 623.0 / 427.917 -450 / -690 -240 / -690 Intake: IV 638.0 / 1717.917 100 / 100 Oral 860 / 1760 750 / 1360 610 / 1360 Output: Urine 875 / 3050 1300 / 2150 850 / 2150 Other: Urine Color Yellow Yellow Yellow Straw Urine Appearance Clear Clear Cloudy Stool Size Large Large Stool Characteristics Soft Soft Brown Brown Green Laboratory Results WBC 16.97 k/cumm (4.4-10.8) H 06/08/18 06:23 RBC 3.09 m/cumm (4.50-6.00) L 06/08/18 06:23 Hgb 10.2 g/dL (13.5-17.5) L 06/08/18 06:23 Hct 31.1 % (40.0-50.0) L 06/08/18 06:23 MCV 100.6 fL (80-95) H 06/08/18 06:23 MCH 33.0 pg (27.0-33.0) 06/08/18 06:23 MCHC 32.8 g/dL (32.0-36.0) 06/08/18 06:23 RDW 13.7 % (11.8-14.1) 06/08/18 06:23 Plt Count 175 x1000/uL (130-400) 06/08/18 06:23 MPV 11.9 fL (8.0-11.0) H 06/08/18 06:23 Immature Gran % See Differential 06/08/18 06:23 Neutrophils % 64.0 06/08/18 06:23 Band Neutrophils % 3.0 % 06/08/18 06:23 Lymphocytes % 11.0 06/08/18 06:23 Atypical Lymphs % 1 06/06/18 06:50 Monocytes % 8.0 06/08/18 06:23 Eosinophils % 1.0 06/08/18 06:23 Basophils % 1.0 06/08/18 06:23 Metamyelocytes % 2.0 % 06/08/18 06:23 Myelocytes % 9.0 % 06/08/18 06:23 Promyelocytes % 1 % 06/08/18 06:23 Absolute Neutrophils 11.37 k/cumm (1.2-6.7) H 06/08/18 06:23 Absolute Lymphocytes 1.87 k/cumm (1.2-3.4) 06/08/18 06:23 Absolute Monocytes 1.36 k/cumm (0.11-0.7) H 06/08/18 06:23 Absolute Eosinophils 0.17 k/cumm (0.0-0.7) 06/08/18 06:23 Absolute Basophils 0.17 k/cumm (0.0-0.2) 06/08/18 06:23 Differential Comment Manual differential 06/08/18 06:23 RBC Morphology See below 06/08/18 06:23 Polychromasia Present 06/08/18 06:23 Hypochromasia 1+ 06/03/18 05:45 Anisocytosis 1+ 06/08/18 06:23 Macrocytosis 1+ 06/08/18 06:23 Stomatocytes 2+ 06/06/18 06:50 PT 10.3 sec (9.3-11.0) 06/01/18 07:25 INR 1.0 (0.9-1.1) 06/01/18 07:25 APTT 29.6 sec (21.0-31.4) 06/01/18 07:25 Sample Site Right radial 06/01/18 16:05 pCO2 40 mmHg (34-47) 06/01/18 16:05 pO2 78 mmHg (83-108) L 06/01/18 16:05 O2 Saturation 95 % (94-98) 06/01/18 16:05 ABG pH 7.35 (7.35-7.45) 06/01/18 16:05 ABG HCO3 22 mmol/L (22-28) 06/01/18 16:05 ABG Total CO2 20 mmol/L (22-29) L 06/01/18 16:05 ABG Base Excess -4.0 mmol/L (-3-3) L 06/01/18 16:05 Oxygen Liter Flow Nasal cannula L 06/01/18 16:05 FiO2 44 % 06/01/18 16:05 Sodium 139 mmol/L (136-145) 06/08/18 06:23 Potassium 3.5 mmol/L (3.5-5.1) 06/08/18 06:23 Chloride 101 mmol/L (98-107) 06/08/18 06:23 Carbon Dioxide 28.1 mmol/L (21.0-32.0) 06/08/18 06:23 Anion Gap 9.9 mmol/L (3-11) 06/08/18 06:23 BUN 52 mg/dL (7-18) H 06/08/18 06:23 Creatinine 1.97 mg/dL (0.70-1.30) H 06/08/18 06:23 Estimated GFR/1.73 m2 33.40 (mL/min/1.73m2) 06/08/18 06:23 Glucose 64 mg/dL (70-100) L 06/08/18 06:23 Hemoglobin A1c 7.5 % (4.5-6.2) H 06/01/18 04:17 Lactate 1.5 mmol/L (0.6-1.4) H 06/01/18 04:17 Calcium 8.5 mg/dL (8.5-10.1) 06/08/18 06:23 Magnesium 2.0 mg/dL (1.8-2.4) 06/08/18 06:23 Total Bilirubin 0.5 mg/dL (0.2-1.0) 06/01/18 04:17 AST 45 U/L (15-37) H 06/01/18 04:17 ALT 32 U/L (12-78) 06/01/18 04:17 Alkaline Phosphatase 76 U/L (46-116) 06/01/18 04:17 Troponin I 0.04 ng/mL (0.00-0.06) 06/01/18 04:17 NT-Pro-B Natriuret Pep 1487 pg/mL (-299) H 05/31/18 20:50 Total Protein 8.0 g/dL (6.4-8.2) 06/01/18 04:17 Albumin 2.8 g/dL (3.4-5.0) L 06/01/18 04:17 TSH 0.46 uIU/mL (0.358-3.74) 06/01/18 04:17 Urine Color Yellow (Yellow) 06/06/18 12:35 Urine Clarity Clear 06/06/18 12:35 Urine pH 5.5 (5-8) 06/06/18 12:35 Ur Specific [place] 1.015 (1.005-1.025) 06/06/18 12:35 Urine Protein 100 mg/dL (Negative) H 06/06/18 12:35 Urine Ketones Negative mg/dL (Negative) 06/06/18 12:35 Urine Blood Large (Negative) H 06/06/18 12:35 Urine Nitrite Negative (Negative) 06/06/18 12:35 Urine Bilirubin Negative (Negative) 06/06/18 12:35 Urine Urobilinogen 0.2 EU/dL (Up TO 0.2) 06/06/18 12:35 Ur Leukocyte Esterase Trace (Negative) H 06/06/18 12:35 Urine RBC >50 (0-2) H 06/06/18 12:35 Urine WBC 10-20 HPF (0-5) 06/06/18 12:35 Ur Epithelial Cells Few HPF (Negative) 06/06/18 12:35 Urine Crystals Negative HPF (Negative) 06/06/18 12:35 Urine Bacteria Few HPF (Negative) 06/06/18 12:35 Urine Casts 5-10 hyaline LPF (Negative) 06/06/18 12:35 Urine Mucus Moderate (Negative) 06/06/18 12:35 Ur Culture Indicated? Yes 06/06/18 12:35 Urine Glucose 250 mg/dL (Negative) H 06/06/18 12:35 Specimen Type Cancelled 05/31/18 21:44 Influenza Type A RNA Cancelled 05/31/18 21:44 Influenza Type B RNA Cancelled 05/31/18 21:44 Legionella Source (see note) 06/02/18 06:24 Legionella Reprt Status (see note) 06/02/18 06:24 Legionella Final Result (see note) 06/02/18 06:24 M. pneumoniae Source Cancelled 06/05/18 10:05 M. pneumoniae (PCR) Cancelled 06/05/18 10:05 RSV RNA Qual (PCR) Cancelled 05/31/18 21:44 Ur Strep pneumoniae Ag Negative (Negative) 06/02/18 06:24 Miscellaneous Test See comments 05/30/18 21:44 Patient ABO/Rh A Negative 06/01/18 07:25 Antibody Screen Negative 06/01/18 07:25
[2018-06-08] MEDS: Pantoprazole 40 MG TABCR PO (21:57)
[2018-06-08] MEDS: DULoxetine 30 MG CAP 60 MG PO (21:57)
[2018-06-08] MEDS: Montelukast 10 MG TAB PO (21:57)
[2018-06-09 00:33] VITALS: BP 157/68; PULSE 71; RESP 20; TEMP 36.3; O2SAT 94
[2018-06-09 04:42] VITALS: BP 151/73; PULSE 78; RESP 20; TEMP 37; O2SAT 94
[2018-06-09 07:32] LABS: Abs Immature Grans 1.16 k/cumm (0.0-0.09); HGB 9.8 g/dL (13.5-17.5); Mean Corp. HGB Concentration 31.6 g/dL (32.0-36.0); Mean Corpuscular Volume 101.3 fL (80-95); Mean Platelet Volume 11.7 fL (8.0-11.0); RBC 3.06 m/cumm (4.50-6.00); RBC Distribution Width 13.6 % (11.8-14.1); White Blood Cell Count 15.46 k/cumm (4.4-10.8)
[2018-06-09 07:35] VITALS: BP 138/64; PULSE 80; RESP 18; TEMP 36.6; O2SAT 92
[2018-06-09 07:49] LABS: Anion Gap 5.7 mmol/L (3-11); BUN 44 mg/dL (7-18); CO2 28.3 mmol/L (21.0-32.0); CREATININE 1.66 mg/dL (0.70-1.30); Calcium 8.4 mg/dL (8.5-10.1); Chloride 100 mmol/L (98-107); Estimated GFR 40.59 (mL/min/1.73m2); Glucose 208 mg/dL (70-100); Magnesium 1.9 mg/dL (1.8-2.4); Potassium 4.5 mmol/L (3.5-5.1); Sodium 134 mmol/L (136-145)
[2018-06-09] MEDS: Mirabegron 50 MG TABCR PO (07:52)
[2018-06-09] MEDS: Tamsulosin 0.4 MG CAPCR 0.8 MG PO (07:52)
[2018-06-09] MEDS: Ascorbic Acid 500 MG TAB PO (07:53)
[2018-06-09] MEDS: Oxybutynin-CR 5 MG TABCR PO (07:53)
[2018-06-09] MEDS: Gabapentin 100 MG CAP PO (07:53)
[2018-06-09] MEDS: Ferrous Sulfate 325 MG TAB PO (07:53)
[2018-06-09] MEDS: Losartan 25 MG TAB PO (07:53)
[2018-06-09] MEDS: Magnesium Oxide 400 MG TAB PO (07:53)
[2018-06-09] MEDS: Multivitamin TAB 1 TAB PO (07:53)
[2018-06-09] MEDS: Furosemide 20 MG TAB PO (07:53)
[2018-06-09] MEDS: Lactobacillus Acidophilus CAP 1 CAP PO (07:53)
[2018-06-09] MEDS: Finasteride 5 MG TAB PO (07:53)
[2018-06-09] MEDS: OLANZapine 5 MG TAB PO (07:54)
[2018-06-09] MEDS: Insulin Aspart 300 UNITS/3 ML PEN SC (07:54)
[2018-06-09] MEDS: Insulin Glargine 300 UNITS/3 ML PEN 40 UNITS SC (07:56)
[2018-06-09] MEDS: Insulin Aspart 300 UNITS/3 ML PEN 30 UNITS SC (07:56)
[2018-06-09 08:04] LABS: Absolute Neutrophil Count 11.13 k/cumm (1.2-6.7); Platelet Count 160 x1000/uL (130-400)
[2018-06-09 08:05] LABS: Absolute Eosinophil Count 0.46 k/cumm (0.0-0.7); Absolute Lymphocyte Count 1.08 k/cumm (1.2-3.4); Absolute Monocyte Count 1.55 k/cumm (0.11-0.7); Diff Comment Manual Differential
[2018-06-09 08:06] LABS: Basophilic Stippling Present; Polychromasia Present
[2018-06-09 08:07] LABS: Stomatocytes 2+
[2018-06-09] MEDS: CEFEPIME 2 GM in Normal Saline 100 ML IVPB (09:47)
--- NOTE | 2018-06-09 10:36 | DSE_ITS ---
Date of service: 06/09/18 Time of Service: 10:33 DS: Diagnosis Discharge Diagnosis (1) Sepsis: Status: Acute (2) HCAP (healthcare-associated pneumonia): Status: Acute (3) Gross hematuria: Status: Resolved (4) Acute respiratory failure with hypoxemia: Status: Acute (5) Acute on chronic diastolic CHF (congestive heart failure): Status: Acute (6) Diabetes mellitus: Status: Chronic (7) Pulmonary hypertension: Status: Acute (8) A-fib: Status: Acute (9) Vascular dementia: Status: Chronic Discharge Plan Disposition Patient Disposition: SNF (LEVEL 1) TH & REHAB Condition: Stable Discharge Details Reason For Visit: HCAP, COPD EXACERBATION, R/O SEPSIS Admit Date/Time: 05/31/18 22:17 Admit Provider: Heath Mcguire Attending Provider: Heath Mcguire Primary Care Provider: Hever Presley [facility] Course Hospital Course: Mr Valente is a 73 year old male with PMHx of poorly controlled IDDM2, H/o CVA with residual cognitive deficit/vascular dementia, depression, hypertension, who was admitted to [facility] ICU from [facility] and rehab on 05/21/18 with sepsis due to HCAP (present on admission; not reported as such on CXR, but presented that way clinically) with acute on chronic hypoxic respiratory failure and gross hematuria, thought to be 2ndary to traumatic de la vega insertion and a hypervascular prostate. The patient was treated with IV broadspectrum antibiotics (vancomycin, levofloxacin, cefepime) as well as IV steroids, diuretics, and nebulizer treatments. He did require de la vega catheterization, CBI and urology consultation for his hematuria, which has now resolved, with de la vega catheter being taken out prior to discharge and plavix being resumed on return to the SNF. Even though he didn't have a UTI, his blood culture did grow proteus, so he will have to complete a total of 14 days of levofloxacin from 06/03 (end date 06/16). He would also benefit from 2 more days of IV vancomycin (1.25 grams today at 1600, and 1.25 grams tomorrow at 10 am). Otherwise, he is back to his 2L of O2, finished his steroid taper, is euvolemic and ready for discharge. He met with palliative care, with whom he will have to follow up as outpatient. He incidentally was also found to have Atrial fibrillation on this admission, which is paroxysmal and was always rate controlled. He will need to follow up with cardiology for further workup thereof. He is being discharged to SNF with a Zio Patch. He is not on anticoagulation due to hematuria on this admission, but this could be considered on outpatient basis. He will need Urology follow up as well. Home Meds and New Rx's Prescriptions: New albuterol sulfate 2.5 mg /3 mL (0.083 %) Solution For Nebulization 2.5 mg UPD Q2H PRN PRNQty: 0 RF: 0 finasteride 5 mg Tablet 5 mg PO DAILY Qty: 30 RF: 0 Novolog Flexpen U-100 Insulin 100 unit/mL Insulin Pen subcut AC & HS Qty: 0 RF: 0 levofloxacin 750 mg tablet 750 mg PO DAILY Qty: 7 RF: 0 vancomycin in 0.9 % sodium chl 1.25 gram/250 mL solution 1.25 gm IV Q18H Qty: 500 RF: 0 Continued furosemide 20 mg tablet 20 mg PO DAILY Qty: 30 RF: 4 meprobamate 400 mg tablet 800 mg PO HS PRN (Reason: anxiety) Qty: 180 RF: 0 magnesium oxide 400 mg magnesium tablet 400 mg PO DAILY Qty: 90 RF: 4 C-Pap RF: 0 lancets [OneTouch Delica Lancets] 1 EACH misc 1 ea Miscellaneous QID Qty: 200 RF: 4 MARC GONZALEZ cream 1 gm Topical Q 6 PRN RF: 0 Prevail Pant Liner 1 EACH pad 1 box Miscellaneous TID Qty: 3 RF: 5 pen needle, diabetic [BD Ultra-Fine Ana Pen Needle] 1 EACH needle 1 ea Miscellaneous 8 time a day Qty: 240 RF: 11 montelukast 10 MG tablet 10 mg PO DAILY Qty: 90 RF: 4 Insulin Syringe MicroFine 1 EACH syringe 1 ea Miscellaneous QID Qty: 200 RF: 4 OneTouch Ultra Test 1 EACH strip 1 ea Miscellaneous TID Qty: 200 RF: 4 Lactobacillus acidophilus 1 EACH capsule 1 cap PO DAILY Qty: 90 RF: 4 tamsulosin 0.4 MG capsule 2 cap PO DAILY Qty: 180 RF: 4 diphenoxylate-atropine 1 EACH tablet 1 tab PO TID PRNQty: 90 RF: 4 olanzapine 5 MG tablet 5 mg PO DAILY Qty: 90 RF: 4 clopidogrel [Plavix] 75 MG tablet 75 mg PO HS Qty: 90 RF: 4 pantoprazole 40 MG tablet,delayed release (DR/EC) 40 mg PO HS Qty: 90 RF: 4 losartan 25 MG tablet 25 mg PO DAILY Qty: 30 RF: 0 Myrbetriq 50 MG tablet extended release 24 hr 50 mg PO DAILY Qty: 90 RF: 4 acetaminophen 500 MG tablet 1,000 mg PO Q4H PRN RF: 0 guaifenesin [Tussin Expectorant] 100 MG/5 ML liquid 200 mg PO Q4H PRN RF: 0 U-500 syringe 1 ea Sub-Q TID Qty: 90 RF: 11 diltiazem HCl [Cardizem CD] 120 MG capsule,extended release 24hr 120 mg PO DAILY Qty: 90 RF: 4 duloxetine 60 MG capsule,delayed release(DR/EC) 60 mg PO HS Qty: 90 RF: 4 Humulin R U-500 (Conc) Insulin 500 unit/mL solution See Rx Instructions Sub-Q TID Qty: 3 RF: 5 Compact Compressor Nebulizer misc .ROUTE .MEDSUPPLY Qty: 1 RF: 0 oxybutynin chloride 5 mg tablet extended release 24hr 5 mg PO DAILY Qty: 90 RF: 4 simvastatin 40 mg tablet 40 mg PO QPM Qty: 90 RF: 4 ergocalciferol (vitamin D2) [Vitamin D2] 50,000 unit capsule 50,000 unit PO monthly Qty: 3 RF: 4 ascorbic acid (vitamin C) [Vitamin C] 500 MG tablet 500 mg PO DAILY RF: 0 multivitamin 1 EACH capsule 1 cap PO DAILY RF: 0 aspirin 81 MG tablet,delayed release (DR/EC) 81 mg PO DAILY Qty: 30 RF: 0 ipratropium-albuterol 0.5 mg-3 mg(2.5 mg base)/3 mL solution for nebulization 3 ml IH QID RF: 0 ferrous sulfate 325 MG tablet 1 tab PO BID RF: 0 gabapentin 100 MG capsule 100 mg PO TID RF: 0 Discontinued diclofenac sodium 100 GM gel 1 appful Topical BID Qty: 100 RF: 0 Novolog Flexpen U-100 Insulin 300 UNITS/3 ML insulin pen 4 units Sub-Q AC RF: 0 Discharge Instructions Instructions: Sepsis (GEN), Hematuria (GEN), Bacterial Pneumonia (DC) Additional Instructions: Return to the hospital with any fever, bleeding, chest pain, or shortness of breath. Follow up with urology as well as with Cardiology. Stand Alone Forms: Nursing Discharge Form Referrals: Calvin Bell MD [ [facility] STAFF PHYSICIAN] - 06/27/18 8:30 am () Gatito Ochoa MD [ CONSULTING PHYSICIAN] - (Afib) Activity:: Activity as Tolerated Equipment/Supplies:: No Equipment Needed Diet:: Carb counting low sodium Discharge Orders Discharge Orders: Discharge Order (Routine); Ordered 06/09/18 Ordered By: Minerva Zaragoza Exam Narrative Exam Narrative: General: Middle-aged male, laying flat in bed, Looks to be at his baseline, comfortably laying flat, no tachypnea observed. HEENT: EOMI, MMM Heart: irregularly irregular rhythm, not tachycardic, no m/r/g Lungs: CTAB GI: abdomen is soft, nontender, nondistended Extremities:No edema BLE's ; no c/c; +2 pedal pulses B DS: Data Vitals/I&O Vitals and I&O: Vital Signs Temperature 36.6 C 06/09/18 07:35 Temperature Source Tympanic 06/09/18 07:35 Pulse 80 06/09/18 07:35 Pulse Rhythm Regular 06/09/18 09:05 Pulse 86 06/04/18 11:00 Respiratory Rate 18 06/09/18 07:35 Respiratory Effort Non-Labored 06/09/18 09:05 Respiratory Depth Normal 06/09/18 09:05 Respiratory Pattern Normal 06/09/18 09:05 Blood Pressure 138/64 06/09/18 07:35 Blood Pressure Mean 93 06/04/18 08:01 Blood Pressure Position Supine 06/03/18 09:20 Pulse Oximetry 92 L 06/09/18 07:35 Oxygen Delivery Method Nasal Cannula 06/09/18 07:35 Oxygen Flow Rate 1 06/09/18 07:35 Fraction of Inspired Oxygen (FIO2) 50 06/01/18 09:30 Pain Level 0 06/08/18 16:29 Comment 06/08/18 03:20 Intake & Output 06/08/18 06/08/18 06/09/18 11:59 23:59 11:59 Intake Total 850 / 1710 860 / 1710 350 / 350 Output Total 1300 / 2500 1200 / 2500 1350 / 1350 Balance -450 / -790 -340 / -790 -1000 / -1000 Weight 120.5 kg 120.3 kg Intake: IV 100 / 350 250 / 350 350 / 350 Oral 750 / 1360 610 / 1360 Output: Urine 1300 / 2500 1200 / 2500 1350 / 1350 Other: Urine Color Yellow Yellow Yellow Urine Appearance Clear Clear Cloudy Stool Size Large Moderate Stool Characteristics Soft Soft Brown Formed Voiding Methods Indwelling Catheter Completed studies during hospitalization [Text1]: CXR 05/30/18: : No definite acute pulmonary process. CXR 06/01/18: No acute abnormality. Echo 06/01/18: 1. Left ventricle: The cavity size was normal. Wall thickness was increased in a pattern of mild LVH. Systolic function was hyperdynamic. The estimated ejection fraction was 65-70%. Findings consistent with diastolic dysfunction. Doppler parameters are consistent with high ventricular filling pressure. 2. Ventricular septum: Thickness was severely increased. 3. Aortic valve: There was very mild stenosis. There was mild regurgitation. Peak velocity (S): 2.3m/sec. Mean gradient (S): 10.9mm Hg. VTI ratio of LVOT to aortic valve: 0.49. Valve area (VTI): 1.5cm^2. 4. Right ventricle: The cavity size was mildly dilated. Systolic function was normal. 5. Right atrium: The atrium was mildly dilated. 6. Pulmonary arteries: Pulmonary systolic pressure was >= 30mm Hg. 7. Inferior vena cava: Poorly visualized. 06/04/18: Limited exam. Stable bibasilar densities. 06/06/18: Limited exam. No infiltrates are visible. Labs on day of discharge: Labs from last 24 hours 06/09/18 06/09/18 06/05/18 07:20 07:20 10:05 WBC 15.46 H RBC 3.06 L Hgb 9.8 L Hct 31.0 L MCV 101.3 H MCH 32.0 MCHC 31.6 L RDW 13.6 Plt Count 160 MPV 11.7 H Immature Gran % See Differential Neutrophils % 70.0 Band Neutrophils % 2.0 Lymphocytes % 7.0 Monocytes % 10.0 Eosinophils % 3.0 Basophils % 0.0 Metamyelocytes % 4.0 Myelocytes % 4.0 Absolute Neutrophils 11.13 H Absolute Lymphocytes 1.08 L Absolute Monocytes 1.55 H Absolute Eosinophils 0.46 Absolute Basophils 0.00 Differential Comment Manual differential RBC Morphology See below Polychromasia Present Basophilic Stippling Present Stomatocytes 2+ Sodium 134 L Potassium 4.5 D Chloride 100 Carbon Dioxide 28.3 Anion Gap 5.7 BUN 44 H Creatinine 1.66 H Estimated GFR/1.73 m2 40.59 Glucose 208 H D Calcium 8.4 L Magnesium 1.9 M. pneumoniae Source Cancelled M. 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) Diabetes mellitus (Chronic 05/04/11) Depressive disorder (Chronic 05/04/11) 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 (Chronic 03/09/07) Cerebrovascular accident (CVA) (Chronic 05/04/11) Surgical History Appendectomy Arthroplasty of knee HERNIA REPAIR LOW BACK SURGERY PROPOFOL SEDATION Tonsillectomy UPPP (Uvulopalatopharyngoplasty) Family History Mother Essential hypertension Heart disease Father Cancer Sister Essential hypertension Brother Essential hypertension Grandfather Heart disease Grandfather Heart disease Grandmother Heart disease Social History caregiver/support person: Yes household members: other housing: [facility] marital status details: to 4th x > 30 years lives independently: No number of children: 1 highest education level completed: high school graduate service: No [facility]: Yes current occupational status: disabled pets and animals: Yes Hx Recent Travel: No well-balanced diet: rarely or never high-fat food intake: 3 or more times/day daily servings fruits/ve-1 daily servings of milk/calcium: 0-1 eating out: rarely or never reads food labels: seldom or never what type of physical activity do you participate in: none Smoking and Tabacco status: Former Tobacco Use alcohol intake: never What is your relationship status?: How often do you talk on the phone with friends or family?: three or more times per week How often do you get together with friends or relatives?: three or more times per week Panel score (0-1 are the most socially isolated patients): 2
--- NOTE | 2018-06-09 10:40 | PDOC.CMDIS ---
- If Service Date Differs Date of service: 06/09/18 Time of Service: 10:40 LACE Index Scoring Tool - Questions: Length of Stay (in days): 7 - 13 Acuity (Admit via E.D.?): Yes Comorbidities: Cerebrovascular Disease, Diabetes w/o Complication, Dementia E.D. Visits: 7 - Answers: Total Score: 17 Risk of Readmission: High Risk Care Management Discharge Reason for Hospitalization: HCAP, COPD Discharge Plan: Juan will return to [facility] today via w/c van. He will have two more doses of IV Vancomycin, SONJA spoke with Jamal [facility], whom states that [facility] will be able to accomodate this. W/C van to transport at 1100, SONJA has notified Kaylin RN, NACHO [facility], and Dr. Zaragoza of time and mode of transport. Patient/Family Education Needs: Review DC instructions, any limitations, and discuss 'Ask Me Three' Services Needed at Discharge: [facility] Facility ([facility]), Transportation ([facility] w/c van)
--- NOTE | 2018-06-09 10:53 | CMDISCH_ITS ---
- If Service Date Differs Date of service: 06/09/18 Time of Service: 10:40 LACE Index Scoring Tool - Questions: Length of Stay (in days): 7 - 13 Acuity (Admit via E.D.?): Yes Comorbidities: Cerebrovascular Disease, Diabetes w/o Complication, Dementia E.D. Visits: 7 - Answers: Total Score: 17 Risk of Readmission: High Risk Care Management Discharge Reason for Hospitalization: HCAP, COPD Discharge Plan: Juan will return to [facility] today via w/c van. He will have two more doses of IV Vancomycin, SONJA spoke with Jamal [facility], whom states that [facility] will be able to accomodate this. W/C van to transport at 1100, SONJA has notified Kaylin RN, NACHO [facility], and Dr. Zaragoza of time and mode of transport. Patient/Family Education Needs: Review DC instructions, any limitations, and discuss 'Ask Me Three' Services Needed at Discharge: [facility] Facility ([facility]), Transportation ([facility] w/c van)
--- NOTE | 2018-06-11 21:13 | W.PALLCONSUL ---
Date of service: 06/07/18 History of Present Illness Chief Complaint: recurrent hospitalizations, goals of care Narrative: I've seen Ken several times, at the senior care and his home. His quality of life is poor most of the time. He told me at my last visit that he recognizes that he will never be living at home again. He is now a permanent resident of [facility]. His works there so he enjoys seeing her daily. She was unavailable to join us today. Ken has had several bouts of sepsis. He has uncontrolled diabetes and is obese. We talked about both of them being risk factors for sepsis, as well as for his CHF and episodes of respiratory failure. He usually eats two portions of all meals at the Rehab. He says they don't give him enough food otherwise. He is morbidly obese. He is very sedentary. He likes staying in his room. He can't tell me why. He says he feels calmer there. He gets nervous when he goes out to the dining room to eat. The staff brings him his food. He says he doesn't follow a diabetic there, even though he knows he should. He has had a significant right-sided stroke in the past, and we talked about the difficulty in having insight caused by brain damage in this area. He says he is motivated to eat better, control his sugars, and be more phsyically active, but he is unlikely to change. Ken is very fixed in his ways. Consults Consult date: 06/07/18 Requesting physician: Minerva Zaragoza Assessment and Plan (1) Vascular dementia: Current visit: No Status: Chronic Has had multiple strokes. Hard for him to follow through on any plans. Forgets he made them. Non-compliant with diabetic diet. Demands from Rehab staff that they give him double portions. Says that he wanted me to tell the Rehab kitchen not to give him so much food, but he'll forget he asked for this. Very poor short-term memory. Very little insight into his poor health, what he can do to improve it. Really needs to keep his sugars under better control and work with PT/OT at the Rehab. Unlikely that he will be able to return home in the future. Fell too much. Not safe at home. (2) jail resident: Current visit: No Status: Chronic Unlikely to return home given the severity and chronicity of his health problems. Not yet a hospice candidate, however. I think he has more than 6 months to live. He is DNR/DNI. Reviewed [facility]. (3) Palliative care patient: Current visit: No Status: Chronic Will try to keep him out of the hospital, if possible. Not good for him to come in. At risk for acquiring a resistant bacterial infection. (4) Acute on chronic diastolic CHF (congestive heart failure): Current visit: No Status: Acute He knows that activity will help with his heart. Prefers to be sedentary. Had mobile WC at home. Unsafe at the rehab, so stays in his room most of the time. . He says he follows a low salt diet. (5) Diabetes mellitus: Current visit: No Status: Chronic Will check in with Dr Rizo at the Rehab about whether kitchen can help Ken reduce his intake. Unlikely. 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 Diabetes mellitus complication status: with kidney complications Diabetes mellitus complication detail: Diabetic retinopathy severity: Proliferative retinopathy type: Diabetes mellitus macular edema: Laterality: Chronic kidney disease stage: Review of Systems Constitutional Reports body ache(s), Reports daytime sleepiness, Reports difficulty sleeping, Reports fatigue, Reports frequent falls, Reports headache(s), Reports weakness and Reports weight gain Eyes Reports blurry vision, Reports dry eyes and Reports requires corrective lenses ENT Reports dizziness, Reports headache(s) and Reports nasal discharge Cardiovascular Reports lightheadedness, Reports dyspnea on exertion and Reports paroxysmal nocturnal dyspnea Respiratory Reports dyspnea on exertion Gastrointestinal Reports constipation Genitourinary Reports hematuria, Reports difficulty urinating and Reports urinary incontinence Musculoskeletal Reports abnormal gait, Reports myalgias, Reports muscle weakness and Reports stiffness Integumentary/Breasts Reports dry skin Neurologic Reports abnormal gait, Reports dizziness, Reports frequent falls, Reports headache(s), Reports paresthesias and Reports weakness Psychiatric Reports abnormal sleep pattern, Reports change in appetite, Reports depression, Reports hopelessness and Reports irritability Endocrine Reports fatigue Hematologic/Lymphatic Reports easy bruising [facility] Medical History Frequent falls (Chronic) Vascular dementia (Chronic) jail resident (Chronic) Palliative care patient (Chronic) Vascular dementia with behavior disturbance (Chronic 03/23/16) Malignant neoplasm of sigmoid colon (Chronic 02/21/15) Late, effect, 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) Diabetes mellitus (Chronic 05/04/11) Depressive disorder (Chronic 05/04/11) 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 (Chronic 03/09/07) Cerebrovascular accident (CVA) (Chronic 05/04/11) Surgical History Appendectomy Arthroplasty of knee HERNIA REPAIR LOW BACK SURGERY PROPOFOL SEDATION Tonsillectomy UPPP (Uvulopalatopharyngoplasty) Family History Mother Essential hypertension Heart disease Father Cancer Sister Essential hypertension Brother Essential hypertension Grandfather Heart disease Grandfather Heart disease Grandmother Heart disease Social History caregiver/support person: Yes household members: other housing: senior care marital status details: to 4th x > 30 years lives independently: No number of children: 1 highest education level completed: high school graduate service: No senior care: Yes current occupational status: disabled pets and animals: Yes Hx Recent Travel: No well-balanced diet: rarely or never high-fat food intake: 3 or more times/day daily servings fruits/ve-1 daily servings of milk/calcium: 0-1 eating out: rarely or never reads food labels: seldom or never what type of physical activity do you participate in: none Smoking and Tabacco status: Former Tobacco Use alcohol intake: never What is your relationship status?: How often do you talk on the phone with friends or family?: three or more times per week How often do you get together with friends or relatives?: three or more times per week Panel score (0-1 are the most socially isolated patients): 2 Exam Const General: cooperative, no acute distress, disheveled and ill appearing Nutritional Appearance: obese Orientation: alert, awake, oriented to person and oriented to place [facility] Head: normal to inspection, normocephalic and atraumatic Ears: hearing grossly impaired General nose exam: external nose normal Face and sinus: normal facial exam and dry mucous membranes Eyes Conjunctivae: conjunctivae normal Sclera: sclerae normal Neck Neck: no lymphadenopathy and no JVD Resp Effort & Inspection: normal respiratory effort and able to speak in complete sentences Auscultation: clear to auscultation bilaterally and diminished lung sounds Cardio Jugular venous pressure: no JVD Rate: regular rate Rhythm: abnormal rhythm irregularly irregular Heart Sounds: S1 normal and S2 normal GI Inspection: normal to inspection and obesity Palpation: soft Auscultation: hypoactive bowel sounds Skin General skin exam: dry skin and pallor Trauma: no lacerations or abrasions Hair: male pattern alopecia Nails: clubbing and dystrophic Neuro General: alert and awake Cognition: abnormal cognition (poor insight into his health status) Speech: abnormal speech and expressive aphasia (uses simple language) Extrem General: normal to inspection, clubbing and muscle atrophy Psych Appearance: disheveled Mental Status: mental status grossly normal Speech and Movement: delayed speech and slowed movement Mood: congruent mood and euthymic mood Affect: normal affect Attitude: cooperative Thought Process: illogical and impoverished Insight: limited Judgment: limited Results Last Vital Signs Temp 97.9 F 06/09/18 07:35 Pulse 80 06/09/18 07:35 Resp 18 06/09/18 07:35 BP 138/64 06/09/18 07:35 Pulse Ox 92 L 06/09/18 07:35 Labs : 06/09/18 07:20 06/09/18 07:20
--- NOTE | 2018-06-11 21:34 | PCNE_ITS ---
Date of service: 06/07/18 History of Present Illness Chief Complaint: recurrent hospitalizations, goals of care Narrative: I've seen Ken [facility], at the [facility] and his home. His quality of life is poor most of the time. He told me at my last visit that he recognizes that he will never be living at home again. He is now a permanent resident of [facility]. His works there so he enjoys seeing her daily. She was unavailable to join us today. Ken has had several bouts of sepsis. He has uncontrolled diabetes and is obese. We talked about both of them being risk factors for sepsis, as well as for his CHF and episodes of respiratory failure. He usually eats two portions of all meals at the Rehab. He says they don't give him enough food otherwise. He is morbidly obese. He is very sedentary. He likes staying in his room. He can't tell me why. He says he feels calmer there. He gets nervous when he goes out to the dining room to eat. The staff brings him his food. He says he doesn't follow a diabetic there, even though he knows he should. He has had a significant right-sided stroke in the past, and we talked about the difficulty in having insight caused by brain damage in this area. He says he is motivated to eat better, control his sugars, and be more phs yically active, but he is unlikely to change. Ken is very fixed in his ways. Consults Consult date: 06/07/18 Requesting physician: Minerva Zaragoza Assessment and Plan (1) Vascular dementia: Current visit: No Status: Chronic Has had multiple strokes. Hard for him to follow through on any plans. Forgets he made them. Non-compliant with diabetic diet. Demands from Rehab staff that they give him double portions. Says that he wanted me to tell the Rehab kitchen not to give him so much food, but he'll forget he asked for this. Very poor short-term memory. Very little insight into his poor health, what he can do to improve it. Really needs to keep his sugars under better control and work with PT/OT at the Rehab. Unlikely that he will be able to return home in the future. Fell too much. Not safe at home. (2) custodial resident: Current visit: No Status: Chronic Unlikely to return home given the severity and chronicity of his health benjie cochran. Not yet a hospice candidate, however. I think he has more than 6 months to live. He is DNR/DNI. Reviewed [facility]. (3) Palliative care patient: Current visit: No Status: Chronic Will try to keep him out of the hospital, if possible. Not good for him to come in. At risk for acquiring a resistant bacterial infection. (4) Acute on chronic diastolic CHF (congestive heart failure): Current visit: No Status: Acute He knows that activity will help with his heart. Prefers to be sedentary. Had mobile WC at home. Unsafe at the rehab, so stays in his room most of the time. . He says he follows a low salt diet. (5) Diabetes mellitus: Current visit: No Status: Chronic Will check in with Dr Rizo at the Rehab about whether kitchen can help Ken reduce his intake. Unlikely. 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 Diabetes mellitus complication status: with kidney complications Diabetes mellitus complication detail: Diabetic retinopathy severity: Proliferative retinopathy type: Diabetes mellitus macular edema: Laterality: Chronic kidney disease stage: Review of Systems Constitutional Reports body ache(s), Reports daytime sleepiness, Reports difficulty sleeping, Reports fatigue, Reports frequent falls, Reports headache(s), Reports weakness and Reports weight gain Eyes Reports blurry vision, Reports dry eyes and Reports requires corrective lenses ENT Reports dizziness, Reports headache(s) and Reports nasal discharge Cardiovascular Reports lightheadedness, Reports dyspnea on exertion and Reports paroxysmal nocturnal dyspnea Respiratory Reports dyspnea on exertion Gastrointestinal Reports constipation Genitourinary Reports hematuria, Reports difficulty urinating and Reports urinary incontinence Musculoskeletal Reports abnormal gait, Reports myalgias, Reports muscle weakness and Reports stiffness Integumentary/Breasts Reports dry skin Neurologic Reports abnormal gait, Reports dizziness, Reports frequent falls, Reports headache(s), Reports paresthesias and Reports weakness Psychiatric Reports abnormal sleep pattern, Reports change in appetite, Reports depression, Reports hopelessness and Reports irritability Endocrine Reports fatigue Hematologic/Lymphatic Reports easy bruising [facility] Medical History Frequent falls (Chronic) Vascular dementia (Chronic) custodial resident (Chronic) Palliative care patient (Chronic) Vascular dementia with behavior disturbance (Chronic 03/23/16) Malignant neoplasm of sigmoid colon (Chronic 02/21/15) Late, effect, 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) Diabetes mellitus (Chronic 05/04/11) Depressive disorder (Chronic 05/04/11) 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 (Chronic 03/09/07) Cerebrovascular accident (CVA) (Chronic 05/04/11) Surgical History Appendectomy Arthroplasty of knee HERNIA REPAIR LOW BACK SURGERY PROPOFOL SEDATION Tonsillectomy UPPP (Uvulopalatopharyngoplasty) Family History Mother Essential hypertension Heart disease Father Cancer Sister Essential hypertension Brother Essential hypertension Grandfather Heart disease Grandfather Heart disease Grandmother Heart disease Social History caregiver/support person: Yes household members: other housing: penitentiary marital status details: to 4th x > 30 years lives independently: No number of children: 1 highest education level completed: high school graduate service: No penitentiary: Yes current occupational status: disabled pets and animals: Yes Hx Recent Travel: No well-balanced diet: rarely or never high-fat food intake: 3 or more times/day daily servings fruits/ve-1 daily servings of milk/calcium: 0-1 eating out: rarely or never reads food labels: seldom or never what type of physical activity do you participate in: none Smoking and Tabacco status: Former Tobacco Use alcohol intake: never What is your relationship status?: How often do you talk on the phone with friends or family?: three or more times per week How often do you get together with friends or relatives?: three or more times per week Panel score (0-1 are the most socially isolated patients): 2 Exam Const General: cooperative, no acute distress, disheveled and ill appearing Nutritional Appearance: obese Orientation: alert, awake, oriented to person and oriented to place [facility] Head: normal to inspection, normocephalic and atraumatic Ears: hearing grossly impaired General nose exam: external nose normal Face and sinus: normal facial exam and dry mucous membranes Eyes Conjunctivae: conjunctivae normal Sclera: sclerae normal Neck Neck: no lymphadenopathy and no JVD Resp Effort & Inspection: normal respiratory effort and able to speak in complete sentences Auscultation: clear to auscultation bilaterally and diminished lung sounds Cardio Jugular venous pressure: no JVD Rate: regular rate Rhythm: abnormal rhythm irregularly irregular Heart Sounds: S1 normal and S2 normal GI Inspection: normal to inspection and obesity Palpation: soft Auscultation: hypoactive bowel sounds Skin General skin exam: dry skin and pallor Trauma: no lacerations or abrasions Hair: male pattern alopecia Nails: clubbing and dystrophic Neuro General: alert and awake Cognition: abnormal cognition (poor insight into his health status) Speech: abnormal speech and expressive aphasia (uses simple language) Extrem General: normal to inspection, clubbing and muscle atrophy Psych Appearance: disheveled Mental Status: mental status grossly normal Speech and Movement: delayed speech and slowed movement Mood: congruent mood and euthymic mood Affect: normal affect Attitude: cooperative Thought Process: illogical and impoverished Insight: limited Judgment: limited Results Last Vital Signs Temp 97.9 F 06/09/18 07:35 Pulse 80 06/09/18 07:35 Resp 18 06/09/18 07:35 BP 138/64 06/09/18 07:35 Pulse Ox 92 L 06/09/18 07:35 Labs : 06/09/18 07:20 06/09/18 07:20
== END 2018-06-09 11:28 | disposition skilled nursing facility (03) | DRG 871 ==
LOC: ER 21:52 → ICU 06-01 12:43 → MS 06-05 13:34 → ICU 06-19 09:51
PROVIDERS: Internal Medicine; Admitting Provider Internal Medicine; Emergency Provider Emergency Medicine; PCP Family Medicine; Visit Provider Internal Medicine
DX: A41.89 Other specified sepsis (principal); J18.9 Pneumonia, unspecified organism; J96.21 Acute and chronic respiratory failure with hypoxia; J44.0 Chronic obstructive pulmonary disease with (acute) lower respiratory infection; N17.9 Acute kidney failure, unspecified; T83.83XA Hemorrhage due to genitourinary prosthetic devices, implants and grafts, initial encounter; R31.0 Gross hematuria; E11.65 Type 2 diabetes mellitus with hyperglycemia; T38.0X5A Adverse effect of glucocorticoids and synthetic analogues, initial encounter; N42.89 Other specified disorders of prostate; Z51.5 Encounter for palliative care; I48.0 Paroxysmal atrial fibrillation; F01.50 Vascular dementia, unspecified severity, without behavioral disturbance, psychotic disturbance, mood disturbance, and anxiety; Y95 Nosocomial condition; N18.9 Chronic kidney disease, unspecified; E11.22 Type 2 diabetes mellitus with diabetic chronic kidney disease; N40.0 Benign prostatic hyperplasia without lower urinary tract symptoms; I35.0 Nonrheumatic aortic (valve) stenosis; N20.0 Calculus of kidney; Z79.4 Long term (current) use of insulin; I12.9 Hypertensive chronic kidney disease with stage 1 through stage 4 chronic kidney disease, or unspecified chronic kidney disease; I49.1 Atrial premature depolarization; Y73.8 Miscellaneous gastroenterology and urology devices associated with adverse incidents, not elsewhere classified
CPT/HCPCS: 36410; 36415; 36416; 51702; 80048; 80053; 82805; 82962; 86850; 86900; 86901; 87040; 87077; 87081; 87449; 87631; 93005; 93225; 93306; 94640; 96361; 96365; 96366; 96367; 96368; 96375; 97110; 97162; 97166; 97530; 99221; 99223; 99231; 99232; 99233; 99239; 99252; 99254; 99291; 36600; 71045; 81003; 81015; 83036; 83605; 83735; 83880; 84443; 84484; 85014; 85018; 85025; 85610; 85730; 87070; 87086; 87186; 87205; 87450; 87581; 93010; 94660; J1720; J1940; J1941; J1956; J2930; J3370; J3490; J7620

== ENCOUNTER 2018-06-10 18:00 | Outpatient (REF) | payer MEDICARE, MEDICAID, SELFPAY | END 2018-06-10 18:20 | LOC: NCHCN 18:00 | PROVIDERS: PCP Family Medicine; Visit Provider Family Medicine | DX: A41.9 Sepsis, unspecified organism (principal); Z79.2 Long term (current) use of antibiotics | CPT/HCPCS: 87324 ==

== ENCOUNTER 2018-06-21 10:46 | Outpatient (REF) | payer MEDICARE, MEDICAID, SELFPAY ==
--- NOTE | 2018-06-27 17:32 | ZIOP_ITS ---
ZIO PATCH REPORT DATE OF READING: June 27, 2018 STUDY INDICATION: Paroxysmal atrial fibrillation. REQUESTING PROVIDER: Hever Presley M.D. FINDINGS: The patient was monitored for 12 days. The patient was in atrial fibrillation 2% of the time, longest episode 22 minutes and 29 seconds. Average heart rate in atrial fibrillation 93 beats per minute, range 61-167 beats per minute. Frequent supraventricular ectopy 15.3%. 3892 episodes of atrial tachycardia, average heart rate 111 bpm, range 53-200 bpm. Longest episode 26.1 seconds, with an average heart rate of 115 bpm. There was rare ventricular ectopy, less than 1% PVCs. There was one ventricular run lasting 5 beats, with an average heart rate of 146 bpm. There were no pauses greater than 3 seconds. There was no higher degree heart block. There were 9 patient events. Four events correlated with atrial tachycardia One event correlated with atrial fibrillation. All other events correlated with either PVCs or PACs. FINAL INTERPRETATION: Paroxysmal atrial fibrillation with overall controlled ventricular response, at times symptomatic.
== END 2018-06-21 11:06 ==
LOC: LBN 10:46
PROVIDERS: PCP Family Medicine; Visit Provider Family Medicine
DX: R09.3 Abnormal sputum (principal); Z16.21 Resistance to vancomycin
CPT/HCPCS: 87070; 87205

== ENCOUNTER 2018-06-27 12:37 | Outpatient (CLI) | payer MEDICARE, MEDICAID, SELFPAY | END 2018-06-27 12:57 | PROVIDERS: PCP Family Medicine; Referring Provider Internal Medicine; Visit Provider Student in an Organized Health Care Education/Training Program | DX: I48.0 Paroxysmal atrial fibrillation (principal) | CPT/HCPCS: 0298T ==

== ENCOUNTER → 2018-07-11 15:17 | Outpatient (BNVA) | payer MEDICARE, MEDICAID, SELFPAY | PROVIDERS: PCP Family Medicine; Visit Provider Urology | DX: R31.0 Gross hematuria (principal); N20.0 Calculus of kidney; E11.9 Type 2 diabetes mellitus without complications | CPT/HCPCS: 99213 ==

== ENCOUNTER 2018-08-01 00:35 | Outpatient (CLI) | payer MEDICARE, MEDICAID, SELFPAY ==
--- NOTE | 2018-08-01 07:56 | DI.US_ITS ---
SYMPTOM/DIAGNOSIS: F/U KIDNEY STONES, N20.0, SEPSIS RENAL ULTRASOUND: Comparison CT scan is 12/30/17. The right kidney measures 12.8 cm. long. No echogenic foci or solid renal mass is seen. Note is made of a 3.9 cm. simple cyst on the right kidney. This was present on the CT scan from 12/30/17. The left kidney measures 11.3 cm. long. There are several renal cysts present, the largest is seen superiorly and measures 6 by 7.5 by 5.2 cm. There does appear to be an internal septation. No abnormal blood flow is seen to the cyst. There is a non obstructing echogenic shadowing focus in the renal pelvis measuring 1.9 cm. consistent with stones seen on the CT scan from 12/30/17. There is normal blood flow to both kidneys. There does appear to be diffuse increased echogenicity of the visualized portions of the liver suggestive hepatic steatosis. The prevoid urinary bladder volume is 55 cc's. The patient was unable to void. No bladder wall thickening is seen. Both ureteral jets were visualized. No intraluminal mass is present. The prostate gland is enlarged measuring 46 cc's. IMPRESSION: 1. Stable left renal calculus. 2. Bilateral renal cysts. 3. Enlarged prostate. 4. Findings suggestive of hepatic steatosis.
== END 2018-08-01 00:55 ==
PROVIDERS: PCP Family Medicine; Visit Provider Urology
DX: N20.0 Calculus of kidney (principal); N28.1 Cyst of kidney, acquired; N40.0 Benign prostatic hyperplasia without lower urinary tract symptoms; K76.0 Fatty (change of) liver, not elsewhere classified
CPT/HCPCS: 76770

== ENCOUNTER 2018-08-08 12:35 | Outpatient (CLI) | payer MEDICARE, MEDICAID, SELFPAY ==
[2018-08-08 13:28] LABS: Absolute Basophil Count 0.05 k/cumm (0.0-0.2); Absolute Eosinophil Count 0.08 k/cumm (0.0-0.7); Absolute Lymphocyte Count 1.45 k/cumm (1.2-3.4); Absolute Monocyte Count 1.52 k/cumm (0.11-0.7); Absolute Neutrophil Count 5.09 k/cumm (1.2-6.7); Basophils % 0.6; HGB 11.3 g/dL (13.5-17.5); Lymphocytes % 17.4; Mean Corp. HGB Concentration 30.5 g/dL (32.0-36.0); Mean Corpuscular Hemoglobin 31.3 pg (27.0-33.0); Mean Corpuscular Volume 102.5 fL (80-95); Mean Platelet Volume 12.6 fL (8.0-11.0); Monocytes % 18.2; Neutrophils % 60.9; Platelet Count 154 x1000/uL (130-400); RBC 3.61 m/cumm (4.50-6.00); RBC Distribution Width 14.5 % (11.8-14.1); White Blood Cell Count 8.35 k/cumm (4.4-10.8)
[2018-08-08 13:41] LABS: Anion Gap 12.6 mmol/L (3-11); BUN 27 mg/dL (7-18); CO2 27.4 mmol/L (21.0-32.0); CREATININE 1.48 mg/dL (0.70-1.30); Calcium 8.7 mg/dL (8.5-10.1); Chloride 104 mmol/L (98-107); Estimated GFR 46.34 (mL/min/1.73m2); Glucose 201 mg/dL (70-100); Potassium 4.5 mmol/L (3.5-5.1); Sodium 144 mmol/L (136-145)
[2018-08-08 13:54] LABS: Diff Comment Diff Reviewed; RBC Morphology Normal
== END 2018-08-08 12:55 ==
PROVIDERS: PCP Family Medicine; Visit Provider Nurse Practitioner Adult Health
DX: D50.0 Iron deficiency anemia secondary to blood loss (chronic) (principal); N20.0 Calculus of kidney
CPT/HCPCS: 80048; 99213; 99304; 85025

== ENCOUNTER 2018-08-15 14:41 | Outpatient (REF) | payer MEDICARE, MEDICAID, SELFPAY ==
[2018-08-15 13:35] LABS: Hemoglobin A1C 7.5 % (4.5-6.2)
== END 2018-08-15 15:01 ==
LOC: LBO 14:41
PROVIDERS: PCP Family Medicine; Visit Provider Nurse Practitioner Adult Health
DX: E11.29 Type 2 diabetes mellitus with other diabetic kidney complication (principal)
CPT/HCPCS: 36415; 83036

== ENCOUNTER 2018-10-23 16:22 | Outpatient (REF) | payer MEDICARE, MEDICAID, SELFPAY ==
[2018-10-23 14:12] LABS: Abs Immature Grans 0.13 k/cumm (0.0-0.09); Absolute Basophil Count 0.03 k/cumm (0.0-0.2); Absolute Eosinophil Count 0.06 k/cumm (0.0-0.7); Absolute Lymphocyte Count 1.36 k/cumm (1.2-3.4); Absolute Monocyte Count 1.63 k/cumm (0.11-0.7); Absolute Neutrophil Count 6.88 k/cumm (1.2-6.7); Basophils % 0.3; Eosinophils % 0.6; HCT 38.1 % (40.0-50.0); HGB 12.3 g/dL (13.5-17.5); Immature Grans % 1.3; Lymphocytes % 13.5; Mean Corp. HGB Concentration 32.3 g/dL (32.0-36.0); Mean Corpuscular Hemoglobin 32.5 pg (27.0-33.0); Mean Corpuscular Volume 100.8 fL (80-95); Mean Platelet Volume 12.8 fL (8.0-11.0); Monocytes % 16.2; Neutrophils % 68.1; Platelet Count 104 x1000/uL (130-400); RBC 3.78 m/cumm (4.50-6.00); RBC Distribution Width 13.9 % (11.8-14.1); White Blood Cell Count 10.09 k/cumm (4.4-10.8)
[2018-10-23 14:41] LABS: Diff Comment Diff Reviewed; RBC Morphology Normal
== END 2018-10-23 16:42 ==
LOC: LBN 16:22
PROVIDERS: PCP Nurse Practitioner Adult Health; Visit Provider Nurse Practitioner Adult Health
DX: D50.0 Iron deficiency anemia secondary to blood loss (chronic) (principal)
CPT/HCPCS: 85025

== ENCOUNTER 2018-11-28 12:48 | Outpatient (CLI) | payer MEDICARE, MEDICAID, SELFPAY ==
[2018-11-28 13:34] LABS: Abs Immature Grans 0.17 k/cumm (0.0-0.09); Absolute Basophil Count 0.04 k/cumm (0.0-0.2); Absolute Eosinophil Count 0.07 k/cumm (0.0-0.7); Absolute Lymphocyte Count 1.66 k/cumm (1.2-3.4); Absolute Monocyte Count 2.05 k/cumm (0.11-0.7); Basophils % 0.4; Eosinophils % 0.7; HCT 38.6 % (40.0-50.0); HGB 12.1 g/dL (13.5-17.5); Immature Grans % 1.6; Lymphocytes % 15.8; Mean Corp. HGB Concentration 31.3 g/dL (32.0-36.0); Mean Corpuscular Hemoglobin 31.7 pg (27.0-33.0); Mean Platelet Volume 13.2 fL (8.0-11.0); Monocytes % 19.5; Platelet Count 103 x1000/uL (130-400); RBC 3.82 m/cumm (4.50-6.00); White Blood Cell Count 10.49 k/cumm (4.4-10.8)
[2018-11-28 14:09] LABS: Anion Gap 10.8 mmol/L (3-11); BUN 35 mg/dL (7-18); CO2 27.2 mmol/L (21.0-32.0); Calcium 8.3 mg/dL (8.5-10.1); Chloride 104 mmol/L (98-107); Estimated GFR 39.49 (mL/min/1.73m2); Glucose 277 mg/dL (70-100); Potassium 4.7 mmol/L (3.5-5.1); Sodium 142 mmol/L (136-145)
[2018-11-28 14:22] LABS: Diff Comment Agrees w/ Instrument; Polychromasia Present
[2018-11-28 14:23] LABS: Stomatocytes 2+
== END 2018-11-28 13:08 ==
PROVIDERS: PCP Nurse Practitioner Adult Health; Visit Provider Nurse Practitioner Adult Health
DX: R73.01 Impaired fasting glucose (principal); R19.7 Diarrhea, unspecified
CPT/HCPCS: 36415; 80048; 85025

== ENCOUNTER 2018-12-08 16:16 | Outpatient (REF) | payer MEDICARE, MEDICAID, SELFPAY ==
[2018-12-08 19:27] LABS: Source: Other
[2018-12-08 19:28] LABS: pH Body Fluid 7
== END 2018-12-08 16:36 ==
LOC: LBN 16:16
PROVIDERS: PCP Nurse Practitioner Adult Health; Visit Provider Nurse Practitioner Adult Health
DX: N20.0 Calculus of kidney (principal)
CPT/HCPCS: 83986

== ENCOUNTER 2019-02-13 14:06 | Outpatient (CLI) | payer MEDICARE, MEDICAID, SELFPAY | END 2019-02-13 14:26 | PROVIDERS: PCP Nurse Practitioner Adult Health; Visit Provider Nurse Practitioner Adult Health | DX: I48.91 Unspecified atrial fibrillation (principal) | CPT/HCPCS: 93005; 93010 ==

== ENCOUNTER 2019-02-15 12:22 | Outpatient (REF) | payer MEDICARE, MEDICAID, SELFPAY ==
[2019-02-15 13:24] LABS: Abs Immature Grans 0.18 k/cumm (0.0-0.09); Absolute Basophil Count 0.04 k/cumm (0.0-0.2); Absolute Eosinophil Count 0.08 k/cumm (0.0-0.7); Absolute Lymphocyte Count 1.73 k/cumm (1.2-3.4); Absolute Monocyte Count 1.69 k/cumm (0.11-0.7); Basophils % 0.4; Eosinophils % 0.8; HCT 41.7 % (40.0-50.0); Immature Grans % 1.7; Lymphocytes % 16.3; Mean Corp. HGB Concentration 31.2 g/dL (32.0-36.0); Mean Corpuscular Hemoglobin 31.6 pg (27.0-33.0); Mean Corpuscular Volume 101.5 fL (80-95); Mean Platelet Volume 12.9 fL (8.0-11.0); Monocytes % 15.9; Neutrophils % 64.9; RBC 4.11 m/cumm (4.50-6.00); White Blood Cell Count 10.62 k/cumm (4.4-10.8)
[2019-02-15 13:55] LABS: Diff Comment Agrees w/ Instrument; Macrocytosis 2+; Platelet Count 105 x1000/uL (130-400); Polychromasia Present
[2019-02-15 14:21] LABS: ALT 39 U/L (16-63); AST 24 U/L (15-37); Albumin 3.4 g/dL (3.4-5.0); Alkaline Phosphatase 58 U/L (46-116); Anion Gap 8.5 mmol/L (3-11); BUN 30 mg/dL (7-18); Bilirubin, Total 0.3 mg/dL (0.2-1.0); CO2 30.5 mmol/L (21.0-32.0); Calcium 9.1 mg/dL (8.5-10.1); Chloride 106 mmol/L (98-107); Estimated GFR 39.49 (mL/min/1.73m2); Glucose 156 mg/dL (70-100); Potassium 4.9 mmol/L (3.5-5.1); Sodium 145 mmol/L (136-145); TSH 1.32 uIU/mL (0.36-3.74); Total Protein 7.3 g/dL (6.4-8.2)
== END 2019-02-15 12:42 ==
LOC: LBN 12:22
PROVIDERS: PCP Family Medicine; Visit Provider Nurse Practitioner Adult Health
DX: I10 Essential (primary) hypertension (principal); E11.9 Type 2 diabetes mellitus without complications; I69.314 Frontal lobe and executive function deficit following cerebral infarction
CPT/HCPCS: 80053; 83735; 84443; 85025

== ENCOUNTER 2019-02-20 11:57 | Outpatient (REF) | payer MEDICARE, MEDICAID, SELFPAY ==
[2019-02-20 13:53] LABS: Hemoglobin A1C 7.9 % (4.5-6.2)
== END 2019-02-20 12:17 ==
LOC: LBN 11:57
PROVIDERS: PCP Family Medicine; Visit Provider Nurse Practitioner Adult Health
DX: E11.40 Type 2 diabetes mellitus with diabetic neuropathy, unspecified (principal)
CPT/HCPCS: 83036

== ENCOUNTER → 2019-03-06 11:13 | Outpatient (BNVA) | payer MEDICARE, MEDICAID, SELFPAY | PROVIDERS: PCP Family Medicine; Referring Provider Nurse Practitioner Adult Health; Visit Provider Urology | DX: N39.41 Urge incontinence (principal) | CPT/HCPCS: 99213 ==

== ENCOUNTER 2019-03-26 08:45 | Outpatient (CLI) | payer MEDICARE, MEDICAID, SELFPAY | END 2019-03-26 09:05 | PROVIDERS: PCP Family Medicine; Visit Provider Internal Medicine Cardiovascular Disease | DX: I48.91 Unspecified atrial fibrillation (principal); I10 Essential (primary) hypertension; E78.5 Hyperlipidemia, unspecified | CPT/HCPCS: 99203; 99214; 93005; 93010 ==

== ENCOUNTER 2019-04-09 16:52 | Emergency (ER) | payer MEDICARE, MEDICAID, SELFPAY ==
[2019-04-09 17:01] VITALS: BP 138/61; PULSE 69; RESP 20; TEMP 36.2; O2SAT 93
--- NOTE | 2019-04-09 17:40 | W.ED.GENAD ---
Discharge Plan Disposition Patient Disposition: HOME Condition: Good Discharge Details Chief Complaint: Suicide-Atempt Clinical Impression: Evaluation by medical service required Primary Care Provider: Hever Presley ED Provider: Castro Sánchez Home Meds and New Rx's Prescriptions: No Action oxybutynin chloride 10 mg tablet extended release 24hr 10 mg PO DAILY Qty: 90 RF: 0 Myrbetriq 50 mg tablet extended release 24 hr 50 mg PO DAILY Qty: 90 RF: 4 Novolog Flexpen U-100 Insulin 100 unit/mL (3 mL) insulin pen See Rx Instructions subcut AC & HS Qty: 15 RF: 4 (DME) blood-glucose meter [OneTouch Ultra2 Meter] Kit See Rx Instructions .ROUTE .MEDSUPPLY Qty: 1 RF: 0 potassium citrate 10 mEq (1,080 mg) tablet extended release 10 meq PO BID Qty: 180 RF: 4 diltiazem HCl 120 mg capsule,extended release 24hr 120 mg PO DAILY Qty: 90 RF: 4 clopidogrel [Plavix] 75 mg tablet 75 mg PO HS Qty: 90 RF: 4 pantoprazole 40 mg tablet,delayed release (DR/EC) 40 mg PO HS Qty: 90 RF: 4 montelukast 10 mg tablet 10 mg PO DAILY Qty: 90 RF: 0 multivitamin Capsule 1 cap PO DAILY Qty: 90 RF: 4 magnesium oxide 400 mg magnesium tablet 400 mg PO DAILY Qty: 90 RF: 4 losartan 25 mg tablet 25 mg PO DAILY Qty: 90 RF: 4 furosemide 20 mg tablet 20 mg PO DAILY Qty: 30 RF: 4 gabapentin 100 mg capsule 100 mg PO TID Qty: 270 RF: 4 ascorbic acid (vitamin C) [Vitamin C] 500 mg tablet 500 mg PO DAILY Qty: 90 RF: 0 finasteride 5 mg tablet 5 mg PO DAILY Qty: 90 RF: 4 aspirin 81 mg tablet,delayed release (DR/EC) 81 mg PO DAILY Qty: 90 RF: 4 duloxetine 60 mg capsule,delayed release(DR/EC) 60 mg PO HS Qty: 90 RF: 4 sodium bicarbonate 650 mg tablet 650 mg PO BID PRN (Reason: stomach upset) Qty: 180 RF: 4 ferrous sulfate 325 mg (65 mg iron) tablet 325 mg PO DAILY Qty: 90 RF: 4 tamsulosin 0.4 mg capsule 0.8 mg PO DAILY Qty: 180 RF: 4 simvastatin 40 mg tablet 40 mg PO DAILY Qty: 90 RF: 4 olanzapine [Zyprexa] 5 mg tablet 5 mg PO DAILY Qty: 90 RF: 4 C-Pap RF: 0 ergocalciferol (vitamin D2) [Vitamin D2] 50,000 unit capsule 50,000 unit PO monthly Qty: 3 RF: 4 (DME) incontinence pad, liner, disp Pad See Rx Instructions .ROUTE .MEDSUPPLY Qty: 180 RF: 4 (DME) lancets [OneTouch Delica Lancets] 30 gauge misc See Rx Instructions .ROUTE .MEDSUPPLY Qty: 200 RF: 4 (DME) OneTouch Ultra Blue Test Strip Strip See Rx Instructions .ROUTE .MEDSUPPLY Qty: 100 RF: 4 trazodone 50 mg tablet 50 mg PO QHS PRN (Reason: sleep) Qty: 30 RF: 1 (DME) pen needle, diabetic [BD Ultra-Fine Ana Pen Needle] 32 gauge x 5/32 needle 1 ea Miscellaneous 8 time a day Qty: 240 RF: 4 Humulin R U-500 (Conc) Insulin 500 unit/mL solution 90 unit SC TID Qty: 20 RF: 5 (DME) BD Insulin Syringe U-500 1/2 mL 31 gauge x 15/64 syringe See Rx Instructions .ROUTE .MEDSUPPLY Qty: 200 RF: 0 meprobamate 400 mg tablet 400 mg PO TID Qty: 90 RF: 2 Discharge Instructions Additional Instructions: You will be contacted by case management for further options for housing. If you notice any worsening of your symptoms, or any new symptoms such as vomiting, diarrhea, fever, chills, shortness of breath, chest pain, numbness, weakness, or fainting , please return immediately to the emergency department for reevaluation. Please follow up with your primary care provider as soon as possible for reassessment and reevaluation. As always, it was a pleasure participating in your medical care today. Referrals: Hever Presley MD [Primary Care Provider] - Medical Decision Making This is a pleasant 73-year-old male with a past medical history of A. fib on Plavix, hypertension high cholesterol congestive heart failure and diabetes who presents for evaluation by care management team. At home where he is normally cared for by one person it is been discussed with him that they feel that they are unable to care for him adequately. And they are requesting that he be transferred to live with 2 other people who would be able to better care for him. The patient did not find this congruent with his desires. He stated initially that he would kill himself if this happened. Currently though he regrets stating that, and states he does not want to kill or harm himself or hurt anyone else. He just wants to stay with his current caregiver. He denies any previous suicidal ideations, he denies any suicidal ideations at this time. Exam is unremarkable. Vital signs stable. We will consult her case management team for further assessment. He does not need a mental health screening exam as he has no homicidal or suicidal ideations, and no intent to self-harm. Patient does state that he is willing to speak with care management and will have an open mind moving forward. 8 PM Patient has been evaluated by both case management and our mental health team. At this time they do feel that the patient is stable to go home, and would do well at home. They will be trying to look for new opportunities for care for the patient. I have extensively reviewed the treatment plan and discharge instructions with the patient. I have addressed all patient concerns at this time. The patient was made aware of what symptoms to monitor for that would warrant a return to the emergency department. Discussed the plan with the patient, they demonstrate verbal understanding and agreement with our assessment and plan at this time. Time of final assessment patient has continued to demonstrate no homicidal or suicidal ideations. HPI General Date/Time Provider Initiated Documentation: 04/09/19 17:09. HPI Narrative: This is a 73-year-old male with a past medical history of A. fib, hypertension, high cholesterol, diabetes, congestive heart failure, on Plavix, who presents for evaluation of care management assessment. Per the patient and his chronic caregiver they feel that they are having difficulty caring for him at home, and because of this they have sought out to send him to home with 2 caregivers. Instead of just 1. When this was discussed with the patient he stated very clearly that he did not want this and made a comment to the caregiver that he would kill himself if this happened. The care team for the patient referred him to the ER for further evaluation. Currently the patient denies any homicidal or suicidal ideations. He states that he does not want to kill himself or hurt himself or hurt others he just does not want to go to a new home. He denies chest pain, shortness of breath, fever, chills, nausea, vomiting, diarrhea, numbness, tingling, weakness. He denies any auditory visual hallucinations. He has no other complaints at this time. He denies taking any extra medications. His medications are closely watched by his current caregiver. He denies previous history of suicidal attempts. Related Data Home Medications Medication Instructions Recorded Confirmed ergocalciferol (vitamin D2) 1,250 50,000 unit PO monthly #3 tab-cap 03/06/18 04/09/19 mcg (50,000 unit) capsule ascorbic acid (vitamin C) 500 mg 500 mg PO DAILY #90 tab 03/06/19 04/09/19 tablet blood-glucose meter #1 each 03/06/19 03/06/19 clopidogrel 75 mg tablet 75 mg PO HS #90 tab 03/06/19 04/09/19 diltiazem HCl 120 mg 120 mg PO DAILY #90 cap 03/06/19 04/09/19 capsule,extended release 24 hr finasteride 5 mg tablet 5 mg PO DAILY #90 tab 03/06/19 04/09/19 furosemide 20 mg tablet 20 mg PO DAILY #30 tab 03/06/19 04/09/19 gabapentin 100 mg capsule 100 mg PO TID #270 cap 03/06/19 04/09/19 insulin aspart U-100 100 unit/mL See Rx Instructions SUBCUT AC & HS 03/06/19 04/09/19 (3 mL) subcutaneous pen #15 ml losartan 25 mg tablet 25 mg PO DAILY #90 tab 03/06/19 04/09/19 magnesium oxide 400 mg PO DAILY #90 tab 03/06/19 04/09/19 mirabegron 50 mg tablet,extended 50 mg PO DAILY #90 tab-cap 03/06/19 04/09/19 release 24 hr montelukast 10 mg tablet 10 mg PO DAILY #90 mg 03/06/19 04/09/19 multivitamin 1 cap PO DAILY #90 cap 03/06/19 04/09/19 oxybutynin chloride 10 mg 10 mg PO DAILY #90 tab 03/06/19 04/09/19 tablet,extended release 24 hr pantoprazole 40 mg tablet,delayed 40 mg PO HS #90 tab 03/06/19 04/09/19 release potassium citrate 10 mEq (1,080 10 meq PO BID #180 tab 03/06/19 04/09/19 mg) tablet,extended release aspirin 81 mg tablet,delayed 81 mg PO DAILY #90 tab 03/07/19 04/09/19 release duloxetine 60 mg capsule,delayed 60 mg PO HS #90 cap 03/07/19 04/09/19 release ferrous sulfate 325 mg (65 mg 325 mg PO DAILY #90 tab 03/07/19 04/09/19 iron) tablet olanzapine 5 mg tablet 5 mg PO DAILY #90 tab 03/07/19 04/09/19 simvastatin 40 mg tablet 40 mg PO DAILY #90 tab 03/07/19 04/09/19 sodium bicarbonate 650 mg tablet 650 mg PO BID PRN #180 tab 03/07/19 04/09/19 tamsulosin 0.4 mg capsule 0.8 mg PO DAILY #180 cap 03/07/19 04/09/19 incontinence pad, liner, disp #180 each 03/08/19 blood sugar diagnostic #100 each 03/12/19 lancets 30 gauge #200 each 03/12/19 trazodone 50 mg tablet 50 mg PO QHS PRN #30 tab 04/03/19 04/09/19 insulin U-500 syringe-needle 1/2 #200 each 04/05/19 mL 31 gauge x 15/64 insulin regular hum U-500 conc 500 90 unit SC TID #20 ml 04/05/19 04/09/19 unit/mL subcutaneous soln meprobamate 400 mg tablet 400 mg PO TID #90 tab 04/05/19 04/09/19 pen needle, diabetic 32 gauge x #240 ea 04/05/19/32 Previous Rx's Medication Instructions Recorded ergocalciferol (vitamin D2) 1,250 50,000 unit PO monthly #3 tab-cap 03/06/18 mcg (50,000 unit) capsule ascorbic acid (vitamin C) 500 mg 500 mg PO DAILY #90 tab 03/06/19 tablet blood-glucose meter #1 each 03/06/19 clopidogrel 75 mg tablet 75 mg PO HS #90 tab 03/06/19 diltiazem HCl 120 mg 120 mg PO DAILY #90 cap 03/06/19 capsule,extended release 24 hr finasteride 5 mg tablet 5 mg PO DAILY #90 tab 03/06/19 furosemide 20 mg tablet 20 mg PO DAILY #30 tab 03/06/19 gabapentin 100 mg capsule 100 mg PO TID #270 cap 03/06/19 insulin aspart U-100 100 unit/mL See Rx Instructions SUBCUT AC & HS 03/06/19 (3 mL) subcutaneous pen #15 ml losartan 25 mg tablet 25 mg PO DAILY #90 tab 03/06/19 magnesium oxide 400 mg PO DAILY #90 tab 03/06/19 mirabegron 50 mg tablet,extended 50 mg PO DAILY #90 tab-cap 03/06/19 release 24 hr montelukast 10 mg tablet 10 mg PO DAILY #90 mg 03/06/19 multivitamin 1 cap PO DAILY #90 cap 03/06/19 oxybutynin chloride 10 mg 10 mg PO DAILY #90 tab 03/06/19 tablet,extended release 24 hr pantoprazole 40 mg tablet,delayed 40 mg PO HS #90 tab 03/06/19 release potassium citrate 10 mEq (1,080 10 meq PO BID #180 tab 03/06/19 mg) tablet,extended release aspirin 81 mg tablet,delayed 81 mg PO DAILY #90 tab 03/07/19 release duloxetine 60 mg capsule,delayed 60 mg PO HS #90 cap 03/07/19 release ferrous sulfate 325 mg (65 mg 325 mg PO DAILY #90 tab 03/07/19 iron) tablet olanzapine 5 mg tablet 5 mg PO DAILY #90 tab 03/07/19 simvastatin 40 mg tablet 40 mg PO DAILY #90 tab 03/07/19 sodium bicarbonate 650 mg tablet 650 mg PO BID PRN #180 tab 03/07/19 tamsulosin 0.4 mg capsule 0.8 mg PO DAILY #180 cap 03/07/19 incontinence pad, liner, disp #180 each 03/08/19 blood sugar diagnostic #100 each 03/12/19 lancets 30 gauge #200 each 03/12/19 trazodone 50 mg tablet 50 mg PO QHS PRN #30 tab 04/03/19 insulin U-500 syringe-needle 1/2 #200 each 04/05/19 mL 31 gauge x 15/64 insulin regular hum U-500 conc 500 90 unit SC TID #20 ml 01/02/20 unit/mL subcutaneous soln meprobamate 400 mg tablet 400 mg PO TID #90 tab 04/05/19 pen needle, diabetic 32 gauge x #240 ea 04/05/19 Allergies Allergy/AdvReac Type Severity Reaction Status Date / Time tetracycline Allergy Unknown Unverified 04/09/19 17:07 propofol AdvReac Severe drops BP Unverified 04/09/19 17:07 way down oxycodone AdvReac Intermediate Agitation Unverified 04/09/19 17:07 tetrex Allergy Unknown Uncoded 04/09/19 17:07 General Stated Complaint: Suicide-Atempt PETER: 2 Review of Systems All systems reviewed & are unremarkable except as noted in HPI and below PFSH Social History Smoking/Tobacco Use Status: Former Tobacco Use Alcohol Intake: never Drug use: Never Caregiver/Support person: Yes Household members: caregiver Housing: other Details: [facility] with Brett torres Mayelin Perfecto Number of Children: 1 Communication Needs: Hard of Hearing and Corrective Lenses Education Level: high school Do you need help understanding health information?: Always 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; 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 Pets and animals: Yes What is your relationship status?: How often do you talk on the phone with friends or family?: twice per week How often do you get together with friends or relatives?: once per week Panel score (0-1 are the most socially isolated patients): 2 What type of physical activity do you participate in: none, sedentary lifestyle and wheelchair-bound Special aidee needs: No Seatbelt use: always Working smoke detector in home: Yes Fire extinguisher in home: Yes Do you feel safe at home: Yes Do you feel safe in your relationship?: Yes Additional Social history: Now living in [facility]. Caregivers Mayelin and Brett Perfecto. Moved in 2 days before 2018. Happy there. Getting out of the house. Enjoys Brett's sense of humor. Has a new cat, Ruger. More active. Getting OOB. Getting dressed. Being more social than he has been. Exam Narrative Exam Narrative: 1.Const: Well-nourished, Well-developed, appearing stated age 2.Eyes: PERRL, no conjunctival injection, and symmetrical lids. 3.ENT: Atraumatic external nose and ears. Moist MM. Neck: Symmetric, trachea midline, No thyromegaly. 4.CVS: +S1/S2, No murmurs or gallops. Peripheral pulses 2+ and equal in all extremities. Brisk capillary refill in all extremities. 5.RESP: Unlabored respiratory effort. Clear to auscultation bilaterally. No wheezes rales or rhonchi 6.GI: Soft, Nontender/Nondistended, No hepatosplenomegaly. No guarding or rebound. 7.MSK: Normocephalic/Atraumatic, Extremities w/o deformity or ttp No cyanosis or clubbing, Normal movement of all extremities 8.Skin: Warm, Dry. No rashes or lesions. 9.Neuro: vp outcomes II-XII grossly intact. Sensation grossly intact, no focal neurologic deficits. 10.Psych: (AAO) x3. Appropriate mood and affect Course Vital Signs Vital signs: Vital Signs Temperature 36.2 C L 04/09/19 17:01 Pulse 69 04/09/19 17:01 Respiratory Rate 20 04/09/19 17:01 Blood Pressure 138/61 04/09/19 17:01 Pulse Oximetry 93 L 04/09/19 17:01 Temperature 36.2 C L 04/09/19 17:01 Temperature Source Skin 04/09/19 17:01 Pulse 69 04/09/19 17:01 Respiratory Rate 20 04/09/19 17:01 Respiratory Effort 04/09/19 17:01 Blood Pressure 138/61 04/09/19 17:01 Blood Pressure Position Sitting 04/09/19 17:01 Pulse Oximetry 93 L 04/09/19 17:01 Oxygen Delivery Method Nasal Cannula 04/09/19 17:01 Oxygen Flow Rate 3 04/09/19 17:01 Pain Level 0 04/09/19 17:01
--- NOTE | 2019-04-16 09:24 | IN_ITS ---
Date of service: 04/16/19 Time of Service: 09:24 PT Notes Physical Therapy Inpatient Initial Evaluation Date: 04/16/2019 Referring Doctor: Brett Shields MD PT Orders: PT CONSULT: Exacerbation Chronic Condition Precautions: Fall. Standard. Activity as tolerated. Patient Profile/Admitting Diagnosis: Pt is a 55-year-old male who presented to the ER on 04/15/2019 for a possible UTI, weakness, dizziness, and closed head injury following a fall at home. He has a history of CVA, diabetes, obesity, HTN, hyperlipidemia, and vascular dementia with behavior disturbances. 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 (Chronic 03/09/07) Depressive disorder (Chronic 05/04/11) Diabetes mellitus (Chronic 05/04/11) DVT prophylaxis (Inactive) Frequent falls (Chronic) Frontal lobe and executive function deficit following cerebral infarction (Chronic 03/23/16) Gait instability (Chronic) HCAP (healthcare-associated pneumonia) (Inactive) Late, effect, cerebrovascular disease (Chronic 03/09/07) Malignant neoplasm of sigmoid colon (Chronic 02/21/15) snf resident (Resolved) Obesity (Chronic) Palliative care patient (Chronic) Vascular dementia (Chronic) Vascular dementia with behavior disturbance (Chronic 03/23/16) Surgical History Appendectomy Arthroplasty of knee RIGHT HERNIA REPAIR X 3 History of arthroscopy of knee (Inactive) History of spinal surgery (Inactive) LOW BACK SURGERY PROPOFOL SEDATION 01/05/13; [facility] – [place]; DIFFICULT INTUBATION; B/P BOTTOMED OUT Status post appendectomy (Inactive) Tonsillectomy UPPP (Uvulopalatopharyngoplasty) Social History/Home Situation: Lived in a SNF in [facility] for one year before being transferred to a nursing home. Pt now lives in a nursing home with a line maintenance, Brett Grove, and one other resident. Lives in a one-story home, which the patient reports to be about 70 feet long. Ramp to enter home. Equipment Owned/DME: Four-wheeled walker. Subjective: Pt reports that he is dizzy. He states that he is able to ambulate in the nursing home using his walker and no longer uses his electric wheelchair. Reports about 12 falls in the 12-months with an additional 6 falls when using his walker. He reports that he has been able to walk outside around the home when able. For transferring in the nursing home he states that his line maintenance is able assist with transferring him. He hopes to go home today with a hospital bed. Objective: General Observation: Supine in bed with HOB elevated. On 3L/min of O2 via NC. Telemonitor in place and IV on LUE. Mental Status: alert and oriented x4 Pain: 0/10 Vital Signs: SpO2 97% at rest. ROM: Right Upper Extremity: Shoulder Flexion WFL. Shoulder abduction WFL. Elbow flexion WFL. Wrist flexion WFL. Opening and closing of hand WFL. Left Upper Extremity: Shoulder Flexion WFL. Shoulder abduction WFL. Elbow flexion WFL. Wrist flexion WFL. Opening and closing of hand WFL. Right Lower Extremity: Hip flexion WFL. Hip abduction WFL. Knee flexion WFL. Ankle dorsiflexion WFL. Ankle plantarflexion WFL. Left Lower Extremity: Hip flexion WFL. Hip abduction WFL. Knee flexion WFL. Ankle dorsiflexion WFL. Ankle plantarflexion WFL. Strength: Right Upper Extremity: Shoulder flexors 3-/5. Shoulder abductors 3-/5. Elbow flexors 4/5. Elbow extensors 4/5. Hoop Punch And Coiler Operator Helper strong. Left Upper Extremity: Shoulder flexors 3-/5. Shoulder abductors 3-/5. Elbow flexors 4-/5. Elbow extensors 4-/5. Hoop Punch And Coiler Operator Helper functional. Right Lower Extremity: Hip flexors 3-/5. Hip abductors 4/5. Knee flexors 4/5. Knee extensors 4/5. Ankle dorsiflexors 4/5. Ankle plantarflexors 4/5. Left Lower Extremity: Hip flexors 2-/5. Hip abductors 2-/5. Knee flexors 2-/5. Knee extensors 2-/5. Ankle dorsiflexors 2-/5. Ankle plantarflexors 2-/5. Sensation: Intact as to pain and pressure on bilateral lower extremities. Bed Mobility/Transfers: Rolling Supine to sit Min A x 1. Pt is able to transfer from supine to sitting on the edge of the bed with assistance from bed rail and assistance from PT to pull up to sitting from propped on elbows. Sit to supine SBA to supine in bed, however pt required mod A x 2 to adjust in bed. Pt demonstrated increased difficulty with breathing with mobility and required increase in O2 to 4 L/min due to decrease in SpO2 to 86% on 3L/min of O2 via NC. Sit to stand Min A of two and CGA, minimal verbal cueing Stand to sit Min A of two and CGA, minimal verbal cueing Bed to chair NT Chair to bed NT Gait: NT due to patient's refusal and level of fatigue. Balance: Static Sitting: Fair Dynamic Sitting: Fair Static Standing: Fair Dynamic Standing: Poor Special Tests: Mobility Limitations Standardized Measure [facility] AM-PAC 6 clicks Basic Mobility Inpatient Short Form: Raw Score: 14 CMS Score: 61.29% Informed Consent/Education: Patient instructed in purpose of PT consult and plan of care. Assessment: Pt is a 55-year-old male who presented to the ER on 04/15/2019 for a possible UTI, weakness, dizziness, and closed head injury following a fall at home. He has a history of CVA, diabetes, obesity, HTN, hyperlipidemia, and vascular dementia with behavior disturbances. On IE, patient demonstrated decreased UE and LE strength, greater on the left than right, difficulty with bed mobility and transfers, impaired sitting and standing balance, decreased activity tolerance, decreased respiratory function. [facility] with 61.29% deficit indicates referral to SNF. Pt would benefit from skilled physical therapy at this time. Patient presents with clinical signs and symptoms consistent with current/admitting diagnoses that have resulted to mobility limitations, gait instability, generalized weakness, and impairment of motor control as demonstrated by the following impairment level findings: 1. Decreased strength to B LE major muscle groups 2. Impaired sitting/standing balance 3. Impaired activity tolerance Impairments are contributing to the following functional limitations: 1. Dependent bed mobility skills 2. Increased dependence with transfers 3. Inability to safely ambulate without assistive device and physical assistance 4. Increase completion time for mobility ADL performance 5. Increased fall risk 6. Inability to negotiate steps alone safely Patient is assessed as a moderate complexity based on the following: History: Pt is a 55-year-old male who presented to the ER on 04/15/2019 for a possible UTI, weakness, dizziness, and closed head injury following a fall at home. He has a history of CVA, diabetes, obesity, HTN, hyperlipidemia, and vascular dementia with behavior disturbances. Examination: Demonstrable impairment in strength and balance with underlying impairments and functional limitations as documented above Presentation: Evolving Decision Makin moderate complexity Goals: Goals X1 week 1. Supine-Sit independent 2. Sit-Supine independent 3. Sit-Stand minimal assistance x1 4. Stand-Sit minimal assistance x1 5. Bed-Chair with minimal assistance 6. Chair-Bed with minimal assistance 7. Independent gait on level surface with use of least restrictive device for at least 50 feet without report of pain and minimal dyspnea 8. Independent with home exercise program 9. Good static and dynamic sitting balance/tolerance Plan of Care/Treatment Plan: 1-2x/day, 7 days/week x 1 week. Plan of care has been reviewed with the NAVAL ENGINEER providing the service under Physical Therapy direction. Initiate Physical Therapy intervention for strengthening, bed mobility, transfers, gait, stairs, balance training, use of assistive device. DISCHARGE RECOMMENDATIONS: Discharge to SNF TREATMENT CODE/TIME: 49222 x 46 minutes beginning at 9:24 A.M. Thank you very much for this referral. Kai Garzon, SPT Doctor of Physical Therapy Student [facility] Supervision provided by Yazmin Gallego PT, DPT, CLT [facility]
--- NOTE | 2019-04-19 17:13 | INDS_ITS ---
Date of service: 04/19/19 Time of Service: 17:13 PT Notes Inpatient Physical Therapy Discharge Summary Dates: 04/19/2019 Dates of Service: 04/16/2019 through 04/18/2019 This is a clinical summary of care provided on the duration of dates listed above. No charge was made in the completion of this documentation. Referring Doctor: Brett Shields MD PT Orders: PT CONSULT: Exacerbation Chronic Condition Precautions: Fall. Standard. Activity as tolerated. Patient Profile/Admitting Diagnosis: Pt is a 55-year-old male who presented to the ER on 04/15/2019 for a possible UTI, weakness, dizziness, and closed head injury following a fall at home. He has a history of CVA, diabetes, obesity, HTN, hyperlipidemia, and vascular dementia with behavior disturbances. 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 (Chronic 03/09/07) Depressive disorder (Chronic 05/04/11) Diabetes mellitus (Chronic 05/04/11) DVT prophylaxis (Inactive) Frequent falls (Chronic) Frontal lobe and executive function deficit following cerebral infarction (Chronic 03/23/16) Gait instability (Chronic) HCAP (healthcare-associated pneumonia) (Inactive) Late, effect, cerebrovascular disease (Chronic 03/09/07) Malignant neoplasm of sigmoid colon (Chronic 02/21/15) [facility] resident (Resolved) Obesity (Chronic) Palliative care patient (Chronic) Vascular dementia (Chronic) Vascular dementia with behavior disturbance (Chronic 03/23/16) Surgical History Appendectomy Arthroplasty of knee RIGHT HERNIA REPAIR X 3 History of arthroscopy of knee (Inactive) History of spinal surgery (Inactive) LOW BACK SURGERY PROPOFOL SED[facility] 01/05/13; [facility] [place]; DIFFICULT INTUBATION; B/P BOTTOMED OUT Status post appendectomy (Inactive) Tonsillectomy UPPP (Uvulopalatopharyngoplasty) Social History/Home Situation: Lived in a SNF in [facility] for one year before being transferred to a intermediate. Pt now lives in a intermediate with a poolroom/poolhall manager, Brett Grove, and one other resident. Lives in a one-story home, which the patient reports to be about 70 feet long. Ramp to enter home. Equipment Owned/DME: Four-wheeled walker. Subjective: NT Objective: General Observation: NT Mental Status: NT Pain: NT ROM: Right Upper Extremity: Shoulder Flexion WFL. Shoulder abduction WFL. Elbow flexion WFL. Wrist flexion WFL. Opening and closing of hand WFL. Left Upper Extremity: Shoulder Flexion WFL. Shoulder abduction WFL. Elbow flexion WFL. Wrist flexion WFL. Opening and closing of hand WFL. Right Lower Extremity: Hip flexion WFL. Hip abduction WFL. Knee flexion WFL. Ankle dorsiflexion WFL. Ankle plantarflexion WFL. Left Lower Extremity: Hip flexion WFL. Hip abduction WFL. Knee flexion WFL. Ankle dorsiflexion WFL. Ankle plantarflexion WFL. Strength: Right Upper Extremity: Shoulder flexors 3-/5. Shoulder abductors 3-/5. Elbow flexors 4/5. Elbow extensors 4/5. Automobile Mechanic Supervisor strong. Left Upper Extremity: Shoulder flexors 3-/5. Shoulder abductors 3-/5. Elbow flexors 4-/5. Elbow extensors 4-/5. Automobile Mechanic Supervisor functional. Right Lower Extremity: Hip flexors 3-/5. Hip abductors 4/5. Knee flexors 4/5. Knee extensors 4/5. Ankle dorsiflexors 4/5. Ankle plantarflexors 4/5. Left Lower Extremity: Hip flexors 2-/5. Hip abductors 2-/5. Knee flexors 2-/5. Knee extensors 2-/5. Ankle dorsiflexors 2-/5. Ankle plantarflexors 2-/5. Sensation: Intact as to pain and pressure on bilateral lower extremities. Bed Mobility/Transfers: Rolling independent Supine to sit independent Sit to supine independent Sit to stand SBA Stand to sit CGA Bed to chair CGA Chair to bed CGA Gait: Patient tolerated level surface ambulation of 30 feet x 2 with FWB using the front wheeled walker with SBA with increased shortness of breath and increased fatigue. Balance: Static Sitting: Fair Dynamic Sitting: Fair Static Standing: Fair Dynamic Standing: Fair Assessment: Pt is a 55-year-old male who presented to the ER on 04/15/2019 for a possible UTI, weakness, dizziness, and closed head injury following a fall at home. He has a history of CVA, diabetes, obesity, HTN, hyperlipidemia, and vascular dementia with behavior disturbances. On IE, patient demonstrated decreased UE and LE strength, greater on the left than right, difficulty with bed mobility and transfers, impaired sitting and standing balance, decreased activity tolerance, decreased respiratory function. Patient demonstrated improvement in functional mobility performance as indicated above during this episode of care Patient continues to present with clinical signs and symptoms consistent with current/admitting diagnoses that have resulted to mobility limitations, gait instability, generalized weakness, and impairment of motor control as demonstrated by the following impairment level findings: 1. Decreased strength to B LE major muscle groups 2. Impaired standing balance 3. Impaired activity tolerance Impairments continue to contribute to the following functional limitations: 1. Inability to safely ambulate without assistive device and physical assistance 2. Increase completion time for mobility ADL performance 3. Increased fall risk 4. Inability to negotiate steps alone safely Goals: Goals X1 week 1. Supine-Sit independent MET 2. Sit-Supine independent MET 3. Sit-Stand minimal assistance NOT MET 4. Stand-Sit minimal assistance NOT MET 5. Bed-Chair with minimal assistance NOT MET 6. Chair-Bed with minimal assistance NOT MET 7. Independent gait on level surface with use of least restrictive device for at least 50 feet without report of pain and minimal dyspnea NOT MET 8. Independent with home exercise program NOT MET 9. Good static and dynamic sitting balance/tolerance NOT MET DISCHARGE RECOMMENDATIONS: Patient will highly benefit from the use of a hospital bed in order to facilitate independence with all bed mobility and transfer task performance while reducing fall risk and decreasing burden of care. Return to intermediate with 24/7 live-in caregiver. Patient will benefit from home health PT services in order to progress mobility level using least restrictive assistive ambulatory device, assess home safety, identify additional equipment needs, and establish a functional maintenance program that will increase ability of patient to remain at home. TREATMENT CODE/TIME: NC. Thank you very much for this referral. Yazmin Gallego PT, DPT, CLT [facility]
== END 2019-04-09 20:10 | disposition home or self-care (01) ==
PROVIDERS: Emergency Provider Student in an Organized Health Care Education/Training Program; PCP Family Medicine
DX: Z00.8 Encounter for other general examination (principal); Z59.9 Problem related to housing and economic circumstances, unspecified; Z79.02 Long term (current) use of antithrombotics/antiplatelets; I48.91 Unspecified atrial fibrillation; I10 Essential (primary) hypertension; E11.9 Type 2 diabetes mellitus without complications; Z79.4 Long term (current) use of insulin
CPT/HCPCS: 99283; 99282

== ENCOUNTER 2019-04-15 18:07 | Inpatient (IN) | payer MEDICARE, MEDICAID, SELFPAY ==
[2019-04-15] VITALS (34 sets, daily range): BP systolic 110–143; BP diastolic 54–100; PULSE 49–174; RESP 9–20; TEMP 36.1–36.7; O2SAT 93–98
--- NOTE | 2019-04-15 18:21 | ED.GENADUL_ITS ---
Discharge Plan Disposition Patient Disposition: [facility] INPATIENT Condition: Stable Discharge Details Chief Complaint: GenMedical Clinical Impression: Dizziness, Weakness, UTI (urinary tract infection), Closed head injury Primary Care Provider: Hever Presley ED Provider: Jamal Coello [place] Meds and New Rx's Prescriptions: New cephalexin 500 mg tablet 500 mg PO TID Qty: 21 RF: 0 Continued oxybutynin chloride 10 mg tablet extended release 24hr 10 mg PO DAILY Qty: 90 RF: 0 Myrbetriq 50 mg tablet extended release 24 hr 50 mg PO DAILY Qty: 90 RF: 4 Humulin R U-500 (Conc) Insulin 500 unit/mL solution 90 unit SC AC Qty: 20 RF: 5 Basaglar KwikPen U-100 Insulin 100 unit/mL (3 mL) insulin pen 25 unit SC DAILY Qty: 15 RF: 4 promethazine-codeine 6.25-10 mg/5 mL syrup 5 ml PO Q4H PRN (Reason: cough) Qty: 240 RF: 1 (DME) blood-glucose meter [Urbantechuch Ultra2 Meter] Kit See Rx Instructions .ROUTE .MEDSUPPLY Qty: 1 RF: 0 potassium citrate 10 mEq (1,080 mg) tablet extended release 10 meq PO BID Qty: 180 RF: 4 diltiazem HCl 120 mg capsule,extended release 24hr 120 mg PO DAILY Qty: 90 RF: 4 clopidogrel [Plavix] 75 mg tablet 75 mg PO HS Qty: 90 RF: 4 pantoprazole 40 mg tablet,delayed release (DR/EC) 40 mg PO HS Qty: 90 RF: 4 montelukast 10 mg tablet 10 mg PO DAILY Qty: 90 RF: 0 multivitamin Capsule 1 cap PO DAILY Qty: 90 RF: 4 magnesium oxide 400 mg magnesium tablet 400 mg PO DAILY Qty: 90 RF: 4 losartan 25 mg tablet 25 mg PO DAILY Qty: 90 RF: 4 furosemide 20 mg tablet 20 mg PO DAILY Qty: 30 RF: 4 gabapentin 100 mg capsule 100 mg PO TID Qty: 270 RF: 4 ascorbic acid (vitamin C) [Vitamin C] 500 mg tablet 500 mg PO DAILY Qty: 90 RF: 0 finasteride 5 mg tablet 5 mg PO DAILY Qty: 90 RF: 4 aspirin 81 mg tablet,delayed release (DR/EC) 81 mg PO DAILY Qty: 90 RF: 4 duloxetine 60 mg capsule,delayed release(DR/EC) 60 mg PO HS Qty: 90 RF: 4 sodium bicarbonate 650 mg tablet 650 mg PO BID PRN (Reason: stomach upset) Qty: 180 RF: 4 ferrous sulfate 325 mg (65 mg iron) tablet 325 mg PO DAILY Qty: 90 RF: 4 tamsulosin 0.4 mg capsule 0.8 mg PO DAILY Qty: 180 RF: 4 simvastatin 40 mg tablet 40 mg PO DAILY Qty: 90 RF: 4 olanzapine [Zyprexa] 5 mg tablet 5 mg PO DAILY Qty: 90 RF: 4 C-Pap RF: 0 ergocalciferol (vitamin D2) [Vitamin D2] 50,000 unit capsule 50,000 unit PO monthly Qty: 3 RF: 4 (DME) incontinence pad, liner, disp Pad See Rx Instructions .ROUTE .MEDSUPPLY Qty: 180 RF: 4 (DME) lancets [OneTouch Delica Lancets] 30 gauge misc See Rx Instructions .ROUTE .MEDSUPPLY Qty: 200 RF: 4 (DME) OneTouch Ultra Blue Test Strip Strip See Rx Instructions .ROUTE .MEDSUPPLY Qty: 100 RF: 4 trazodone 50 mg tablet 50 mg PO QHS PRN (Reason: sleep) Qty: 30 RF: 1 (DME) pen needle, diabetic [BD Ultra-Fine Ana Pen Needle] 32 gauge x 5/32 needle 1 ea Miscellaneous 8 time a day Qty: 240 RF: 4 (DME) BD Insulin Syringe U-500 1/2 mL 31 gauge x 15/64 syringe See Rx Instructions .ROUTE .MEDSUPPLY Qty: 200 RF: 0 meprobamate 400 mg tablet 400 mg PO TID Qty: 90 RF: 2 Discharge Instructions Instructions: Urinary Tract Infection in Men (ED) Additional Instructions: your blood work and imaging did not show any concerning findings, your urine did show evidence of a urinary tract infection follow up with your primary care provider this week if you feel more ill, have worsening weakness or fevers return to the emergency department Medical Decision Making <Dianne Villegas DO - Last Filed: 04/15/19 19:57> 1825 -- 73-year-old male with a history of morbid obesity, diabetes, CVA, hypertension, hyperlipidemia, vascular dementia presents for dizziness, weakness and fall at home prior to arrival. Patient states he has felt dizzy with lightheadedness and spinning throughout the day and states he was walking this evening and his legs gave out which is not unusual for him. He states he then fell due to this and hit his head on the floor. He denies any LOC, vomiting, headache, chest pain, shortness of breath, abdominal pain, extremity pain or injury. He does admit to midline lower back pain which she states is new. EKG on arrival notes a rate of 87, A. fib, no acute ST ischemic changes. No obvious head trauma. No midline spinal tenderness. Chest and abdomen nontender. Full range of motion of all extremities without deformity or pain. Differential diagnosis includes dehydration, UTI, electrolyte abnormality, arrhythmia, pneumonia, fracture. Will place an IV, bolus IV fluids, labs, urinalysis, CT head/cervical spine/chest abdomen and pelvis and give a dose of Tylenol and meclizine and reassess. 1954 --imaging reviewed and negative for acute findings. 1999 -- case endorsed to Dr. Coello to f/u on labs and imaging and final disposition. Will attempt to ambulate. If able to ambulate with walker without dizziness, okay to discharge home. Medical Records Medical records reviewed: Yes I reviewed the patient's medical records. ECG Data Attestation: I personally reviewed and interpreted this ECG (s) as follows: Interpretation: Rate of 87, A. fib, no acute ST elevation or depression. QTc 420. QRS 90. <Jamal Coello MD - Last Filed: 04/15/19 21:13> Pt signed out to me pending results of metabolic panel which shows no acute findings from baseline, imaging shows no caute findings. UA does show evidence of uti. Patient attempted to stand but was unable to without two nurses helping him due to general weakness and he normally is able to take a few steps, him and his online journalist are uncomfortable with d/c in current state. Will admit for general weakness and uti Lab Data Lab results reviewed: Yes I reviewed the patient's lab results. HPI <Dianne Villegas DO - Last Filed: 04/15/19 19:57> General Mode of arrival: EMS . Date/Time Provider Initiated Documentation: 04/15/19 18:22 . Limitations to Documentation: no limitations . Information obtained by: patient and family . History of Present Illness 73 year old M presents to the emergency department with the chief complaint of dizziness, weakness, fall at home, Patient started experiencing this hour(s) (this morning) and it has been constant. No relieving factors improve symptom(s), No exacerbating factors reported . Patient notes denies fever/chills, headaches, loss of appetite, malaise, nausea/vomiting, rash, seizure, shortness of breath, syncope and weakness. Patient did receive the following treatments prior to arrival, none Related Data Home Medications Medication Instructions Recorded Confirmed ergocalciferol (vitamin D2) 1,250 50,000 unit PO monthly #3 tab-cap 03/06/18 04/15/19 mcg (50,000 unit) capsule ascorbic acid (vitamin C) 500 mg 500 mg PO DAILY #90 tab 03/06/19 04/15/19 tablet blood-glucose meter #1 each 03/06/19 04/10/19 clopidogrel 75 mg tablet 75 mg PO HS #90 tab 03/06/19 04/15/19 diltiazem HCl 120 mg 120 mg PO DAILY #90 cap 03/06/19 04/15/19 capsule,extended release 24 hr finasteride 5 mg tablet 5 mg PO DAILY #90 tab 03/06/19 04/15/19 furosemide 20 mg tablet 20 mg PO DAILY #30 tab 03/06/19 04/15/19 gabapentin 100 mg capsule 100 mg PO TID #270 cap 03/06/19 04/15/19 losartan 25 mg tablet 25 mg PO DAILY #90 tab 03/06/19 04/15/19 magnesium oxide 400 mg PO DAILY #90 tab 03/06/19 04/15/19 mirabegron 50 mg tablet,extended 50 mg PO DAILY #90 tab-cap 03/06/19 04/15/19 release 24 hr montelukast 10 mg tablet 10 mg PO DAILY #90 mg 03/06/19 04/15/19 multivitamin 1 cap PO DAILY #90 cap 03/06/19 04/15/19 oxybutynin chloride 10 mg 10 mg PO DAILY #90 tab 03/06/19 04/15/19 tablet,extended release 24 hr pantoprazole 40 mg tablet,delayed 40 mg PO HS #90 tab 03/06/19 04/15/19 release potassium citrate 10 mEq (1,080 10 meq PO BID #180 tab 03/06/19 04/10/19 mg) tablet,extended release aspirin 81 mg tablet,delayed 81 mg PO DAILY #90 tab 03/07/19 04/15/19 release duloxetine 60 mg capsule,delayed 60 mg PO HS #90 cap 03/07/19 04/15/19 release ferrous sulfate 325 mg (65 mg 325 mg PO DAILY #90 tab 03/07/19 04/15/19 iron) tablet olanzapine 5 mg tablet 5 mg PO DAILY #90 tab 03/07/19 04/15/19 simvastatin 40 mg tablet 40 mg PO DAILY #90 tab 03/07/19 04/15/19 sodium bicarbonate 650 mg tablet 650 mg PO BID PRN #180 tab 03/07/19 04/15/19 tamsulosin 0.4 mg capsule 0.8 mg PO DAILY #180 cap 03/07/19 04/15/19 incontinence pad, liner, disp #180 each 03/08/19 04/10/19 blood sugar diagnostic #100 each 03/12/19 04/10/19 lancets 30 gauge #200 each 03/12/19 04/10/19 trazodone 50 mg tablet 50 mg PO QHS PRN #30 tab 04/03/19 04/15/19 insulin U-500 syringe-needle 1/2 #200 each 04/05/19 04/10/19 mL 31 gauge x 15/64 meprobamate 400 mg tablet 400 mg PO TID #90 tab 04/05/19 04/15/19 pen needle, diabetic 32 gauge x #240 ea 04/05/19 04/10/19/32 insulin glargine 100 unit/mL (3 25 unit SC DAILY #15 ml 04/10/19 04/15/19 mL) subcutaneous pen insulin regular hum U-500 conc 500 90 unit SC AC #20 ml 04/10/19 04/15/19 unit/mL subcutaneous soln promethazine 6.25 mg-codeine 10 5 ml PO Q4H PRN #240 ml 04/10/19 04/10/19 mg/5 mL syrup cephalexin 500 mg PO TID #21 tab 04/15/19 Previous Rx's Medication Instructions Recorded ergocalciferol (vitamin D2) 1,250 50,000 unit PO monthly #3 tab-cap 03/06/18 mcg (50,000 unit) capsule ascorbic acid (vitamin C) 500 mg 500 mg PO DAILY #90 tab 03/06/19 tablet blood-glucose meter #1 each 03/06/19 clopidogrel 75 mg tablet 75 mg PO HS #90 tab 03/06/19 diltiazem HCl 120 mg 120 mg PO DAILY #90 cap 03/06/19 capsule,extended release 24 hr finasteride 5 mg tablet 5 mg PO DAILY #90 tab 03/06/19 furosemide 20 mg tablet 20 mg PO DAILY #30 tab 03/06/19 gabapentin 100 mg capsule 100 mg PO TID #270 cap 03/06/19 losartan 25 mg tablet 25 mg PO DAILY #90 tab 03/06/19 magnesium oxide 400 mg PO DAILY #90 tab 03/06/19 mirabegron 50 mg tablet,extended 50 mg PO DAILY #90 tab-cap 03/06/19 release 24 hr montelukast 10 mg tablet 10 mg PO DAILY #90 mg 03/06/19 multivitamin 1 cap PO DAILY #90 cap 03/06/19 oxybutynin chloride 10 mg 10 mg PO DAILY #90 tab 03/06/19 tablet,extended release 24 hr pantoprazole 40 mg tablet,delayed 40 mg PO HS #90 tab 03/06/19 release potassium citrate 10 mEq (1,080 10 meq PO BID #180 tab 03/06/19 mg) tablet,extended release aspirin 81 mg tablet,delayed 81 mg PO DAILY #90 tab 03/07/19 release duloxetine 60 mg capsule,delayed 60 mg PO HS #90 cap 03/07/19 release ferrous sulfate 325 mg (65 mg 325 mg PO DAILY #90 tab 03/07/19 iron) tablet olanzapine 5 mg tablet 5 mg PO DAILY #90 tab 03/07/19 simvastatin 40 mg tablet 40 mg PO DAILY #90 tab 03/07/19 sodium bicarbonate 650 mg tablet 650 mg PO BID PRN #180 tab 03/07/19 tamsulosin 0.4 mg capsule 0.8 mg PO DAILY #180 cap 03/07/19 incontinence pad, liner, disp #180 each 03/08/19 blood sugar diagnostic #100 each 03/12/19 lancets 30 gauge #200 each 03/12/19 trazodone 50 mg tablet 50 mg PO QHS PRN #30 tab 04/03/19 insulin U-500 syringe-needle 1/2 #200 each 04/05/19 mL 31 gauge x 15/ meprobamate 400 mg tablet 400 mg PO TID #90 tab 04/05/19 pen needle, diabetic 32 gauge x #240 ea 04/05/19 insulin glargine 100 unit/mL (3 25 unit SC DAILY #15 ml 04/10/19 mL) subcutaneous pen insulin regular hum U-500 conc 500 90 unit SC AC #20 ml 04/10/19 unit/mL subcutaneous soln promethazine 6.25 mg-codeine 10 5 ml PO Q4H PRN #240 ml 04/10/19 mg/5 mL syrup cephalexin 500 mg PO TID #21 tab 04/15/19 Allergies Allergy/AdvReac Type Severity Reaction Status Date / Time tetracycline Allergy Unknown Unverified 04/15/19 18:21 propofol AdvReac Severe drops BP Unverified 04/15/19 18:21 way down oxycodone AdvReac Intermediate Agitation Unverified 04/15/19 18:21 tetrex Allergy Unknown Uncoded 04/15/19 18:21 General Stated Complaint: GenMedical PETER: 3 Review of Systems <Dianne Villegas DO - Last Filed: 04/15/19 19:57> All systems reviewed & are unremarkable except as noted in HPI and below Constitutional Constitutional: Reports as per HPI, Denies chills, Denies fever(s) and Reports weakness Eyes Eyes: Denies blurry vision ENT Ears, Nose, Mouth, and Throat: Reports dizziness, Denies sore throat and Denies throat swelling Cardiovascular Cardiovascular: Denies chest pain and Denies dyspnea Respiratory Respiratory: Denies cough and Denies dyspnea Gastrointestinal Gastrointestinal: Denies abdominal pain, Denies diarrhea and Denies vomiting Genitourinary Genitourinary: Denies hematuria and Denies dysuria Musculoskeletal Musculoskeletal: Reports back pain and Denies numbness Integumentary/Breasts Skin/Breast: Denies lesions and Denies rash Neurologic Neurologic: Reports dizziness, Denies focal weakness, Denies numbness and Reports weakness Allergic/Immunologic Allergic/Immunologic: Denies throat swelling PFSH <Dianne Villegas DO - Last Filed: 04/15/19 19:57> Medical History A-fib (Acute) Cerebrovascular accident (CVA) (Chronic 05/04/11) 4 CVA'S 09/02/00-11/02/00 1 CVA 04/15/01 TIA'S 04/19/01 & 12/06/01 03/19/06 CVA VARIOUS STROKES SHOWN IN MRI 09/14 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 (Chronic 03/09/07) Depressive disorder (Chronic 05/04/11) Diabetes mellitus (Chronic 05/04/11) DVT prophylaxis (Inactive) Frequent falls (Chronic) Frontal lobe and executive function deficit following cerebral infarction (Chronic 03/23/16) Gait instability (Chronic) HCAP (healthcare-associated pneumonia) (Inactive) Late, effect, cerebrovascular disease (Chronic 03/09/07) Malignant neoplasm of sigmoid colon (Chronic 02/21/15) detention resident (Resolved) Obesity (Chronic) Palliative care patient (Chronic) Vascular dementia (Chronic) Vascular dementia with behavior disturbance (Chronic 03/23/16) Surgical History Appendectomy Arthroplasty of knee RIGHT HERNIA REPAIR X 3 History of arthroscopy of knee (Inactive) History of spinal surgery (Inactive) LOW BACK SURGERY PROPOFOL SED[place] 01/05/13[place] [facility] [place] DIFFICULT INTUBATION; B/P BOTTOMED OUT Status post appendectomy (Inactive) Tonsillectomy UPPP (Uvulopalatopharyngoplasty) Family History Mother , age 96 of old age per pt Essential hypertension Heart disease Father , age 81 from stomach cancer Cancer Sister Essential hypertension Brother Essential hypertension Grandfather Heart disease Grandfather Heart disease Grandmother Heart disease Social History Smoking/Tobacco Use Status: Former Tobacco Use Alcohol Intake: never Drug use: Never Caregiver/Support person: Yes Household members: other Housing: assisted Number of Children: 1 Communication Needs: Hard of Hearing and Corrective Lenses Education Level: high school Do you need help understanding health information?: Always 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; 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 Caregivers [place] and [place]. Moved in 2 days before 2018. Happy there. Getting out of the house. Enjoys Brett's sense of humor. Has a new cat, Ruger. More active. Getting OOB. Getting dressed. Being more social than he has been. Exam <Dianne Villegas DO - Last Filed: 04/15/19 19:57> Const General: cooperative and healthy appearing Orientation: alert and awake HENOH Head: normal to inspection, no palpable skull fracture, normocephalic and atraumatic Ears: hearing grossly normal bilaterally, external ears normal and TM's normal bilaterally General nose exam: external nose normal Face and sinus: normal facial exam Mouth: oral mucosae normal Teeth and gingiva: dentition normal Throat: posterior oropharynx normal Eyes General: appearance normal, both eyes and all related structures Eyelids: eyelids normal Pupils: PERRL EOM: EOM intact bilaterally Neck Neck: normal visual inspection Lymphatic: no lymphadenopathy noted Chest Chest: normal inspection of the chest, normal palpation of entire chest wall and no tenderness Resp Effort & Inspection: normal respiratory effort and able to speak in complete sentences Auscultation: clear to auscultation bilaterally Cardio Rate: regular rate Rhythm: regular rhythm GI Inspection: normal to inspection Palpation: soft, not firm, no guarding, no hepatosplenomegaly, no masses and nontender Auscultation: normal bowel sounds Back/Spine/Pelvis Back: no CVA tenderness Cervical Spine: No cervical spinal tenderness Thoracic/Lumbar Spine: No thoracic spinal tenderness and No lumbar spinal tenderness Pelvis: no pain with anterior-posterior compression Skin General skin exam: no rashes or lesions noted Neuro General: alert and awake Cognition: normal cognition Speech: speech normal Gait: normal gait Motor: muscle tone normal throughout Sensory Exam: no sensory deficits noted Extrem General: normal to inspection, full ROM and normal capillary refill Other: Full range of motion of bilateral upper and lower extremities without pain, deformity. Psych Appearance: grossly normal Mental Status: mental status grossly normal Speech and Movement: speech and movement normal Affect: normal affect Thought Process: normal Course <Dianne Villegas DO - Last Filed: 04/15/19 19:57> Vital Signs Vital signs: Vital Signs Pulse 94 H 04/15/19 18:11 Respiratory Rate 20 04/15/19 18:11 Blood Pressure 140/82 04/15/19 18:11 Pulse Oximetry 94 L 04/15/19 18:11 Pulse 94 H 04/15/19 18:11 Respiratory Rate 20 04/15/19 18:15 Respiratory Effort 04/15/19 18:15 Respiratory Depth Normal 04/15/19 18:15 Respiratory Pattern Normal 04/15/19 18:15 Blood Pressure 140/82 04/15/19 18:11 Pulse Oximetry 94 L 04/15/19 18:11 Oxygen Delivery Method Nasal Cannula 04/15/19 18:11 Oxygen Flow Rate 3 04/15/19 18:11 Pain Level 8 04/15/19 18:11 Comment 04/15/19 18:11 Sign Out <Dianne Villegas DO - Last Filed: 04/15/19 19:57> Sign Out Data: Sign Out Comment: Follow-up on labs and imaging and final disposition. Last updated by Dianne Villegas DO at 04/15/19 19:49
[2019-04-15 18:42] LABS: Bilirubin Negative (Negative); Blood Moderate (Negative); Clarity Cloudy (Clear); Glucose 250 mg/dL (Negative); Ketones Negative (Negative); Leukocyte Esterase Large (Negative); Nitrite Negative (Negative); Urobilinogen 0.2 EU/dL (Up TO 0.2)
[2019-04-15 18:49] LABS: Abs Immature Grans 0.08 k/cumm (0.0-0.09); Absolute Basophil Count 0.03 k/cumm (0.0-0.2); Absolute Eosinophil Count 0.09 k/cumm (0.0-0.7); Absolute Monocyte Count 1.69 k/cumm (0.11-0.7); Absolute Neutrophil Count 5.05 k/cumm (1.2-6.7); Basophils % 0.4; Eosinophils % 1.1; HCT 39.4 % (40.0-50.0); HGB 12.9 g/dL (13.5-17.5); Immature Grans % 0.9 %; Lymphocytes % 17.8; Mean Corp. HGB Concentration 32.7 g/dL (32.0-36.0); Mean Corpuscular Hemoglobin 32.9 pg (27.0-33.0); Mean Corpuscular Volume 100.5 fL (80-95); Mean Platelet Volume 12.6 fL (8.0-11.0); Neutrophils % 59.8; Platelet Count 114 x1000/uL (130-400); RBC 3.92 m/cumm (4.50-6.00); RBC Distribution Width 14.8 % (11.8-14.1); White Blood Cell Count 8.44 k/cumm (4.4-10.8)
[2019-04-15] MEDS: Meclizine 25 MG TAB PO (18:50)
[2019-04-15 18:54] LABS: WBC >50 HPF (0-5)
[2019-04-15 18:55] LABS: Bacteria Packed HPF (Negative); Epithelial Cells Negative HPF (Negative); Other Cells Few Transitional (Negative)
[2019-04-15 18:56] LABS: C & S Indicated? Yes
--- NOTE | 2019-04-15 18:56 | DI.CT_ITS ---
EXAM: CT CHEST/ABD/PEL WO and CT reconstructions of the lumbar spine CLINICAL HISTORY: s/p fall, lumbar spine pain. TECHNIQUE: Imaging Protocol: Axial computed tomography images with coronal and sagittal reformatted images were created and reviewed CONTRAST MATERIAL: Intravenous: Omnipaque 350 Contrast volume:0 mL contrast route:IV - Oral: No FINDINGS: CHEST: Tracheobronchial tree: Patent where visualized. Mediastinum and Hailey: No dominant adenopathy or fluid collection. Mildly enlarged lymph nodes are see n in the mediastinum. Pulmonary parenchyma: Dependent atelectasis is seen in the lung bases. No focal consolidating infilt rate is present. No architectural distortion. Pleura: No effusion or pneumothorax. Aorta: There is atherosclerosis. No aneurysmal dilatation is present. Heart: There is no cardiomegaly. Coronary artery calcifications are present. No significant pericar dial effusion is seen. Bones: There is irregularity of the anterior aspects of the left 3rd and 4th ribs. These are of inde terminate age. No other evidence to suggest an acute fracture or subluxation is seen. ABDOMEN: Liver: Normal density. No measurable mass. Gallbladder and biliary tract: No radiodense calculus or dilation. Pancreas: Pancreatic atrophy. Spleen: Normal. Kidneys: Normal size, contour and axis. Bilateral nephrolithiasis. Bilateral renal cysts. Adrenal glands: No masses seen. Lymph nodes: Within normal limits. Aorta: Atherosclerosis. No aneurysmal dilatation. PELVIS: Bladder: Symmetric distention, no gross wall thickening. Bowel: Colonic diverticulosis. Enterocolic anastomosis in the right abdomen. No bowel obstruction. No evidence of acute appendicitis. Peritoneal cavity: No ascites, collection or mesenteric inflammatory response. Bones: Within normal limits. No acute fracture or subluxation is seen in the lumbar spine. Reproductive organs: Enlarged prostate gland. IMPRESSION: 1. No acute abdominal or pelvic organ injury or fracture is seen on this noncontrast examination. 2. There is no evidence of a lumbar spine fracture. 3. Bilateral nephrolithiasis. No hydronephrosis. 4. Irregularity of the cortices of the anterior aspects of the left 3rd and 4th ribs. These may refl ect fractures. They are of indeterminate age. Please correlate with patient's site of pain. DATA REPOSITORY: All CT scans at this facility are submitted to the National Radiology Data Registry (NRDR) Dose Index Registry (DIR) with the [employer] (A[employer]). RADIATION OPTIMIZATION: All CT scans at this facility use at least one of these dose optimization te chniques: automated exposure control; mA and/or kV adjustment per patient size (includes targeted exa ms where dose is matched to clinical indication); or iterative reconstruction.
[2019-04-15 19:02] LABS: PTT Activated 22.3 sec (21.0-31.4); Prothrombin Time 10.5 sec (9.3-11.0)
--- NOTE | 2019-04-15 19:14 | DI.CT_ITS ---
EXAM: CT HEAD CERVICAL SPINE WO CLINICAL HISTORY: s/p fall, r/o acute fracture TECHNIQUE: Without contrast FINDINGS: CT head: There is cerebral atrophy consistent with the patient's age. There is a large area of encephalomalac ia again involving the right cerebral hemisphere. No acute intracranial hemorrhage is seen. There i s no acute midline shift or mass effect. The ventricles are intact. The basilar cisterns are patent . There is no evidence of a calvarial fracture. There is mucosal thickening in various visualized p aranasal sinuses. The mastoid air cells are well pneumatized. CT cervical spine: There are no acute fractures or subluxations in the cervical spine. The odontoid is intact. The lat eral masses are well aligned. There are multilevel degenerative changes seen in the cervical spine. The prevertebral soft tissues are unremarkable IMPRESSION: 1. No acute intracranial process. 2. No acute fracture or subluxation in the cervical spine.
[2019-04-15 19:17] LABS: Diff Comment Agrees w/ Instrument; Hypochromasia 1+; Macrocytosis 1+; Stomatocytes 2+
[2019-04-15] MEDS: Normal Saline 500 ML IV (19:22)
--- NOTE | 2019-04-15 19:32 | DI.VRAD_ITS ---
PROCEDURE INFORMATION: Exam: CT Chest Without Contrast Exam date and time: 04/15/2019 7:05 PM Age: 73 years old Clinical indication: Injury or trauma; Initial encounter; Generalized; Blunt trauma (contusions or hematomas); Injury date: 04/15/19; Injury details: Fall, R/O acute dx/hip, L spine; Patient HX: Pain after fall TECHNIQUE: Imaging protocol: Computed tomography of the chest without contrast. Radiation optimization: All CT scans at this facility use at least one of these dose optimization techniques: automated exposure control; mA and/or kV adjustment per patient size (includes targeted exams where dose is matched to clinical indication); or iterative reconstruction. COMPARISON: CT chest/abd/pel wo 12/30/2017 10:02 AM FINDINGS: Lungs: Mild subsegmental atelectasis versus scarring No consolidation. No masses. Pleural space: Unremarkable. No pneumothorax. No pleural effusion. Heart: No cardiomegaly. No significant pericardial effusion. Aorta: Unremarkable. No aortic aneurysm. Lymph nodes: Unremarkable. No enlarged lymph nodes. Bones/joints: Minimal irregularity to the left third and fourth ribs anteriorly of indeterminate age Soft tissues: Unremarkable. IMPRESSION: Minimal irregularity to the left third and fourth ribs anteriorly of indeterminate age No pneumothorax PROCEDURE INFORMATION: Exam: CT Abdomen And Pelvis Without Contrast Exam date and time: 04/15/2019 7:05 PM Age: 73 years old Clinical indication: Injury or trauma; Initial encounter; Generalized; Blunt trauma (contusions or hematomas); Injury date: 04/15/19; Injury details: Fall, R/O acute dx/hip, L spine; Patient HX: Pain after fall TECHNIQUE: Imaging protocol: Computed tomography of the abdomen and pelvis without contrast. Radiation optimization: All CT scans at this facility use at least one of these dose optimization techniques: automated exposure control; mA and/or kV adjustment per patient size (includes targeted exams where dose is matched to clinical indication); or iterative reconstruction. COMPARISON: CT chest/abd/pel wo 12/30/2017 10:02 AM FINDINGS: Liver: Normal. No mass. Gallbladder and bile ducts: Normal. No calcified stones. No ductal dilation. Pancreas: Normal. No ductal dilation. Spleen: Normal. No splenomegaly. Adrenals: Normal. No mass. Kidneys and ureters: Bilateral no full lithiasis. Bilateral renal cysts No hydronephrosis. Stomach and bowel: Unremarkable. No obstruction. No mucosal thickening. Appendix: No evidence of appendicitis. Intraperitoneal space: Unremarkable. No free air. No significant fluid collection. Vasculature: Atherosclerosis. No abdominal aortic aneurysm. Lymph nodes: Unremarkable. No enlarged lymph nodes. Bladder: Unremarkable as visualized. Reproductive: Moderate enlargement of the prostate gland Bones/joints: Degenerative changes in the spine No acute fracture. Soft tissues: Unremarkable. IMPRESSION: No solid organ injury detected Bilateral nephrolithiasis without hydronephrosis Dictated and Authenticated by: Luis Chavarria MD. Ordering:BRANDON Dean MD
[2019-04-15] MEDS: cefTRIAXone 1 GM/50 ML BAG IVPB (19:38)
--- NOTE | 2019-04-15 19:50 | DI.VRAD_ITS ---
PROCEDURE INFORMATION: Exam: CT Head Without Contrast Exam date and time: 04/15/2019 7:11 PM Age: 73 years old Clinical indication: Injury or trauma; Initial encounter; Blunt trauma (contusions or hematomas); Consciousness not specified; Injury date: 04/15/19; Injury details: Fall, hit head TECHNIQUE: Imaging protocol: Computed tomography of the head without contrast. Radiation optimization: All CT scans at this facility use at least one of these dose optimization techniques: automated exposure control; mA and/or kV adjustment per patient size (includes targeted exams where dose is matched to clinical indication); or iterative reconstruction. COMPARISON: CT Head^HEAD ROUTINE (Adult) 04/06/2018 2:13 PM FINDINGS: Brain: Unchanged extensive encephalomalacia and white matter hypoattenuation without the right cerebral cortex. No hemorrhage. No acute large vascular territory infarct. No mass effect. Ventricles: Normal. No ventriculomegaly. Bones/joints: Unremarkable. No acute fracture. Sinuses: Visualized sinuses are unremarkable. No fluid levels. Mastoid air cells: Visualized mastoid air cells are well aerated. Orbits: Bilateral lens replacement. Orbits and globes are otherwise unremarkable. Soft tissues: Unremarkable. IMPRESSION: No acute intracranial abnormality. PROCEDURE INFORMATION: Exam: CT Cervical Spine Without Contrast Exam date and time: 04/15/2019 7:11 PM Age: 73 years old Clinical indication: Injury or trauma; Initial encounter; Blunt trauma (contusions or hematomas); Consciousness not specified; Injury date: 04/15/19; Injury details: Fall, hit head TECHNIQUE: Imaging protocol: Computed tomography images of the cervical spine without contrast. Radiation optimization: All CT scans at this facility use at least one of these dose optimization techniques: automated exposure control; mA and/or kV adjustment per patient size (includes targeted exams where dose is matched to clinical indication); or iterative reconstruction. COMPARISON: CT Head^HEAD ROUTINE (Adult) 04/06/2018 2:13 PM FINDINGS: Vertebrae: Vertebral body heights are maintained and in unremarkable alignment. No acute fracture. Discs/Spinal canal/Neural foramina: Multilevel degenerative changes of the cervical spine with multilevel bony neural foraminal stenosis. Prevertebral Space: No prevertebral edema. Soft tissues: Unremarkable. Lungs: The visualized portions of the lung apices are normal. Vasculature: Coarse bilateral carotid calcifications. IMPRESSION: No acute fracture or traumatic malalignment of the cervical spine. No prevertebral edema. Dictated and Authenticated by: Joshua Ramirez MD. Ordering:BRANDON Dean MD
[2019-04-15 19:55] LABS: ALT 24 U/L (16-63); AST 20 U/L (15-37); Albumin 3.5 g/dL (3.4-5.0); Alkaline Phosphatase 68 U/L (46-116); Anion Gap 6.1 mmol/L (3-11); BUN 34 mg/dL (7-18); Bilirubin, Total 0.3 mg/dL (0.2-1.0); CO2 34.9 mmol/L (21.0-32.0); Chloride 102 mmol/L (98-107); Estimated GFR 32.74 (mL/min/1.73m2); Glucose 55 mg/dL (74-106); Magnesium 2.1 mg/dL (1.8-2.4); Potassium 4.1 mmol/L (3.5-5.1); Sodium 143 mmol/L (136-145); Total Protein 8.1 g/dL (6.4-8.2)
--- NOTE | 2019-04-15 19:55 | DI.VRAD_ITS ---
PROCEDURE INFORMATION: Exam: CT Lumbar Spine Without Contrast Exam date and time: 04/15/2019 7:05 PM Age: 73 years old Clinical indication: Injury or trauma; Initial encounter; Blunt trauma (contusions or hematomas); Injury date: 04/15/19; Injury details: Fall, L spine pain TECHNIQUE: Imaging protocol: Computed tomography images of the lumbar spine without contrast. Radiation optimization: All CT scans at this facility use at least one of these dose optimization techniques: automated exposure control; mA and/or kV adjustment per patient size (includes targeted exams where dose is matched to clinical indication); or iterative reconstruction. COMPARISON: No relevant prior studies available. FINDINGS: Vertebrae: No acute fracture. Loss of lumbar lordosis is presumed degenerative Discs/Spinal and canal/Neural foramina: Mild central canal stenosis at L3-L4. Multilevel foraminal stenosis most pronounced at L5-S1 Soft tissues: Bilateral nephrolithiasis and renal cysts IMPRESSION: No acute lumbar fracture Degenerative changes as noted Bilateral nephrolithiasis Dictated and Authenticated by: Luis Chavarria MD. Ordering:BRANDON Dean MD
[2019-04-15 19:57] LABS: Troponin I < 0.05 ng/Ml (<0.06)
--- NOTE | 2019-04-15 21:04 | HPE_ITS ---
Date of service: 04/15/19 Time of Service: 21:04 Assessment and Plan Assessment and plan (1) Frequent falls: Start date: 04/15/19 Status: Acute Assessment and plan: This is a 73-year-old gentleman and acting out at his previous residence in a rehab center and now at with a history of throwing himself onto the ground a half-way. He reported increased dizziness and weakness with a fall prior to this visit and evaluation revealed imaging which was essentially stable but a possible UTI. He had no fever or other constitutional symptoms but was admitted with IV antibiotic therapy continuing on Rocephin and gentle IV hydration as patient will allow with, frequently pulling out his IVs purposely. Reviewing his history with nurses and caregivers relative who was also a employee at the hospital, patient behavior is near baseline. He was observed overnight with treatment of a possible acute problem but also need to be reassessed as to the appropriate housing situation though his electronic plotting system operator would take him back to the half-way for now. Because of his instability, he should be reevaluated by PT prior to returning to the half-way. He is a DNR/DNI and is debilitated with this being complicated by his multiple strokes and his psychiatric issues. (2) UTI (urinary tract infection): Start date: 04/15/19 Status: Acute Assessment and plan: Follow-up on cultures and convert to oral therapy prior to discharge back to the half-way. Patient has had no fever or constitutional symptoms. He did receive IV hydration through the night as he allowed. Qualifiers: Hematuria presence: without hematuria Urinary tract infection type: site unspecified Qualified Code(s): N39.0 - Urinary tract infection, site not specified (3) Malaise and fatigue: Start date: 04/15/19 Status: Acute Assessment and plan: There is a question is whether the patient is more weak than usual therefore he was kept overnight for IV hydration and IV antibiotic therapy for probable UTI. He is chronically incontinent. 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 (5) Gait instability: Status: Chronic Assessment and plan: With left-sided weakness more than right but also deconditioned and morbidly obese, physical therapy should reevaluate prior to discharge to the half-way. (6) BPH w/o urinary obs/LUTS: Status: Chronic Assessment and plan: With urinary incontinence, acute UTI being treated and long-term may consider urological evaluation though this seems to be the least of his problems. Evaluate for possible urinary retention as a cause for UTI. Imaging did not reveal hydronephrosis though there was nephrolithiasis. (7) Cerebrovascular accident (CVA) due to thrombosis of right middle cerebral artery: Status: Chronic Assessment and plan: With left-sided weakness and during patient's am bulation but not the only cause of his falls with reported behavior abnormality and patient throwing himself onto the ground for attention. (8) Diabetes mellitus: Status: Chronic Assessment and plan: With hypoglycemia in the ED and this will be treated with short acting insulin only and glucometers before meals and at bedtime. Hold on basal insulin. Patient is morbidly obese and probably noncompliant with diet. Qualifiers: Chronic kidney disease stage: stage 3 (moderate) Diabetes mellitus complication detail: with chronic kidney disease Diabetes mellitus complication status: with kidney complications Diabetes mellitus senior care insulin use: with senior care use Diabetes mellitus type: type 2 Qualified Code(s): E11.22 - Type 2 diabetes mellitus with diabetic chronic kidney disease; N18.3 - Chronic kidney disease, stage 3 (moderate); Z79.4 - ferry terminal agent (current) use of insulin History of Present Illness History of Present Illness Chief Complaint: Weakness with fall at home Narrative: This is a 73-year-old gentleman who was in a rehab facility after 1 month ago and then was placed in a half-way where he states the caregivers are excellent. He has a behavior abnormality with probable personality disorder to where he throws himself on the ground or attempts to attention seek by such behavior per the electronic plotting system operator's relative. This was the reason she was placed in the half-way rather than the rehab center with patient requiring frequent one-on-one care. He is obese and diabetic with multiple strokes having problems with ambulation but able to walk with a walker at baseline. He is not very active routinely. He had no complaints of fever or chills and had no headache but was reportedly more weak than his baseline. He had no new neurological complaints. His caregivers do give him his injections for diabetes. In the ED his glucose was below 100. He denies any symptoms of hypoglycemia. He had no complaints of dizziness in the ED. With extensive evaluation in the ED he was found to have a probable UTI and this was thought to be the cause of his worsening weakness/malaise though he did not have any other constitutional symptoms. During conversation the patient is frequently challenging the interviewer and during his short stay thus far on [facility] she has pulled out his IV several times appearing to be purposeful but denying purposeful action. When he describes events they are frequently exaggerated. Review of Systems Narrative: 13 point review of systems otherwise unrevealing or stable as best can be interpreted by the patient's wandering conversation. He offers no or GI complaints but he is incontinent of urine. 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 (Chronic 03/09/07) Depressive disorder (Chronic 05/04/11) Diabetes mellitus (Chronic 05/04/11) DVT prophylaxis (Inactive) Frequent falls (Chronic) Frontal lobe and executive function deficit following cerebral infarction (Chronic 03/23/16) Gait instability (Chronic) HCAP (healthcare-associated pneumonia) (Inactive) Late, effect, cerebrovascular disease (Chronic 03/09/07) Malignant neoplasm of sigmoid colon (Chronic 02/21/15) [facility] resident (Resolved) Obesity (Chronic) Palliative care patient (Chronic) Vascular dementia (Chronic) Vascular dementia with behavior disturbance (Chronic 03/23/16) Surgical History Appendectomy Arthroplasty of knee RIGHT HERNIA REPAIR X 3 History of arthroscopy of knee (Inactive) History of spinal surgery (Inactive) LOW BACK SURGERY PROPOFOL SEDATION 01/05/13; [facility] [place]; DIFFICULT INTUBATION; B/P BOTTOMED OUT Status post appendectomy (Inactive) Tonsillectomy UPPP (Uvulopalatopharyngoplasty) Family History Mother , age 96 of old age per pt Essential hypertension Heart disease Father , age 81 from stomach cancer Cancer Sister Essential hypertension Brother Essential hypertension Grandfather Heart disease Grandfather Heart disease Grandmother Heart disease Social History Smoking/Tobacco Use Status: Former Tobacco Use Alcohol Intake: never Drug use: Never Caregiver/Support person: Yes Household members: other Housing: jail Number of Children: 1 Communication Needs: Hard of Hearing and Corrective Lenses Education Level: high school Do you need help understanding health information?: Always 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; 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 Caregivers Mayelin and Brett Perfecto. Moved in 2 days before 2018. Happy there. Getting out of the house. Enjoys Brett's sense of humor. Has a new cat, Ruger. More active. Getting OOB. Getting dressed. Being more social than he has been. Meds Home Medications and Allergies Home Medications Medication Instructions Recorded Confirmed Type C-Pap 09/25/13 03/10/18 Clinic ergocalciferol (vitamin D2) 1,250 50,000 unit PO monthly #3 tab-cap 03/06/18 04/15/19 Rx mcg (50,000 unit) capsule ascorbic acid (vitamin C) 500 mg 500 mg PO DAILY #90 tab 03/06/19 04/15/19 Rx tablet blood-glucose meter #1 each 03/06/19 04/10/19 Rx clopidogrel 75 mg tablet 75 mg PO HS #90 tab 03/06/19 04/15/19 Rx diltiazem HCl 120 mg 120 mg PO DAILY #90 cap 03/06/19 04/15/19 Rx capsule,extended release 24 hr finasteride 5 mg tablet 5 mg PO DAILY #90 tab 03/06/19 04/15/19 Rx furosemide 20 mg tablet 20 mg PO DAILY #30 tab 03/06/19 04/15/19 Rx gabapentin 100 mg capsule 100 mg PO TID #270 cap 03/06/19 04/15/19 Rx losartan 25 mg tablet 25 mg PO DAILY #90 tab 03/06/19 04/15/19 Rx magnesium oxide 400 mg PO DAILY #90 tab 03/06/19 04/15/19 Rx mirabegron 50 mg tablet,extended 50 mg PO DAILY #90 tab-cap 03/06/19 04/15/19 Rx release 24 hr montelukast 10 mg tablet 10 mg PO DAILY #90 mg 03/06/19 04/15/19 Rx multivitamin 1 cap PO DAILY #90 cap 03/06/19 04/15/19 Rx oxybutynin chloride 10 mg 10 mg PO DAILY #90 tab 03/06/19 04/15/19 Rx tablet,extended release 24 hr pantoprazole 40 mg tablet,delayed 40 mg PO HS #90 tab 03/06/19 04/15/19 Rx release potassium citrate 10 mEq (1,080 10 meq PO BID #180 tab 03/06/19 04/10/19 Rx mg) tablet,extended release aspirin 81 mg tablet,delayed 81 mg PO DAILY #90 tab 03/07/19 04/15/19 Rx release duloxetine 60 mg capsule,delayed 60 mg PO HS #90 cap 03/07/19 04/15/19 Rx release ferrous sulfate 325 mg (65 mg 325 mg PO DAILY #90 tab 03/07/19 04/15/19 Rx iron) tablet olanzapine 5 mg tablet 5 mg PO DAILY #90 tab 03/07/19 04/15/19 Rx simvastatin 40 mg tablet 40 mg PO DAILY #90 tab 03/07/19 04/15/19 Rx sodium bicarbonate 650 mg tablet 650 mg PO BID PRN #180 tab 03/07/19 04/15/19 Rx tamsulosin 0.4 mg capsule 0.8 mg PO DAILY #180 cap 03/07/19 04/15/19 Rx incontinence pad, liner, disp #180 each 03/08/19 04/10/19 Rx blood sugar diagnostic #100 each 03/12/19 04/10/19 Rx lancets 30 gauge #200 each 03/12/19 04/10/19 Rx trazodone 50 mg tablet 50 mg PO QHS PRN #30 tab 04/03/19 04/15/19 Rx insulin U-500 syringe-needle 1/2 #200 each 04/05/19 04/10/19 Rx mL 31 gauge x 15/64 meprobamate 400 mg tablet 400 mg PO TID #90 tab 04/05/19 04/15/19 Rx pen needle, diabetic 32 gauge x #240 ea 04/05/19 04/10/19 Rx 5/32 insulin glargine 100 unit/mL (3 25 unit SC DAILY #15 ml 04/10/19 04/15/19 Rx mL) subcutaneous pen insulin regular hum U-500 conc 500 90 unit SC AC #20 ml 04/10/19 04/15/19 Rx unit/mL subcutaneous soln promethazine 6.25 mg-codeine 10 5 ml PO Q4H PRN #240 ml 04/10/19 04/10/19 Rx mg/5 mL syrup cephalexin 500 mg PO TID #21 tab 04/15/19 Rx Allergies Allergy/AdvReac Type Severity Reaction Status Date / Time tetracycline Allergy Unknown Unverified 04/15/19 18:21 propofol AdvReac Severe drops BP Unverified 04/15/19 18:21 way down oxycodone AdvReac Intermediate Agitation Unverified 04/15/19 18:21 tetrex Allergy Unknown Uncoded 04/15/19 18:21 Exam Narrative Exam Narrative: General: Patient is morbidly obese, NAD and very talkative with wandering conversation hard to focus. He appears to be alert and oriented at least to person and place. HEENT: Normocephalic, eyes with pupils equal and reactive to light symmetrically, extraocular movement intact and sclera anicteric. Oropharynx with poor dentition but moist oral mucosa. External ears normal. Neck: Supple without JVD. Back: Stooped posture with no CVA tenderness. Lungs: Fair aeration, no focalizing rales or rhonchi. No expiratory wheeze. Heart: Regular rate with irregular rhythm and no appreciable murmurs. Abdomen: Obese contour, no focalizing guarding or tenderness being soft to p alpation but limited by his obesity. No palpable hepatosplenomegaly. Genitalia/rectal: Patient is wearing adult diaper, exam deferred. Extremities: Nonpitting edema lower extremities worse on left than right with decreased movement of the left upper and lower extremity. Peripheral pulses are decreased but intact with fair capillary refill. No clubbing or cyanosis. All joints do seem to have decreased range of motion but no erythema or acute swelling. There are bony osteoarthritic changes diffusely. Skin: Pale, warm and dry with rough texture and actinic changes over sun exposed areas. Neuro: Cranial nerves II through XII grossly intact, decreased motor strength left upper and lower extremity with patient moving extremities to gravity only and decreased motor on the right with patient able to move against resistance but being 4 out of 5 at best. Psych: No abnormal thought processes but manipulative type conversation with patient frequently challenging the interviewer and exaggerating events. Recent and remote memory appear to be intact though interpreted through his personality disorder. Results Consent this time Imaging Imaging Studies: Exam(s) PROCEDURE INFORMATION: Exam: CT Head Without Contrast Exam date and time: 04/15/2019 7:11 PM Age: 73 years old Clinical indication: Injury or trauma; Initial encounter; Blunt trauma (contusions or hematomas); Consciousness not specified; Injury date: 04/15/19; Injury details: Fall, hit head TECHNIQUE: Imaging protocol: Computed tomography of the head without contrast. Radiation optimization: All CT scans at this facility use at least one of these dose optimization techniques: automated exposure control; mA and/or kV adjustment per patient size (includes targeted exams where dose is matched to clinical indication); or iterative reconstruction. COMPARISON: CT Head^HEAD ROUTINE (Adult) 04/06/2018 2:13 PM FINDINGS: Brain: Unchanged extensive encephalomalacia and white matter hypoattenuation without the right cerebral cortex. No hemorrhage. No acute large vascular territory infarct. No mass effect. Ventricles: Normal. No ventriculomegaly. Bones/joints: Unremarkable. No acute fracture. Sinuses: Visualized sinuses are unremarkable. No fluid levels. Mastoid air cells: Visualized mastoid air cells are well aerated. Orbits: Bilateral lens replacement. Orbits and globes are otherwise unremarkable. Soft tissues: Unremarkable. IMPRESSION: No acute intracranial abnormality. PROCEDURE INFORMATION: Exam: CT Cervical Spine Without Contrast Exam date and time: 04/15/2019 7:11 PM Age: 73 years old Clinical indication: Injury or trauma; Initial encounter; Blunt trauma (contusions or hematomas); Consciousness not specified; Injury date: 04/15/19; Injury details: Fall, hit head TECHNIQUE: Imaging protocol: Computed tomography images of the cervical spine without contrast. Radiation optimization: All CT scans at this facility use at least one of these dose optimization techniques: automated exposure control; mA and/or kV adjustment per patient size (includes targeted exams where dose is matched to clinical indication); or iterative reconstruction. COMPARISON: CT Head^HEAD ROUTINE (Adult) 04/06/2018 2:13 PM FINDINGS: Vertebrae: Vertebral body heights are maintained and in unremarkable alignment. No acute fracture. Discs/Spinal canal/Neural foramina: Multilevel degenerative changes of the cervical spine with multilevel bony neural foraminal stenosis. Prevertebral Space: No prevertebral edema. Soft tissues: Unremarkable. Lungs: The visualized portions of the lung apices are normal. Vasculature: Coarse bilateral carotid calcifications. IMPRESSION: No acute fracture or traumatic malalignment of the cervical spine. No prevertebral edema. Dictated and Authenticated by: Joshua Ramirez MD. Exam(s) PROCEDURE INFORMATION: Exam: CT Chest Without Contrast Exam date and time: 04/15/2019 7:05 PM Age: 73 years old Clinical indication: Injury or trauma; Initial encounter; Generalized; Blunt trauma (contusions or hematomas); Injury date: 04/15/19; Injury details: Fall, R/O acute dx/hip, L spine; Patient HX: Pain after fall TECHNIQUE: Imaging protocol: Computed tomography of the chest without contrast. Radiation optimization: All CT scans at this facility use at least one of these dose optimization techniques: automated exposure control; mA and/or kV adjustment per patient size (includes targeted exams where dose is matched to clinical indication); or iterative reconstruction. COMPARISON: CT chest/abd/pel wo 12/30/2017 10:02 AM FINDINGS: Lungs: Mild subsegmental atelectasis versus scarring No consolidation. No masses. Pleural space: Unremarkable. No pneumothorax. No pleural effusion. Heart: No cardiomegaly. No significant pericardial effusion. Aorta: Unremarkable. No aortic aneurysm. Lymph nodes: Unremarkable. No enlarged lymph nodes. Bones/joints: Minimal irregularity to the left third and fourth ribs anteriorly of indeterminate age Soft tissues: Unremarkable. IMPRESSION: Minimal irregularity to the left third and fourth ribs anteriorly of indeterminate age No pneumothorax PROCEDURE INFORMATION: Exam: CT Abdomen And Pelvis Without Contrast Exam date and time: 04/15/2019 7:05 PM Age: 73 years old Clinical indication: Injury or trauma; Initial encounter; Generalized; Blunt trauma (contusions or hematomas); Injury date: 04/15/19; Injury details: Fall, R/O acute dx/hip, L spine; Patient HX: Pain after fall TECHNIQUE: Imaging protocol: Computed tomography of the abdomen and pelvis without contrast. Radiation optimization: All CT scans at this facility use at least one of these dose optimization techniques: automated exposure control; mA and/or kV adjustment per patient size (includes targeted exams where dose is matched to clinical indication); or iterative reconstruction. COMPARISON: CT chest/abd/pel wo 12/30/2017 10:02 AM FINDINGS: Liver: Normal. No mass. Gallbladder and bile ducts: Normal. No calcified stones. No ductal dilation. Pancreas: Normal. No ductal dilation. Spleen: Normal. No splenomegaly. Adrenals: Normal. No mass. Kidneys and ureters: Bilateral no full lithiasis. Bilateral renal cysts No hydronephrosis. Stomach and bowel: Unremarkable. No obstruction. No mucosal thickening. Appendix: No evidence of appendicitis. Intraperitoneal space: Unremarkable. No free air. No significant fluid collection. Vasculature: Atherosclerosis. No abdominal aortic aneurysm. Lymph nodes: Unremarkable. No enlarged lymph nodes. Bladder: Unremarkable as visualized. Reproductive: Moderate enlargement of the prostate gland Bones/joints: Degenerative changes in the spine No acute fracture. Soft tissues: Unremarkable. IMPRESSION: No solid organ injury detected Bilateral nephrolithiasis without hydronephrosis Dictated and Authenticated by: Luis Chavarria MD. Exam(s) PROCEDURE INFORMATION: Exam: CT Lumbar Spine Without Contrast Exam date and time: 04/15/2019 7:05 PM Age: 73 years old Clinical indication: Injury or trauma; Initial encounter; Blunt trauma (contusions or hematomas); Injury date: 04/15/19; Injury details: Fall, L spine pain TECHNIQUE: Imaging protocol: Computed tomography images of the lumbar spine without contrast. Radiation optimization: All CT scans at this facility use at least one of these dose optimization techniques: automated exposure control; mA and/or kV adjustment per patient size (includes targeted exams where dose is matched to clinical indication); or iterative reconstruction. COMPARISON: No relevant prior studies available. FINDINGS: Vertebrae: No acute fracture. Loss of lumbar lordosis is presumed degenerative Discs/Spinal and canal/Neural foramina: Mild central canal stenosis at L3-L4. Multilevel foraminal stenosis most pronounced at L5-S1 Soft tissues: Bilateral nephrolithiasis and renal cysts IMPRESSION: No acute lumbar fracture Degenerative changes as noted Bilateral nephrolithiasis Dictated and Authenticated by: Luis Chavarria MD. Labs Result diagrams: 04/15/19 18:40 04/15/19 19:26 Labs: Laboratory Results - last 24 hr 04/15/19 04/15/19 04/15/19 18:30 18:40 18:40 WBC 8.44 RBC 3.92 L Hgb 12.9 L Hct 39.4 L MCV 100.5 H MCH 32.9 MCHC 32.7 RDW 14.8 H Plt Count 114 L MPV 12.6 H Immature Gran % 0.9 Neutrophils % 59.8 Lymphocytes % 17.8 Monocytes % 20.0 Eosinophils % 1.1 Basophils % 0.4 Absolute Neutrophils 5.05 Absolute Lymphocytes 1.50 Absolute Monocytes 1.69 H Absolute Eosinophils 0.09 Absolute Basophils 0.03 Differential Comment Agrees w/ instrument RBC Morphology See below Hypochromasia 1+ Macrocytosis 1+ Stomatocytes 2+ PT 10.5 INR 1.0 APTT 22.3 Sodium Potassium Chloride Carbon Dioxide Anion Gap BUN Creatinine Estimated GFR/1.73 m2 Glucose Calcium Magnesium Total Bilirubin AST ALT Alkaline Phosphatase Troponin I Total Protein Albumin Procalcitonin Urine Color Yellow Urine Clarity Cloudy Urine pH 7.0 Ur Specific [place] 1.020 Urine Protein >=300 H Urine Ketones Negative Urine Blood Moderate H Urine Nitrite Negative Urine Bilirubin Negative Urine Urobilinogen 0.2 Ur Leukocyte Esterase Large H Urine RBC Urine WBC >50 H Ur Epithelial Cells Negative Urine Crystals Not Applicable Urine Bacteria Packed Urine Mucus Urine Other Few transitional Ur Culture Indicated? Yes Urine Glucose 250 H 04/15/19 04/15/19 04/15/19 18:40 19:26 20:59 WBC RBC Hgb Hct MCV MCH MCHC RDW Plt Count MPV Immature Gran % Neutrophils % Lymphocytes % Monocytes % Eosinophils % Basophils % Absolute Neutrophils Absolute Lymphocytes Absolute Monocytes Absolute Eosinophils Absolute Basophils Differential Comment RBC Morphology Hypochromasia Macrocytosis Stomatocytes PT INR APTT Sodium 143 Cancelled Potassium 4.1 Cancelled Chloride 102 Cancelled Carbon Dioxide 34.9 H Cancelled Anion Gap 6.1 Cancelled BUN 34 H Cancelled Creatinine 2.00 H Cancelled Estimated GFR/1.73 m2 32.74 Cancelled Glucose 55 L Cancelled Calcium 9.0 Cancelled Magnesium 2.1 Cancelled Total Bilirubin 0.3 Cancelled AST 20 Cancelled ALT 24 Cancelled Alkaline Phosphatase 68 Cancelled Troponin I < 0.05 Cancelled Total Protein 8.1 Cancelled Albumin 3.5 Cancelled Procalcitonin Cancelled Urine Color Urine Clarity Urine pH Ur Specific [place] Urine Protein Urine Ketones Urine Blood Urine Nitrite Urine Bilirubin Urine Urobilinogen Ur Leukocyte Esterase Urine RBC Urine WBC Ur Epithelial Cells Urine Crystals Urine Bacteria Urine Mucus Urine Other Ur Culture Indicated? Urine Glucose Last Vital Signs Temp 36.4 C L 04/15/19 21:01 Pulse 78 04/15/19 21:01 Resp 16 04/15/19 21:01 BP 125/54 L 04/15/19 21:01 Pulse Ox 98 04/15/19 21:01
[2019-04-15] MEDS: Normal Saline 1,000 ML 1000 ML IV (21:44)
[2019-04-15 22:37] LABS: TSH (W/Ref FT4) 1.69 uIU/mL (0.36-3.74)
--- NOTE | 2019-04-15 22:43 | NUR.NOTE ---
pts home health care respiratory therapist and are aware of the pts disposition Nursing Note:
[2019-04-15] MEDS: Normal Saline 1,000 ML 80 ML IV (22:47)
[2019-04-15] MEDS: Pantoprazole 40 MG TABCR PO (23:28)
[2019-04-15] MEDS: Clopidogrel 75 MG TAB PO (23:28)
[2019-04-15] MEDS: DULoxetine 30 MG CAP 60 MG PO (23:28)
[2019-04-15] MEDS: Heparin 5,000 UNITS/ML VIAL 5000 UNITS SC (23:28)
[2019-04-16] MEDS: traZODone 50 MG TAB PO (01:03)
[2019-04-16 03:50] VITALS: BP 130/59; PULSE 85; RESP 23; TEMP 36.7; O2SAT 96
[2019-04-16] MEDS: Heparin 5,000 UNITS/ML VIAL 5000 UNITS SC ×3 (06:16→22:20)
--- NOTE | 2019-04-16 07:03 | NUR.NOTE ---
Nursing Note: Upon beginning of shift, patient rang call christianson at approximately 0330. In entering room, able to see that pt was covered in blood. He was alert and speaking, but had blood over his entire face, upper body, the blankets on the bed, and upon further investigation there was a large amount of blood on the right side of the bed. It appeared that patient had pulled his IV out. He reported not touching it however the connector was disconnected and the cannula was in place with blood continuously oozing out. IV cannula removed and pressure applied, with pressure dressing added. Patient cleaned up and new IV placed in RUE. It is explained to patient that the IV is ordered for a reason, although he states it is not necessary. He then states he will not touch the IV. Approximately one half hour after the IV was inserted, patient rang call christianson and upon entering the room, he was seen pulling on the IV tubing tightly. I immediately went to the patient and relieved pressure on the tubing and asked him to not pull on the IV. He stated I'm not touching the IV while holding the tubing. Upon further assessment it is noted that he had pulled this second IV out as well. He reports again not touching it, although he was seen literally pulling the tubing. A third IV has been placed on his left forearm, and a cadre has been placed in the room to ensure he does not pull this one out as well.
[2019-04-16 07:05] VITALS: PULSE 105
[2019-04-16 07:14] LABS: HCT 37.8 % (40.0-50.0); HGB 11.8 g/dL (13.5-17.5); Mean Corp. HGB Concentration 31.2 g/dL (32.0-36.0); Mean Corpuscular Hemoglobin 32.2 pg (27.0-33.0); Mean Platelet Volume 12.7 fL (8.0-11.0); Platelet Count 102 x1000/uL (130-400); RBC 3.67 m/cumm (4.50-6.00); RBC Distribution Width 14.9 % (11.8-14.1); White Blood Cell Count 8.22 k/cumm (4.4-10.8)
[2019-04-16 07:34] LABS: ALT 20 U/L (16-63); AST 17 U/L (15-37); Albumin 2.9 g/dL (3.4-5.0); Alkaline Phosphatase 58 U/L (46-116); Anion Gap 9.4 mmol/L (3-11); BUN 31 mg/dL (7-18); Bilirubin, Total 0.3 mg/dL (0.2-1.0); CO2 27.6 mmol/L (21.0-32.0); CREATININE 1.83 mg/dL (0.70-1.30); Calcium 8.5 mg/dL (8.5-10.1); Chloride 104 mmol/L (98-107); Estimated GFR 36.27 (mL/min/1.73m2); Glucose 255 mg/dL (74-106); Potassium 4.6 mmol/L (3.5-5.1); Sodium 141 mmol/L (136-145); Total Protein 6.6 g/dL (6.4-8.2)
[2019-04-16 08:35] VITALS: PULSE 106
[2019-04-16] MEDS: Aspirin E.C. 81 MG TABEC PO (08:38)
[2019-04-16] MEDS: Oxybutynin 5 MG TAB 10 MG PO (08:38)
[2019-04-16] MEDS: Losartan 25 MG TAB PO (08:38)
[2019-04-16] MEDS: Magnesium Oxide 400 MG TAB PO (08:38)
[2019-04-16] MEDS: Insulin Aspart 300 UNITS/3 ML PEN SC ×3 (08:38→16:45)
[2019-04-16] MEDS: Tamsulosin 0.4 MG CAPCR 0.8 MG PO (08:39)
[2019-04-16] MEDS: dilTIAZem CD 120 MG CAPCR PO (08:39)
[2019-04-16] MEDS: Gabapentin 100 MG CAP PO ×3 (08:39→20:52)
[2019-04-16] MEDS: Multivitamin TAB 1 TAB PO (08:39)
[2019-04-16] MEDS: Furosemide 20 MG TAB PO (08:39)
[2019-04-16] MEDS: Finasteride 5 MG TAB PO (08:39)
[2019-04-16] MEDS: Ferrous Sulfate 325 MG TAB PO (08:39)
[2019-04-16] MEDS: Ascorbic Acid 500 MG TAB PO (08:39)
[2019-04-16] MEDS: Mirabegron 50 MG TABCR PO (08:39)
[2019-04-16] MEDS: OLANZapine 5 MG TAB PO (08:39)
[2019-04-16] MEDS: Montelukast 10 MG TAB PO (08:40)
[2019-04-16] MEDS: Potassium Chloride 10 MEQ CAPCR PO ×2 (08:40→20:52)
[2019-04-16 09:10] VITALS: O2SAT 95
[2019-04-16 11:30] VITALS: BP 144/78; PULSE 94; RESP 22; TEMP 37.7; O2SAT 95
--- NOTE | 2019-04-16 11:48 | W.NUTCONSULT ---
Date of service: 04/16/19 Time of Service: 11:49 Nutritional Consult ASSESSMENT: 73 year old male admitted with CHF, COPD, DM. PMH: IDDM (poorly controlled), class 3 obesity. Following CHO;/Heart Healthy Diet with adequate intake. At very high nutritional risk. Diabetic Consult received by CDE. Has been complaining to kitchen regarding meals and wants additional high sugar snacks, high salt meals. Staff has provided him with meals and snacks per order. MONITORING AND EVALUATION: weight, blood sugars and meal intake Time Spent in Nutritional Counseling and Treatment: 0 time spent face to face
--- NOTE | 2019-04-16 12:21 | PGE_ITS ---
Date of Service Date of service: 04/16/19 Time of Service: 12:22 Assessment and Plan Assessment and plan (1) UTI (urinary tract infection): Start date: 04/16/19 Start time: 12:36 Status: Acute Assessment and plan: Ceftriaxone 1 gm IM after pulling 2 IVs out. U/A with leukocyte estrase and greater than 50 wbc. Urine cx revealing gram negative greater than 100,000 colonies after 24 hours. Waiting sensitivities. Afebrile without leukocytosis. PVR for retention which could contribute to UTI. Continue to monitor. Qualifiers: Urinary tract infection type: site unspecified Hematuria presence: without hematuria Qualified Code(s): N39.0 - Urinary tract infection, site not specified (2) COPD (chronic obstructive pulmonary disease): Start date: 04/16/19 Start time: 12:43 Status: Chronic Assessment and plan: Oxygen dependent; not requiring more oxygen, c/o cough no sputum production. afebrile, no leukocytosis. Cough is harsh. Right lung rhonchi, left lung clear; steroids IH and PO, nebs, tessalon pearles. He endorses cough x 3 years, could be a viral bronchitis. CXR with no acute abnormality. Continue to monitor. On ceftriaxone for urine, though he does not require an antibiotic for resp at this time. (3) Frequent falls: Start date: 04/16/19 Start time: 12:30 Status: Acute Assessment and plan: Increase falls with weakness. PT/OT for strength (4) Lumbar back pain: Start date: 04/16/19 Start time: 12:41 Status: Acute Assessment and plan: pain to lumbar area after falling on floor yesterday. CT in ED with no abnormality. PT/OT and lidoderm patches for pain. 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 (6) Gait instability: Start date: 04/16/19 Start time: 12:51 Status: Chronic Assessment and plan: With left-sided weakness more than right but also deconditioned and morbidly obese, physical therapy should reevaluate prior to discharge to the snf. (7) BPH w/o urinary obs/LUTS: Start date: 04/16/19 Start time: 12:51 Status: Chronic Assessment and plan: With urinary incontinence, acute UTI being treated and long-term may consider urological evaluation though this seems to be the least of his problems. See above (8) Cerebrovascular accident (CVA) due to thrombosis of right middle cerebral artery: Start date: 04/16/19 Start time: 12:52 Status: Chronic Assessment and plan: With left-sided weakness and during patient's ambulation but not the only cause of his falls with reported behavior abnormality and patient throwing himself onto the ground for attention. (9) Diabetes mellitus: Start date: 04/16/19 Start time: 12:52 Status: Chronic Assessment and plan: With hypoglycemia in the ED and this will be treated with short acting insulin only and glucometers before meals and at bedtime. Hold on basal insulin. Patient is morbidly obese and probably noncompliant with diet. Qualifiers: Diabetes mellitus type: type 2 Diabetes mellitus remote computer terminal operator insulin use: with remote computer terminal operator use Diabetes mellitus complication status: with kidney complications Diabetes mellitus complication detail: with chronic kidney disease Chronic kidney disease stage: stage 3 (moderate) Qualified Code(s): E11.22 - Type 2 diabetes mellitus with diabetic chronic kidney disease; N18.3 - Chronic kidney disease, stage 3 (moderate); Z79.4 - intermediate (current) use of insulin (10) Cough: Start date: 04/16/19 Start time: 12:52 Status: Acute Assessment and plan: He does have COPD. See above. Above case discussed with Dr. Mckeon who is in agreement. Subjective Subjective Patient reports: other Interval history since last seen: C/o having a cough, no sputum production. Would like real food he is hungry and he has lower back pain that he did not have before falling on the floor yesterday. Lumbar CT in ED negative for acute abnormality. Will start nebs, steroids and tesslon for cough. Could be COPD exacerbation vs. Viral bronchitis, afebrile without leukocytosis, no sputum production, at this time I don't feel he needs an antibiotic, just a short steroid course and IH. He denies CP, SOB, N/V/D. Requires 3 l oxygen at all times. Exam Narrative Exam Narrative: General: Patient is morbidly obese, NAD, alert and oriented at least to person and place. HEENT: Normocephalic, eyes with pupils equal and reactive to light symmetrically, extraocular movement intact and sclera anicteric. Oropharynx with poor dentition but moist oral mucosa. External ears normal. Neck: Supple without JVD. Back: Stooped posture with no CVA tenderness. Lumbar spine tenderness Lungs: Rhonchi to right lung, no wheezing, rales or crackles. Heart: Regular rate with irregular rhythm and no appreciable murmurs. Abdomen: Obese contour, no focalizing guarding or tenderness being soft to palpation but limited by his obesity. No palpable hepatosplenomegaly. Extremities: Non-pitting edema lower extremities worse on left than right with decreased movement of the left upper and lower extremity. Peripheral pulses are decreased but intact with fair capillary refill. No clubbing or cyanosis. All joints do seem to have decreased range of motion but no erythema or acute swelling. There are bony osteoarthritic changes diffusely. Skin: Pale, warm and dry with rough texture and actinic changes over sun exposed areas. Neuro: Cranial nerves II through XII grossly intact, decreased motor strength left upper and lower extremity with patient moving extremities to gravity only and decreased motor on the right with patient able to move against resistance but being 4 out of 5 at best. Psych: personality disorder. Objective Objective Clinical Data: Abnormal lab results 04/15/19 04/15/19 04/15/19 Range/Units 18:30 18:40 18:40 RBC 3.92 L (4.50-6.00) m/cumm Hgb 12.9 L (13.5-17.5) g/dL Hct 39.4 L (40.0-50.0) % MCV 100.5 H (80-95) fL MCHC (32.0-36.0) g/dL RDW 14.8 H (11.8-14.1) % Plt Count 114 L (130-400) x1000/uL MPV 12.6 H (8.0-11.0) fL Absolute Monocytes 1.69 H (0.11-0.7) k/cumm Carbon Dioxide 34.9 H (21.0-32.0) mmol/L BUN 34 H (7-18) mg/dL Creatinine 2.00 H (0.70-1.30) mg/dL Glucose 55 L (74-106) mg/dL Albumin (3.4-5.0) g/dL Urine Protein >=300 H (Negative) mg/dL Urine Blood Moderate H (Negative) Ur Leukocyte Esterase Large H (Negative) Urine WBC >50 H (0-5) HPF Urine Glucose 250 H (Negative) mg/dL 04/16/19 04/16/19 Range/Units 06:47 06:47 RBC 3.67 L (4.50-6.00) m/cumm Hgb 11.8 L (13.5-17.5) g/dL Hct 37.8 L (40.0-50.0) % MCV 103.0 H (80-95) fL MCHC 31.2 L (32.0-36.0) g/dL RDW 14.9 H (11.8-14.1) % Plt Count 102 L (130-400) x1000/uL MPV 12.7 H (8.0-11.0) fL Absolute Monocytes (0.11-0.7) k/cumm Carbon Dioxide (21.0-32.0) mmol/L BUN 31 H (7-18) mg/dL Creatinine 1.83 H (0.70-1.30) mg/dL Glucose 255 H D (74-106) mg/dL Albumin 2.9 L (3.4-5.0) g/dL Urine Protein (Negative) mg/dL Urine Blood (Negative) Ur Leukocyte Esterase (Negative) Urine WBC (0-5) HPF Urine Glucose (Negative) mg/dL Vital Signs Temperature 36.7 C 04/16/19 03:50 Temperature Source Tympanic 04/16/19 03:50 Pulse 106 H 04/16/19 08:35 Pulse Rhythm Regular 04/16/19 10:46 Pulse 84 04/15/19 21:31 Respiratory Rate 23 04/16/19 03:50 Respiratory Effort Labored 04/16/19 10:46 Respiratory Depth Shallow 04/16/19 10:46 Respiratory Pattern Irregular 04/16/19 10:46 Blood Pressure 130/59 L 04/16/19 03:50 Blood Pressure Mean 79 04/15/19 21:31 Pulse Oximetry 95 04/16/19 09:10 Oxygen Delivery Method Nasal Cannula 04/16/19 09:10 Oxygen Flow Rate 3 04/16/19 09:10 Pain Level 0 04/16/19 03:50 Comment 04/15/19 18:11 Intake & Output 04/15/19 04/16/19 04/16/19 23:59 11:59 23:59 Intake Total 1500 / 1500 500 / 500 Output Total 800 / 800 Balance 700 / 700 500 / 500 Weight 135.1 kg 137.1 kg Intake: IV 1500 / 1500 Oral 480 / 480 Output: Urine 800 / 800 Other: Urine Appearance Clear Clear Comment pvr 61 Voiding Methods Diaper Incontinent Laboratory Results WBC 8.22 k/cumm (4.4-10.8) 04/16/19 06:47 RBC 3.67 m/cumm (4.50-6.00) L 04/16/19 06:47 Hgb 11.8 g/dL (13.5-17.5) L 04/16/19 06:47 Hct 37.8 % (40.0-50.0) L 04/16/19 06:47 MCV 103.0 fL (80-95) H 04/16/19 06:47 MCH 32.2 pg (27.0-33.0) 04/16/19 06:47 MCHC 31.2 g/dL (32.0-36.0) L 04/16/19 06:47 RDW 14.9 % (11.8-14.1) H 04/16/19 06:47 Plt Count 102 x1000/uL (130-400) L 04/16/19 06:47 MPV 12.7 fL (8.0-11.0) H 04/16/19 06:47 Immature Gran % 0.9 % 04/15/19 18:40 Neutrophils % 59.8 04/15/19 18:40 Lymphocytes % 17.8 04/15/19 18:40 Monocytes % 20.0 04/15/19 18:40 Eosinophils % 1.1 04/15/19 18:40 Basophils % 0.4 04/15/19 18:40 Absolute Neutrophils 5.05 k/cumm (1.2-6.7) 04/15/19 18:40 Absolute Lymphocytes 1.50 k/cumm (1.2-3.4) 04/15/19 18:40 Absolute Monocytes 1.69 k/cumm (0.11-0.7) H 04/15/19 18:40 Absolute Eosinophils 0.09 k/cumm (0.0-0.7) 04/15/19 18:40 Absolute Basophils 0.03 k/cumm (0.0-0.2) 04/15/19 18:40 Differential Comment Agrees w/ instrument 04/15/19 18:40 RBC Morphology See below 04/15/19 18:40 Hypochromasia 1+ 04/15/19 18:40 Macrocytosis 1+ 04/15/19 18:40 Stomatocytes 2+ 04/15/19 18:40 PT 10.5 sec (9.3-11.0) 04/15/19 18:40 INR 1.0 (0.9-1.1) 04/15/19 18:40 APTT 22.3 sec (21.0-31.4) 04/15/19 18:40 Sodium 141 mmol/L (136-145) 04/16/19 06:47 Potassium 4.6 mmol/L (3.5-5.1) 04/16/19 06:47 Chloride 104 mmol/L (98-107) 04/16/19 06:47 Carbon Dioxide 27.6 mmol/L (21.0-32.0) 04/16/19 06:47 Anion Gap 9.4 mmol/L (3-11) 04/16/19 06:47 BUN 31 mg/dL (7-18) H 04/16/19 06:47 Creatinine 1.83 mg/dL (0.70-1.30) H 04/16/19 06:47 Estimated GFR/1.73 m2 36.27 (mL/min/1.73m2) 04/16/19 06:47 Glucose 255 mg/dL (74-106) H D 04/16/19 06:47 Calcium 8.5 mg/dL (8.5-10.1) 04/16/19 06:47 Magnesium Cancelled 04/15/19 19:26 Total Bilirubin 0.3 mg/dL (0.2-1.0) 04/16/19 06:47 AST 17 U/L (15-37) 04/16/19 06:47 ALT 20 U/L (16-63) 04/16/19 06:47 Alkaline Phosphatase 58 U/L (46-116) 04/16/19 06:47 Troponin I Cancelled 04/15/19 19:26 Total Protein 6.6 g/dL (6.4-8.2) 04/16/19 06:47 Albumin 2.9 g/dL (3.4-5.0) L 04/16/19 06:47 Procalcitonin Cancelled 04/15/19 20:59 TSH 1.69 uIU/mL (0.36-3.74) 04/15/19 19:30 Urine Color Yellow (Yellow) 04/15/19 18:30 Urine Clarity Cloudy (Clear) 04/15/19 18:30 Urine pH 7.0 (5-8) 04/15/19 18:30 Ur Specific [place] 1.020 (1.005-1.025) 04/15/19 18:30 Urine Protein >=300 mg/dL (Negative) H 04/15/19 18:30 Urine Ketones Negative mg/dL (Negative) 04/15/19 18:30 Urine Blood Moderate (Negative) H 04/15/19 18:30 Urine Nitrite Negative (Negative) 04/15/19 18:30 Urine Bilirubin Negative (Negative) 04/15/19 18:30 Urine Urobilinogen 0.2 EU/dL (Up TO 0.2) 04/15/19 18:30 Ur Leukocyte Esterase Large (Negative) H 04/15/19 18:30 Urine RBC HPF (0-2) 04/15/19 18:30 Urine WBC >50 HPF (0-5) H 04/15/19 18:30 Ur Epithelial Cells Negative HPF (Negative) 04/15/19 18:30 Urine Crystals Not Applicable 04/15/19 18:30 Urine Bacteria Packed HPF (Negative) 04/15/19 18:30 Urine Mucus (Negative) 04/15/19 18:30 Urine Other Few transitional (Negative) 04/15/19 18:30 Ur Culture Indicated? Yes 04/15/19 18:30 Urine Glucose 250 mg/dL (Negative) H 04/15/19 18:30
[2019-04-16] MEDS: Lidocaine 5% Patch 2 PATCH TP (12:42)
[2019-04-16] MEDS: predniSONE 20 MG TAB 60 MG PO (12:42)
[2019-04-16] MEDS: Normal Saline Flush 10 ML SYR IVP (13:16)
[2019-04-16] MEDS: Benzonatate 200 MG CAP PO ×2 (15:51→20:52)
[2019-04-16 16:14] VITALS: BP 176/74; PULSE 89; RESP 20; TEMP 36.4; O2SAT 92
--- NOTE | 2019-04-16 16:14 | PHARADMIT ---
Addendum entered by Kelli Worley 04/17/19 16:31: Pharmacy Note Subjective repeat UA ordered Objective BP-169/79 HR-91 other VS okay BG-452 Assessment pt started back on home insulin regimen prednisone dose decreased simvastatin changed to rosuvastatin yesterday ceftriaxone continues (day 3) Plan watch BG closely; watch for UA results Original Note: Admission Pharmacy Clinical Review weakness w/fall hit head and back 2nd to gen-mal w/UTI Code Status DNR/DNI Current Weight 137.1 kg Renally Cleared and Narrow Therapeutic Index Meds Crcl ~46.6 mL/min using adjusted body weight gabapentin-recommended 200-700 mg BId for Crcl 30-59 mL/min oxybutynin-has not been studied, use with caution sodium bicarb-use with caution may cause sodium retention trazodone-has not been studied, use with caution QTc Value / Action Taken QTc 428 BP Control, Fever BP 176/74 Tmax 37.7 today Electrolytes reviewed within normal limits DVT Prophylaxis heparin Opiate Usage / Scheduled Bowel Regimen Ordered no/prn Plt/SCr for Heparin / Enoxaparin plt 102 SCr 1.83 INR for Warfarin n/a H/H stable, WBC/Bands h/h 11.8/37.8 wbc 8.22 Antibiotic appropriateness ceftriaxone (day 2) Cultures and Sensitivities urine culture growing gram negative edwardo (probable contaminant) Surgical ABX d/c within 24 hr n/a DM control / Insulin Dosing BG 255 sliding scale aspart ordered; no glargine yet TOBACCO BALER aware Heart Failure (Check EF%) (ZAN's, B-Block, Diuretics) diltiazem, furosemide, losartan, IV to PO Switch n/a Home Meds Reviewed -multiple forms of vitamin D increases the risk of toxicity -anticholinergic meds increases the ulcerogenic effect of potassium -multiple anticholinergic meds: olanzapine, oxybutynin, promethazine -separate admin of multivitamin from cephalexin and sodium bicarb, ferrous sulfate from sodium bicarb, and gabapentin from magnesium oxide -simvastatin and diltiazem may increase the serum concentrations of each other. recommended to avoid concurrent use together; however if used in combination limit simvastatin dosing to 10 mg and diltiazem to 240 mg Home Meds Not Ordered cephalexin (has other abx), insulin glargine, insulin regular, meprobamate, promethazine Comments watch for restart of glargine, pts BG was low on admit will bring up simvastatin/diltiazem interaction to TOBACCO BALER... changed to rosuvastatin as pt should be on high intensity statin
--- NOTE | 2019-04-16 18:24 | PDOC.CMIN ---
- If Service Date Differs Date of service: 04/16/19 Time of Service: 18:24 Care Management Initial Assess REASON FOR HOSPITALIZATION:: Weakness, frequent falls, UTI PAST MEDICAL HISTORY/PAST SURGICAL HISTORY:: Medical History . A-fib (Acute). Cerebrovascular accident (CVA) (Chronic 05/04/11). 4 CVA'S 09/02/00-11/02/00. 1 CVA 04/15/01. TIA'S 04/19/01 & 12/06/01. 03/19/06 CVA VARIOUS STROKES SHOWN IN MRI 09/14. 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 (Chronic 03/09/07). Depressive disorder (Chronic 05/04/11). Diabetes mellitus (Chronic 05/04/11). DVT prophylaxis (Inactive). Frequent falls (Chronic). Frontal lobe and executive function deficit following cerebral infarction (Chronic 03/23/16). Gait instability (Chronic). HCAP (healthcare-associated pneumonia) (Inactive). Late, effect, cerebrovascular disease (Chronic 03/09/07). Malignant neoplasm of sigmoid colon (Chronic 02/21/15). [facility] resident (Resolved). Obesity (Chronic). Palliative care patient (Chronic). Vascular dementia (Chronic). Vascular dementia with behavior disturbance (Chronic 03/23/16). Surgical History . Appendectomy. Arthroplasty of knee. RIGHT. HERNIA REPAIR. X 3. History of arthroscopy of knee (Inactive). History of spinal surgery (Inactive). LOW BACK SURGERY. [place]OL [place]. [place] [facility] [place]FFICULT INTUBATION; B/P BOTTOMED OUT. Status post appendectomy (Inactive). Tonsillectomy. UPPP (Uvulopalatopharyngoplasty) PREVIOUS FUNCTIONAL STATUS/SOCIAL/FAMILY SUPPORTS:: Juan Rogers lives in an [facility] home in [facility]. He reports he is happy there and his needs are met. He reports the agency that placed him in the [employer] home is [employer] and his caser shoe parts is Marely, but she will be leaving the company at the end of the week and he does not know who is replacing her. His , Gia, works at [employer] CURRENT FUNCTIONAL STATUS:: Ken was lying in bed when CM met with him. He was engaged in conversation with limited eye contact. He reported that he is feeling better today, but he does not like working with PT. He stated that he was told that he 'couldn't be cured' and that PT couldn't help him prevent falls. CM expressed that PT could be very effective at helping him regain strenghth. He stated that he feels he would benefit from a hospital bed at home. He currently uses a 4WW and a w/c to get around. CM will continue to follow. ADVANCE DIRECTIVES:: Colst on file. Gia, , listed as agent. Has patient been provided with information about the portal?: No Did the patient sign up for the portal?: No CODE STATUS:: DNR/DNI INSURANCE COVERAGE / FINANCIAL ISSUES:: MCR/MARGI CURRENT HOME/COMMUNITY SERVICES/EQUIPMENT:: Ken currently lives in an [facility] home, coordinated through [facility]. He uses a 4WW and W/C to get around. He has HH RN, PT. PRIMARY CARE PHYSICIAN:: Hever Presley POTENTIAL DISCHARGE NEEDS:: Follow up appointments, evaluation for further needs PATIENT/FAMILY EDUCATION NEEDS:: Review discharge instructions with [facility] home providers and caser shoe parts through [facility], discussion of self care needs including Ask Me Three ANTICIPATED BARRIERS TO DISCHARGE:: None at this time. TRANSPORTATION:: Anticipate Ken will transport home via private vehicle by [facility] home providers. PLAN:: Anticipate Ken will return to his [facility] home when medically cleared. He will resume his HH RN, PT. He will follow up with his PCP, as recommended. His [facility] home providers will transport him home via private vehicle when ready. CM will continue to follow.
[2019-04-16] MEDS: Budesonide/Formoterol 160/4.5 6 GM 60 PUFF INH IH (20:52)
[2019-04-16] MEDS: Rosuvastatin 10 MG TAB 20 MG PO (20:52)
[2019-04-16] MEDS: cefTRIAXone 1 GM VIAL IM (20:52)
[2019-04-16 21:19] LABS: Glucose 457 mg/dL (74-106)
[2019-04-16] MEDS: Clopidogrel 75 MG TAB PO (22:20)
[2019-04-16] MEDS: DULoxetine 30 MG CAP 60 MG PO (22:20)
[2019-04-16] MEDS: Pantoprazole 40 MG TABCR PO (22:20)
[2019-04-17] VITALS (10 sets, daily range): BP systolic 146–169; BP diastolic 56–92; PULSE 91–113; RESP 18–22; TEMP 36.1–36.7; O2SAT 92–98
[2019-04-17] MEDS: Lidocaine Patch Removal 2 EACH TD (00:53)
[2019-04-17] MEDS: Heparin 5,000 UNITS/ML VIAL 5000 UNITS SC ×2 (05:54→13:10)
[2019-04-17] MEDS: Losartan 25 MG TAB PO (07:58)
[2019-04-17] MEDS: Magnesium Oxide 400 MG TAB PO (07:58)
[2019-04-17] MEDS: Mirabegron 50 MG TABCR PO (07:58)
[2019-04-17] MEDS: Furosemide 20 MG TAB PO (07:58)
[2019-04-17] MEDS: OLANZapine 5 MG TAB PO (07:58)
[2019-04-17] MEDS: Tamsulosin 0.4 MG CAPCR 0.8 MG PO (07:59)
[2019-04-17] MEDS: Gabapentin 100 MG CAP PO ×2 (07:59→13:10)
[2019-04-17] MEDS: Benzonatate 200 MG CAP PO ×3 (07:59→20:47)
[2019-04-17] MEDS: predniSONE 20 MG TAB 60 MG PO (07:59)
[2019-04-17] MEDS: Aspirin E.C. 81 MG TABEC PO (08:00)
[2019-04-17] MEDS: Finasteride 5 MG TAB PO (08:00)
[2019-04-17] MEDS: Oxybutynin 5 MG TAB 10 MG PO (08:00)
[2019-04-17] MEDS: Ferrous Sulfate 325 MG TAB PO (08:00)
[2019-04-17] MEDS: Ascorbic Acid 500 MG TAB PO (08:00)
[2019-04-17] MEDS: Montelukast 10 MG TAB PO (08:01)
[2019-04-17] MEDS: Multivitamin TAB 1 TAB PO (08:01)
[2019-04-17] MEDS: Insulin Aspart 300 UNITS/3 ML PEN SC ×4 (08:01→17:09)
[2019-04-17] MEDS: Potassium Chloride 10 MEQ CAPCR PO ×2 (08:01→20:47)
[2019-04-17] MEDS: Budesonide/Formoterol 160/4.5 6 GM 60 PUFF INH IH ×2 (08:10→20:49)
[2019-04-17 08:16] LABS: Glucose 452 mg/dL (74-106)
[2019-04-17] MEDS: dilTIAZem CD 120 MG CAPCR PO (08:58)
--- NOTE | 2019-04-17 10:00 | PT.INNT ---
Date of service: 04/17/19 Time of Service: 10:00 PT Notes Visit Reasons: WKNESS W/FALL HIT HEAD & BACK 2ND TO GEN-MAL W/UTI 04/17/19 Patient refused morning PT session, stating that he is too tired to participate. Will attempt to resume PT services this afternoon.
--- NOTE | 2019-04-17 10:30 | OT.INNT ---
Date of service: 04/17/19 Time of Service: 10:15 Occupational Therapy Notes 04/17/19 OT attempted to see pt who was sleeping. OT did try to wake pt and was not successful. OT will attempt to consult with pt tomorrow. Xenia Gorman OTR/[facility]
--- NOTE | 2019-04-17 11:15 | PT.INTREAT ---
Date of service: 04/16/19 Time of Service: 11:15 PT Notes Visit Reasons: WKNESS W/FALL HIT HEAD & BACK 2ND TO GEN-MAL W/UTI Inpatient Physical Therapy Treatment Note [facility] Date: 04/16/2019 PRECAUTIONS: Fall SUBJECTIVE: Ken states I don't want PT, you can't do anything for me. Ken is hesitant but finally agreeable to participating in PT. OBJECTIVE: PAIN: No c/o pain BED MOBILITY/TRANSFERS Rolling L/R: I Supine-sit: Min A of L LE with HOB at 40 degrees with use of hand rails and cueing for technique Sit-supine: Min A with HOB flat and use of hand rails and cueing for technique Sit-stand: CGA x2 with elevated bed surface Stand-sit: CGA GAIT Assistive Device: FWW Weight bearing: Full Assist: CGA x2 Distance: 8 side steps to L Deviation: C/o dizziness ASSESSMENT: Patient demonstrates a need for hospital bed due to limited mobility. There is benefit in having B handrails and elevating HOB and bed surface to allow for increased patient participation in functional bed mobility and transfers. PLAN: Continue with PT's POC TREATMENT CODE/TIME: 25 minutes; [id number] x2
[2019-04-17] MEDS: Insulin Glargine 300 UNITS/3 ML PEN 35 UNITS SC (11:48)
[2019-04-17] MEDS: Lidocaine 5% Patch 2 PATCH TP (11:55)
--- NOTE | 2019-04-17 13:42 | W.PM.PROGNOT ---
Date of Service Date of service: 04/17/19 Time of Service: 10:30 Assessment and Plan Assessment and plan (1) UTI (urinary tract infection): Status: Acute Assessment and plan: urine culture shows gram negative mixed edwardo, likely contamination. has been on ceftriaxone day 3. will recheck urine to see if he cleared his pyuria. Qualifiers: Hematuria presence: without hematuria Urinary tract infection type: site unspecified Qualified Code(s): N39.0 - Urinary tract infection, site not specified (2) A-fib: Status: Chronic Assessment and plan: stable on diltiazem. first diagnosed in june 2018 and anticoagulation not started d/t gross hematuria. d/t frequent recent falls and behavioral disturbances is high risk. Qualifiers: Atrial fibrillation type: unspecified chronic Qualified Code(s): I48.20 - Chronic atrial fibrillation, unspecified (3) COPD (chronic obstructive pulmonary disease): Status: Chronic Assessment and plan: stable, continue home medications and home oxygen. (4) Diabetes mellitus: Status: Chronic Assessment and plan: was hypoglycemic on admission and now that insulin held is hyperglycemic. will restart home insulin and monitor closely, no adjustments at this time. last hemoglobin A1C was 7.9, which is good target in this patient. will continue diabetic diet, sliding scale coverage as needed. will resume home insulin, lantus 25 daily with U500 AC at 90 units. continue to monitor blood sugars closely. 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 PT/OT consult. fall precautions. continue plavix and statin (6) Vascular dementia with behavior disturbance: Status: Chronic (7) BPH w/o urinary obs/LUTS: Status: Chronic Assessment and plan: With urinary incontinence, acute UTI being treated and long-term may consider urological evaluation though this seems to be the least of his problems. Evaluate for possible urinary retention as a cause for UTI. Imaging did not reveal hydronephrosis though there was nephrolithiasis. continue tamsulosin. (8) DVT prophylaxis: Status: Acute Assessment and plan: heparin sc every 8 hours. (9) Discharge planning issues: Status: Acute Assessment and plan: will discharge back to home with resumption of services once medically stable. he will need to be changed to inpatient status d/t medication adjustment for poorly controlled blood sugars. Subjective Subjective Patient reports: no new complaints Interval history since last seen: patient eating and drinking, blood sugars remain elevated. is not taking home u 500 ac. Exam Const General: cooperative, no acute distress (older appearing than stated age) and ill appearing chronically Nutritional Appearance: obese Resp Effort & Inspection: normal respiratory effort and able to speak in complete sentences Auscultation: clear to auscultation bilaterally and diminished lung sounds bilaterally in the lower lung toussaint Cardio Rate: regular rate Rhythm: regular rhythm GI Inspection: normal to inspection and obesity Palpation: soft Auscultation: normal bowel sounds Skin General skin exam: no rashes or lesions noted Neuro General: alert and awake Extrem General: normal to inspection and full ROM Objective Objective Clinical Data: Abnormal lab results 04/16/19 04/17/19 Range/Units 21:05 07:55 Glucose 457 H D 452 H (74-106) mg/dL Vital Signs Temperature 36.2 C L 04/17/19 11:59 Temperature Source Tympanic 04/17/19 11:59 Pulse 104 H 04/17/19 11:59 Pulse Rhythm Regular 04/17/19 09:41 Pulse 84 04/15/19 21:31 Respiratory Rate 18 04/17/19 11:59 Respiratory Effort Labored 04/17/19 09:41 Respiratory Depth Normal 04/17/19 09:41 Respiratory Pattern Normal 04/17/19 09:41 Blood Pressure 151/56 H 04/17/19 11:59 Blood Pressure Mean 79 04/15/19 21:31 Pulse Oximetry 95 04/17/19 11:59 Oxygen Delivery Method Room Air 04/17/19 11:59 Oxygen Flow Rate 0 04/17/19 11:59 Pain Level 0 04/17/19 11:59 Comment 04/17/19 07:30 Intake & Output 04/16/19 04/17/19 04/17/19 23:59 11:59 23:59 Intake Total 1480 / 1980 500 / 980 480 / 980 Output Total 775 / 775 608 / 608 Balance 705 / 1205 -108 / 372 480 / 372 Weight 134.1 kg Intake: IV 1000 / 1020 Oral 480 / 960 500 / 980 480 / 980 Output: Urine 775 / 775 608 / 608 Other: Urine Color Yellow Pale Yellow Urine Appearance Clear Clear Urine Odor Normal Comment void 400 pT incontinent of urine brief was very wet. Stool Occult Blood Negative Stool Size Moderate Large Stool Characteristics Soft Soft Bloody Voiding Methods Bedside Commode Bedside Commode Diaper Incontinent Laboratory Results WBC 8.22 k/cumm (4.4-10.8) 04/16/19 06:47 RBC 3.67 m/cumm (4.50-6.00) L 04/16/19 06:47 Hgb 11.8 g/dL (13.5-17.5) L 04/16/19 06:47 Hct 37.8 % (40.0-50.0) L 04/16/19 06:47 MCV 103.0 fL (80-95) H 04/16/19 06:47 MCH 32.2 pg (27.0-33.0) 04/16/19 06:47 MCHC 31.2 g/dL (32.0-36.0) L 04/16/19 06:47 RDW 14.9 % (11.8-14.1) H 04/16/19 06:47 Plt Count 102 x1000/uL (130-400) L 04/16/19 06:47 MPV 12.7 fL (8.0-11.0) H 04/16/19 06:47 Immature Gran % 0.9 % 04/15/19 18:40 Neutrophils % 59.8 04/15/19 18:40 Lymphocytes % 17.8 04/15/19 18:40 Monocytes % 20.0 04/15/19 18:40 Eosinophils % 1.1 04/15/19 18:40 Basophils % 0.4 04/15/19 18:40 Absolute Neutrophils 5.05 k/cumm (1.2-6.7) 04/15/19 18:40 Absolute Lymphocytes 1.50 k/cumm (1.2-3.4) 04/15/19 18:40 Absolute Monocytes 1.69 k/cumm (0.11-0.7) H 04/15/19 18:40 Absolute Eosinophils 0.09 k/cumm (0.0-0.7) 04/15/19 18:40 Absolute Basophils 0.03 k/cumm (0.0-0.2) 04/15/19 18:40 Differential Comment Agrees w/ instrument 04/15/19 18:40 RBC Morphology See below 04/15/19 18:40 Hypochromasia 1+ 04/15/19 18:40 Macrocytosis 1+ 04/15/19 18:40 Stomatocytes 2+ 04/15/19 18:40 PT 10.5 sec (9.3-11.0) 04/15/19 18:40 INR 1.0 (0.9-1.1) 04/15/19 18:40 APTT 22.3 sec (21.0-31.4) 04/15/19 18:40 Sodium 141 mmol/L (136-145) 04/16/19 06:47 Potassium 4.6 mmol/L (3.5-5.1) 04/16/19 06:47 Chloride 104 mmol/L (98-107) 04/16/19 06:47 Carbon Dioxide 27.6 mmol/L (21.0-32.0) 04/16/19 06:47 Anion Gap 9.4 mmol/L (3-11) 04/16/19 06:47 BUN 31 mg/dL (7-18) H 04/16/19 06:47 Creatinine 1.83 mg/dL (0.70-1.30) H 04/16/19 06:47 Estimated GFR/1.73 m2 36.27 (mL/min/1.73m2) 04/16/19 06:47 Glucose 452 mg/dL (74-106) H 04/17/19 07:55 Calcium 8.5 mg/dL (8.5-10.1) 04/16/19 06:47 Magnesium Cancelled 04/15/19 19:26 Total Bilirubin 0.3 mg/dL (0.2-1.0) 04/16/19 06:47 AST 17 U/L (15-37) 04/16/19 06:47 ALT 20 U/L (16-63) 01/13/20 06:47 Alkaline Phosphatase 58 U/L (46-116) 04/16/19 06:47 Troponin I Cancelled 04/15/19 19:26 Total Protein 6.6 g/dL (6.4-8.2) 04/16/19 06:47 Albumin 2.9 g/dL (3.4-5.0) L 04/16/19 06:47 Procalcitonin Cancelled 04/15/19 20:59 TSH 1.69 uIU/mL (0.36-3.74) 04/15/19 19:30 Urine Color Yellow (Yellow) 04/15/19 18:30 Urine Clarity Cloudy (Clear) 04/15/19 18:30 Urine pH 7.0 (5-8) 04/15/19 18:30 Ur Specific [place] 1.020 (1.005-1.025) 04/15/19 18:30 Urine Protein >=300 mg/dL (Negative) H 04/15/19 18:30 Urine Ketones Negative mg/dL (Negative) 04/15/19 18:30 Urine Blood Moderate (Negative) H 04/15/19 18:30 Urine Nitrite Negative (Negative) 04/15/19 18:30 Urine Bilirubin Negative (Negative) 04/15/19 18:30 Urine Urobilinogen 0.2 EU/dL (Up TO 0.2) 04/15/19 18:30 Ur Leukocyte Esterase Large (Negative) H 04/15/19 18:30 Urine RBC HPF (0-2) 04/15/19 18:30 Urine WBC >50 HPF (0-5) H 04/15/19 18:30 Ur Epithelial Cells Negative HPF (Negative) 04/15/19 18:30 Urine Crystals Not Applicable 04/15/19 18:30 Urine Bacteria Packed HPF (Negative) 04/15/19 18:30 Urine Mucus (Negative) 04/15/19 18:30 Urine Other Few transitional (Negative) 04/15/19 18:30 Ur Culture Indicated? Yes 04/15/19 18:30 Urine Glucose 250 mg/dL (Negative) H 04/15/19 18:30
--- NOTE | 2019-04-17 14:26 | PT.INTREAT ---
Date of service: 04/17/19 Time of Service: 14:26 PT Notes Visit Reasons: WKNESS W/FALL HIT HEAD & BACK 2ND TO GEN-MAL W/UTI Inpatient Physical Therapy Treatment Note [facility] Date: 04/17/2019 PRECAUTIONS: Fall SUBJECTIVE: Ken is agreeable to participating in PT, although indicates that he is very tired this afternoon. OBJECTIVE: PAIN: No c/o pain BED MOBILITY/TRANSFERS Sit-supine: Min A with HOB flat and use of hand rails and cueing for technique Sit-stand: CGA (performed x10) Stand-sit: CGA (performed x10) GAIT Assistive Device: FWW Weight bearing: Full Assist: CGA + SBA Distance: 3' x2 + 10' Deviation: Increased SOB TOILETING: Patient is incontinent of urine requiring Max A ASSESSMENT: Patient was able to tolerate a progression in gait distance with FWW support and CGA. He contnues to demonstrate increased SOB with activity. PLAN: Continue with PT's POC TREATMENT CODE/TIME: 30 minutes; [id number] x2
[2019-04-17 17:01] LABS: Glucose 425 mg/dL (74-106)
--- NOTE | 2019-04-17 18:01 | CMPROGNOTE_ITS ---
- If Service Date Differs Date of service: 04/17/19 Time of Service: 18:02 Care Management Progress Note S/O: Juan is lying in bed watching television when CM comes to meet with him. He shares his blood sugars are high and he will have to remain at the hospital until those are under control. He says his home provider came to visit him today and he really enjoyed the visit. He hopes to be able to return home soon. CM will continue to follow. A: Juan is a 73 year old male admitted to [facility] on 04/15/2019 for weakness with fall and UTI. P: Juan will return to his [facility] home when medically cleared by provider. Anticipate resumption of HH RN and PT at time of discharge. He will be transported home by his [facility] home provider when ready. CM will continue to follow.
[2019-04-17] MEDS: Rosuvastatin 10 MG TAB 20 MG PO (20:47)
[2019-04-17] MEDS: cefTRIAXone 1 GM VIAL IM (20:47)
[2019-04-17] MEDS: Gabapentin 100 MG CAP (20:51)
[2019-04-17] MEDS: Lidocaine 1% Multi-Dose 50 ML VIAL IJ (20:53)
[2019-04-17] MEDS: Heparin 5,000 UNITS/ML VIAL 5000 UNITS (22:12)
[2019-04-17] MEDS: DULoxetine 30 MG CAP 60 MG PO (22:13)
[2019-04-17] MEDS: Clopidogrel 75 MG TAB PO (22:13)
[2019-04-17] MEDS: Pantoprazole 40 MG TABCR PO (22:13)
[2019-04-18] MEDS: Lidocaine Patch Removal 2 EACH TD (00:57)
[2019-04-18] MEDS: Heparin 5,000 UNITS/ML VIAL 5000 UNITS SC (06:49)
[2019-04-18 07:26] VITALS: BP 149/59; PULSE 73; RESP 21; TEMP 36.5; O2SAT 94
--- NOTE | 2019-04-18 07:37 | W.INDIABCONS ---
Date of service: 04/18/19 Time of Service: 07:38 Diabetes Inpatient Consult DESCRIPTION/ASSESSMENT: Appreciate diabetes consult for Mr. Valente who is hospitalized with recent falls. A1c 7.9 BMI 46 He is known from outpatient DSME in the distant past. Currently at home he receives 90u U500 three times a day plus 25u Lantus for total of 315 units daily. Blood sugars here have been 256-435mg/dl. He had been on 25u Lantus and resistant insulin correction initially increasing his dosage to 35u BID however yesterday he received his first U500 dose of 90units prescribed for once a day, currently prescribed total daily dose of 115units plus resistant insulin correction up to 75 additional units. Attempted to visit yesterday but he was occupied. Seen this morning. Juan lives in a care community and does not prepare his food or manage his diabetes. Given his age and dependence, diabetes is reasonably managed at home. States he gets hypoglycemia symptoms around 60-65 up to several times a week, usually between 10-midnight. Treating hypoglycemia challenges weight management issues. INTERVENTION: Suggest increasing his U500 closer to his home regimen which may decrease his need for insulin correction. Suggest 50 units U500 with each meal and titrate up as needed. PLAN: Will follow blood sugars. Suggest increase in U500 to each mealtime at 50units as above. Time Spent in Nutritional Counseling and Treatment: 10 minutes face to face
[2019-04-18] MEDS: Budesonide/Formoterol 160/4.5 6 GM 60 PUFF INH IH (08:02)
[2019-04-18 08:05] VITALS: O2SAT 94
[2019-04-18 08:06] VITALS: RESP 22
[2019-04-18] MEDS: Tamsulosin 0.4 MG CAPCR 0.8 MG PO (09:12)
[2019-04-18] MEDS: Montelukast 10 MG TAB PO (09:13)
[2019-04-18] MEDS: Ascorbic Acid 500 MG TAB PO (09:13)
[2019-04-18] MEDS: Gabapentin 100 MG CAP PO (09:14)
[2019-04-18] MEDS: Mirabegron 50 MG TABCR PO (09:14)
[2019-04-18] MEDS: Magnesium Oxide 400 MG TAB PO (09:14)
[2019-04-18] MEDS: Oxybutynin 5 MG TAB 10 MG PO (09:14)
[2019-04-18] MEDS: Ferrous Sulfate 325 MG TAB PO (09:15)
[2019-04-18] MEDS: Multivitamin TAB 1 TAB PO (09:15)
[2019-04-18] MEDS: Losartan 25 MG TAB PO (09:15)
[2019-04-18] MEDS: Finasteride 5 MG TAB PO (09:16)
[2019-04-18] MEDS: Furosemide 20 MG TAB PO (09:17)
[2019-04-18] MEDS: predniSONE 20 MG TAB 60 MG PO (09:17)
[2019-04-18] MEDS: dilTIAZem CD 120 MG CAPCR PO (09:19)
[2019-04-18] MEDS: Benzonatate 200 MG CAP PO (09:20)
[2019-04-18] MEDS: Aspirin E.C. 81 MG TABEC PO (09:20)
[2019-04-18] MEDS: OLANZapine 5 MG TAB PO (09:20)
[2019-04-18] MEDS: Potassium Chloride 10 MEQ CAPCR PO (09:20)
[2019-04-18] MEDS: Insulin Aspart 300 UNITS/3 ML PEN SC ×2 (09:28→11:59)
[2019-04-18] MEDS: Insulin Glargine 300 UNITS/3 ML PEN 25 UNITS SC (09:29)
[2019-04-18 09:34] LABS: HCT 37.2 % (40.0-50.0); HGB 11.9 g/dL (13.5-17.5); Mean Corpuscular Hemoglobin 32.7 pg (27.0-33.0); Mean Corpuscular Volume 102.2 fL (80-95); Mean Platelet Volume 12.7 fL (8.0-11.0); Platelet Count 110 x1000/uL (130-400); RBC 3.64 m/cumm (4.50-6.00); RBC Distribution Width 14.6 % (11.8-14.1); White Blood Cell Count 12.91 k/cumm (4.4-10.8)
[2019-04-18 09:50] LABS: Anion Gap 5.4 mmol/L (3-11); BUN 52 mg/dL (7-18); CO2 30.6 mmol/L (21.0-32.0); CREATININE 2.36 mg/dL (0.70-1.30); Calcium 8.9 mg/dL (8.5-10.1); Chloride 98 mmol/L (98-107); Estimated GFR 27.04 (mL/min/1.73m2); Glucose 422 mg/dL (74-106); Potassium 5.1 mmol/L (3.5-5.1); Sodium 134 mmol/L (136-145)
[2019-04-18 11:02] VITALS: BP 115/77; BP 131/68; BP 150/89; PULSE 105; PULSE 96; PULSE 98
--- NOTE | 2019-04-18 11:12 | OTIE_ITS ---
Occupational Therapy Notes Inpatient Occupational Therapy Evaluation Date: 04/18/19 Referring Doctor: Mell Lozano NP OT Orders: Non-Urgent Precautions: Fall, Standard PATIENT PROFILE/ADMITTING DIAGNOSIS: Pt is a 73 year old male who was admitted through the ER on 04/15/19 for Dizziness, Weakness, UTI (urinary tract infection), Closed head injury. Past Medical History: Medical History A-fib (Acute) Cerebrovascular accident (CVA) (Chronic 05/04/11) 4 CVA'S 09/02/00-11/02/00 1 CVA 04/15/01 TIA'S 04/19/01 & 12/06/01 03/19/06 CVA VARIOUS STROKES SHOWN IN MRI 09/14 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 (Chronic 03/09/07) Depressive disorder (Chronic 05/04/11) Diabetes mellitus (Chronic 05/04/11) DVT prophylaxis (Inactive) Frequent falls (Chronic) Frontal lobe and executive function deficit following cerebral infarction (Chronic 03/23/16) Gait instability (Chronic) HCAP (healthcare-associated pneumonia) (Inactive) Late, effect, cerebrovascular disease (Chronic 03/09/07) Malignant neoplasm of sigmoid colon (Chronic 02/21/15) intermediate resident (Resolved) Obesity (Chronic) Palliative care patient (Chronic) Vascular dementia (Chronic) Vascular dementia with behavior disturbance (Chronic 03/23/16) Surgical History Appendectomy Arthroplasty of knee RIGHT HERNIA REPAIR X 3 History of arthroscopy of knee (Inactive) History of spinal surgery (Inactive) LOW BACK SURGERY PROPOFOL SEDATION 01/05/13; [facility] [place]; DIFFICULT INTUBATION; B/P BOTTOMED OUT Status post appendectomy (Inactive) Tonsillectomy UPPP (Uvulopalatopharyngoplasty) Social History/Home Situation: Pt states that he lives in a skilled nursing setting and has a PMHX of multiple strokes and conditions. He notes that he gets (A) whenever he needs it. 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 Pt states that he has HH services in the home. He specifies that he has OT 1x per week. Equipment owned/DME: sock aid, shoe horn, grabber,dressing stick, grab barsx1 in shower, shower bench SUBJECTIVE: Pt states that he is needing a hospital bed and would like to know how to get one. He also states that this is limiting him from performing bed mobility as well as safe ambulation when he wakes up in the night. Pt also reports that his (L) side is considered his weak side. He notes that this limits him in ROM and strength. OBJECTIVE: General Observation: Pleasant, agreeable to OT session and answered all questions appropriately Mental Status: A&Ox3 Pain: no c/o pain. ROM: RUE AROM WNL L UE AROM WNL STRENGTH: RUE Shoulder flexion 3-/5, bicep 3+/5, tricep 3-/5, corrections nurse is strong and symmetrical LUE Shoulder flexion 3-/5, bicep 3+/5, tricep 3-/5, corrections nurse is strong and sy mmetrical FUNCTIONAL MOBILITY/ADLS: Transfers with FWW Sit-Stand (I) Stand-sit (I) BATHING NT pt denies DRESSING Dressing UE Mod (A) don and doffing shirt Dressing LE Max (A) don and doffing socks without use of sockaid, mod (A) don and doffing pants GROOMING NT TOILETING On commode, max (A) toileting hygiene EATING Min (A) with cutting food, (I) with hand to mouth translation OT educated and trained pt in adaptive equipment including dressing stick and long handled shoe horn as well as energy conservation techniques to increase pts functional (I) in ADL/IADL routines. BALANCE: Static sitting Normal Dynamic Sitting Normal Static Standing Normal Dynamic Standing Good SPECIAL TESTS: Daily Activity Limitations Standardized Measure [facility] AM -PAC ?6 clicks? Daily Activity Inpatient Short Form: Raw score: 18 INFORMED CONSENT/EDUCATION: Pt instructed in purpose of OT Consult and plan of care. ASSESSMENT: Patient is a 73-year-old male referred to occupational therapy services with diagnosis of Dizziness, Weakness, UTI (urinary tract infection), Closed head injury. Patient presents with clinical signs and symptoms consistent with dx.OT saw pt for OT consult only, pt demonstrating good technique for ROM and use of (B) UE but needs (A) with his ADL routines. He does get this (A) at baseline. Pt states that he is not interested in services in the hospital setting however, he is interested in adaptive equipment needs. Please refer to below for OT recommendations. AMPAC score 18 Patient is assessed as a Low 53653 complexity based on the following: History: See above Examination: see functional limitations as noted above Presentation: evolving Decision Making: AMPAC score 18 GOALS N/A PLAN OF CARE/TREATMENT PLAN: OT consult only. DISCHARGE RECOMMENDATIONS return to skilled nursing with (A) and services when medically cleared per MD. OT recommends a hospital bed to increase pts safety and bed mobility. OT recommends a raised toilet seat to decrease pain in pts (B) LE And increase safety with toileting routine. TREATMENT TIME/MINUTES/CODES 82184, [id number], 20 minutes (10:00) Xenia Gorman OTR/[facility]
[2019-04-18 12:10] LABS: Glucose 382 mg/dL (74-106)
--- NOTE | 2019-04-18 13:16 | DSE_ITS ---
Date of service: 04/18/19 Time of Service: 11:15 DS: Diagnosis Discharge Diagnosis (1) UTI (urinary tract infection): Status: Acute (2) A-fib: Status: Chronic (3) COPD (chronic obstructive pulmonary disease): Status: Chronic (4) Diabetes mellitus: Status: Chronic (5) Cerebrovascular accident (CVA) due to thrombosis of right middle cerebral artery: Status: Chronic (6) Vascular dementia with behavior disturbance: Status: Chronic (7) BPH w/o urinary obs/LUTS: Status: Chronic (8) DVT prophylaxis: Status: Acute (9) Discharge planning issues: Status: Acute Discharge Plan Disposition Patient Disposition: HOME Condition: Stable Discharge Details Chief Complaint: GenMedical Clinical Impression: Dizziness, Weakness, UTI (urinary tract infection), Closed head injury Reason For Visit: GENERAL WEAKNESS,UTI Admit Date/Time: 04/17/19 15:26 Admit Provider: Brett Shields Attending Provider: Brett Shields Primary Care Provider: Hever Presley ED Provider: Jamal Coello Hospital Course Hospital Course: This is a 73-year-old gentleman who was in a rehab facility after 1 month ago and then was placed in a [facility] where he states the caregivers are excellent. He has a behavior abnormality with probable personality disorder to where he throws himself on the ground or attempts to attention seek by such behavior per the theater set production designer's relative. This was the reason he was placed in the fci rather than the rehab center with patient requiring frequent one-on-one care. He is obese and diabetic with multiple strokes having problems with ambulation but able to walk with a walker at baseline. He is not very active routinely. He had no complaints of fever or chills and had no headache but was reportedly more weak than his baseline. He had no new neurological complaints. His caregivers do give him his injections for diabetes. In the ED his glucose was below 100. He denies any symptoms of hypoglycemia. He had no complaints of dizziness in the ED. With extensive evaluation in the ED he was found to have a probable UTI and this was thought to be the cause of his worsening weakness/malaise though he did not have any other constitutional symptoms. His urine did grow heavy mixed growth, likely consistent with contamination. He remained afebrile and returned to his baseline. His blood sugars quickly became uncontrolled as his insulin was held on admission. He was started back on home dosing and blood sugars improved. He will be advised to continue usual insulin regimen at discharge and to monitor closely and bring log to follow up appointment for possible adjustments. He is eating and drinking. he is voiding without difficulty and post void residuals show no evidence of urinary retention. a repeat urine was also contam inated. He denied any symptoms of frequency, urgency or dysuria. he states he feels at his baseline. he has been afebrile and hemodynamically stable. He has completed 3 days of ceftriaxone and should continue cephalexin for 2 more days to complete a 5 day course. Home Meds and New Rx's Prescriptions: New cephalexin 500 mg tablet 500 mg PO TID Qty: 21 RF: 0 Continued oxybutynin chloride 10 mg tablet extended release 24hr 10 mg PO DAILY Qty: 90 RF: 0 Myrbetriq 50 mg tablet extended release 24 hr 50 mg PO DAILY Qty: 90 RF: 4 Humulin R U-500 (Conc) Insulin 500 unit/mL solution 90 unit SC AC Qty: 20 RF: 5 Basaglar KwikPen U-100 Insulin 100 unit/mL (3 mL) insulin pen 25 unit SC DAILY Qty: 15 RF: 4 promethazine-codeine 6.25-10 mg/5 mL syrup 5 ml PO Q4H PRN (Reason: cough) Qty: 240 RF: 1 (DME) blood-glucose meter [OneTouch Ultra2 Meter] Kit See Rx Instructions .ROUTE .MEDSUPPLY Qty: 1 RF: 0 potassium citrate 10 mEq (1,080 mg) tablet extended release 10 meq PO BID Qty: 180 RF: 4 diltiazem HCl 120 mg capsule,extended release 24hr 120 mg PO DAILY Qty: 90 RF: 4 clopidogrel [Plavix] 75 mg tablet 75 mg PO HS Qty: 90 RF: 4 pantoprazole 40 mg tablet,delayed release (DR/EC) 40 mg PO HS Qty: 90 RF: 4 montelukast 10 mg tablet 10 mg PO DAILY Qty: 90 RF: 0 multivitamin Capsule 1 cap PO DAILY Qty: 90 RF: 4 magnesium oxide 400 mg magnesium tablet 400 mg PO DAILY Qty: 90 RF: 4 losartan 25 mg tablet 25 mg PO DAILY Qty: 90 RF: 4 furosemide 20 mg tablet 20 mg PO DAILY Qty: 30 RF: 4 gabapentin 100 mg capsule 100 mg PO TID Qty: 270 RF: 4 ascorbic acid (vitamin C) [Vitamin C] 500 mg tablet 500 mg PO DAILY Qty: 90 RF: 0 finasteride 5 mg tablet 5 mg PO DAILY Qty: 90 RF: 4 aspirin 81 mg tablet,delayed release (DR/EC) 81 mg PO DAILY Qty: 90 RF: 4 duloxetine 60 mg capsule,delayed release(DR/EC) 60 mg PO HS Qty: 90 RF: 4 sodium bicarbonate 650 mg tablet 650 mg PO BID PRN (Reason: stomach upset) Qty: 180 RF: 4 ferrous sulfate 325 mg (65 mg iron) tablet 325 mg PO DAILY Qty: 90 RF: 4 tamsulosin 0.4 mg capsule 0.8 mg PO DAILY Qty: 180 RF: 4 simvastatin 40 mg tablet 40 mg PO DAILY Qty: 90 RF: 4 olanzapine [Zyprexa] 5 mg tablet 5 mg PO DAILY Qty: 90 RF: 4 C-Pap RF: 0 ergocalciferol (vitamin D2) [Vitamin D2] 50,000 unit capsule 50,000 unit PO monthly Qty: 3 RF: 4 (DME) incontinence pad, liner, disp Pad See Rx Instructions .ROUTE .MEDSUPPLY Qty: 180 RF: 4 (DME) lancets [OneTouch Delica Lancets] 30 gauge misc See Rx Instructions .ROUTE .MEDSUPPLY Qty: 200 RF: 4 (DME) OneTouch Ultra Blue Test Strip Strip See Rx Instructions .ROUTE .MEDSUPPLY Qty: 100 RF: 4 trazodone 50 mg tablet 50 mg PO QHS PRN (Reason: sleep) Qty: 30 RF: 1 (DME) pen needle, diabetic [BD Ultra-Fine Ana Pen Needle] 32 gauge x 5/32 needle 1 ea Miscellaneous 8 time a day Qty: 240 RF: 4 (DME) BD Insulin Syringe U-500 1/2 mL 31 gauge x 15/64 syringe See Rx Instructions .ROUTE .MEDSUPPLY Qty: 200 RF: 0 meprobamate 400 mg tablet 400 mg PO TID Qty: 90 RF: 2 Discharge Instructions Instructions: Urinary Tract Infection in Men (ED), Diabetic Hypoglycemia (DC) Additional Instructions: your blood work and imaging did not show any concerning findings, your urine did show evidence of a urinary tract infection follow up with your primary care provider this week as scheduled. if you feel more ill, have worsening weakness or fevers return to the emergency department Stand Alone Forms: Nursing Discharge Form Referrals: Hever Presley MD [Primary Care Provider] - 04/26/19 10:20 am Activity:: ambulate with walker Equipment/Supplies:: No Equipment Needed Diet:: Carb Counting Discharge Orders Discharge Orders: Discharge Order (Routine); Ordered 04/18/19 Ordered By: Edna Calix DS: Summary Status at Discharge Functional status at discharge: uses cane/walker Overall status at discharge: patient is back to baseline Mental Status: mental status grossly normal Speech and Movement: speech and movement normal Mood: congruent mood Affect: normal affect Exam Const General: cooperative, comfortable and no acute distress Nutritional Appearance: obese Orientation: alert, awake and oriented x3 HENMT Head: normal to inspection, normocephalic and atraumatic Mouth: moist mucous membranes Resp Effort & Inspection: normal respiratory effort and able to speak in complete sentences Auscultation: clear to auscultation bilaterally Cardio Rate: regular rate Rhythm: regular rhythm GI Inspection: normal to inspection and obesity Palpation: soft Auscultation: normal bowel sounds General: other (no urinary retention on bladder scan, post void residuals around 100 cc) Skin General skin exam: no rashes or lesions noted Neuro General: alert, awake and oriented x3 Cognition: normal cognition Speech: speech normal Gait: normal gait Motor: muscle tone normal throughout and strength 5/5 throughout (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 from a prior stroke at baseline) Coordination: [id number] test normal Extrem General: normal to inspection and full ROM Psych Mental Status: mental status grossly normal Speech and Movement: speech and movement normal Mood: congruent mood Affect: normal affect DS: Data Vitals/I&O Vitals and I&O: Vital Signs Temperature 36.5 C 04/18/19 07:26 Temperature Source Tympanic 04/18/19 07:26 Pulse 105 H 04/18/19 11:02 Pulse Rhythm Regular 04/18/19 09:05 Pulse 84 04/15/19 21:31 Respiratory Rate 22 04/18/19 08:06 Respiratory Effort 04/18/19 09:05 Respiratory Depth Normal 04/18/19 09:05 Respiratory Pattern Normal 04/18/19 09:05 Blood Pressure 150/89 H 04/18/19 11:02 Blood Pressure Mean 79 04/15/19 21:31 Pulse Oximetry 94 L 04/18/19 08:05 Oxygen Delivery Method Nasal Cannula 04/18/19 08:05 Oxygen Flow Rate 3 04/18/19 08:05 Pain Level 0 04/18/19 07:26 Comment 04/17/19 07:30 Intake & Output 04/17/19 04/18/19 04/18/19 23:59 11:59 23:59 Intake Total 720 / 1220 Output Total 300 / 908 300 / 300 Balance 420 / 312 -300 / -300 Weight 131.1 kg Intake: Oral 720 / 1220 Output: Urine 300 / 908 300 / 300 Other: Urine Color Yellow Yellow Urine Appearance Clear Clear Urine Odor Normal Comment pT was incontinent in diaper and when sitting on commode the urine went on the floor was unable to measure output. Stool Size Large Stool Characteristics Soft Formed Voiding Methods Urinal Bedside Commode Diaper Incontinent Data Completed and Pending Labs on day of discharge: Labs from last 24 hours 04/18/19 04/18/19 04/18/19 11:55 09:20 09:20 WBC 12.91 H RBC 3.64 L Hgb 11.9 L Hct 37.2 L MCV 102.2 H MCH 32.7 MCHC 32.0 RDW 14.6 H Plt Count 110 L MPV 12.7 H Sodium 134 L Potassium 5.1 Chloride 98 Carbon Dioxide 30.6 Anion Gap 5.4 BUN 52 H D Creatinine 2.36 H Estimated GFR/1.73 m2 27.04 Glucose 382 H 422 H Calcium 8.9 Urine Color Urine Clarity Urine pH Ur Specific [place] Urine Protein Urine Ketones Urine Blood Urine Nitrite Urine Bilirubin Urine Urobilinogen Ur Leukocyte Esterase Urine Glucose 04/18/19 04/17/19 01:50 16:30 WBC RBC Hgb Hct MCV MCH MCHC RDW Plt Count MPV Sodium Potassium Chloride Carbon Dioxide Anion Gap BUN Creatinine Estimated GFR/1.73 m2 Glucose 425 H Calcium Urine Color Pending Urine Clarity Pending Urine pH Pending Ur Specific [place] Pending Urine Protein Pending Urine Ketones Pending Urine Blood Pending Urine Nitrite Pending Urine Bilirubin Pending Urine Urobilinogen Pending Ur Leukocyte Esterase Pending Urine Glucose Pending [facility] Medical History (Updated 04/17/19 @ 15:03 by Edna Calix NP) A-fib (Chronic) Cerebrovascular accident (CVA) (Chronic 05/04/11) 4 CVA'S 09/02/00-11/02/00 1 CVA 04/15/01 TIA'S 04/19/01 & 12/06/01 03/19/06 CVA VARIOUS STROKES SHOWN IN MRI 09/14 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 (Chronic 03/09/07) Depressive disorder (Chronic 05/04/11) Diabetes mellitus (Chronic 05/04/11) DVT prophylaxis (Acute) Frequent falls (Acute) Frontal lobe and executive function deficit following cerebral infarction (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) Gait instability (Chronic) HCAP (healthcare-associated pneumonia) (Inactive) Late, effect, cerebrovascular disease (Chronic 03/09/07) Malignant neoplasm of sigmoid colon (Chronic 02/21/15) penitentiary resident (Resolved) Obesity (Chronic) Palliative care patient (Chronic) Vascular dementia (Chronic) Vascular dementia with behavior disturbance (Chronic 03/23/16) Surgical History Appendectomy Arthroplasty of knee RIGHT HERNIA REPAIR X 3 History of arthroscopy of knee (Inactive) History of spinal surgery (Inactive) LOW BACK SURGERY PROPOFOL SEDATION 01/05/13; [facility] [place]; DIFFICULT INTUBATION; B/P BOTTOMED OUT Status post appendectomy (Inactive) Tonsillectomy UPPP (Uvulopalatopharyngoplasty) Family History Mother , age 96 of old age per pt Essential hypertension Heart disease Father , age 81 from stomach cancer Cancer Sister Essential hypertension Brother Essential hypertension Grandfather Heart disease Grandfather Heart disease Grandmother Heart disease Social History Smoking/Tobacco Use Status: Former Tobacco Use Alcohol Intake: never Drug use: Never Caregiver/Support person: Yes Household members: other Housing: half-way Number of Children: 1 Communication Needs: Hard of Hearing and Corrective Lenses Education Level: high school Do you need help understanding health information?: Always 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; 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 Pets and animals: Yes What is your relationship status?: How often do you talk on the phone with friends or family?: three or more times per week How often do you get together with friends or relatives?: three or more times per week Panel score (0-1 are the most socially isolated patients): 2 What type of physical activity do you participate in: none Special aidee needs: No Seatbelt use: always Working smoke detector in home: Yes Fire extinguisher in home: Yes Do you feel safe at home: Yes Do you feel safe in your relationship?: Yes Additional Social history: Now living in community senior living. Caregivers Mayelin and Brett Grove. Moved in 2 days before , 2019. Happy there. Getting out of the house. Enjoys Brett's sense of humor. Has a new cat, Ruger. More active. Getting OOB. Getting dressed. Being more social than he has been.
--- NOTE | 2019-04-18 15:06 | PT.INTREAT ---
Date of service: 04/18/19 Time of Service: 15:06 PT Notes Visit Reasons: GENERAL WEAKNESS,UTI Inpatient Physical Therapy Treatment Note [facility] Date: 04/18/2019 PRECAUTIONS: Fall SUBJECTIVE: Ken is agreeable to participating in PT. He reports that he is feeling much better today. He is happy that he will be returning to home later this afternoon. OBJECTIVE: PAIN: NO c/o pain BED MOBILITY/TRANSFERS Sit-supine: SBA Sit-stand: CGA Stand-sit: CGA GAIT Assistive Device: FWW Weight bearing: Full Assist: SBA Distance: 30' x2 Deviation: Seated rest x1, increased SOB and fatigue ASSESSMENT: Patient tolerated session with complaint of increased SOB and fatigue with activity. He was able to tolerate a progression in gait distance with FWW support and SBA. He would benefit from continued participation in Physical Therapy for improved mobility and activity tolerance. PLAN: As per primary PT TREATMENT CODE/TIME: 15 minutes; [id number]
--- NOTE | 2019-04-18 15:24 | PDOC.CMDIS ---
- If Service Date Differs Date of service: 04/18/19 Time of Service: 15:24 LACE Index Scoring Tool - Questions: Length of Stay (in days): 1 Acuity (Admit via E.D.?): Yes Comorbidities: Cerebrovascular Disease, Diabetes w/o Complication E.D. Visits: 5 - Answers: Total Score: 10 Risk of Readmission: High Risk Care Management Discharge Reason for Hospitalization: Weakness, frequent falls, UTI Discharge Plan: Juan is discharged back to his [facility] home with resumption of Home Health RN and PT. He will follow up with his primary care physician and plan of care as directed, including medication recommendations. His home provider, Ken, is transporting him home via private vehicle. Patient/Family Education Needs: Nursing will review discharge instructions with Juan and his home provider re medications and follow-up appointments. Juan is able to verbalize reason for hospitalization and how to manage care at home.
== END 2019-04-18 15:11 | disposition home or self-care (01) | DRG 690 ==
LOC: ER 21:50 → MS 22:15
PROVIDERS: Nurse Practitioner Acute Care; Physician Assistant; Admitting Provider Family Medicine; Emergency Provider Emergency Medicine; PCP Family Medicine; Visit Provider Internal Medicine
DX: N39.0 Urinary tract infection, site not specified (principal); F01.51 Vascular dementia, unspecified severity, with behavioral disturbance; Z68.42 Body mass index [BMI] 45.0-49.9, adult; I69.354 Hemiplegia and hemiparesis following cerebral infarction affecting left non-dominant side; R29.6 Repeated falls; R53.81 Other malaise; R26.81 Unsteadiness on feet; I48.91 Unspecified atrial fibrillation; J44.9 Chronic obstructive pulmonary disease, unspecified; E11.22 Type 2 diabetes mellitus with diabetic chronic kidney disease; N18.3 Chronic kidney disease, stage 3 (moderate); N40.0 Benign prostatic hyperplasia without lower urinary tract symptoms; F91.8 Other conduct disorders; E66.01 Morbid (severe) obesity due to excess calories; M54.5 Low back pain; W19.XXXA Unspecified fall, initial encounter; Z79.4 Long term (current) use of insulin; R32 Unspecified urinary incontinence; E11.65 Type 2 diabetes mellitus with hyperglycemia; I69.319 Unspecified symptoms and signs involving cognitive functions following cerebral infarction; I69.398 Other sequelae of cerebral infarction; Z79.02 Long term (current) use of antithrombotics/antiplatelets; Z79.82 Long term (current) use of aspirin; Z73.89 Other problems related to life management difficulty; Z99.81 Dependence on supplemental oxygen; Z87.891 Personal history of nicotine dependence; Z71.3 Dietary counseling and surveillance
CPT/HCPCS: 36415; 71250; 80048; 80053; 82947; 84145; 85027; 93005; 94640; 96361; 96365; 97162; 97165; 97530; 97535; 99220; 99233; 99239; 99285; 70450; 72125; 72131; 74176; 81003; 81015; 83735; 84443; 84484; 85025; 85610; 85730; 87086; 93010; 99226; G0378; J0696; J1644; J3490; J7512